=== PATIENT | male | born 1955 | race Caucasian/White ===

== ENCOUNTER 2017-11-05 13:13 | Inpatient (IN) | payer OTHER ==
[2017-11-05] MEDS ORDERED: methylPREDNISolone SOD SUCCI 125 MG/2 ML VIAL IV STA (13:55)
[2017-11-05 14:17] LABS: ALT 60 U/L (21-72); AST 46 U/L (17-59); Albumin 3.9 g/dL (3.5-5.0); Alkaline Phosphatase 81 U/L (38-126); Anion Gap 11 mmol/L; Basophils % (A) 0 %; Blood Urea Nitrogen 18 mg/dL (9-20); Calcium 9.7 mg/dL (8.4-10.2); Carbon Dioxide 27 mmol/L (22-30); Chloride 104 mmol/L (98-107); Eosinophils # (A) 0.1 k/uL (0-0.7); Eosinophils % (A) 1 %; Glucose 94 mg/dL (74-99); HCT 49.5 % (39.0-53.0); HGB 16.8 gm/dL (13.0-17.5); Lymphocytes # (A) 1.4 k/uL (1.0-4.8); Lymphocytes % (A) 17 %; MCH 31.6 pg (25.0-35.0); MCHC 33.9 g/dL (31.0-37.0); MCV 93.2 fL (80.0-100.0); Mean Platelet Volume 7.1; Monocytes # (A) 0.6 k/uL (0-1.0); Monocytes % (A) 7 %; Neutrophils % (A) 73 %; Platelet Count 235 k/uL (150-450); RBC 5.31 m/uL (4.30-5.90); Sodium 142 mmol/L (137-145); Total Bilirubin 1.5 mg/dL (0.2-1.3); Total Protein 6.9 g/dL (6.3-8.2); WBC 8.2 k/uL (3.8-10.6)
[2017-11-05 14:19] LABS: Potassium 5.9 mmol/L (3.5-5.1)
--- NOTE | 2017-11-05 14:29 | XR ---
EXAMINATION TYPE: XR chest 2V DATE OF EXAM: 11/05/2017 COMPARISON: NONE HISTORY: Difficulty breathing and shortness of breath TECHNIQUE: Frontal and lateral views of the chest are obtained. FINDINGS: There is no focal air space opacity, pleural effusion, or pneumothorax seen. The cardiac silhouette size is enlarged. There are overlying cardiac leads. Question some mild prominence of int erstitium. The osseous structures are intact. IMPRESSION: Cardiomegaly, there may be a component of pulmonary venous hypertension and early inters titial edema. Follow-up recommended as indicated.
[2017-11-05 14:39] LABS: Partial Thromboplastin Time 22.3 sec (22.0-30.0)
[2017-11-05 14:41] LABS: INR 1.2 (<1.2); Prothrombin Time 11.3 sec (9.0-12.0)
[2017-11-05 14:48] LABS: Creatine Kinase MB 5.6 ng/mL (0.0-2.4)
[2017-11-05 14:53] LABS: Troponin I 0.061 ng/mL (0.000-0.034)
[2017-11-05] MEDS ORDERED: SODIUM POLYSTYRENE SULFONATE 15 GM/60 ML BOTTLE PO STA (17:17)
[2017-11-05] MEDS ORDERED: FUROSEMIDE 10 MG/ML 4 ML VIAL IV STA (17:18)
--- NOTE | 2017-11-05 17:19 | ED ---
General Adult HPI - General Chief complaint: Shortness of Breath Stated complaint: sent by [facility] concerns Time Seen by Provider: 11/05/17 13:45 Source: patient Mode of arrival: wheelchair Limitations: no limitations - History of Present Illness Initial comments: 62 years old gentleman and numb he vague historian complaining about the left feeling well complaining about the shortness of breath complaining about swelling of the ankles him a he seen Dr. cote and prior, he had a chance to talk to Dr. hartmann a chest pain yesterday and today is denying any chest pain he has a shortness of breath he said it's chronic he denies any pleuritic chest pain he said he does not hurt when he takes a deep breath Dr. cote did some blood work in his office troponin is elevated he had a cardiomegaly with did the same we saw the same findings here his chest x-ray is positive for cardiomegaly and consistent with the heart failure BNP is also pointing towards heart failure is 4560 is denying other otherwise review of system is unremarkable - Related Data Home Medications Medication Instructions Recorded Confirmed Aspirin 81 mg PO DAILY 11/05/17 11/05/17 Furosemide [Lasix] 20 mg PO DAILY 11/05/17 11/05/17 Ipratropium-Albuterol Nebulize 3 ml INHALATION RT-Q6H PRN 11/05/17 11/05/17 [Duoneb 0.5 mg-3 mg/3 ml Soln] Lisinopril [Prinivil] 5 mg PO DAILY 11/05/17 11/05/17 Allergies Allergy/AdvReac Type Severity Reaction Status Date / Time No Known Allergies Allergy Verified 11/05/17 14:04 Review of Systems ROS Statement: Those systems with pertinent positive or pertinent negative responses have been documented in the HPI. ROS Other: All systems not noted in ROS Statement are negative. Past Medical History Past Medical History: No Reported History History of Any Multi-Drug Resistant Organisms: None Reported Past Surgical History: No Surgical Hx Reported Past Psychological History: No Psychological Hx Reported Smoking Status: Current every day smoker Past Alcohol Use History: Daily Past Drug Use History: None Reported General Exam - General Exam Comments Initial Comments: General: The patient is awake and alert, in no distress, and does not appear acutely ill. Pale and tired Skin: Skin is warm and dry and no rashes or lesions are noted. Eye: Pupils are equal, round and reactive to light, extra-ocular movements are intact; there is normal conjunctiva bilaterally. Ears, nose, mouth and throat: There are moist mucous membranes and no oral lesions. Neck: The neck is supple, there is no tenderness Cardiovascular: There is a regular rate and rhythm. No murmur, rub or gallop is appreciated. Respiratory: To auscultation bilateral, noticed crackles bilaterally at the bases Gastrointestinal: Soft, non-distended, non-tender abdomen without masses or organomegaly noted. There is no rebound or guarding present. Bowel sounds are unremarkable. Back: There is no tenderness to palpation in the midline. There is no obvious deformity. Musculoskeletal: Normal ROM, no tenderness, There is no pedal edema. There is no calf tenderness or swelling. No cords were appreciated. Neurological: CN II-XII intact, Cranial nerves III through XII are intact. There are no obvious motor or sensory deficits. Coordination appears grossly intact. Speech is normal. Psychiatric: Cooperative, appropriate mood & affect, normal judgment. Limitations: no limitations Course Vital Signs 11/05/17 11/05/17 11/05/17 13:40 13:46 13:47 Pulse Rate 106 H Respiratory 20 20 Rate Blood Pressure 125/89 O2 Sat by Pulse 83 L 94 L Oximetry 11/05/17 11/05/17 14:20 15:36 Pulse Rate 103 H 100 Respiratory 20 18 Rate Blood Pressure 137/84 137/84 O2 Sat by Pulse 94 L 95 Oximetry Patient is reassessed, CBC is unremarkable INR is unremarkable potassium is 5.9 given some Kayexalate we also will give her some Lasix Is elevated 0.061 BNP is 4560 chest x-ray is compatible with congestive heart failure EKG Findings - EKG Comments: EKG Findings:: EKG is sinus tachycardia heart rate is 108, AR interval is 154 QRS duration is 126 QT/QTc 356/477 findings in lead 3 and 4 then look like initially has ST segment elevation the patient has no chest pain then noticed some ST depression in V2 and more so in V4 V5 and V6 Medical Decision Making - Lab Data Result diagrams: 11/05/17 13:54 11/05/17 13:54 Lab Results 11/05/17 11/05/17 11/05/17 Range/Units 13:54 13:54 13:54 WBC 8.2 (3.8-10.6) k/uL RBC 5.31 (4.30-5.90) m/uL Hgb 16.8 (13.0-17.5) gm/dL Hct 49.5 (39.0-53.0) % MCV 93.2 (80.0-100.0) fL MCH 31.6 (25.0-35.0) pg MCHC 33.9 (31.0-37.0) g/dL RDW 14.0 (11.5-15.5) % Plt Count 235 (150-450) k/uL Neutrophils % 73 % Lymphocytes % 17 % Monocytes % 7 % Eosinophils % 1 % Basophils % 0 % Neutrophils # 6.0 (1.3-7.7) k/uL Lymphocytes # 1.4 (1.0-4.8) k/uL Monocytes # 0.6 (0-1.0) k/uL Eosinophils # 0.1 (0-0.7) k/uL Basophils # 0.0 (0-0.2) k/uL PT (9.0-12.0) sec INR (<1.2) APTT (22.0-30.0) sec Sodium 142 (137-145) mmol/L Potassium 5.9 H (3.5-5.1) mmol/L Chloride 104 (98-107) mmol/L Carbon Dioxide 27 (22-30) mmol/L Anion Gap 11 mmol/L BUN 18 (9-20) mg/dL Creatinine 0.98 (0.66-1.25) mg/dL Est GFR (CKD-EPI)AfAm >90 (>60 ml/min/1.73 sqM) Est GFR (CKD-EPI)NonAf 84 (>60 ml/min/1.73 sqM) Glucose 94 (74-99) mg/dL Calcium 9.7 (8.4-10.2) mg/dL Total Bilirubin 1.5 H (0.2-1.3) mg/dL AST 46 (17-59) U/L ALT 60 (21-72) U/L Alkaline Phosphatase 81 (38-126) U/L Total Creatine Kinase 149 (55-170) U/L CK-MB (CK-2) 5.6 H* (0.0-2.4) ng/mL CK-MB (CK-2) Rel Index 3.8 Troponin I 0.061 H* (0.000-0.034) ng/mL NT-Pro-B Natriuret Pep pg/mL Total Protein 6.9 (6.3-8.2) g/dL Albumin 3.9 (3.5-5.0) g/dL 11/05/17 11/05/17 Range/Units 13:54 13:54 WBC (3.8-10.6) k/uL RBC (4.30-5.90) m/uL Hgb (13.0-17.5) gm/dL Hct (39.0-53.0) % MCV (80.0-100.0) fL MCH (25.0-35.0) pg MCHC (31.0-37.0) g/dL RDW (11.5-15.5) % Plt Count (150-450) k/uL Neutrophils % % Lymphocytes % % Monocytes % % Eosinophils % % Basophils % % Neutrophils # (1.3-7.7) k/uL Lymphocytes # (1.0-4.8) k/uL Monocytes # (0-1.0) k/uL Eosinophils # (0-0.7) k/uL Basophils # (0-0.2) k/uL PT 11.3 (9.0-12.0) sec INR 1.2 H (<1.2) APTT 22.3 (22.0-30.0) sec Sodium (137-145) mmol/L Potassium (3.5-5.1) mmol/L Chloride (98-107) mmol/L Carbon Dioxide (22-30) mmol/L Anion Gap mmol/L BUN (9-20) mg/dL Creatinine (0.66-1.25) mg/dL Est GFR (CKD-EPI)AfAm (>60 ml/min/1.73 sqM) Est GFR (CKD-EPI)NonAf (>60 ml/min/1.73 sqM) Glucose (74-99) mg/dL Calcium (8.4-10.2) mg/dL Total Bilirubin (0.2-1.3) mg/dL AST (17-59) U/L ALT (21-72) U/L Alkaline Phosphatase (38-126) U/L Total Creatine Kinase (55-170) U/L CK-MB (CK-2) (0.0-2.4) ng/mL CK-MB (CK-2) Rel Index Troponin I (0.000-0.034) ng/mL NT-Pro-B Natriuret Pep 4560 pg/mL Total Protein (6.3-8.2) g/dL Albumin (3.5-5.0) g/dL Critical Care Time Total Critical Care Time: 45 Critical Care Time: Considering his elevated troponin and require and heparinize him and considering his congestive heart failure and hyperkalemia he would need IV Lasix as well as Kayexalate and he'll be seeing cardiology Disposition Clinical Impression: Elevated troponin, Hypoxia, Congestive heart failure Disposition: ADMITTED IP TO THIS HOSP Condition: Good Referrals: Danny Couch MD [Primary Care Provider] - 1-2 days
[2017-11-05] MEDS ORDERED: NITROGLYCERIN SL TABS 0.4 MG TAB SUBLINGUAL PRN (17:44)
[2017-11-05] MEDS ORDERED: HEPARIN SODIUM,PORCINE 5,000 UNIT/ML 1 ML VIAL IV ONE (17:44)
[2017-11-05] MEDS ORDERED: MORPHINE SULFATE 4 MG/ML SYRINGE IV PRN (17:44)
[2017-11-05] MEDS ORDERED: HEPARIN SOD,PORK IN 0.45% NACL 25,000 UNIT in 0.45% NACL 1 500ML.BAG IV SCH (17:45)
[2017-11-05 21:21] LABS: Creatine Kinase MB 4.5 ng/mL (0.0-2.4); Troponin I 0.053 ng/mL (0.000-0.034)
[2017-11-05] MEDS: ATORVASTATIN 40 MG TAB PO SCH (22:17)
[2017-11-06 01:57] LABS: Creatine Kinase MB 2.9 ng/mL (0.0-2.4); Troponin I 0.057 ng/mL (0.000-0.034)
[2017-11-06] MEDS ORDERED: HEPARIN SODIUM,PORCINE 5,000 UNIT/ML 1 ML VIAL IV ONE (03:22)
[2017-11-06] MEDS: IPRATROPIUM-ALBUTEROL 3 ML NEB INHALATION PRN ×2 (07:59→13:38)
[2017-11-06] MEDS ORDERED: SODIUM CHLORIDE 0.9% 1,000 ML in EMPTY BAG 1 BAG IV ONE (08:41)
[2017-11-06] MEDS ORDERED: ALPRAZolam 0.5 MG TAB PO PRN (08:41)
[2017-11-06] MEDS ORDERED: ASPIRIN 325 MG TAB PO STA (08:41)
[2017-11-06] MEDS ORDERED: ATORVASTATIN 80 MG TAB PO STA (08:41)
[2017-11-06] MEDS ORDERED: ALPRAZolam 0.25 MG TAB PO PRN (08:41)
[2017-11-06] MEDS ORDERED: NITROGLYCERIN SL TABS 0.4 MG TAB SUBLINGUAL PRN (08:41)
[2017-11-06] MEDS ORDERED: FUROSEMIDE 20 MG TAB PO SCH (09:00)
[2017-11-06] MEDS: LIDOCAINE 5% PATCH TOPICAL SCH ×2 (09:04→21:28)
[2017-11-06] MEDS: LISINOPRIL 5 MG TAB PO SCH (09:07)
[2017-11-06] MEDS: ASPIRIN 325 MG TAB PO SCH (09:08)
[2017-11-06] MEDS: METOPROLOL SUCCINATE (ER) 25 MG TAB.ER.24H PO SCH (09:10)
--- NOTE | 2017-11-06 10:44 | CONS ---
CONSULTATION CHIEF COMPLAINT: Shortness of breath. This is a 62-year-old gentleman with history of COPD and hypertension who presented to Dr. Couch with symptoms of shortness of breath and leg edema and underwent workup and apparently had an abnormal chest x-ray was told that he had fluid around his heart and was asked to get admitted to the hospital. He denies any chest pain, but has had mild to moderate exertional shortness of breath for the last several weeks. He also has mild bilateral leg edema. He denies paroxysmal nocturnal dyspnea or orthopnea. He denies prior history of cardiomyopathy, congestive heart failure or coronary artery disease. At the time of my evaluation, he appears comfortable at rest and is free of symptoms. His echocardiogram shows severe LV dysfunction. EKG shows evidence of prior inferior wall myocardial infarction. I reviewed his information and advised him to undergo cardiac catheterization to evaluate his coronary anatomy because of his symptoms, EKG changes and the elevated troponins. His BNP is also elevated. His potassium is elevated at 5.9, but the creatinine is normal. I am going to cath him once the potassium level normalizes. PAST MEDICAL HISTORY: Past medical history is significant for COPD. CURRENT MEDICATIONS: Current medications include DuoNeb, Prinivil 5 mg daily, Lasix 20 q. daily and aspirin. ALLERGIES: There are no known drug allergies. FAMILY HISTORY: Family history is negative for premature coronary artery disease. SOCIAL HISTORY: Social history is significant for smoking and EtOH abuse. There is no history of drug abuse. REVIEW OF SYSTEMS: HEENT is unremarkable. CARDIAC: As described above. RESPIRATORY: As described above. GI: Negative. GENITOURINARY: Negative. ALLERGY/IMMUNOLOGY: Negative. SKIN: Negative. MUSCULOSKELETAL: Significant for arthritis. PSYCHOSOCIAL: Negative. ENDOCRINE: Negative. HEMATOLOGICAL: Negative. DERM: Negative. CONSTITUTIONAL: Negative. ONCOLOGICAL: Negative. Rest of the system review is not relevant. PHYSICAL EXAM: On exam, patient is afebrile. Heart rate is 90 beats per minute, blood pressure is 114/70, respiratory rate is 18. Chest exam reveals diminished air entry at the bases. Heart exam reveals first and second heart sounds. No gallop. Abdomen is soft. Examination of extremities reveals bilateral 1+ pitting edema. LABS: Labs show that the hemoglobin is 16.8, platelet count is 235. Tropes are mildly elevated at 0.06, 0.05, 0.05. BNP is elevated at 4560. Creatinine is normal. Potassium is high at 5.9. Hemoglobin is 16.8. ASSESSMENT: 1. Acute non ST-segment elevation myocardial infarction. 2. Acute onset systolic heart failure. PLAN: I will treat the patient with intravenous diuretics. Continue the KIERA inhibitors, beta blockers. Obtain electrolytes this morning. If the potassium level is normal, then we can go ahead and do the catheter today. If not, I will give him Kayexalate and do a heart catheterization tomorrow. KEVINL / IJN: [id number] /
[2017-11-06 10:57] LABS: Anion Gap 16 mmol/L; Blood Urea Nitrogen 20 mg/dL (9-20); Calcium 9.5 mg/dL (8.4-10.2); Carbon Dioxide 22 mmol/L (22-30); Chloride 104 mmol/L (98-107); Glucose 110 mg/dL (74-99); Potassium 3.9 mmol/L (3.5-5.1); Sodium 142 mmol/L (137-145)
[2017-11-06 11:18] LABS: Cholesterol 157 mg/dL (<200); HDL Cholesterol 36 mg/dL (40-60); LDL Cholesterol,Calculated 101 mg/dL (0-99); Triglycerides 99 mg/dL (<150)
[2017-11-06] MEDS ORDERED: SODIUM CHLORIDE 0.9% 1,000 ML IV ONE (11:28)
[2017-11-06] MEDS: MIDAZOLAM 2 MG/2 ML VIAL IV ONE ×3 (11:42→12:10)
[2017-11-06] MEDS ORDERED: LIDOCAINE 2% INJ 20 MG/ML SQ ONE (11:44)
[2017-11-06] MEDS ORDERED: FUROSEMIDE 10 MG/ML 4 ML VIAL IV ONE (12:10)
[2017-11-06] MEDS ORDERED: RX INFO: IV CONTRAST WAS GIVEN 1 EACH MISC MISCELLANE PRN (12:15)
[2017-11-06] MEDS ORDERED: IOHEXOL 350 MG/ML 125ML BOTTLE INJ ONE (12:18)
--- NOTE | 2017-11-06 12:19 | ECHOF ---
Referral Reason:CHEST PAIN MEASUREMENTS -------- HEIGHT: 180.3 cm WEIGHT: 106.1 kg BP: IVSd: 0.9 cm (0.6 - 1.1) LVIDd: 5.2 cm (3.9 - 5.3) LVPWd: 1.0 cm (0.6 - 1.1) IVSs: 1.2 cm LVIDs: 5.1 cm LVPWs: 0.7 cm Ao Diam: 3.5 cm (2.0 - 3.7) AV Cusp: 2.3 cm (1.5 - 2.6) LA Diam: 3.9 cm (2.7 - 3.8) MV EXCURSION: 15.857 mm (> 18.000) MV EF SLOPE: 57 mm/s (70 - 150) EPSS: 1.5 cm MV E Pineda: 0.97 m/s MV DecT: 104 ms MV A Pineda: 0.90 m/s MV E/A Ratio: 1.08 RAP: 5.00 mmHg RVSP: 9.56 mmHg FINDINGS -------- Sinus rhythm. This was a technically difficult study with suboptimal views. The left ventricular size is normal. Left ventricular wall thickness is normal. There is severe g lobal hypokinesis of LV . Overall left ventricular systolic function is severely impaired with, an EF between 20 - 25 %. The right ventricle is normal in size and function. The left atrium is normal in size. The right atrium is normal in size. Lumason used The aortic valve is trileaflet, and appears structurally normal. No aortic stenosis or regurgitation. There is trace mitral regurgitation. Trace tricuspid regurgitation present. The right ventricular systolic pressure, as measured by Dopp ler, is 9.56mmHg. Pulmonic valve appears structurally normal. The aortic root, ascending aorta and aortic arch are normal. The pericardium is normal. CONCLUSIONS -------- 1. Sinus rhythm. 2. This was a technically difficult study with suboptimal views. 3. The left ventricular size is normal. 4. Left ventricular wall thickness is normal. 5. There is severe global hypokinesis of LV . 6. Overall left ventricular systolic function is severely impaired with, an EF between 20 - 25 %. 7. The right ventricle is normal in size and function. 8. The left atrium is normal in size. 9. The right atrium is normal in size. 10. Lumason used 11. The aortic valve is trileaflet, and appears structurally normal. No aortic stenosis or regurgitat ion. 12. There is trace mitral regurgitation. 13. Trace tricuspid regurgitation present. 14. The right ventricular systolic pressure, as measured by Doppler, is 9.56mmHg. 15. Pulmonic valve appears structurally normal. 16. The aortic root, ascending aorta and aortic arch are normal. 17. The pericardium is normal. [employer]ACH[employer]: Elicia Juarez RDCS
--- NOTE | 2017-11-06 12:22 | P.HPIM ---
History of Present Illness H&P Date: 11/06/17 Chief Complaint: chest pain 62-year-old male who presented to the emergency room after he was evaluated by his primary care physician, Dr. Couch, on an outpatient basis. Patient reports he saw his PCP on Saturday for a follow up for shortness of breath. The patient was recently diagnosed with tracheobronchitis and was prescribed Levaquin, prednisone, and DuoNeb treatments. His shortness of breath persisted. Patient also reported cough with positive sputum production. The patient's oxygen saturation was 93% on room air. The patient ambulated around the office and his oxygen saturations remained greater than 92%. A chest x-ray was completed at the office revealing cardiomegaly. The patient also reported bilateral lower extremity edema and an episode of chest pain on Saturday. An EKG was completed revealing old inferior and anterior wall MIs. A troponin was completed at the office and came back at 0.08. The patient was started on aspirin 81 mg daily, Lasix 20 mg daily, and lisinopril 5 mg daily at that time. He was not started on a beta keeley at that time as his heart rate was in the low 60s at Dr. Couch's office. The patient was advised to come to the emergency room for further evaluation. The patient has a history of chronic obstructive pulmonary disease. He reports smoking approximately 6 cigarettes per day. He also admits to the drinking 2-3 alcoholic beverages per day. Chest x-ray 11/05/2017: Cardiomegaly. There may be a component of pulmonary venous hypertension and early interstitial edema. Laboratory data: WBC 8.2. Hemoglobin 16.8. Platelet count 235. Sodium 142. Potassium 5.9. BUN 18. Creatinine 0.98. GFR 84. Glucose 94. BNP: 4560 Troponins: 0.061, 0.053, 0.057 Lipid panel: Triglycerides 99. Total cholesterol 157. LDL 101. HDL 36. The patient was admitted to the hospital under the care of Dr. Couch. Consultations were placed to cardiology. Review of Systems GENERAL: Patient denies fever. Denies chills. EYES: Positive for decreased vision bilaterally. Denies blurred vision. Denies vision changes. Denies eye pain. EARS, NOSE, MOUTH, & THROAT: Denies headache. Denies sore throat. Denies ear pain. RESPIRATORY: Positive for recent shortness of breath with sputum production. Patient denies shortness of breath at this time. Denies hemoptysis. CARDIOVASCULAR: Positive for episode of chest pain on Saturday. Currently denies chest pain. Denies palpitations. Denies arrhythmias. GASTROINTESTINAL: Denies abdominal pain. Denies diarrhea. Denies constipation. Denies nausea. Denies vomiting. Denies heartburn. Denies blood in the stool. GENITOURINARY: Denies urinary frequency. Denies burning. Denies dysuria. Denies cloudy urine. Denies blood in the urine. MUSCULOSKELETAL: Denies myalgias. Denies joint swelling. Denies decreased range of motion beyond patients baseline. INTEGUMENTARY: Positive for bilateral lower extremity edema. Denies pruitis. Denies rash. PSYCHIATRIC: Denies suicidal or homicial ideations. ENDOCRINE: Denies weight change. Denies polydipsia. Denies polyuria. HEMATOLOGIC: Denies bleeding disorders. Past Medical History Past Medical History: Pneumonia Additional Past Medical History / Comment(s): PT STATED APPROX 2.5 WEEKS AGO ( HE HAD A FEW BEERS IN HIM) AND HE HAD SEIZURE LIKE ACTIVITY.STATED HE PUT HIS 'S O2 ON AND HE FELT BETTER" History of Any Multi-Drug Resistant Organisms: None Reported Past Surgical History: No Surgical Hx Reported Past Anesthesia/Blood Transfusion Reactions: No Reported Reaction Smoking Status: Current every day smoker - Past Family History Mother History Unknown: Yes Father History Unknown: Yes Medications and Allergies Home Medications Medication Instructions Recorded Confirmed Type Aspirin 81 mg PO DAILY 11/05/17 11/05/17 History Furosemide [Lasix] 20 mg PO DAILY 11/05/17 11/05/17 History Ipratropium-Albuterol Nebulize 3 ml INHALATION RT-Q6H PRN 11/05/17 11/05/17 History [Duoneb 0.5 mg-3 mg/3 ml Soln] Lisinopril [Prinivil] 5 mg PO DAILY 11/05/17 11/05/17 History Allergies Allergy/AdvReac Type Severity Reaction Status Date / Time No Known Allergies Allergy Verified 11/05/17 14:04 Physical Exam Vitals: Vital Signs Temp Pulse Pulse Pulse Resp BP BP 11/06/17 11:12 97.4 F L 94 22 117/79 11/06/17 09:34 97 F L 101 H 18 119/73 11/06/17 08:08 92 11/06/17 08:01 92 11/06/17 04:00 97.1 F L 92 20 114/70 11/05/17 23:55 97.2 F L 78 20 122/59 11/05/17 20:00 97.4 F L 98 98 21 129/67 11/05/17 18:30 97.6 F 11/05/17 18:22 102 H 20 153/104 11/05/17 15:36 100 18 137/84 11/05/17 14:20 103 H 20 137/84 11/05/17 13:47 20 11/05/17 13:46 11/05/17 13:40 106 H 20 125/89 Pulse Ox 11/06/17 11:12 96 11/06/17 09:34 94 L 11/06/17 08:08 11/06/17 08:01 11/06/17 04:00 97 11/05/17 23:55 98 11/05/17 20:00 97 11/05/17 18:30 11/05/17 18:22 98 11/05/17 15:36 95 11/05/17 14:20 94 L 11/05/17 13:47 11/05/17 13:46 94 L 11/05/17 13:40 83 L Intake and Output 11/05/17 11/06/17 11/06/17 22:59 06:59 14:59 Intake Total 177.755 180 Output Total 300 600 Balance -300 177.755 -420 Intake: Intake, IV Titration 177.755 Amount Heparin Sod,Pork in 0.45% 177.755 NaCl 25,000 unit In 0.45 % NaCl 1 500ml.bag @ 9.43 UNITS/KG/HR 20.01 mls/hr IV .Q24H [facility] Rx#: [id number] Oral 180 Output: Urine 300 600 Other: # Bowel Movements 1 Weight 106.141 kg 103.9 kg GENERAL: This is a 62-year-old male in no apparent distress at the time of examination. Pleasant and cooperative. HEENT: Head is atraumatic, normocephalic. Pupils are equal, round, and reactive to light. Sclerae anicteric. Conjunctivae are clear. Mucus membranes of the mouth are moist. Neck is supple. RESPIRATORY: Clear to ausculation. No wheezes, rales, or rhonchi. No use of accessory muscles. Patient maintaining oxygen saturation greater than 92%. No chest wall tenderness is noted on palpation or with deep breathing. CARDIOVASCULAR: Regular rate and rhythm. S1 and S2 noted. No systolic or diastolic murmur auscultated. No JVD noted. No S3 or S4 noted. Right carotid bruit auscultated. GASTROINTESTINAL: No distention noted. Abdomen soft and round. Normal active bowel sounds auscultated x 4 quadrants. No pain or tenderness noted upon palpation. INTEGUMENTARY: No cyanosis. No jaundice. No rashes noted. No cellulitis noted. EXTREMITIES: 2+ peripheral pulses. 1+ bilateral lower extremity edema. No calf tenderness noted. NEUROLOGIC: Cranial nerves II-XII intact. PSYCHIATRIC: Awake, alert, and oriented X 3. Appropriate affect. Intact judgement and insight. Results CBC & Chem 7: 11/05/17 13:54 11/06/17 09:55 Labs: Abnormal Lab Results - Last 24 Hours (Table) 11/05/17 11/05/17 11/05/17 Range/Units 13:54 13:54 13:54 INR 1.2 H (<1.2) Potassium 5.9 H (3.5-5.1) mmol/L Glucose (74-99) mg/dL Total Bilirubin 1.5 H (0.2-1.3) mg/dL CK-MB (CK-2) 5.6 H* (0.0-2.4) ng/mL Troponin I 0.061 H* (0.000-0.034) ng/mL LDL Cholesterol, Calc (0-99) mg/dL HDL Cholesterol (40-60) mg/dL 11/05/17 11/06/17 11/06/17 Range/Units 20:18 01:10 09:55 INR (<1.2) Potassium (3.5-5.1) mmol/L Glucose (74-99) mg/dL Total Bilirubin (0.2-1.3) mg/dL CK-MB (CK-2) 4.5 H* 2.9 H* (0.0-2.4) ng/mL Troponin I 0.053 H* 0.057 H* (0.000-0.034) ng/mL LDL Cholesterol, Calc 101 H (0-99) mg/dL HDL Cholesterol 36 L (40-60) mg/dL 11/06/17 Range/Units 09:55 INR (<1.2) Potassium (3.5-5.1) mmol/L Glucose 110 H (74-99) mg/dL Total Bilirubin (0.2-1.3) mg/dL CK-MB (CK-2) (0.0-2.4) ng/mL Troponin I (0.000-0.034) ng/mL LDL Cholesterol, Calc (0-99) mg/dL HDL Cholesterol (40-60) mg/dL Thrombosis Risk Factor Assmnt - Choose All That Apply Any of the Below Risk Factors Present?: Yes Each Factor Represents 1 point: Obesity (BMI >25) Other Risk Factors: Yes Each Risk Factor Represents 2 Points: Age 61-74 years Other congenital or acquired thrombophilia - If yes, enter type in comment: No Thrombosis Risk Factor Assessment Total Risk Factor Score: 3 Thrombosis Risk Factor Assessment Level: Moderate Risk Assessment and Plan Plan: ASSESSMENT: Acute non-ST elevated myocardial infarction, troponins 0.061, 0.053, 0.057 Acute onset of systolic congestive heart failure, echo pending, BNP 4,560 Chronic obstructive pulmonary disease, no evidence of acute exacerbation Recent diagnosis of tracheobronchitis, treated with Levaquin and prednisone outpatient Nicotine dependence, patient is a current cigarette smoker Daily alcohol use Obesity: BMI 33.8 Hyperkalemia, resolved PLAN: Cardiology on consult. Appreciate recommendations and input Patient scheduled for cardiac catheterization today Continue Lasix 40 mg IV every 12 hours Await results of echocardiogram Obtain carotid Doppler Home meds as appropriate Monitor labs GI prophylaxis: Protonix 40 mg PO Daily DVT prophylaxis: Venodyne's to bilateral lower extremities Monitor vital signs and address as appropriate Discharge planning: Patient to return home when stable Further recommendations pending patient's course Nurse practitioner note has been reviewed by physician. Signing provider agrees with the documented findings, assessment, and plan of care.
[2017-11-06] MEDS ORDERED: MD COMMUNICATION TO PHARMACY 1 EACH MISC PO ONE (12:31)
--- NOTE | 2017-11-06 12:35 | CC ---
CARDIAC CATHETERIZATION REPORT INDICATION: A 62-year-old gentleman who was admitted to hospital with new onset congestive heart failure and had mild troponin elevation. An EKG showed evidence of prior inferior wall myocardial infarction. Echocardiogram showed ischemic cardiomyopathy. Due to this, I advised him to undergo cardiac catheterization. The patient had been explained of risks, benefits and alternatives. Patient received moderate conscious sedation and total sedation time was 18 minutes. PROCEDURE NOTE: After obtaining informed consent, left heart catheterization, coronary angiogram are performed via the right femoral artery using standard Adela catheters. Patient tolerated the procedure well without any obvious immediate complications. FINDINGS: 1. HEMODYNAMICS: Left ventricular end-diastolic pressure is 32 mm. There is no significant gradient across the aortic valve. 2. LEFT VENTRICULOGRAM. Left ventriculogram is not performed. 3. ANGIOGRAPHIC DATA: 4. LEFT MAIN CORONARY ARTERY: Left main coronary artery is a normal-sized vessel and is free of stenosis. Divides into left anterior descending coronary artery and circumflex coronary artery. LAD shows a focal area of 90% stenosis in the proximal part. Circumflex coronary artery is a large codominant system and shows mild diffuse disease and an area of 70% to 80% stenosis with extensive collaterals to the right coronary artery. 1. Right coronary artery is totally occluded in its proximal part. CONCLUSION: 1. Severe 3-vessel coronary artery disease. 2. Ischemic cardiomyopathy with severe left ventricular dysfunction. 3. Elevated left ventricular end-diastolic pressure. PLAN: I am going to review the angiographic data with the on-call subscription clerk and we might also consider surgical opinion on him. [id number] / IJN: [id number] /
[2017-11-06] MEDS ORDERED: SODIUM CHLORIDE 0.9% 1,000 ML IV SCH (13:00)
[2017-11-06 13:26] LABS: Basophils % (A) 0 %; Eosinophils # (A) 0.1 k/uL (0-0.7); Eosinophils % (A) 0 %; HCT 50.2 % (39.0-53.0); HGB 15.4 gm/dL (13.0-17.5); Lymphocytes # (A) 1.1 k/uL (1.0-4.8); Lymphocytes % (A) 8 %; MCH 29.5 pg (25.0-35.0); MCHC 30.7 g/dL (31.0-37.0); MCV 95.9 fL (80.0-100.0); Mean Platelet Volume 8.4; Monocytes % (A) 7 %; Neutrophils # (A) 11.9 k/uL (1.3-7.7); Neutrophils % (A) 84 %; Platelet Count 212 k/uL (150-450); RBC 5.23 m/uL (4.30-5.90); WBC 14.2 k/uL (3.8-10.6)
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
[2017-11-06] MEDS ORDERED: MORPHINE ORAL SOLN 10 MG/5 ML CUP PO PRN (15:31)
--- NOTE | 2017-11-06 15:47 | P.GSCN ---
<Gibran Squires - Last Filed: 11/06/17 15:22> History of Present Illness Consult date: 11/06/17 Reason for Consult: Superior triple-vessel coronary artery disease, ischemic cardiomyopathy with severe left ventricular dysfunction, evaluation for myocardial revascularization. Requesting physician: Jerry Brody History of present illness: This is 62-year-old gentleman who does not follow with a primary care physician on a regular basis. He presented to Dr. Couch's office for a routine physical exam and complaints of shortness of breath prompted to go by his brother. Recently, the patient has had complaints of progressive shortness of breath, episodes of left arm pain and numbness and swelling to his legs. He reports that he has been sharing his 's oxygen at home due to his complaints of shortness of breath. He has a history of COPD, and hypertension. He is a current every day smoker, smoking 2 packs of cigarettes per day. He also reports that he is drinking about 6-8 tall boy beers per day. He denies any complaints of fever, chills, dizziness, nausea or vomiting. During his visit to his primary care's office a chest x-ray was completed and the patient was subsequent restarted on Levaquin, prednisone taper and DuoNeb treatment. A 12- lead EKG was also completed revealing an old inferior and anterior wall myocardial infarction. Subsequently due to his physical exam findings, presenting symptoms and results of his above-mentioned studies he was prompted to go to the emergency department for further evaluation and treatment. He was evaluated by Dr. Brody from [facility] and subsequently underwent a 2 -D echocardiogram which showed an overall left ventricular systolic function to be severely impaired with an ejection fraction between 20 and 25%, trace mitral valve regurgitation, and trace mitral valve regurgitation. His laboratory results during his ER visit showed a WBC count of 8.2, Hgb of 16.8, potassium level of 5.9, BUN 18, creatinine 0.98, and a troponin level of 0.061. For further evaluation the patient was recommended to undergo a cardiac catheterization which demonstrated 90% stenosis of his proximal left anterior descending coronary artery, a 70-80% stenosis to his circumflex coronary artery with some collaterals to the right coronary artery and a totally occluded right coronary artery. Due to the patient's presenting symptoms, 2-D echocardiogram and cardiac catheterization results a consult was placed to Dr. Michael Stanton from cardiothoracic surgery to evaluate the patient for possible myocardial revascularization. Review of Systems A 14 point review systems was completed and was negative except as mentioned in HPI. Past Medical History Past Medical History: Hypertension, Myocardial Infarction ([place]), Pneumonia Additional Past Medical History / Comment(s): PT STATED APPROX 2.5 WEEKS AGO ( HE HAD A FEW BEERS IN HIM) AND HE HAD PAIN AND NUMBNESS TO HIS LEFT ARM. STATED HE PUT HIS 'S O2 ON AND HE FELT BETTER" History of Any Multi-Drug Resistant Organisms: None Reported Past Surgical History: No Surgical Hx Reported Past Anesthesia/Blood Transfusion Reactions: No Reported Reaction Past Psychological History: No Psychological Hx Reported Smoking Status: Current every day smoker (Smokes 2 packs a day.) Past Alcohol Use History: Heavy (Drinks 6-8 tall boy beers per day.) Past Drug Use History: None Reported - Past Family History Mother History Unknown: Yes Additional Family Medical History / Comment(s): Unknown medical history Father History Unknown: Yes Additional Family Medical History / Comment(s): Unknown medical history, the patient reports that his father left home when he was at age 12. Brother(s) Family Medical History: Coronary Artery Disease (CAD), Myocardial Infarction ([place] ) Additional Family Medical History / Comment(s): History of myocardial infarction and coronary artery bypass grafting surgery at age 46. Medications and Allergies Home Medications Medication Instructions Recorded Confirmed Type Aspirin 81 mg PO DAILY 11/05/17 11/05/17 History Furosemide [Lasix] 20 mg PO DAILY 11/05/17 11/05/17 History Ipratropium-Albuterol Nebulize 3 ml INHALATION RT-Q6H PRN 11/05/17 11/05/17 History [Duoneb 0.5 mg-3 mg/3 ml Soln] Lisinopril [Prinivil] 5 mg PO DAILY 11/05/17 11/05/17 History Allergies Allergy/AdvReac Type Severity Reaction Status Date / Time No Known Allergies Allergy Verified 11/05/17 14:04 Surgical - Exam Vital Signs Pulse Resp BP Pulse Ox 106 H 20 125/89 83 L 11/05/17 13:40 11/05/17 13:40 11/05/17 13:40 11/05/17 13:40 - General Disheveled no distress, no pain, chronically ill - Eyes PERRL, normal ocular movement - ENT normal pinna, normal nares, normal mucosa, no hearing loss, no congestion, dentures - Neck Bilateral JVD, no lymphadenopathy, no thyroidomegaly. no masses, no bruits, trachea midline, no venous distension - Respiratory normal expansion, normal respiratory effort, clear to percussion, clear to auscultation - Cardiovascular S1 and S2 present, negative for S3, gallop or murmur. Regular rhythm and rate. +1 edema to his bilateral lower extremity [place]. Peripheral pulses palpable. - Abdomen Abdomen is soft, nontender and nondistended. Active bowel sounds all 4 abdominal quadrants. No organomegaly. No guarding or rigidity. - Integumentary no rash, no growths, no abnormal pigmentation - Neurologic normal coordination, normal sensation - Musculoskeletal normal gait, normal posture - Psychiatric oriented to time, oriented to person, oriented to place, speech is normal, memory intact Results - Labs 11/06/17 09:55 11/06/17 09:55 Abnormal Lab Results - Last 24 Hours (Table) 11/05/17 11/06/17 11/06/17 Range/Units 20:18 01:10 09:55 WBC (3.8-10.6) k/uL MCHC (31.0-37.0) g/dL Neutrophils # (1.3-7.7) k/uL Glucose (74-99) mg/dL CK-MB (CK-2) 4.5 H* 2.9 H* (0.0-2.4) ng/mL Troponin I 0.053 H* 0.057 H* (0.000-0.034) ng/mL LDL Cholesterol, Calc 101 H (0-99) mg/dL HDL Cholesterol 36 L (40-60) mg/dL 11/06/17 11/06/17 Range/Units 09:55 09:55 WBC 14.2 H (3.8-10.6) k/uL MCHC 30.7 L (31.0-37.0) g/dL Neutrophils # 11.9 H (1.3-7.7) k/uL Glucose 110 H (74-99) mg/dL CK-MB (CK-2) (0.0-2.4) ng/mL Troponin I (0.000-0.034) ng/mL LDL Cholesterol, Calc (0-99) mg/dL HDL Cholesterol (40-60) mg/dL Diabetes panel 11/06/17 11/06/17 Range/Units 09:55 09:55 Sodium 142 (137-145) mmol/L Potassium 3.9 (3.5-5.1) mmol/L Chloride 104 (98-107) mmol/L Carbon Dioxide 22 (22-30) mmol/L BUN 20 (9-20) mg/dL Creatinine 0.93 (0.66-1.25) mg/dL Glucose 110 H (74-99) mg/dL Calcium 9.5 (8.4-10.2) mg/dL Triglycerides 99 (<150) mg/dL HDL Cholesterol 36 L (40-60) mg/dL Thyroid panel 11/06/17 Range/Units 09:55 TSH 0.576 (0.465-4.680) mIU/L Calcium panel 11/06/17 Range/Units 09:55 Calcium 9.5 (8.4-10.2) mg/dL Pituitary panel 11/06/17 11/06/17 Range/Units 09:55 09:55 Sodium 142 (137-145) mmol/L Potassium 3.9 (3.5-5.1) mmol/L Chloride 104 (98-107) mmol/L Carbon Dioxide 22 (22-30) mmol/L BUN 20 (9-20) mg/dL Creatinine 0.93 (0.66-1.25) mg/dL Glucose 110 H (74-99) mg/dL Calcium 9.5 (8.4-10.2) mg/dL TSH 0.576 (0.465-4.680) mIU/L Adrenal panel 11/06/17 Range/Units 09:55 Sodium 142 (137-145) mmol/L Potassium 3.9 (3.5-5.1) mmol/L Chloride 104 (98-107) mmol/L Carbon Dioxide 22 (22-30) mmol/L BUN 20 (9-20) mg/dL Creatinine 0.93 (0.66-1.25) mg/dL Glucose 110 H (74-99) mg/dL Calcium 9.5 (8.4-10.2) mg/dL - Imaging Comments: 2-D echocardiogram and cardiac catheterization films reviewed by Dr. Stanton. Chest x-ray: report reviewed, image reviewed Assessment and Plan (1) Shortness of breath on exertion Current Visit: Yes Status: Acute Code(s): R06.02 - SHORTNESS OF BREATH SNOMED Code(s): 79920181 (2) Coronary artery disease Current Visit: Yes Status: Acute Code(s): I25.10 - ATHSCL HEART DISEASE OF [place] CORONARY ARTERY W/O ANG PCTRS SNOMED Code(s): 15866788 (3) Hypertension Current Visit: Yes Status: Acute Code(s): I10 - ESSENTIAL (PRIMARY) HYPERTENSION SNOMED Code(s): 42231344 (4) COPD (chronic obstructive pulmonary disease) Current Visit: Yes Status: Acute Code(s): J44.9 - CHRONIC OBSTRUCTIVE PULMONARY DISEASE, UNSPECIFIED SNOMED Code(s): 79829976 (5) Acute non-ST segment elevation myocardial infarction Current Visit: Yes Status: Acute Code(s): I21.4 - NON-ST ELEVATION (NSTEMI) MYOCARDIAL INFARCTION SNOMED Code(s): 071426202 (6) Ischemic cardiomyopathy Current Visit: Yes Status: Acute Code(s): I25.5 - ISCHEMIC CARDIOMYOPATHY SNOMED Code(s): 374237366 (7) Congestive heart failure Current Visit: Yes Status: Acute Code(s): I50.9 - HEART FAILURE, UNSPECIFIED SNOMED Code(s): 24307107 (8) Elevated troponin Current Visit: Yes Status: Acute Code(s): R74.8 - ABNORMAL LEVELS OF OTHER SERUM ENZYMES SNOMED Code(s): 065538409 Plan: The patient was seen and examined. His chart diagnostics were reviewed. The patient was seen and examined by Dr. Stanton. His cardiac catheterization and 2- D echocardiogram results were reviewed with the patient by Dr. Stanton. Preoperative teaching initiated. Preoperative testing initiated, we will obtain vein mapping, carotid duplex study, and FEV1 study. Continue to maximize medical therapy, continue aspirin, statin, FREDERICK inhibitor and beta keeley. Pulmonary management per Dr. Simon. Once the preoperative testing has been obtained a more definitive plan will be discussed with the patient. The importance of smoking cessation was discussed with the patient. Thank you Dr. Rubio was for this consult and we'll look for to working with you in the care of your patient. Time with Patient: Greater than 30 <Michael Stanton - Last Filed: 11/08/17 17:17> Surgical - Exam Vital Signs Pulse Resp BP Pulse Ox 106 H 20 125/89 83 L 11/05/17 13:40 11/05/17 13:40 11/05/17 13:40 11/05/17 13:40 Results - Labs 11/08/17 11:53 11/08/17 06:04 Abnormal Lab Results - Last 24 Hours (Table) 11/07/17 11/08/17 11/08/17 Range/Units 11:31 06:04 06:04 WBC 11.3 H (3.8-10.6) k/uL Hgb 17.6 H (13.0-17.5) gm/dL Hct (39.0-53.0) % Neutrophils # 7.9 H (1.3-7.7) k/uL PT (9.0-12.0) sec INR (<1.2) APTT (22.0-30.0) sec Potassium 3.4 L (3.5-5.1) mmol/L Glucose 114 H (74-99) mg/dL POC Glucose (mg/dL) (75-99) mg/dL Phosphorus 4.8 H (2.5-4.5) mg/dL Total Bilirubin 1.4 H (0.2-1.3) mg/dL Crossmatch See Detail 11/08/17 11/08/17 11/08/17 Range/Units 11:52 11:53 11:53 WBC 11.4 H (3.8-10.6) k/uL Hgb 17.9 H (13.0-17.5) gm/dL Hct 53.7 H (39.0-53.0) % Neutrophils # 8.6 H (1.3-7.7) k/uL PT 12.6 H (9.0-12.0) sec INR 1.3 H (<1.2) APTT 76.9 H (22.0-30.0) sec Potassium (3.5-5.1) mmol/L Glucose (74-99) mg/dL POC Glucose (mg/dL) 121 H (75-99) mg/dL Phosphorus (2.5-4.5) mg/dL Total Bilirubin (0.2-1.3) mg/dL Crossmatch Microbiology - Last 24 Hours (Table) 11/06/17 15:50 Nasal Screen MRSA/MSSA (JIGAR) - Final Nasal Swab 11/06/17 16:00 Urine Culture - Final Urine,Clean Catch Diabetes panel 11/08/17 Range/Units 06:04 Sodium 138 (137-145) mmol/L Potassium 3.4 L (3.5-5.1) mmol/L Chloride 99 (98-107) mmol/L Carbon Dioxide 28 (22-30) mmol/L BUN 18 (9-20) mg/dL Creatinine 1.00 (0.66-1.25) mg/dL Glucose 114 H (74-99) mg/dL Calcium 9.5 (8.4-10.2) mg/dL AST 35 (17-59) U/L ALT 61 (21-72) U/L Alkaline Phosphatase 69 (38-126) U/L Total Protein 6.7 (6.3-8.2) g/dL Albumin 3.8 (3.5-5.0) g/dL Calcium panel 11/08/17 Range/Units 06:04 Calcium 9.5 (8.4-10.2) mg/dL Phosphorus 4.8 H (2.5-4.5) mg/dL Albumin 3.8 (3.5-5.0) g/dL Pituitary panel 11/08/17 Range/Units 06:04 Sodium 138 (137-145) mmol/L Potassium 3.4 L (3.5-5.1) mmol/L Chloride 99 (98-107) mmol/L Carbon Dioxide 28 (22-30) mmol/L BUN 18 (9-20) mg/dL Creatinine 1.00 (0.66-1.25) mg/dL Glucose 114 H (74-99) mg/dL Calcium 9.5 (8.4-10.2) mg/dL Adrenal panel 11/08/17 Range/Units 06:04 Sodium 138 (137-145) mmol/L Potassium 3.4 L (3.5-5.1) mmol/L Chloride 99 (98-107) mmol/L Carbon Dioxide 28 (22-30) mmol/L BUN 18 (9-20) mg/dL Creatinine 1.00 (0.66-1.25) mg/dL Glucose 114 H (74-99) mg/dL Calcium 9.5 (8.4-10.2) mg/dL Total Bilirubin 1.4 H (0.2-1.3) mg/dL AST 35 (17-59) U/L ALT 61 (21-72) U/L Alkaline Phosphatase 69 (38-126) U/L Total Protein 6.7 (6.3-8.2) g/dL Albumin 3.8 (3.5-5.0) g/dL Assessment and Plan Plan: The patient was seen and examined. A history and physical findings were verified. I agree with the above assessment and plan. The patient is a 62-year -old male who normally does not seek medical care who reports worsening shortness of breath with activity along with upper extremity pain. Cardiac catheterization was performed which revealed multivessel coronary artery disease. Echocardiogram reveals mild mitral valve regurgitation and an ejection fraction of about 20%. A coronary artery bypass is recommended. The risks, benefits, and alternatives to this procedure were discussed with the patient. All his questions were answered. We will initiate our standard preoperative workup to determine his risk of surgery. Of note the patient is an every day drinker and smoker. We will plan on performing his procedure during this admission. Thank you for allowing me to participate in the care of this patient. Should you have any further questions please feel free to contact me at your earliest convenience.
[2017-11-06 16:26] LABS: Appearance,Urine Clear (Clear); Bilirubin,Urine Negative (Negative); Blood,Urine Negative (Negative); Color,Urine Light Yellow; Glucose,Urine (UA) Negative (Negative); Ketones,Urine Negative (Negative); Leukocyte Esterase,Urine Negative (Negative); Nitrite,Urine Negative (Negative); Protein,Urine Negative (Negative); Specific Gravity,Urine 1.015 (1.001-1.035); Urobilinogen,Urine <2.0 mg/dL (<2.0)
[2017-11-06 20:17] LABS: Hepatitis A Antibody IgM Non-Reactive (Non-Reactive); Hepatitis B Core IgM Non-Reactive (Non-Reactive)
[2017-11-06] MEDS: FUROSEMIDE 10 MG/ML 4 ML VIAL IV SCH (20:17)
[2017-11-06] MEDS: ATORVASTATIN 40 MG TAB PO SCH (20:20)
--- NOTE | 2017-11-06 21:46 | US ---
EXAMINATION TYPE: US carotid duplex BILAT DATE OF EXAM: 11/06/2017 COMPARISON: NONE CLINICAL HISTORY: carotid bruit. Chest pain bruit. EXAM MEASUREMENTS: RIGHT: Peak Systolic Velocity (PSV) cm/sec ----- Right CCA: 59.9 ----- Right ICA: 54.9 ----- Right ECA: 100.8 ICA/CCA ratio: 0.9 RIGHT: End Diastole cm/sec ----- Right CCA: 20.7 ----- Right ICA: 20.0 ----- Right ECA: 23.2 LEFT: Peak Systolic Velocity (PSV) cm/sec ----- Left CCA: 63.1 ----- Left ICA: 70.8 ----- Left ECA: 69.1 ICA/CCA ratio: 1.1 LEFT: End Diastole cm/sec ----- Left CCA: 19.9 ----- Left ICA: 21.5 ----- Left ECA: 20.8 VERTEBRALS (direction of flow): Right Vertebral: Antegrade Left Vertebral: Antegrade Rhythm: Normal Bilateral plaque in bulbs and ICA. IMPRESSION: There is antegrade flow in the vertebral arteries. The images and measurements suggest 1 5-25% stenosis in both internal carotid arteries. Criteria for Assigning % of Stenosis / Diameter reduction (Estimation based on the indirect measurements of the internal carotid artery velocities (ICA PSV). 1. Normal (no stenosis)=ICA PSV < 125 cm/s: ratio < 2.0: ICA EDV<40 cm/s. 2. Less than 50% stenosis=ICA PSV < 125 cm/s: ratio < 2.0: ICA EDV<40 cm/s. 3. 50 to 69% stenosis=ICA PSV of 125 to 230 cm/s: ration 2.0 ? 4.0: ICA EDV 40-100 cm/s. 4. Greater than 70% stenosis to near occlusion= ICA PSV > 230 cm/s: ratio > 4.0: ICA EDV > 100 cm/s. 5. Near occlusion= ICA PSV velocities may be low or undetectable: variable ratio and ICA EDV. 6. Total occlusion=unable to detect flow.
[2017-11-06 23:10] LABS: Hemoglobin A1C 5.7 % (4.0-6.0)
[2017-11-07] MEDS: MUPIROCIN 2% OINT 22 GM TUBE NASAL SCH ×3 (01:34→20:44)
[2017-11-07] MEDS: PANTOPRAZOLE 40 MG TABLET PO SCH (06:16)
[2017-11-07 07:42] LABS: Basophils % (A) 0 %; Eosinophils # (A) 0.1 k/uL (0-0.7); Eosinophils % (A) 1 %; HCT 53.6 % (39.0-53.0); HGB 16.6 gm/dL (13.0-17.5); Lymphocytes # (A) 2.3 k/uL (1.0-4.8); Lymphocytes % (A) 20 %; MCH 29.7 pg (25.0-35.0); MCV 95.9 fL (80.0-100.0); Mean Platelet Volume 9.3; Monocytes % (A) 8 %; Neutrophils % (A) 69 %; Platelet Count 205 k/uL (150-450); RBC 5.59 m/uL (4.30-5.90); RDW 14.1 % (11.5-15.5); WBC 11.5 k/uL (3.8-10.6)
--- NOTE | 2017-11-07 08:44 | P.PN ---
Subjective Progress Note Date: 11/07/17 Principal diagnosis: Acute systolic heart failure, acute myocardial infarction, pulmonary edema related to above, diffuse coronary artery disease, baseline COPD and recent tracheobronchitis 11/07/2017, patient seen and evaluated examined during the rounds is still short of breath has intermittent dry nonproductive cough but severity has improved he has been on breathing treatment he has been on deep breathing exercises incentive spirometry as well, patient will undergo preop spirometry later on today, patient has been evaluated by cardiothoracic surgery operative workup is in progress 62-year-old male who appears older then the stated age he has not been feeling well for the last several weeks has been going on has been having ongoing shortness of breath and cough he was treated with oral antibiotics breathing treatments and prednisone her outpatient basis without significant relief. Patient also has a history of on-call consumption almost on a daily basis usually consume 2-3 cans of beer daily. patient recently was evaluated in primary care office found to have a elevated troponin and abnormal EKG was sent over here for further evaluation patient continued to complain of cough congestion and shortness of breath has occasional intermittent vague chest pain as well, overall patient is a poor historian not much data can be obtained from him, on arrival to emergency department he was found to have very high BNP of over 4000 and troponin were consistently elevated cardiovascular services following at the time of evaluation patient is a about to undergo an echocardiogram as well, later on findings are reviewed his ejection fraction only 20-25%, diffuse coronary artery disease was noted as well on emergent cath and angiogram, LAD shows 90% stenosis in proximal part, 70-80% stenosis noted in circumflex, right coronary artery is totally occluded in proximal part given patient has diffuse triple-vessel coronary artery disease ischemic cardiomyopathy patient is likely evaluated by cardiothoracic surgery Objective - Vital Signs Vital signs: Vital Signs Temp 97.6 F 11/07/17 04:00 Pulse 96 11/07/17 04:00 Resp 16 11/07/17 04:00 BP 128/94 11/07/17 04:00 Pulse Ox 93 L 11/07/17 04:00 Intake & Output 11/06/17 11/07/17 11/07/17 18:59 06:59 18:59 Intake Total 470 Output Total 1750 550 Balance -1280 -550 Weight 99.5 kg Intake: IV 50 Oral 420 Output: Urine 1750 550 Other: # Voids 2 - Exam GENERAL: This is a 62-year-old male in no apparent distress at the time of examination. Pleasant and cooperative. HEENT: Head is atraumatic, normocephalic. Pupils are equal, round, and reactive to light. Sclerae anicteric. Conjunctivae are clear. Mucus membranes of the mouth are moist. Neck is supple. RESPIRATORY: Clear to ausculation. No wheezes, rales, or rhonchi. No use of accessory muscles. Patient maintaining oxygen saturation greater than 92%. No chest wall tenderness is noted on palpation or with deep breathing. On coughing some bronchial breath sounds and scattered wheezing noted CARDIOVASCULAR: Regular rate and rhythm. S1 and S2 noted. No systolic or diastolic murmur auscultated. No JVD noted. No S3 or S4 noted. Right carotid bruit auscultated. GASTROINTESTINAL: No distention noted. Abdomen soft and round. Normal active bowel sounds auscultated x 4 quadrants. No pain or tenderness noted upon palpation. INTEGUMENTARY: No cyanosis. No jaundice. No rashes noted. No cellulitis noted. EXTREMITIES: 2+ peripheral pulses. 1+ bilateral lower extremity edema. No calf tenderness noted. NEUROLOGIC: Cranial nerves II-XII intact. Overall neurological examination is within normal limit, no tremors or shakiness however otherwise noted PSYCHIATRIC: Awake, alert, and oriented X 3. Appropriate affect. Intact judgement and insight. - Labs CBC & Chem 7: 11/07/17 07:13 11/06/17 09:55 Labs: Abnormal Lab Results - Last 24 Hours (Table) 11/06/17 11/06/17 11/06/17 Range/Units 09:55 09:55 09:55 WBC 14.2 H (3.8-10.6) k/uL Hct (39.0-53.0) % MCHC 30.7 L (31.0-37.0) g/dL Neutrophils # 11.9 H (1.3-7.7) k/uL Glucose 110 H (74-99) mg/dL LDL Cholesterol, Calc 101 H (0-99) mg/dL HDL Cholesterol 36 L (40-60) mg/dL 11/07/17 Range/Units 07:13 WBC 11.5 H (3.8-10.6) k/uL Hct 53.6 H (39.0-53.0) % MCHC (31.0-37.0) g/dL Neutrophils # 8.0 H (1.3-7.7) k/uL Glucose (74-99) mg/dL LDL Cholesterol, Calc (0-99) mg/dL HDL Cholesterol (40-60) mg/dL Microbiology - Last 24 Hours (Table) 11/06/17 16:00 Urine Culture - Preliminary Urine,Clean Catch 11/06/17 15:50 Nasal Screen MRSA/MSSA ([facility]) - Preliminary Nasal Swab Assessment and Plan Assessment: Acute non-ST segment elevated RI Severe degree of ischemic cardiomyopathy with acute systolic heart failure Diffuse triple-vessel coronary artery disease with ejection fraction only 20% Likely severe COPD with chronic bronchitis History of fall wall comes exertion and abuse Plan: Optimize cardiac therapy as planned Breathing treatment with nebulizer as tolerated Gentle diuresis DVT and peptic ulcer disease prophylaxis Afterload reducing agent and preload reduction with KIERA inhibitor's and diuretics Will arrange a pulmonary function testing as well, further recommendations pending plan of care as per clinical response of the patient Patient is undergoing workup for coronary artery bypass surgery Time with Patient: Greater than 30
[2017-11-07] MEDS: IPRATROPIUM-ALBUTEROL 3 ML NEB INHALATION PRN ×3 (08:46→19:38)
[2017-11-07] MEDS: ASPIRIN 325 MG TAB PO SCH (09:40)
[2017-11-07] MEDS: FUROSEMIDE 10 MG/ML 4 ML VIAL IV SCH ×2 (09:41→20:43)
[2017-11-07] MEDS: METOPROLOL SUCCINATE (ER) 25 MG TAB.ER.24H PO SCH (09:41)
[2017-11-07] MEDS: LISINOPRIL 5 MG TAB PO SCH (09:41)
[2017-11-07] MEDS ORDERED: LORazepam 2 MG/ML INJ IV PRN (11:51)
[2017-11-07 11:59] LABS: Calcium 10.1 mg/dL (8.4-10.2); Magnesium 2.1 mg/dL (1.6-2.3); Potassium 3.7 mmol/L (3.5-5.1); Total Bilirubin 1.4 mg/dL (0.2-1.3); Total Protein 7.2 g/dL (6.3-8.2)
--- NOTE | 2017-11-07 12:05 | P.PN ---
Subjective Progress Note Date: 11/07/17 Principal diagnosis: Severe triple-vessel coronary artery disease, ischemic cardiomyopathy with severe left ventricular systolic dysfunction with an ejection fraction of 20%, hypertension, COPD, current nicotine abuse, EtOH abuse, acute non-ST segment elevated myocardial infarction this admission, The patient is sitting up to the edge of his bed. He is in no acute distress. He denies any complaints of pain or shortness of breath at this time. He is currently on 3 L nasal cannula with oxygen saturation 92%. Bedside FEV1 completed with pre-and post bronchodilators. Pre-bronchodilators was 70% of predicted and post was 74% of predicted. Objective - Vital Signs Vital signs: Vital Signs Temp 97.7 F 11/07/17 08:00 Pulse 97 11/07/17 08:00 Resp 20 11/07/17 08:00 BP 115/73 11/07/17 08:00 Pulse Ox 92 L 11/07/17 08:00 Intake & Output 11/06/17 11/07/17 11/07/17 18:59 06:59 18:59 Intake Total 470 180 Output Total 1750 550 Balance -1280 -550 180 Weight 99.5 kg Intake: IV 50 Oral 420 180 Output: Urine 1750 550 Other: # Voids 2 - Constitutional General appearance: Present: cooperative, no acute distress, obese - EENT ENT: Present: hearing grossly normal - Neck Details: Bilateral JVD present, no supple, no lymphadenopathy. - Respiratory Details: Essentially clear throughout, diminished to his bilateral bases. Respirations are symmetrical and nonlabored. Oxygen saturation are 92% on 3 L nasal cannula. He is achieving 2500 mL on his incentive spirometry. - Cardiovascular Details: Regular rhythm and rate. S1 and S2 present, negative for S3, gallop or murmur. Remote telemetry showing normal sinus rhythm heart rate 91. +1 edema to his bilateral lower extremities. Knee-high SCDs in place to his bilateral lower extremities. - Gastrointestinal Gastrointestinal Comment(s): Abdomen is soft, nontender nondistended. Active bowel sounds all 4 abdominal quadrants. Tolerating oral intake. No guarding or rigidity. No organomegaly. - Genitourinary Genitourinary Comment(s): Adequate urine output. Voiding clear yellow urine. 550 mL output in the last 8 hours. - Integumentary Integumentary Comment(s): Skin is warm and dry. Face is flushed. No clubbing or cyanosis present. - Neurologic Neurologic: Present: CNII-XII intact - Musculoskeletal Musculoskeletal: Present: gait normal, strength equal bilaterally - Psychiatric Psychiatric: Present: A&O x's 3, appropriate affect, intact judgment & insight - Allied health notes Allied health notes reviewed: nursing - Labs CBC & Chem 7: 11/07/17 07:13 11/06/17 09:55 Labs: Abnormal Lab Results - Last 24 Hours (Table) 11/06/17 11/07/17 Range/Units 09:55 07:13 WBC 14.2 H 11.5 H (3.8-10.6) k/uL Hct 53.6 H (39.0-53.0) % MCHC 30.7 L (31.0-37.0) g/dL Neutrophils # 11.9 H 8.0 H (1.3-7.7) k/uL Microbiology - Last 24 Hours (Table) 11/06/17 16:00 Urine Culture - Preliminary Urine,Clean Catch 11/06/17 15:50 Nasal Screen MRSA/MSSA ([facility]IGAR) - Preliminary Nasal Swab - Imaging and Cardiology Chest x-ray: report reviewed, image reviewed Assessment and Plan (1) Shortness of breath on exertion Current Visit: Yes Status: Acute Code(s): R06.02 - SHORTNESS OF BREATH SNOMED Code(s): 62147912 (2) Coronary artery disease Current Visit: Yes Status: Acute Code(s): I25.10 - ATHSCL HEART DISEASE OF [place] CORONARY ARTERY W/O ANG PCTRS SNOMED Code(s): 34681603 (3) Hypertension Current Visit: Yes Status: Acute Code(s): I10 - ESSENTIAL (PRIMARY) HYPERTENSION SNOMED Code(s): 12752401 (4) COPD (chronic obstructive pulmonary disease) Current Visit: Yes Status: Acute Code(s): J44.9 - CHRONIC OBSTRUCTIVE PULMONARY DISEASE, UNSPECIFIED SNOMED Code(s): 16816518 (5) Acute non-ST segment elevation myocardial infarction Current Visit: Yes Status: Acute Code(s): I21.4 - NON-ST ELEVATION (NSTEMI) MYOCARDIAL INFARCTION SNOMED Code(s): 324593578 (6) Ischemic cardiomyopathy Current Visit: Yes Status: Acute Code(s): I25.5 - ISCHEMIC CARDIOMYOPATHY SNOMED Code(s): 557950933 (7) Congestive heart failure Current Visit: Yes Status: Acute Code(s): I50.9 - HEART FAILURE, UNSPECIFIED SNOMED Code(s): 26004667 (8) Elevated troponin Current Visit: Yes Status: Acute Code(s): R74.8 - ABNORMAL LEVELS OF OTHER SERUM ENZYMES SNOMED Code(s): 018502369 Plan: 1. Continue to maximize medical therapy, continue aspirin, statin, KIERA inhibitor and beta keeley. 2. Dr. Simon for pulmonary recommendations. Bedside FEV1 completed. 3. Continue education on smoking cessation. 4. Encourage use of his incentive spirometry every hour while awake. 5. Continue preoperative education. 6. STS risk or calculated and discussed with patient by Dr. Bullard. 7. Continue Folic acid and thiamine, primary care service to manage alcohol withdrawal symptoms. 8. The patient will be scheduled for myocardial revascularization surgery to be performed by Dr. Lee Bullard on 11/09/2017. Time with Patient: Greater than 30
[2017-11-07] MEDS: FOLIC ACID 1 MG TAB PO SCH (12:19)
[2017-11-07] MEDS: THIAMINE 100 MG TAB PO SCH (12:19)
--- NOTE | 2017-11-07 12:22 | P.PN ---
Subjective Progress Note Date: 11/07/17 6 is a 62-year-old gentleman who presented to his primary care doctor' s office with symptoms of progressively worsening shortness of breath with associated peripheral edema. Patient does have history of hypertension, nicotine dependence, severe drinks a significant amount of alcohol. According to the patient, the symptoms have been progressively worsening over the past month or more area echocardiogram with Doppler study was performed on arrival here which revealed a severely impaired LV function, for this reason patient was advised to undergo cardiac catheterization. Cardiac cath was performed yesterday by Dr. Brody which revealed severe three-vessel coronary artery disease, ischemic cardiomyopathy with severe left ventricular dysfunction and elevated left ventricular end-diastolic pressure. Cardiothoracic surgery was consulted to see the patient, bypass surgery will be scheduled on Saturday. Patient was seen and examined this morning, denies any chest pain or difficulty in breathing. He does appear slightly anxious and shaky, he is concerned because he states he does drink a significant amount of alcohol at home. Blood pressure 124/88, heart rate in the 80s, 95% on 3 L of oxygen. White blood cell count 11.5, hemoglobin 16.6, sodium 142, potassium 3.2, BUN 21, creatinine 1.1. Patient is currently on aspirin, Lipitor 40, metoprolol any 5 mg daily, lisinopril 5 mg daily, and IV heparin drip. Objective - Vital Signs Vital signs: Vital Signs Temp 96.7 F L 11/07/17 11:59 Pulse 85 11/07/17 11:59 Resp 20 11/07/17 11:59 BP 125/89 11/07/17 11:59 Pulse Ox 95 11/07/17 11:59 Intake & Output 11/06/17 11/07/17 11/07/17 18:59 06:59 18:59 Intake Total 470 180 Output Total 0513 604 0688 Balance -1280 -550 -1020 Weight 99.5 kg Intake: IV 50 Oral 420 180 Output: Urine 2206 943 7627 Other: # Voids 2 - Exam PHYSICAL EXAMINATION: HEENT: Head is atraumatic, normocephalic. Pupils equal, round. Neck is supple. There is no elevated jugular venous pressure. HEART EXAMINATION: Heart S1, S2 normal. No murmur or gallop heard. CHEST EXAMINATION: Lungs are clear with fine rales to the bases . ABDOMEN: Soft, nontender. Bowel sounds are heard. No organomegaly noted. Right groin soft, no evidence of any hematoma. EXTREMITIES: 2+ peripheral pulses with no evidence of peripheral edema and no calf tenderness noted. NEUROLOGIC patient is awake, alert and oriented -3. . - Labs CBC & Chem 7: 11/07/17 07:13 11/06/17 09:55 Labs: Abnormal Lab Results - Last 24 Hours (Table) 11/06/17 11/07/17 Range/Units 09:55 07:13 WBC 14.2 H 11.5 H (3.8-10.6) k/uL Hct 53.6 H (39.0-53.0) % MCHC 30.7 L (31.0-37.0) g/dL Neutrophils # 11.9 H 8.0 H (1.3-7.7) k/uL Microbiology - Last 24 Hours (Table) 11/06/17 16:00 Urine Culture - Preliminary Urine,Clean Catch 11/06/17 15:50 Nasal Screen MRSA/MSSA ([facility]IGAR) - Preliminary Nasal Swab Assessment and Plan Plan: Assessment and plan #1 non-ST elevation NC, status post cardiac catheterization which revealed severe triple-vessel coronary artery disease, patient scheduled for coronary artery bypass grafting surgery on Saturday #2 cardiomyopathy with severe LV dysfunction #3 nicotine dependence #4 hypertension #5 EtOH use Plan Patient is scheduled to undergo coronary artery bypass grafting surgery on Saturday, we will continue to follow the patient closely. [facility] protocol is also been put in place because of the patient's history of significant EtOH use. DNP note has been reviewed, I agree with a documented findings and plan of care. Patient was seen and examined.
--- NOTE | 2017-11-07 13:07 | P.PN ---
Subjective Progress Note Date: 11/07/17 62-year-old male who presented to the emergency room after he was evaluated by his primary care physician, Dr. Couch, on an outpatient basis. Patient reports he saw his PCP on Saturday for a follow up for shortness of breath. The patient was recently diagnosed with tracheobronchitis and was prescribed Levaquin, prednisone, and DuoNeb treatments. His shortness of breath persisted. Patient also reported cough with positive sputum production. The patient's oxygen saturation was 93% on room air. The patient ambulated around the office and his oxygen saturations remained greater than 92%. A chest x-ray was completed at the office revealing cardiomegaly. The patient also reported bilateral lower extremity edema and an episode of chest pain on Saturday. An EKG was completed revealing old inferior and anterior wall MIs. A troponin was completed at the office and came back at 0.08. The patient was started on aspirin 81 mg daily, Lasix 20 mg daily, and lisinopril 5 mg daily at that time. He was not started on a beta keeley at that time as his heart rate was in the low 60s at Dr. Couch's office. The patient was advised to come to the emergency room for further evaluation. The patient has a history of chronic obstructive pulmonary disease. He reports smoking approximately 6 cigarettes per day. He also admits to the drinking 2-3 alcoholic beverages per day, which he states the amount has decreased and reports he used to drink heavier. Chest x-ray 11/05/2017: Cardiomegaly. There may be a component of pulmonary venous hypertension and early interstitial edema. Laboratory data: WBC 8.2. Hemoglobin 16.8. Platelet count 235. Sodium 142. Potassium 5.9. BUN 18. Creatinine 0.98. GFR 84. Glucose 94. BNP: 4560 Troponins: 0.061, 0.053, 0.057 Lipid panel: Triglycerides 99. Total cholesterol 157. LDL 101. HDL 36. The patient was admitted to the hospital under the care of Dr. Couch. Consultations were placed to cardiology. 11/07/2017 Patient evaluated this morning on rounds with Dr. Couch. Patient is awake and alert. Denies chest pain or pressure. Denies shortness of breath. The patient underwent cardiac catheterization yesterday revealing 90% stenosis of proximal LAD, 70-80% stenosis of circumflex artery, and totally occluded right coronary artery. cardiothoracic surgery has been consulted and evaluated the patient. The patient is scheduled for an off pump CABG on Saturday. Pre-operative testing is currently underway. Echocardiogram completed reveals severe global hypokinesis of the left ventricle, ejection fraction of 20-25%, trace mitral regurgitation, and trace tricuspid regurgitation. Carotid ultrasound was completed revealing 15-25% stenosis in both internal carotid arteries. The patient denies pain or discomfort. He is anxious regarding his upcoming surgery and concerned about his . He states she is 75 years old and has severe COPD and he has been her provider at home and has been caring for her. Objective - Vital Signs Vital signs: Vital Signs Temp 97.7 F 11/07/17 08:00 Pulse 97 11/07/17 08:00 Resp 20 11/07/17 08:00 BP 115/73 11/07/17 08:00 Pulse Ox 92 L 11/07/17 08:00 Intake & Output 11/06/17 11/07/17 11/07/17 18:59 06:59 18:59 Intake Total 470 180 Output Total 1750 550 Balance -1280 -550 180 Weight 99.5 kg Intake: IV 50 Oral 420 180 Output: Urine 1750 550 Other: # Voids 2 - Exam GENERAL: This is a 62-year-old male in no apparent distress at the time of examination. Pleasant and cooperative. HEENT: Head is atraumatic, normocephalic. Pupils are equal, round, and reactive to light. Sclerae anicteric. Conjunctivae are clear. Mucus membranes of the mouth are moist. Neck is supple. RESPIRATORY: Clear to ausculation. No wheezes, rales, or rhonchi. No use of accessory muscles. Patient maintaining oxygen saturation greater than 92%. No chest wall tenderness is noted on palpation or with deep breathing. CARDIOVASCULAR: Regular rate and rhythm. S1 and S2 noted. No systolic or diastolic murmur auscultated. No JVD noted. No S3 or S4 noted. Right carotid bruit auscultated. GASTROINTESTINAL: No distention noted. Abdomen soft and round. Normal active bowel sounds auscultated x 4 quadrants. No pain or tenderness noted upon palpation. INTEGUMENTARY: No cyanosis. No jaundice. No rashes noted. No cellulitis noted. EXTREMITIES: 2+ peripheral pulses. 1+ bilateral lower extremity edema. No calf tenderness noted. NEUROLOGIC: Cranial nerves II-XII intact. PSYCHIATRIC: Awake, alert, and oriented X 3. Appropriate affect. Appears anxious. Intact judgement and insight. - Labs CBC & Chem 7: 11/07/17 07:13 11/07/17 09:39 Labs: Abnormal Lab Results - Last 24 Hours (Table) 11/06/17 11/07/17 Range/Units 09:55 07:13 WBC 14.2 H 11.5 H (3.8-10.6) k/uL Hct 53.6 H (39.0-53.0) % MCHC 30.7 L (31.0-37.0) g/dL Neutrophils # 11.9 H 8.0 H (1.3-7.7) k/uL Microbiology - Last 24 Hours (Table) 11/06/17 16:00 Urine Culture - Preliminary Urine,Clean Catch 11/06/17 15:50 Nasal Screen MRSA/MSSA (JIGAR) - Preliminary Nasal Swab Assessment and Plan Plan: ASSESSMENT: Acute non-ST elevated myocardial infarction, troponins 0.061, 0.053, 0.057 s/p cardiac catherization revealing severe triple vessel disease Acute onset of systolic congestive heart failure, EF 20-25%, BNP 4,560 Chronic obstructive pulmonary disease, no evidence of acute exacerbation Recent diagnosis of tracheobronchitis, treated with Levaquin and prednisone outpatient Nicotine dependence, patient is a current cigarette smoker Daily alcohol use Obesity: BMI 33.8 Hyperkalemia, resolved PLAN: Cardiology on consult. Appreciate recommendations and input Continue lasix 40mg IV q12 hours per cardiology Patient scheduled for CABG on Saturday Initiate CIWA protocol Thiamine and Folic acid have been ordered per cardiothoracic surgery Home meds as appropriate Monitor labs GI prophylaxis: Protonix 40 mg PO Daily DVT prophylaxis: Venodyne's to bilateral lower extremities Monitor vital signs and address as appropriate Further recommendations pending patient's course Nurse practitioner note has been reviewed by physician. Signing provider agrees with the documented findings, assessment, and plan of care.
[2017-11-07] MEDS: ATORVASTATIN 40 MG TAB PO SCH (20:43)
[2017-11-07] MEDS: LIDOCAINE 5% PATCH TOPICAL SCH (22:20)
[2017-11-08] MEDS: PANTOPRAZOLE 40 MG TABLET PO SCH (06:34)
[2017-11-08 06:43] LABS: Basophils # (A) 0.1 k/uL (0-0.2); Basophils % (A) 0 %; Eosinophils # (A) 0.2 k/uL (0-0.7); Eosinophils % (A) 1 %; HCT 52.9 % (39.0-53.0); HGB 17.6 gm/dL (13.0-17.5); Lymphocytes # (A) 2.2 k/uL (1.0-4.8); Lymphocytes % (A) 19 %; MCH 31.5 pg (25.0-35.0); MCHC 33.3 g/dL (31.0-37.0); MCV 94.5 fL (80.0-100.0); Monocytes # (A) 0.8 k/uL (0-1.0); Monocytes % (A) 8 %; Neutrophils # (A) 7.9 k/uL (1.3-7.7); Neutrophils % (A) 70 %; Platelet Count 219 k/uL (150-450); RBC 5.59 m/uL (4.30-5.90); RDW 13.9 % (11.5-15.5); WBC 11.3 k/uL (3.8-10.6)
[2017-11-08 06:58] LABS: ALT 61 U/L (21-72); AST 35 U/L (17-59); Albumin 3.8 g/dL (3.5-5.0); Alkaline Phosphatase 69 U/L (38-126); Anion Gap 11 mmol/L; Blood Urea Nitrogen 18 mg/dL (9-20); Calcium 9.5 mg/dL (8.4-10.2); Carbon Dioxide 28 mmol/L (22-30); Chloride 99 mmol/L (98-107); Glucose 114 mg/dL (74-99); Magnesium 1.9 mg/dL (1.6-2.3); Phosphorus 4.8 mg/dL (2.5-4.5); Potassium 3.4 mmol/L (3.5-5.1); Sodium 138 mmol/L (137-145); Total Bilirubin 1.4 mg/dL (0.2-1.3); Total Protein 6.7 g/dL (6.3-8.2)
--- NOTE | 2017-11-08 07:25 | XR ---
EXAMINATION TYPE: XR chest 1V portable DATE OF EXAM: 11/08/2017 COMPARISON: 11/05/2017 HISTORY: Shortness of breath TECHNIQUE: Frontal and lateral views of the chest are obtained. FINDINGS: Scattered senescent parenchymal changes noted. No evidence for infiltrate. No evidence for atelectasis. Heart size is stable. Mediastinal structures are stable and grossly unremarkable. No evidence for hilar prominence. Degenerative changes dorsal spine. IMPRESSION: 1. No evidence for acute pulmonary disease.
[2017-11-08] MEDS: IPRATROPIUM-ALBUTEROL 3 ML NEB INHALATION PRN ×2 (07:33→20:59)
[2017-11-08] MEDS ORDERED: Magnesium Replacement Protocol 1 EACH MISC MISCELLANE PRN (07:59)
--- NOTE | 2017-11-08 08:11 | P.PN ---
Subjective Progress Note Date: 11/08/17 62-year-old male who presented to the emergency room after he was evaluated by his primary care physician, Dr. Couch, on an outpatient basis. Patient reports he saw his PCP on Saturday for a follow up for shortness of breath. The patient was recently diagnosed with tracheobronchitis and was prescribed Levaquin, prednisone, and DuoNeb treatments. His shortness of breath persisted. Patient also reported cough with positive sputum production. The patient's oxygen saturation was 93% on room air. The patient ambulated around the office and his oxygen saturations remained greater than 92%. A chest x-ray was completed at the office revealing cardiomegaly. The patient also reported bilateral lower extremity edema and an episode of chest pain on Saturday. An EKG was completed revealing old inferior and anterior wall MIs. A troponin was completed at the office and came back at 0.08. The patient was started on aspirin 81 mg daily, Lasix 20 mg daily, and lisinopril 5 mg daily at that time. He was not started on a beta keeley at that time as his heart rate was in the low 60s at Dr. Couch's office. The patient was advised to come to the emergency room for further evaluation. The patient has a history of chronic obstructive pulmonary disease. He reports smoking approximately 6 cigarettes per day. He also admits to the drinking 2-3 alcoholic beverages per day, which he states the amount has decreased and reports he used to drink heavier. Chest x-ray 11/05/2017: Cardiomegaly. There may be a component of pulmonary venous hypertension and early interstitial edema. Laboratory data: WBC 8.2. Hemoglobin 16.8. Platelet count 235. Sodium 142. Potassium 5.9. BUN 18. Creatinine 0.98. GFR 84. Glucose 94. BNP: 4560 Troponins: 0.061, 0.053, 0.057 Lipid panel: Triglycerides 99. Total cholesterol 157. LDL 101. HDL 36. The patient was admitted to the hospital under the care of Dr. Couch. Consultations were placed to cardiology. 11/07/2017 Patient evaluated this morning on rounds with Dr. Couch. Patient is awake and alert. Denies chest pain or pressure. Denies shortness of breath. The patient underwent cardiac catheterization yesterday revealing 90% stenosis of proximal LAD, 70-80% stenosis of circumflex artery, and totally occluded right coronary artery. cardiothoracic surgery has been consulted and evaluated the patient. The patient is scheduled for an off pump CABG on Saturday. Pre-operative testing is currently underway. Echocardiogram completed reveals severe global hypokinesis of the left ventricle, ejection fraction of 20-25%, trace mitral regurgitation, and trace tricuspid regurgitation. Carotid ultrasound was completed revealing 15-25% stenosis in both internal carotid arteries. The patient denies pain or discomfort. He is anxious regarding his upcoming surgery and concerned about his . He states she is 74 years old and has severe COPD and he has been her provider at home and has been caring for her. 11/08/2017 Patient seen and examined at the bedside on rounds with Dr. Couch. Patient is awake and alert. Patient denies chest pain or pressure. Denies shortness of breath. Patient is NPO and is scheduled for IABP insertion today per cardiology. Patient is scheduled to undergo off pump CABG tomorrow with Dr. Bullard. Patient remains on CIWA protocol. No signs of ETOH withdrawal this morning. Patient states he is voiding without difficulty. Reports + bowel movement. Objective - Vital Signs Vital signs: Vital Signs Temp 97 F L 11/08/17 07:39 Pulse 92 11/08/17 07:45 Resp 24 11/08/17 07:39 BP 134/103 11/08/17 07:39 Pulse Ox 94 L 11/08/17 07:39 Intake & Output 11/07/17 11/08/17 11/08/17 18:59 06:59 18:59 Intake Total 540 Output Total 1500 1220 Balance -960 -1220 Weight 97.6 kg Intake: Oral 540 Output: Urine 1500 1220 Other: # Voids 1 - Exam GENERAL: This is a 62-year-old male in no apparent distress at the time of examination. Pleasant and cooperative. HEENT: Head is atraumatic, normocephalic. Pupils are equal, round, and reactive to light. Sclerae anicteric. Conjunctivae are clear. Mucus membranes of the mouth are moist. Neck is supple. RESPIRATORY: Clear to ausculation. No wheezes, rales, or rhonchi. No use of accessory muscles. Patient maintaining oxygen saturation greater than 92%. No chest wall tenderness is noted on palpation or with deep breathing. CARDIOVASCULAR: Regular rate and rhythm. S1 and S2 noted. No systolic or diastolic murmur auscultated. No JVD noted. No S3 or S4 noted. Right carotid bruit auscultated. GASTROINTESTINAL: No distention noted. Abdomen soft and round. Normal active bowel sounds auscultated x 4 quadrants. No pain or tenderness noted upon palpation. INTEGUMENTARY: No cyanosis. No jaundice. No rashes noted. No cellulitis noted. EXTREMITIES: 2+ peripheral pulses. No peripheral edema noted. No calf tenderness noted. NEUROLOGIC: Cranial nerves II-XII intact. PSYCHIATRIC: Awake, alert, and oriented X 3. Appropriate affect. Appears anxious. Intact judgement and insight. - Labs CBC & Chem 7: 11/08/17 06:04 11/08/17 06:04 Labs: Abnormal Lab Results - Last 24 Hours (Table) 11/07/17 11/08/17 11/08/17 Range/Units 09:39 06:04 06:04 WBC 11.3 H (3.8-10.6) k/uL Hgb 17.6 H (13.0-17.5) gm/dL Neutrophils # 7.9 H (1.3-7.7) k/uL Potassium 3.4 L (3.5-5.1) mmol/L BUN 21 H (9-20) mg/dL Glucose 119 H 114 H (74-99) mg/dL Phosphorus 4.8 H (2.5-4.5) mg/dL Total Bilirubin 1.4 H 1.4 H (0.2-1.3) mg/dL Microbiology - Last 24 Hours (Table) 11/06/17 16:00 Urine Culture - Final Urine,Clean Catch Assessment and Plan Plan: ASSESSMENT: Acute non-ST elevated myocardial infarction, troponins 0.061, 0.053, 0.057 s/p cardiac catherization revealing severe triple vessel disease Acute onset of systolic congestive heart failure, EF 20-25%, BNP 4,560 Chronic obstructive pulmonary disease, no evidence of acute exacerbation Recent diagnosis of tracheobronchitis, treated with Levaquin and prednisone outpatient Nicotine dependence, patient is a current cigarette smoker Daily alcohol use Obesity: BMI 33.8 Hyperkalemia, resolved PLAN: Cardiology on consult. Appreciate recommendations and input Continue lasix 40mg IV q12 hours per cardiology Patient scheduled for IABP insertion today per cardiology Patient scheduled for CABG on Saturday Continue CIWA protocol Thiamine and Folic acid have been ordered per cardiothoracic surgery Home meds as appropriate Monitor labs GI prophylaxis: Protonix 40 mg PO Daily DVT prophylaxis: Venodyne's to bilateral lower extremities Monitor vital signs and address as appropriate Further recommendations pending patient's course Nurse practitioner note has been reviewed by physician. Signing provider agrees with the documented findings, assessment, and plan of care.
[2017-11-08] MEDS: POTASSIUM CHLORIDE ER 20 MEQ TAB.ER PO SCH ×3 (08:56→16:02)
[2017-11-08] MEDS: LORazepam 2 MG/ML INJ IV PRN ×3 (09:01→15:59)
[2017-11-08] MEDS: MAGNESIUM SULFATE-D5W PMX 1 GM in DEXTROSE/WATER 1 100ML.BAG IVPB SCH ×2 (09:01→11:14)
[2017-11-08] MEDS: ASPIRIN 325 MG TAB PO SCH (09:07)
[2017-11-08] MEDS: LISINOPRIL 5 MG TAB PO SCH (09:08)
[2017-11-08] MEDS: MUPIROCIN 2% OINT 22 GM TUBE NASAL SCH ×2 (09:08→20:10)
[2017-11-08] MEDS: METOPROLOL SUCCINATE (ER) 25 MG TAB.ER.24H PO SCH (09:08)
[2017-11-08] MEDS: FUROSEMIDE 10 MG/ML 4 ML VIAL IV SCH ×2 (09:16→20:10)
[2017-11-08] MEDS ORDERED: MIDAZOLAM 2 MG/2 ML VIAL ONE (10:47)
[2017-11-08] MEDS ORDERED: LIDOCAINE 2% INJ 20 MG/ML (20 ML MDV) ONE (10:47)
[2017-11-08] MEDS ORDERED: MIDAZOLAM 2 MG/2 ML VIAL IV ONE (10:55)
[2017-11-08] MEDS ORDERED: LIDOCAINE 2% INJ 20 MG/ML SQ ONE (10:56)
[2017-11-08] MEDS ORDERED: SODIUM CHLORIDE 0.9% 500 ML IV ONE (11:00)
[2017-11-08] MEDS ORDERED: HEPARIN SODIUM 1,000 UN/ML (10ML VL) ONE (11:04)
[2017-11-08] MEDS ORDERED: HEPARIN SODIUM 1,000 UN/ML (10ML VL) IV ONE (11:06)
[2017-11-08] MEDS ORDERED: HEPARIN SOD,PORK IN 0.45% NACL 25,000 UNIT in 0.45% NACL 1 500ML.BAG IV ONE (11:15)
[2017-11-08] MEDS ORDERED: RX INFO: IV CONTRAST WAS GIVEN 1 EACH MISC MISCELLANE PRN (11:15)
--- NOTE | 2017-11-08 11:25 | P.PN ---
Subjective Progress Note Date: 11/08/17 Principal diagnosis: Severe triple-vessel coronary artery disease, NSTEMI, ischemic cardiomyopathy with severe left ventricular systolic dysfunction with an ejection fraction of 20%. History of hypertension, COPD with pre-operative FEV1 74% of predicted post bronchodilator, current nicotine abuse, EtOH abuse, recent tracheobronchitis with antibiotic and steroid therapy. The patient was sitting up in bed in no acute distress this morning, although somewhat anxious. Denied chest pain, shortness of breath. Currently down in labor relations consultant for placement of intra-aortic balloon pump. Objective - Vital Signs Vital signs: Vital Signs Temp 97 F L 11/08/17 07:39 Pulse 100 11/08/17 08:00 Resp 20 11/08/17 08:00 BP 129/79 11/08/17 08:00 Pulse Ox 91 L 11/08/17 08:00 Intake & Output 11/07/17 11/08/17 11/08/17 18:59 06:59 18:59 Intake Total 540 240 Output Total 1500 1220 Balance -960 -1220 240 Weight 97.6 kg Intake: Oral 540 240 Output: Urine 1500 1220 Other: Voiding Method Urinal # Voids 1 - Constitutional General appearance: Present: cooperative, no acute distress - Respiratory Details: Lung sounds diminished bilaterally. Respirations even, non-labored. Currently on 3 LPM NC with oxygen saturation 94%. Able to achieve 1250 mL on his incentive spirometry. - Cardiovascular Details: S1/S2 present. Regular rate and rhythm, NSR on telemetry. Palpable peripheral pulses bilaterally, trace bilateral lower extremity edema present. No calf pain or tenderness noted. SCDs present. - Gastrointestinal Gastrointestinal Comment(s): Abdomen soft/NT/ND. Active bowel sounds x 4 quadrants. Tolerating diet. - Genitourinary Genitourinary Comment(s): Continues to void clear, yellow urine. - Integumentary Integumentary Comment(s): Skin is warm and dry with evidence of good perfusion. - Neurologic Neurologic: Present: CNII-XII intact - Musculoskeletal Musculoskeletal: Present: gait normal, strength equal bilaterally - Psychiatric Psychiatric: Present: A&O x's 3, appropriate affect, intact judgment & insight - Allied health notes Allied health notes reviewed: nursing - Labs CBC & Chem 7: 11/08/17 06:04 11/08/17 06:04 Labs: Abnormal Lab Results - Last 24 Hours (Table) 11/07/17 11/07/17 11/08/17 Range/Units 09:39 11:31 06:04 WBC 11.3 H (3.8-10.6) k/uL Hgb 17.6 H (13.0-17.5) gm/dL Neutrophils # 7.9 H (1.3-7.7) k/uL Potassium (3.5-5.1) mmol/L BUN 21 H (9-20) mg/dL Glucose 119 H (74-99) mg/dL Phosphorus (2.5-4.5) mg/dL Total Bilirubin 1.4 H (0.2-1.3) mg/dL Crossmatch See Detail 11/08/17 Range/Units 06:04 WBC (3.8-10.6) k/uL Hgb (13.0-17.5) gm/dL Neutrophils # (1.3-7.7) k/uL Potassium 3.4 L (3.5-5.1) mmol/L BUN (9-20) mg/dL Glucose 114 H (74-99) mg/dL Phosphorus 4.8 H (2.5-4.5) mg/dL Total Bilirubin 1.4 H (0.2-1.3) mg/dL Crossmatch Microbiology - Last 24 Hours (Table) 11/06/17 16:00 Urine Culture - Final Urine,Clean Catch - Imaging and Cardiology Chest x-ray: report reviewed, image reviewed Assessment and Plan (1) Tobacco dependence Current Visit: Yes Status: Chronic Code(s): F17.200 - NICOTINE DEPENDENCE, UNSPECIFIED, UNCOMPLICATED SNOMED Code(s): 04777717 (2) Alcohol abuse Current Visit: Yes Status: Chronic Code(s): F10.10 - ALCOHOL ABUSE, UNCOMPLICATED SNOMED Code(s): 41131215 (3) Acute non-ST segment elevation myocardial infarction Current Visit: Yes Status: Acute Code(s): I21.4 - NON-ST ELEVATION (NSTEMI) MYOCARDIAL INFARCTION SNOMED Code(s): 043693987 (4) COPD (chronic obstructive pulmonary disease) Current Visit: Yes Status: Chronic Code(s): J44.9 - CHRONIC OBSTRUCTIVE PULMONARY DISEASE, UNSPECIFIED SNOMED Code(s): 73596152 (5) Coronary artery disease Current Visit: Yes Status: Chronic Code(s): I25.10 - ATHSCL HEART DISEASE OF [place] CORONARY ARTERY W/O ANG PCTRS SNOMED Code(s): 48121195 (6) Hypertension Current Visit: Yes Status: Chronic Code(s): I10 - ESSENTIAL (PRIMARY) HYPERTENSION SNOMED Code(s): 06568615 (7) Ischemic cardiomyopathy Current Visit: Yes Status: Chronic Code(s): I25.5 - ISCHEMIC CARDIOMYOPATHY SNOMED Code(s): 038003361 Plan: 1. Continue to maximize medical therapy, continue aspirin, statin, KIERA inhibitor and beta keeley. 2. Dr. Simon for pulmonary recommendations. Bedside PFT completed. 3. Encourage smoking cessation. 4. Encourage use of his incentive spirometry every hour while awake. 5. Continue preoperative education. 6. Patient receiving pre-operative intra-aortic balloon pump. Will be transferred to ICU post. 7. Continue CIWA protocol, folic acid, thiamine, MVI. 8. The patient is scheduled for urgent myocardial revascularization to be performed by Dr. Bullard on 11/09/2017. 9. More recommendations to follow. Time with Patient: Greater than 30
[2017-11-08] MEDS ORDERED: HEPARIN SODIUM,PORCINE 5,000 UNIT/ML 1 ML VIAL IV PRN (11:35)
--- NOTE | 2017-11-08 11:41 | P.PN ---
Subjective Progress Note Date: 11/08/17 6 is a 62-year-old gentleman who presented to his primary care doctor' s office with symptoms of progressively worsening shortness of breath with associated peripheral edema. Patient does have history of hypertension, nicotine dependence, severe drinks a significant amount of alcohol. According to the patient, the symptoms have been progressively worsening over the past month or more area echocardiogram with Doppler study was performed on arrival here which revealed a severely impaired LV function, for this reason patient was advised to undergo cardiac catheterization. Cardiac cath was performed yesterday by Dr. Brody which revealed severe three-vessel coronary artery disease, ischemic cardiomyopathy with severe left ventricular dysfunction and elevated left ventricular end-diastolic pressure. Cardiothoracic surgery was consulted to see the patient, bypass surgery will be scheduled on Saturday. Patient was seen and examined this morning, denies any chest pain or difficulty in breathing. He does appear slightly anxious and shaky, he is concerned because he states he does drink a significant amount of alcohol at home. Blood pressure 124/88, heart rate in the 80s, 95% on 3 L of oxygen. White blood cell count 11.5, hemoglobin 16.6, sodium 142, potassium 3.2, BUN 21, creatinine 1.1. Patient is currently on aspirin, Lipitor 40, metoprolol any 5 mg daily, lisinopril 5 mg daily, and IV heparin drip. 11/08/2017 Patient seen and examined this morning, was having some issues with tremors earlier, quite sleepy at the time of my examination. Hemodynamically stable. Patient is going today for insertion of intra-aortic balloon pump. The details of which were explained to the patient in detail as well as the benefits thereof. Blood pressure 128/78, heart rate in the 90s, 91% on 3 L of oxygen. White blood cell count 11.3, hemoglobin 17.6, sodium 138, potassium 3.4, BUN 18 , creatinine 1.0. Objective - Vital Signs Vital signs: Vital Signs Temp 97 F L 11/08/17 07:39 Pulse 100 11/08/17 08:00 Resp 20 11/08/17 08:00 BP 129/79 11/08/17 08:00 Pulse Ox 91 L 11/08/17 08:00 Intake & Output 11/07/17 11/08/17 11/08/17 18:59 06:59 18:59 Intake Total 540 240 Output Total 1500 1220 Balance -960 -1220 240 Weight 97.6 kg Intake: Oral 540 240 Output: Urine 1500 1220 Other: Voiding Method Toilet Urinal # Voids 1 - Exam PHYSICAL EXAMINATION: HEENT: Head is atraumatic, normocephalic. Pupils equal, round. Neck is supple. There is no elevated jugular venous pressure. HEART EXAMINATION: Heart S1, S2 normal. No murmur or gallop heard. CHEST EXAMINATION: Lungs are clear with fine rales to the bases . ABDOMEN: Soft, nontender. Bowel sounds are heard. No organomegaly noted. Right groin soft, no evidence of any hematoma. EXTREMITIES: 2+ peripheral pulses with no evidence of peripheral edema and no calf tenderness noted. NEUROLOGIC patient is awake, alert and oriented -3. . - Labs CBC & Chem 7: 11/08/17 06:04 11/08/17 06:04 Labs: Abnormal Lab Results - Last 24 Hours (Table) 11/07/17 11/07/17 11/08/17 Range/Units 09:39 11:31 06:04 WBC 11.3 H (3.8-10.6) k/uL Hgb 17.6 H (13.0-17.5) gm/dL Neutrophils # 7.9 H (1.3-7.7) k/uL Potassium (3.5-5.1) mmol/L BUN 21 H (9-20) mg/dL Glucose 119 H (74-99) mg/dL Phosphorus (2.5-4.5) mg/dL Total Bilirubin 1.4 H (0.2-1.3) mg/dL Crossmatch See Detail 11/08/17 Range/Units 06:04 WBC (3.8-10.6) k/uL Hgb (13.0-17.5) gm/dL Neutrophils # (1.3-7.7) k/uL Potassium 3.4 L (3.5-5.1) mmol/L BUN (9-20) mg/dL Glucose 114 H (74-99) mg/dL Phosphorus 4.8 H (2.5-4.5) mg/dL Total Bilirubin 1.4 H (0.2-1.3) mg/dL Crossmatch Microbiology - Last 24 Hours (Table) 11/06/17 15:50 Nasal Screen MRSA/MSSA ([facility]) - Final Nasal Swab 11/06/17 16:00 Urine Culture - Final Urine,Clean Catch Assessment and Plan Plan: Assessment and plan #1 non-ST elevation OK, status post cardiac catheterization which revealed severe triple-vessel coronary artery disease, patient scheduled for coronary artery bypass grafting surgery on Saturday #2 cardiomyopathy with severe LV dysfunction #3 nicotine dependence #4 hypertension #5 EtOH use Plan Patient is scheduled to undergo coronary artery bypass grafting surgery on Saturday, he will go for insertion of intra-aortic balloon pump today, subsequently will be transferred to the intensive care unit and followed there. He is on a [facility] protocol for his EtOH abuse. DNP note has been reviewed, I agree with a documented findings and plan of care. Patient was seen and examined.
[2017-11-08 11:54] LABS: Glucose,Whole Blood 121 mg/dL (75-99)
--- NOTE | 2017-11-08 12:04 | PCN ---
PROCEDURE NOTE INTRA-AORTIC BALLOON PUMP PROCEDURE NOTE: INDICATION: This is a 62-year-old gentleman who presented to hospital with congestive heart failure, ischemic cardiomyopathy with severe LV systolic dysfunction with an ejection fraction of 20% to 25% who on a cardiac catheterization had severe triple-vessel coronary artery disease. He is going to go for bypass surgery tomorrow by Dr. Bullard the cardiothoracic surgeon who requested me to place this intra-aortic balloon pump preoperatively. The patient had been explained of risks, benefits and alternatives, understood and accepted. PROCEDURE NOTE: After obtaining informed consent, intra-aortic balloon pump was placed via the left femoral artery. Right femoral artery had peripheral arterial disease and during his cardiac catheterization and the left femoral pulses are better. We obtained vascular access using modified Seldinger technique, used a dilator to do the initial dilation and then placed the sheath and under fluoroscopic guidance, the intra-aortic balloon pump catheter was positioned optimally and was inflated under fluoroscopy. Its normal functioning was confirmed. We were getting good waveforms. Patient received 5000 units bolus of IV heparin and will be started on IV heparin drip. He will be admitted to the ICU and he will go to bypass surgery tomorrow morning. MMODL / IJN: [id number] /
[2017-11-08 12:11] LABS: Basophils # (A) 0.1 k/uL (0-0.2); Basophils % (A) 1 %; Eosinophils # (A) 0.2 k/uL (0-0.7); Eosinophils % (A) 2 %; HCT 53.7 % (39.0-53.0); HGB 17.9 gm/dL (13.0-17.5); Lymphocytes # (A) 1.6 k/uL (1.0-4.8); Lymphocytes % (A) 14 %; MCH 31.4 pg (25.0-35.0); MCHC 33.3 g/dL (31.0-37.0); MCV 94.2 fL (80.0-100.0); Mean Platelet Volume 7.1; Monocytes # (A) 0.7 k/uL (0-1.0); Monocytes % (A) 6 %; Neutrophils # (A) 8.6 k/uL (1.3-7.7); Neutrophils % (A) 76 %; Platelet Count 227 k/uL (150-450); WBC 11.4 k/uL (3.8-10.6)
[2017-11-08 12:28] LABS: INR 1.3 (<1.2); Partial Thromboplastin Time 76.9 sec (22.0-30.0); Prothrombin Time 12.6 sec (9.0-12.0)
[2017-11-08] MEDS: FOLIC ACID 1 MG TAB PO SCH (12:34)
[2017-11-08] MEDS: THIAMINE 100 MG TAB PO SCH (12:34)
[2017-11-08] MEDS: MULTIVITAMINS, THERA 1 EACH TAB PO SCH (12:34)
[2017-11-08] MEDS: HEPARIN SOD,PORK IN 0.45% NACL 25,000 UNIT in 0.45% NACL 1 500ML.BAG IV SCH (12:34)
[2017-11-08] MEDS ORDERED: POTASSIUM BICARBONATE/CIT AC 20 MEQ TABLET.EFF NG-TUBE SCH (19:00)
[2017-11-08] MEDS: ATORVASTATIN 40 MG TAB PO SCH (20:10)
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
[2017-11-08] MEDS: LIDOCAINE 5% PATCH TOPICAL SCH (22:50)
[2017-11-09] MEDS ORDERED: INSULIN REGULAR 100 UNIT in SODIUM CHLORIDE 0.9% 100 ML IV ONE (05:00)
[2017-11-09] MEDS ORDERED: MAGNESIUM SULFATE SYG 4.06 MEQ/ML SYRINGE IV ONE (05:00)
[2017-11-09] MEDS ORDERED: CARDIOPLEGIC SOLN (K+ 16 MEQ/L 1,000 ML with SOD BICARB SYR 8.4% (1 MEQ/ML) 20 ML, LIDO... PERFUSION NR ×3 (05:00)
[2017-11-09] MEDS ORDERED: ASPIRIN 325 MG TAB PO ONE (05:00)
[2017-11-09] MEDS ORDERED: TRANEXAMIC ACID 2,000 MG in SODIUM CHLORIDE 0.9% 180 ML IV ONE (05:00)
[2017-11-09] MEDS ORDERED: METOPROLOL TARTRATE 12.5 MG TAB PO ONE (05:00)
[2017-11-09] MEDS ORDERED: PAPAVERINE 360 MG in SODIUM CHLORIDE 0.9% 90 ML IV ONE ×2 (05:00→09:04)
[2017-11-09] MEDS ORDERED: HEPARIN SODIUM,PORCINE 5,000 UNIT in SODIUM CHLORIDE 0.9% 500 ML IV ONE (05:00)
[2017-11-09] MEDS ORDERED: CALCIUM CHLORIDE 100 MG/ML 10 ML SYRINGE IVP ONE (05:00)
[2017-11-09] MEDS ORDERED: PHENYLEPHRINE-0.9% NACL SYG 1 MG/10 ML SYRINGE IV ONE ×4 (05:00)
[2017-11-09] MEDS ORDERED: PROTAMINE SULFATE 250 MG in EMPTY BAG 1 BAG IV ONE (05:00)
[2017-11-09] MEDS ORDERED: NOREPINEPHRIN 4 MG-0.9% NS PMX 4 MG/250 ML ML IV SCH (05:00)
[2017-11-09] MEDS ORDERED: PROTAMINE SULFATE 10 MG/ML 25 ML VIAL IV ONE ×2 (05:00→07:30)
[2017-11-09] MEDS ORDERED: ceFAZolin 2,000 MG in SODIUM CHLORIDE 0.9% 30 ML IVPB ONE (05:00)
[2017-11-09] MEDS ORDERED: NITROGLYCERIN-D5W PMX 25 MG/250 ML BTL IV ONE (05:00)
[2017-11-09] MEDS ORDERED: CLEVIDIPINE BUTYRATE 25 MG in EMPTY BAG 1 BAG IV ONE (05:00)
[2017-11-09] MEDS ORDERED: ATORVASTATIN 10 MG TAB PO ONE (05:00)
[2017-11-09] MEDS ORDERED: ceFAZolin 2 GM in SODIUM CHLORIDE 0.9% 30 ML IVPB ONE (05:00)
[2017-11-09] MEDS ORDERED: ALBUMIN HUMAN 5% 500 ML in EMPTY BAG 1 BAG IVPB ONE ×6 (05:00)
[2017-11-09] MEDS ORDERED: ALBUMIN HUMAN 25% 50 ML in EMPTY BAG 1 BAG IVPB ONE (05:00)
[2017-11-09] MEDS ORDERED: CHLORHEXIDINE GLUCONATE 15 ML CUP MUCOUS MEM ONE (05:00)
[2017-11-09] MEDS ORDERED: ceFAZolin 1,000 MG in SODIUM CHLORIDE 0.9% IRRIGATIO 1,000 ML IRRIGATION ONE (05:00)
[2017-11-09] MEDS ORDERED: HEPARIN SODIUM 1,000 UN/ML (10ML VL) IV ONE (05:00)
[2017-11-09 05:12] LABS: Basophils % (A) 0 %; Eosinophils # (A) 0.1 k/uL (0-0.7); Eosinophils % (A) 1 %; HCT 54.6 % (39.0-53.0); HGB 17.5 gm/dL (13.0-17.5); Lymphocytes # (A) 1.7 k/uL (1.0-4.8); Lymphocytes % (A) 17 %; MCH 30.6 pg (25.0-35.0); MCHC 32.1 g/dL (31.0-37.0); MCV 95.4 fL (80.0-100.0); Mean Platelet Volume 7.5; Monocytes # (A) 0.9 k/uL (0-1.0); Monocytes % (A) 8 %; Neutrophils # (A) 7.3 k/uL (1.3-7.7); Neutrophils % (A) 72 %; Platelet Count 222 k/uL (150-450); RBC 5.72 m/uL (4.30-5.90); WBC 10.1 k/uL (3.8-10.6)
[2017-11-09 05:24] LABS: INR 1.3 (<1.2); Prothrombin Time 12.7 sec (9.0-12.0)
[2017-11-09 05:28] LABS: ALT 76 U/L (21-72); AST 48 U/L (17-59); Albumin 3.7 g/dL (3.5-5.0); Alkaline Phosphatase 75 U/L (38-126); Anion Gap 13 mmol/L; Blood Urea Nitrogen 21 mg/dL (9-20); Calcium 9.3 mg/dL (8.4-10.2); Carbon Dioxide 25 mmol/L (22-30); Chloride 103 mmol/L (98-107); Glucose 99 mg/dL (74-99); Potassium 4.4 mmol/L (3.5-5.1); Sodium 141 mmol/L (137-145); Total Bilirubin 1.9 mg/dL (0.2-1.3); Total Protein 6.7 g/dL (6.3-8.2)
[2017-11-09] MEDS ORDERED: SODIUM BICARB 8.4% 50 ML SYR (1 MEQ/ML) IV STA (06:35)
[2017-11-09] MEDS ORDERED: PHENYLEPHRINE 40 MG in SODIUM CHLORIDE 0.9% 250 ML IV SCH (06:45)
[2017-11-09] MEDS ORDERED: HEPARIN SODIUM,PORCINE 10,000 UNIT/ML 1 ML VIAL ONE (07:30)
[2017-11-09] MEDS ORDERED: PHENYLEPHRINE-0.9% NACL SYG 1 MG/10 ML SYRINGE ONE (07:30)
[2017-11-09] MEDS ORDERED: VECURONIUM 10 MG VIAL IV ONE (07:30)
[2017-11-09] MEDS ORDERED: SODIUM CHLORIDE 0.9% 1,000 ML BAG ONE (07:30)
[2017-11-09] MEDS ORDERED: ePHEDrine SULFATE/0.9% NACL/PF 50 MG/5 ML SYRINGE IV ONE (07:30)
[2017-11-09] MEDS ORDERED: SUCCINYLCHOLINE CHLORIDE VIAL 200 MG/10 ML VIAL IV ONE (07:30)
[2017-11-09] MEDS ORDERED: MIDAZOLAM 2 MG/2 ML VIAL ONE (07:30)
[2017-11-09] MEDS ORDERED: PROPOFOL 10 MG/ML 20 ML VIAL IV ONE (07:30)
[2017-11-09] MEDS ORDERED: fentaNYL (PF) 50 MCG/ML 50 ML VIAL ONE (07:30)
[2017-11-09] MEDS: NITROGLYCERIN-D5W PMX 50 MG in DEXTROSE/WATER 1 250ML.BAG IV ONE ×2 (07:59→13:00)
[2017-11-09] MEDS: LISINOPRIL 5 MG TAB PO SCH (08:00)
[2017-11-09] MEDS: ASPIRIN 325 MG TAB PO SCH (08:00)
[2017-11-09] MEDS: PANTOPRAZOLE 40 MG TABLET PO SCH (08:00)
[2017-11-09] MEDS: FUROSEMIDE 10 MG/ML 4 ML VIAL IV SCH (08:00)
[2017-11-09] MEDS: METOPROLOL SUCCINATE (ER) 25 MG TAB.ER.24H PO SCH (08:00)
[2017-11-09] MEDS: MUPIROCIN 2% OINT 22 GM TUBE NASAL SCH ×2 (08:01→21:53)
[2017-11-09] MEDS ORDERED: SODIUM CHLORIDE 0.9% 500 ML with HEPARIN SODIUM,PORCINE 5,000 UNIT IV ONE ×2 (09:03)
[2017-11-09] MEDS ORDERED: ceFAZolin 1,000 MG in SODIUM CHLORIDE 0.9% 1,000 ML IRRIGATION ONE (09:04)
[2017-11-09] MEDS ORDERED: PROPOFOL 1,000 MG in EMPTY BAG 1 BAG IV ONE (10:32)
[2017-11-09] MEDS ORDERED: Potassium Replacement Protocol 1 EACH MISC MISCELLANE PRN (12:26)
[2017-11-09] MEDS ORDERED: Magnesium Replacement Protocol 1 EACH MISC MISCELLANE PRN (12:26)
[2017-11-09] MEDS ORDERED: NITROGLYCERIN-D5W PMX 50 MG in DEXTROSE/WATER 1 250ML.BAG IV SCH (12:26)
[2017-11-09] MEDS ORDERED: DEXMEDETOMIDINE 400 MCG in SODIUM CHLORIDE 0.9% 100 ML IV SCH (12:26)
[2017-11-09] MEDS ORDERED: METOCLOPRAMIDE 5 MG/ML 2 ML VIAL IVP PRN (12:26)
[2017-11-09] MEDS ORDERED: CALCIUM GLUCONATE 2,000 MG in SODIUM CHLORIDE 0.9% 100 ML IVPB PRN (12:26)
[2017-11-09] MEDS ORDERED: Phosphorus Replacement Protoco 1 EACH MISC MISCELLANE PRN (12:26)
[2017-11-09] MEDS ORDERED: INSULIN REGULAR 100 UNIT in SODIUM CHLORIDE 0.9% 100 ML IV SCH (12:26)
[2017-11-09] MEDS ORDERED: ONDANSETRON 4 MG/2 ML VIAL IVP PRN (12:26)
[2017-11-09] MEDS: HEPARIN SOD,PORK IN 0.45% NACL 25,000 UNIT in 0.45% NACL 1 500ML.BAG IV SCH (12:28)
[2017-11-09] MEDS ORDERED: ALBUMIN HUMAN 5% 250 ML IVPB ONE (12:35)
--- NOTE | 2017-11-09 12:47 | P.OP ---
Date of Procedure: 11/09/17 Preoperative Diagnosis: Coronary artery disease, non-ST elevation AL, unstable angina, acute on chronic systolic left heart failure. Postoperative Diagnosis: Same Procedure(s) Performed: Off-pump coronary artery bypass grafting 3 with left internal mammary artery to LAD and saphenous vein grafts to first diagonal and posterior descending coronary arteries with endovascular vein harvest from the right lower extremity greater saphenous vein. Anesthesia: GETA Surgeon: Lee Bullard Piano Instructor #1: Ocatvio oRbbins Estimated Blood Loss (ml): 200 Pathology: none sent Condition: stable Disposition: ICU Indications for Procedure: 62-year-old male with new onset of shortness of breath. He had not been under regular medical care. He went to see Dr. Couch who got an abnormal EKG and blood work and sent the patient to the emergency room for admission. Subendocardial infarction was diagnosed. Left ventricular function was very poor by echo with ejection fraction below 20%. Cardiac catheterization demonstrated severe three-vessel coronary artery disease with 95+ percent proximal LAD stenosis, ostial stenosis of a high first diagonal, complete occlusion of the distal circumflex with 2 obtuse marginal branches faint filling via collaterals, complete occlusion of the right main coronary artery with posterior descending coronary artery filling via collaterals. Surgical revascularization was requested. Intra-aortic balloon pump was placed preoperatively in order to stabilized and support the patient through the procedure. Operative Findings: YASMINE demonstrated severe left ventricular dysfunction with inferior akinesis and anterior septal severe hypokinesis. The lateral wall was also hypokinetic. Right ventricle was barely moving. There was 1+ central mitral regurgitation noted. There was no evidence of other valvular dysfunction. Good conduits were obtained from the right greater saphenous vein in the left internal mammary artery. On opening the pericardium the heart was noted to be very very hypokinetic and extremely sensitive to any manipulation or movement despite the presence of the balloon pump. Ventricular function gradually improved with each sequential graft performed. At the completion of the case overall ejection fraction was in the 30-35% range in the left ventricle and the right ventricular function appeared normal. Mitral regurgitation was still present but trace. Minimal inotropic support was used with just low-dose dopamine. Coronary arteries were diffusely diseased. The left anterior descending coronary artery was grafted in its midportion. Here it was a soft vessel anteriorly but had a large posterior wall plaque that extended through much of its length. The lumen was 1.75 mm in diameter. The high diagonal coronary artery was a soft vessel distally and heavily calcified proximally. It had a 2 mm lumen. The posterior descending coronary artery was a diffusely diseased vessel which was grafted at a soft spot in the proximal region. Here it had a 1.5 lm proximally and distally. The 2 distal branches of the circumflex coronary artery which were chronically occluded were very small and diseased vessels and were not felt to be graftable. Description of Procedure: The patient was brought to the operating room, placed supine on the operating table, anesthetized and intubated. [place]-Karly catheter had been placed via the right internal jugular approach in the preop holding area. YASMINE probe was placed with findings as noted above. The anterior torso and lower extremities were sterilely prepped and draped. Right greater saphenous vein was harvested from ankle to groin and was of good quality. It was prepared on the back table. Simultaneous sternotomy was performed, the left hemisternum retracted upwards of the left internal mammary artery harvested on a vascularized pedicle. It was left on its origin from the subclavian and divided distally. The left pleural space was drained with 32-[place] chest tube. Standard sternal retractor was placed and the pericardium was opened in the midline with findings as noted above. Patient was systemically heparinized. We began with the HALE to the LAD. The LAD was opened with the findings as noted above. Blood flow was controlled with a 1.5 mm flow through. End to side anastomosis between the HALE and the LAD was performed with running 8-0 Prolene suture. On completion of the anastomosis the flow through was removed effectively probing the proximal distal portion anastomosis. Suture was tied with good result and hemostasis. Inflow was open and the RICA pedicle was tacked surrounding epicardium with 6-0 silk. Next a piece of saphenous vein was cut to appropriately to reach the high diagonal branch. It was loaded on passport anastomotic connector and connected to the mid ascending aorta just to the left of midline using a passport anastomotic connector. There was good flow in the vein graft controlled with a bulldog clamp. The diagonal coronary artery was stabilized and opened and blood flow control with a 1.5 mm flow through. End to side anastomosis between the saphenous vein and the diagonal was performed with running 7-0 Prolene suture. On completion anastomosis the flow through was removed effectively probing the proximal distal portion anastomosis. Suture was tied with good result and hemostasis and the inflow was open. Graft was noted to lay well without kinking. Next we exposed and explored the posterior descending coronary artery finding it to be a graftable vessel. Second piece of saphenous vein was cut to appropriate length and connected to the ascending aorta with a passport anastomotic connector. It was connected in the midline just above the sinotubular junction. Was brought around the right side of the heart to the posterior descending coronary artery. The posterior descending was exposed and stabilized and opened. Blood flow was controlled with a 1.5 mm flow through. Anastomosis between the PDA and saphenous vein was performed with running 7-0 Prolene suture. On completion anastomosis the flow through was removed effectively probing the proximal distal portion anastomosis. Inflow was open. Good hemostasis was noted. Lay well without kinking. Next we exposed the distal circumflex coronary artery. Unfortunately this was ungraftable with findings as noted above. Heart was again lowered into anatomic position. Heparin was reversed with protamine and good hemostasis obtained throughout. Chest was irrigated with antibiotic solution. Mediastinum was drained with 36-[place] chest tube. Sternum was reapproximated with 8 sternal wires, the fascia with 0 Ethibond, and the subcutaneous and subcuticular layers in the leg and chest with layers of Vicryl suture. The patient remained hemodynamically stable throughout requiring only low-dose dopamine and the balloon pump. YASMINE findings were markedly improved at the completion of the case as noted above. Dry sterile dressings were applied and the patient was transferred to the ICU in stable hemodynamic condition. No blood products were required.
[2017-11-09] MEDS: PROPOFOL 1,000 MG in EMPTY BAG 1 BAG IV SCH ×2 (13:00→21:55)
[2017-11-09] MEDS: DOPamine DRIP 800 MG in DEXTROSE/WATER 1 500ML.BAG IV SCH (13:00)
[2017-11-09] MEDS: LACTATED RINGERS 1,000 ML IV SCH (13:00)
[2017-11-09 13:08] LABS: Glucose,Whole Blood 121 mg/dL (75-99)
--- NOTE | 2017-11-09 13:30 | XR ---
EXAMINATION TYPE: XR chest 1V portable DATE OF EXAM: 11/09/2017 HISTORY: Post Operative Cardiac Surgery. REFERENCE: Previous study dated 11/08/2017. FINDINGS: There has been interval midline sternotomy. The patient is intubated. The ET tube is in goo d position with its tip approximately 5.7 cm above the phill. An NG tube is present and its tip is i n the stomach. A [place]-Karly catheter is in place via a right internal jugular approach. Its tip is in the pulmonary outflow tract. One mediastinal drain is in place. A left pleural drain is in place. The heart is mildly enlarged. There is widening of the vascular pedicle. Pleural spaces are clear. Th ere is minimal left basilar airspace disease. There is vascular congestion without cee edema. IMPRESSION: POSTOPERATIVE CHANGE.
[2017-11-09 13:39] LABS: ABG Base Excess 0.8 mmol/L; ABG HCO3 27 mmol/L (21-25); ABG Oxygen Saturation 94.8 % (94-97); ABG PCO2 56 mmHg (35-45); ABG PO2 82 mmHg (83-108); ABG TCO2 29 mmol/L (19-24)
[2017-11-09 13:49] LABS: Basophils % (A) 0 %; Eosinophils # (A) 0.1 k/uL (0-0.7); Eosinophils % (A) 1 %; HCT 46.8 % (39.0-53.0); Lymphocytes % (A) 6 %; MCH 30.8 pg (25.0-35.0); Mean Platelet Volume 7.4; Monocytes # (A) 0.7 k/uL (0-1.0); Monocytes % (A) 4 %; Neutrophils # (A) 14.4 k/uL (1.3-7.7); Neutrophils % (A) 88 %; Platelet Count 152 k/uL (150-450); RBC 4.88 m/uL (4.30-5.90); RDW 13.9 % (11.5-15.5); WBC 16.4 k/uL (3.8-10.6)
[2017-11-09 13:57] LABS: INR 1.3 (<1.2)
[2017-11-09 13:58] LABS: Partial Thromboplastin Time 23.4 sec (22.0-30.0); Prothrombin Time 12.5 sec (9.0-12.0)
[2017-11-09] MEDS: MORPHINE SULFATE/PF 10MG/10ML VL IVP PRN (13:59)
[2017-11-09 14:09] LABS: ALT 57 U/L (21-72); AST 36 U/L (17-59); Albumin 2.9 g/dL (3.5-5.0); Alkaline Phosphatase 53 U/L (38-126); Anion Gap 10 mmol/L; Blood Urea Nitrogen 20 mg/dL (9-20); Calcium 8.2 mg/dL (8.4-10.2); Carbon Dioxide 26 mmol/L (22-30); Chloride 105 mmol/L (98-107); Glucose 126 mg/dL (74-99); Magnesium 1.9 mg/dL (1.6-2.3); Potassium 4.1 mmol/L (3.5-5.1); Sodium 141 mmol/L (137-145); Total Bilirubin 1.5 mg/dL (0.2-1.3); Total Protein 5.3 g/dL (6.3-8.2)
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
[2017-11-09 14:12] LABS: Glucose,Whole Blood 118 mg/dL (75-99)
[2017-11-09 15:08] LABS: Glucose,Whole Blood 125 mg/dL (75-99)
[2017-11-09] MEDS: IPRATROPIUM-ALBUTEROL 3 ML NEB INHALATION SCH ×2 (15:26→19:16)
[2017-11-09] MEDS: MAGNESIUM SULFATE-D5W PMX 1 GM in DEXTROSE/WATER 1 100ML.BAG IVPB SCH ×2 (15:31→16:45)
[2017-11-09 16:03] LABS: Glucose,Whole Blood 123 mg/dL (75-99)
[2017-11-09] MEDS: LORazepam 2 MG/ML INJ IV PRN ×2 (16:18→21:00)
[2017-11-09] MEDS: THIAMINE 100 MG TAB PO SCH (16:28)
[2017-11-09] MEDS: MULTIVITAMINS, THERA 1 EACH TAB PO SCH (16:28)
[2017-11-09] MEDS: ceFAZolin IN SWFI 2 GM/20 ML SYRINGE IVP SCH (16:28)
[2017-11-09] MEDS: FOLIC ACID 1 MG TAB PO SCH (16:28)
[2017-11-09 17:03] LABS: Glucose,Whole Blood 141 mg/dL (75-99)
[2017-11-09] MEDS: ACETAMINOPHEN IV (For NPO) 1,000 MG in EMPTY BAG 1 BAG IVPB SCH ×2 (17:56→23:12)
[2017-11-09 18:07] LABS: Glucose,Whole Blood 142 mg/dL (75-99)
[2017-11-09 18:44] LABS: Basophils % (A) 0 %; Eosinophils # (A) 0.1 k/uL (0-0.7); Eosinophils % (A) 0 %; HCT 47.5 % (39.0-53.0); HGB 15.1 gm/dL (13.0-17.5); Lymphocytes # (A) 0.7 k/uL (1.0-4.8); Lymphocytes % (A) 5 %; MCH 30.3 pg (25.0-35.0); MCHC 31.8 g/dL (31.0-37.0); MCV 95.1 fL (80.0-100.0); Mean Platelet Volume 7.3; Monocytes # (A) 0.8 k/uL (0-1.0); Monocytes % (A) 6 %; Neutrophils # (A) 11.7 k/uL (1.3-7.7); Neutrophils % (A) 88 %; Platelet Count 158 k/uL (150-450); RDW 13.8 % (11.5-15.5); WBC 13.2 k/uL (3.8-10.6)
[2017-11-09 19:06] LABS: Glucose,Whole Blood 127 mg/dL (75-99)
[2017-11-09] MEDS: CLEVIDIPINE BUTYRATE 25 MG in EMPTY BAG 1 BAG IV SCH (19:17)
[2017-11-09 20:17] LABS: Glucose,Whole Blood 115 mg/dL (75-99)
[2017-11-09 20:24] LABS: ABG Base Excess 1.8 mmol/L; ABG HCO3 27 mmol/L (21-25); ABG Oxygen Saturation 94.9 % (94-97); ABG PCO2 43 mmHg (35-45); ABG PO2 74 mmHg (83-108); ABG TCO2 28 mmol/L (19-24)
[2017-11-09 20:51] LABS: Glucose,Whole Blood 118 mg/dL (75-99)
[2017-11-09] MEDS: LIDOCAINE 5% PATCH TOPICAL SCH (21:54)
[2017-11-09] MEDS: CHLORHEXIDINE GLUCONATE 15 ML CUP MUCOUS MEM SCH (21:54)
[2017-11-09 21:59] LABS: Glucose,Whole Blood 105 mg/dL (75-99)
[2017-11-09] MEDS: ALBUMIN HUMAN 5% 250 ML in EMPTY BAG 1 BAG IVPB PRN (22:35)
[2017-11-09 23:09] LABS: Glucose,Whole Blood 127 mg/dL (75-99)
[2017-11-10 00:04] LABS: Glucose,Whole Blood 112 mg/dL (75-99)
[2017-11-10] MEDS: ceFAZolin IN SWFI 2 GM/20 ML SYRINGE IVP SCH ×2 (00:10→08:04)
[2017-11-10] MEDS: HEPARIN SODIUM,PORCINE 5,000 UNIT/ML 1 ML VIAL SQ SCH ×3 (00:10→15:49)
[2017-11-10] MEDS: IPRATROPIUM-ALBUTEROL 3 ML NEB INHALATION SCH ×9 (00:35→20:24)
[2017-11-10 01:03] LABS: Glucose,Whole Blood 115 mg/dL (75-99)
[2017-11-10 02:16] LABS: Glucose,Whole Blood 112 mg/dL (75-99)
[2017-11-10 03:01] LABS: Glucose,Whole Blood 127 mg/dL (75-99)
[2017-11-10] MEDS: ALBUMIN HUMAN 5% 250 ML in EMPTY BAG 1 BAG IVPB PRN (03:45)
[2017-11-10 04:09] LABS: Glucose,Whole Blood 99 mg/dL (75-99)
[2017-11-10 04:28] LABS: Basophils % (A) 0 %; Eosinophils % (A) 0 %; HCT 43.6 % (39.0-53.0); Lymphocytes # (A) 1.3 k/uL (1.0-4.8); Lymphocytes % (A) 12 %; MCH 30.3 pg (25.0-35.0); MCHC 32.1 g/dL (31.0-37.0); MCV 94.6 fL (80.0-100.0); Mean Platelet Volume 7.8; Monocytes # (A) 0.8 k/uL (0-1.0); Monocytes % (A) 7 %; Neutrophils # (A) 8.3 k/uL (1.3-7.7); Neutrophils % (A) 79 %; Platelet Count 132 k/uL (150-450); RBC 4.61 m/uL (4.30-5.90); RDW 13.9 % (11.5-15.5); WBC 10.5 k/uL (3.8-10.6)
[2017-11-10] MEDS: PROPOFOL 1,000 MG in EMPTY BAG 1 BAG IV SCH ×4 (04:37→22:40)
[2017-11-10 04:38] LABS: INR 1.3 (<1.2); Prothrombin Time 12.6 sec (9.0-12.0)
[2017-11-10 04:41] LABS: Ionized Calcium 4.9 mg/dL (4.5-5.3)
[2017-11-10 04:48] LABS: ALT 44 U/L (21-72); AST 33 U/L (17-59); Albumin 3.1 g/dL (3.5-5.0); Alkaline Phosphatase 46 U/L (38-126); Anion Gap 7 mmol/L; Blood Urea Nitrogen 21 mg/dL (9-20); Calcium 8.8 mg/dL (8.4-10.2); Carbon Dioxide 26 mmol/L (22-30); Chloride 104 mmol/L (98-107); Glucose 102 mg/dL (74-99); Magnesium 2.3 mg/dL (1.6-2.3); Sodium 137 mmol/L (137-145); Total Bilirubin 1.2 mg/dL (0.2-1.3); Total Protein 5.4 g/dL (6.3-8.2)
[2017-11-10 04:52] LABS: ABG Base Excess 2.7 mmol/L; ABG HCO3 27 mmol/L (21-25); ABG Oxygen Saturation 95.5 % (94-97); ABG PCO2 40 mmHg (35-45); ABG PH 7.44 (7.35-7.45); ABG PO2 73 mmHg (83-108); ABG TCO2 28 mmol/L (19-24)
[2017-11-10 05:05] LABS: Glucose,Whole Blood 87 mg/dL (75-99)
[2017-11-10] MEDS: MORPHINE SULFATE/PF 10MG/10ML VL IVP PRN (05:35)
[2017-11-10] MEDS: LORazepam 2 MG/ML INJ IV PRN (05:36)
[2017-11-10] MEDS: ACETAMINOPHEN IV (For NPO) 1,000 MG in EMPTY BAG 1 BAG IVPB SCH ×3 (05:38→18:00)
[2017-11-10 06:06] LABS: Glucose,Whole Blood 117 mg/dL (75-99)
[2017-11-10 06:54] LABS: Glucose,Whole Blood 94 mg/dL (75-99)
--- NOTE | 2017-11-10 07:23 | XR ---
EXAMINATION TYPE: XR chest 1V portable DATE OF EXAM: 11/10/2017 HISTORY: Post Operative Cardiac Surgery. REFERENCE: Previous study dated 11/09/2017. FINDINGS: There has been a midline sternotomy. The patient's ET tube, NG tube and [place]-Karly catheter remain in place, unchanged in appearance. A left pleural drain is in place. There is bibasilar airspace disease likely representing atelectasis. There is a small left effusion. The heart is enlarged. IMPRESSION: CONTINUING POSTOPERATIVE CHANGE.
[2017-11-10] MEDS ORDERED: MORPHINE SULF 5MG/10ML VL IVP PRN (07:48)
[2017-11-10] MEDS: CHLORHEXIDINE GLUCONATE 15 ML CUP MUCOUS MEM SCH ×2 (08:05→20:22)
[2017-11-10] MEDS: ASPIRIN 325 MG TAB PO SCH (08:05)
[2017-11-10] MEDS: CLOPIDOGREL 75 MG TAB PO SCH (08:05)
[2017-11-10] MEDS: ATORVASTATIN 40 MG TAB PO SCH (08:05)
[2017-11-10] MEDS: MUPIROCIN 2% OINT 22 GM TUBE NASAL SCH ×2 (08:06→20:34)
[2017-11-10] MEDS: METOPROLOL TARTRATE 12.5 MG TAB PO SCH ×2 (08:06→20:21)
[2017-11-10] MEDS: PANTOPRAZOLE 40 MG/10 ML VIAL IVP SCH (08:06)
[2017-11-10 08:49] LABS: Glucose,Whole Blood 107 mg/dL (75-99)
--- NOTE | 2017-11-10 09:04 | P.PN ---
Subjective Progress Note Date: 11/10/17 Principal diagnosis: Severe triple-vessel coronary artery disease, NSTEMI, acute on chronic systolic left heart failure, ischemic cardiomyopathy with severe left ventricular systolic dysfunction with an ejection fraction of 20%. History of hypertension, COPD with pre-operative FEV1 74% of predicted post bronchodilator, current nicotine abuse, EtOH abuse, recent tracheobronchitis with antibiotic and steroid therapy. POD #2 placement of intra-aortic balloon pump by cardiology. POD #1 urgent off-pump coronary artery bypass grafting 3 with left internal mammary artery to LAD and reverse saphenous vein grafts to the first diagonal and posterior descending coronary arteries with endovascular vein harvest from the right greater saphenous vein. Intraoperative transesophageal echocardiogram by anesthesia. Patient is currently laying in bed in no acute distress, sedated on mechanical ventilation. Intra-aortic balloon pump present, 1:2 augmentation. Unable to be extubated last night due to significant increased agitation and hypoxia. Objective - Vital Signs Vital signs: Vital Signs Temp 97.9 F 11/10/17 06:00 Pulse 84 11/10/17 08:30 Resp 13 11/10/17 08:30 BP 92/60 11/10/17 08:30 Pulse Ox 97 11/10/17 08:30 Intake & Output 11/09/17 11/10/17 11/10/17 18:59 06:59 18:59 Intake Total 700.395 6156.139 144 Output Total 2524 679 140 Balance -1648.972 740.139 4 Weight 104 kg Intake: IV 185 1194 144 ACETAMINOPHEN IV (For NPO 200 ) 1,000 mg In Empty Bag 1 bag @ 400 mls/hr IVPB Q6HR [facility] Rx#:[id number] Albumin Human 5% 500 ml 250 In Empty Bag 1 bag @ 250 mls/hr IVPB ONCE ONE Rx#: [id number] CO/CI 110 150 20 IABP Heparin Flush 18 36 6 Lactated Ringers 1,000 ml 450 100 @ 20 mls/hr IV .Q24H [facility] Rx#:[id number] Pressure Bag 54 108 18 Intake, IV Titration 690.028 225.139 Amount ACETAMINOPHEN IV (For NPO 100 ) 1,000 mg In Empty Bag 1 bag @ 400 mls/hr IVPB Q6HR [facility] Rx#:[id number] DOPamine DRIP 800 mg In 55.50 9.25 Dextrose/Water 1 500ml. bag @ 2.5 MCG/KG/MIN 9.25 mls/hr IV .Q24H [facility] Rx#: [id number] Dexmedetomidine 400 mcg 3.642 In Sodium Chloride 0.9% 100 ml @ Titrate IV .Q0M [facility] Rx#:[id number] Insulin Regular 100 unit 1.636 10.389 In Sodium Chloride 0.9% 100 ml @ Per Protocol IV .Q0M [facility] Rx#:[id number] Lactated Ringers 1,000 ml 300 50 @ 20 mls/hr IV .Q24H [facility] Rx#:[id number] Magnesium Sulfate-D5w Pmx 200 1 gm In Dextrose/Water 1 100ml.bag @ 100 mls/hr IVPB Q1H [facility] Rx#: [id number] Nitroglycerin-D5w Pmx 50 9.0 1.5 mg In Dextrose/Water 1 250ml.bag @ 5 MCG/MIN 1.5 mls/hr IV .Q24H [facility] Rx#: [id number] Propofol 1,000 mg In 20.25 154 Empty Bag 1 bag @ Titrate IV .Q0M [facility] Rx#: [id number] Output: Chest Tube Drainage 82 138 20 Left Plueral & 82 138 20 Mediastinal Urine 1442 541 120 Estimated Blood Loss 1000 Other: Voiding Method Indwelling Catheter Indwelling Catheter Indwelling Catheter # Voids 1 ABP, PAP, CO, CI - Last Documented Arterial Blood Pressure 117/71 Pulmonary Artery Pressure 44/27 Cardiac Output 5.4 Cardiac Index 2.5 - Constitutional General appearance: Present: no acute distress, obese - Respiratory Details: Lungs sounds diminished bilaterally. Respirations even, nonlabored on mechanical ventilation. Current settings assist control mode, FiO2 80%, tidal volume 750, respiratory rate 10, PEEP 8. ABGs this morning 7.4/40/73/27/2.7/95 % on 100% FiO2. Mediastinal/left pleural chest tubes to continuous wall suction , 70 mL thin serosanguineous drainage overnight, 250 mL since surgery. No air leak present. - Cardiovascular Details: S1, S2 present. Regular rate and rhythm, sinus rhythm on telemetry. Sternum stable. Palpable peripheral pulses bilaterally. No edema present. Intra- aortic balloon pump present, 7.5-[place] with 40 cc balloon, augmenting 1:2. Right internal jugular/[place], left radial arterial line present. Last CO/CI 5.4/ 2.5. Currently on dopamine IV at 2.5 mics. - Gastrointestinal Gastrointestinal Comment(s): Abdomen soft, nontender, nondistended. Hypoactive bowel sounds present 4 quadrants. OG tube present fluid and suctioned with coffee-ground drainage. - Genitourinary Genitourinary Comment(s): Jolly present draining clear, yellow urine. Output 20-40 mL/h overnight, output for the last 2 hours was 80 mL and 120 mL. - Integumentary Integumentary Comment(s): Skin is warm and dry with evidence of good perfusion. Anterior chest incision well present, dry intact dressing. Right lower extremity EVH site well approximated. - Neurologic Neurologic Comment(s): Currently sedated with propofol. Patient does open his eyes and follow commands. - Allied health notes Allied health notes reviewed: nursing - Labs CBC & Chem 7: 11/10/17 04:05 11/10/17 04:05 Labs: Abnormal Lab Results - Last 24 Hours (Table) 11/07/17 11/09/17 11/09/17 Range/Units 11:31 13:00 13:00 WBC 16.4 H (3.8-10.6) k/uL Plt Count (150-450) k/uL Neutrophils # 14.4 H (1.3-7.7) k/uL Lymphocytes # (1.0-4.8) k/uL PT (9.0-12.0) sec INR (<1.2) ABG pH (7.35-7.45) ABG pCO2 (35-45) mmHg ABG pO2 (83-108) mmHg ABG HCO3 (21-25) mmol/L ABG Total CO2 (19-24) mmol/L BUN (9-20) mg/dL Glucose 126 H (74-99) mg/dL POC Glucose (mg/dL) (75-99) mg/dL Calcium 8.2 L (8.4-10.2) mg/dL Total Bilirubin 1.5 H (0.2-1.3) mg/dL Total Protein 5.3 L (6.3-8.2) g/dL Albumin 2.9 L (3.5-5.0) g/dL Crossmatch See Detail 11/09/17 11/09/17 11/09/17 Range/Units 13:00 13:04 13:38 WBC (3.8-10.6) k/uL Plt Count (150-450) k/uL Neutrophils # (1.3-7.7) k/uL Lymphocytes # (1.0-4.8) k/uL PT 12.5 H (9.0-12.0) sec INR 1.3 H (<1.2) ABG pH 7.30 L (7.35-7.45) ABG pCO2 56 H (35-45) mmHg ABG pO2 82 L (83-108) mmHg ABG HCO3 27 H (21-25) mmol/L ABG Total CO2 29 H (19-24) mmol/L BUN (9-20) mg/dL Glucose (74-99) mg/dL POC Glucose (mg/dL) 121 H (75-99) mg/dL Calcium (8.4-10.2) mg/dL Total Bilirubin (0.2-1.3) mg/dL Total Protein (6.3-8.2) g/dL Albumin (3.5-5.0) g/dL Crossmatch 11/09/17 11/09/17 11/09/17 Range/Units 14:05 15:06 16:01 WBC (3.8-10.6) k/uL Plt Count (150-450) k/uL Neutrophils # (1.3-7.7) k/uL Lymphocytes # (1.0-4.8) k/uL PT (9.0-12.0) sec INR (<1.2) ABG pH (7.35-7.45) ABG pCO2 (35-45) mmHg ABG pO2 (83-108) mmHg ABG HCO3 (21-25) mmol/L ABG Total CO2 (19-24) mmol/L BUN (9-20) mg/dL Glucose (74-99) mg/dL POC Glucose (mg/dL) 118 H 125 H 123 H (75-99) mg/dL Calcium (8.4-10.2) mg/dL Total Bilirubin (0.2-1.3) mg/dL Total Protein (6.3-8.2) g/dL Albumin (3.5-5.0) g/dL Crossmatch 11/09/17 11/09/17 11/09/17 Range/Units 17:00 18:05 18:30 WBC 13.2 H (3.8-10.6) k/uL Plt Count (150-450) k/uL Neutrophils # 11.7 H (1.3-7.7) k/uL Lymphocytes # 0.7 L (1.0-4.8) k/uL PT (9.0-12.0) sec INR (<1.2) ABG pH (7.35-7.45) ABG pCO2 (35-45) mmHg ABG pO2 (83-108) mmHg ABG HCO3 (21-25) mmol/L ABG Total CO2 (19-24) mmol/L BUN (9-20) mg/dL Glucose (74-99) mg/dL POC Glucose (mg/dL) 141 H 142 H (75-99) mg/dL Calcium (8.4-10.2) mg/dL Total Bilirubin (0.2-1.3) mg/dL Total Protein (6.3-8.2) g/dL Albumin (3.5-5.0) g/dL Crossmatch 11/09/17 11/09/17 11/09/17 Range/Units 19:03 20:15 20:25 WBC (3.8-10.6) k/uL Plt Count (150-450) k/uL Neutrophils # (1.3-7.7) k/uL Lymphocytes # (1.0-4.8) k/uL PT (9.0-12.0) sec INR (<1.2) ABG pH (7.35-7.45) ABG pCO2 (35-45) mmHg ABG pO2 74 L (83-108) mmHg ABG HCO3 27 H (21-25) mmol/L ABG Total CO2 28 H (19-24) mmol/L BUN (9-20) mg/dL Glucose (74-99) mg/dL POC Glucose (mg/dL) 127 H 115 H (75-99) mg/dL Calcium (8.4-10.2) mg/dL Total Bilirubin (0.2-1.3) mg/dL Total Protein (6.3-8.2) g/dL Albumin (3.5-5.0) g/dL Crossmatch 11/09/17 11/09/1711/09/18 Range/Units 20:50 21:57 23:08 WBC (3.8-10.6) k/uL Plt Count (150-450) k/uL Neutrophils # (1.3-7.7) k/uL Lymphocytes # (1.0-4.8) k/uL PT (9.0-12.0) sec INR (<1.2) ABG pH (7.35-7.45) ABG pCO2 (35-45) mmHg ABG pO2 (83-108) mmHg ABG HCO3 (21-25) mmol/L ABG Total CO2 (19-24) mmol/L BUN (9-20) mg/dL Glucose (74-99) mg/dL POC Glucose (mg/dL) 118 H 105 H 127 H (75-99) mg/dL Calcium (8.4-10.2) mg/dL Total Bilirubin (0.2-1.3) mg/dL Total Protein (6.3-8.2) g/dL Albumin (3.5-5.0) g/dL Crossmatch 11/10/17 11/10/17 11/10/17 Range/Units 00:02 01:01 02:02 WBC (3.8-10.6) k/uL Plt Count (150-450) k/uL Neutrophils # (1.3-7.7) k/uL Lymphocytes # (1.0-4.8) k/uL PT (9.0-12.0) sec INR (<1.2) ABG pH (7.35-7.45) ABG pCO2 (35-45) mmHg ABG pO2 (83-108) mmHg ABG HCO3 (21-25) mmol/L ABG Total CO2 (19-24) mmol/L BUN (9-20) mg/dL Glucose (74-99) mg/dL POC Glucose (mg/dL) 112 H 115 H 112 H (75-99) mg/dL Calcium (8.4-10.2) mg/dL Total Bilirubin (0.2-1.3) mg/dL Total Protein (6.3-8.2) g/dL Albumin (3.5-5.0) g/dL Crossmatch 11/10/17 11/10/17 11/10/17 Range/Units 02:59 04:05 04:05 WBC (3.8-10.6) k/uL Plt Count 132 L (150-450) k/uL Neutrophils # 8.3 H (1.3-7.7) k/uL Lymphocytes # (1.0-4.8) k/uL PT 12.6 H (9.0-12.0) sec INR 1.3 H (<1.2) ABG pH (7.35-7.45) ABG pCO2 (35-45) mmHg ABG pO2 (83-108) mmHg ABG HCO3 (21-25) mmol/L ABG Total CO2 (19-24) mmol/L BUN (9-20) mg/dL Glucose (74-99) mg/dL POC Glucose (mg/dL) 127 H (75-99) mg/dL Calcium (8.4-10.2) mg/dL Total Bilirubin (0.2-1.3) mg/dL Total Protein (6.3-8.2) g/dL Albumin (3.5-5.0) g/dL Crossmatch 11/10/17 11/10/17 11/10/17 Range/Units 04:05 04:48 06:04 WBC (3.8-10.6) k/uL Plt Count (150-450) k/uL Neutrophils # (1.3-7.7) k/uL Lymphocytes # (1.0-4.8) k/uL PT (9.0-12.0) sec INR (<1.2) ABG pH (7.35-7.45) ABG pCO2 (35-45) mmHg ABG pO2 73 L (83-108) mmHg ABG HCO3 27 H (21-25) mmol/L ABG Total CO2 28 H (19-24) mmol/L BUN 21 H (9-20) mg/dL Glucose 102 H (74-99) mg/dL POC Glucose (mg/dL) 117 H (75-99) mg/dL Calcium (8.4-10.2) mg/dL Total Bilirubin (0.2-1.3) mg/dL Total Protein 5.4 L (6.3-8.2) g/dL Albumin 3.1 L (3.5-5.0) g/dL Crossmatch 11/10/17 Range/Units 08:47 WBC (3.8-10.6) k/uL Plt Count (150-450) k/uL Neutrophils # (1.3-7.7) k/uL Lymphocytes # (1.0-4.8) k/uL PT (9.0-12.0) sec INR (<1.2) ABG pH (7.35-7.45) ABG pCO2 (35-45) mmHg ABG pO2 (83-108) mmHg ABG HCO3 (21-25) mmol/L ABG Total CO2 (19-24) mmol/L BUN (9-20) mg/dL Glucose (74-99) mg/dL POC Glucose (mg/dL) 107 H (75-99) mg/dL Calcium (8.4-10.2) mg/dL Total Bilirubin (0.2-1.3) mg/dL Total Protein (6.3-8.2) g/dL Albumin (3.5-5.0) g/dL Crossmatch - Imaging and Cardiology Chest x-ray: report reviewed, image reviewed Assessment and Plan (1) Tobacco dependence Current Visit: Yes Status: Chronic Code(s): F17.200 - NICOTINE DEPENDENCE, UNSPECIFIED, UNCOMPLICATED SNOMED Code(s): 59016446 (2) Alcohol abuse Current Visit: Yes Status: Chronic Code(s): F10.10 - ALCOHOL ABUSE, UNCOMPLICATED SNOMED Code(s): 44535951 (3) Acute non-ST segment elevation myocardial infarction Current Visit: Yes Status: Acute Code(s): I21.4 - NON-ST ELEVATION (NSTEMI) MYOCARDIAL INFARCTION SNOMED Code(s): 470303741 (4) COPD (chronic obstructive pulmonary disease) Current Visit: Yes Status: Chronic Code(s): J44.9 - CHRONIC OBSTRUCTIVE PULMONARY DISEASE, UNSPECIFIED SNOMED Code(s): 65377693 (5) Coronary artery disease Current Visit: Yes Status: Chronic Code(s): I25.10 - ATHSCL HEART DISEASE OF [place] CORONARY ARTERY W/O ANG PCTRS SNOMED Code(s): 48202431 (6) Hypertension Current Visit: Yes Status: Chronic Code(s): I10 - ESSENTIAL (PRIMARY) HYPERTENSION SNOMED Code(s): 12745730 (7) Ischemic cardiomyopathy Current Visit: Yes Status: Chronic Code(s): I25.5 - ISCHEMIC CARDIOMYOPATHY SNOMED Code(s): 854539204 Plan: 1. Continue aspirin, statin, Plavix, heparin, beta keeley. Will maximize beta keeley therapy as tolerated. 2. Wean ventilator as able. 3. Will discontinue IABP. 4. Encourage use of his incentive spirometry every hour while awake once extubated. Encourage smoking cessation. 5. Once extubated, increase activity, out of bed to chair. PT/OT/cardiac rehab following. 6. GI/DVT prophylaxis. 7. Continue CIWA protocol, folic acid, thiamine, MVI. 8. Insulin drip/diabetic management per primary care service. 9. Will monitor daily labs and x-rays. 10. More recommendations to follow. Time with Patient: Greater than 30
--- NOTE | 2017-11-10 10:39 | PN ---
PROGRESS NOTE DATE OF SERVICE: 11/10/2017. HISTORY: He has been followed here on 11/10/2017. He is in CCU. This gentleman has a history of triple-vessel coronary artery disease with his previous STEMI. He has acute on chronic systolic heart failure along with his ischemic cardiomyopathy. He has severe left ventricular dysfunction with ejection fracture between 20 and 25, history of hypertension, COPD. His FEVs preoperatively were 74%. He is known to have some alcohol and nicotine abuse. He has had some recent tracheobronchitis. Also, of interest, this is the second time I have ever seen the patient in my office and he was admitted with chest pain from 4 days before and also notably having shortness of breath with a normal O2 saturation. Postop day #1 he had urgent off-pump coronary artery bypass x3 with left internal mammary artery to the LAD and reverse saphenous vein grafts to the 1st diagonal and posterior descending coronary arteries with endovascular vein harvest from the right greater saphenous vein. He also had intraoperative transesophageal echocardiogram by anesthesia. Postop here he had placement of the intra- aortic balloon pump by Cardiology. The patient is currently lying in bed. He is still sedated on mechanical ventilation. He has an intra-aortic pump preset 1-2 augmentation. He was unable to extubate last night due to significant increase in agitation and hypoxia. His vital signs at this period of time, temperature is 97.9, pulse is 84, respiratory rate is 13, blood pressure 92/60, O2 saturation is in the 90s. His urine output is still negative at this period of time. His medications at this time, we have him on IV Tylenol. He is on albumin given once, he is on lactic acid IV roughly 20 mL/an hour, he is on dopamine at 2.5 mics, he is on dexmedetomidine 400 mcg, obviously insulin to scale, IV, he is on magnesium sulfate replacement nitroglycerin drip at this time he is on 5 mics, he is on propofol 1000 mg an empty bag titrated according to sedation. His chest tube left pleural fluid, total of about a little bit over 200 mL. His urine output is normal as previously stated. Today his arterial blood pressure is 117/71, pulmonary artery pressure is 44-27, cardiac output is 5.4, and cardiac index is 2.5. At this time, he appears in no acute distress. REVIEW OF SYSTEMS: Again, unable to perform due to the fact that he is intubated and on a pump. PHYSICAL EXAMINATION: At this time eyes appear equal, the pupils do. No swelling of the eyes. Facial symmetry appears normal. He is intubated. Neck is supple. His chest at this time is basically clear throughout with some diminished breath sounds. His respirator at this time has FiO2 of 80%, tidal volume 750, respiratory rate is 10 and his PEEP is at 8. Please refer to his blood gases about complete pleura. His chest pleural tubes are continuous wall suction at this 70 mils with minimal amount of serosanguineous overnight, close to 250 mL. The heart is sinus rhythm, normal S1, S2. No S3, no S4. Chest wall, sternum appears stable. Good palpable arm pulses. Lower extremity pulses are weak but palpable. Abdomen has good bowel sounds, soft, nontender with no organomegaly. His OG tube presents with fluid in suction. Urinary Jolly is present and draining correctly. Integumentary, skin is warm. He does have some bruising throughout. Neurologically, he is sedated. Plan at this time is to follow up on his white count is at 16.4. Blood sugars appear to be normal. The creatinine is normal. ASSESSMENT: 1. Triple-vessel coronary artery bypass. 2. Ischemic cardiomyopathy. 3. Acute non ST myocardial infarction. 4. Chronic obstructive pulmonary disease. 5. Obviously coronary artery disease. 6. Hypertension. 7. Tobacco dependence. 8. Alcohol dependence. PLAN: Continue same medications accordingly, following the note from cardiobypass and Cardiology. Hopefully, no weaning ventilator when able. Incentive spirometry. Continue the insulin drip at this time. We will monitor the labs and stabilization. We had a long talk today about his present condition with his nurse. At this time he stable, just reiterating his COPD probably is a major issue in this situation. Also, we will follow him accordingly. I spent roughly 40 minutes with him in the room. ÁNGEL / KIRSTENN: [id number] /
--- NOTE | 2017-11-10 10:48 | PN ---
PROGRESS NOTE DATE OF SERVICE: 11/09/2017. HISTORY: I am seeing this patient pre bypass surgery today. He is up here in the ICU. He was admitted with heart failure and acute myocardial infarction with some pulmonary edema. He has some diffuse coronary artery disease, baseline COPD with tracheobronchitis. Unfortunately, he has an ejection fracture somewhere between 20% and 25%. After evaluation including negative for MRSA or MSSA with nasal swab, he is going down for controlled bypass surgery. At this time, for the most part, his labs were normal. REVIEW OF SYSTEMS: Eyes no problems seeing. ENT is negative. Neck is supple. Chest, he has some rhonchi and minimal wheezes. Heart is sinus rhythm, negative with no palpitations here on monitor. He is having no chest pain at this time, but he was admitted with chest pain. Abdomen negative nausea, vomiting, diarrhea, constipation, hematemesis, melena. Extremities have been just with arthritis in his hands. He has arthritis in his back. PHYSICAL EXAMINATION: At this time showed an arterial blood pressure of 119/67. His pulmonary arterial pressure was 43/27, cardiac output is 6.1, and his cardiac index is 3. Heart rates in the 60s, respiratory rate is 14, temperature is 97.7. Eyes pupils are equal, round, react to light accommodation. ENT showed tympanic membranes and pharynx to be negative. Neck is supple. Midline trachea. Chest with again some rhonchi, minimal. Heart sinus rhythm. Abdomen is mildly obese, but soft, nontender with no organomegaly. No palpable masses. Lower extremity arthritis in hands and hips and ankles. Decrease palpable pulses. LAB WORK: At this period of time is within normal limits. ASSESSMENT: 1. Acute myocardial infarction, non STEMI. 2. Ischemic cardiomyopathy with acute systolic failure and diffuse triple-vessel disease, ejection fraction of 20. 3. Chronic obstructive pulmonary disease with chronic bronchitis. 4. Alcohol and cigarette abuse without any evidence of delirium tremens. PLAN: We will continue watching him postoperatively. He is on his way to surgery at this time. He understands all that is concerning. He has all of his "ducks in a row." We will follow him accordingly. MMODL / IJN: [id number] /
[2017-11-10 10:55] LABS: ABG Base Excess 3.7 mmol/L; ABG HCO3 28 mmol/L (21-25); ABG Oxygen Saturation 89.1 % (94-97); ABG PCO2 38 mmHg (35-45); ABG PH 7.46 (7.35-7.45); ABG PO2 53 mmHg (83-108); ABG TCO2 29 mmol/L (19-24)
[2017-11-10 11:01] LABS: Glucose,Whole Blood 94 mg/dL (75-99)
--- NOTE | 2017-11-10 11:38 | P.PCN ---
Date of Procedure: 11/10/17 Preoperative Diagnosis: Coronary artery disease, ischemic cardiomyopathy, acute systolic heart failure Postoperative Diagnosis: Coronary artery disease, ischemic cardiomyopathy, acute systolic heart failure Procedure(s) Performed: Removal of left femoral intra-aortic balloon pump Surgeon: Elicia Anderson Indications for Procedure: This is a 62-year-old male who was found to have multivessel coronary artery disease, ischemic cardiomyopathy, and systolic heart failure with an ejection fraction of 20-25%. An intra-aortic balloon pump was placed in the [employer] by Dr. Brody. He went for coronary artery bypass yesterday and has done well. This morning he is hemodynamically stable and is no longer in need of intra- aortic balloon pump assistance. Removal of the device was recommended. The risks, benefits, alternatives to this procedure were discussed with the patient. Consent was assumed as patient remains intubated. Description of Procedure: The left groin was examined. There was no evidence of hematoma. The balloon pump was turned off. The pre-existing sheath and balloon were removed en nicko and artery was allowed to bleed both antegrade and retrograde for several beats. Direct manual pressure was held over the site for 45 minutes. There was no residual bleeding or hematoma noted. The groin itself was soft. The left lower extremity appeared warm and well perfused. There were no immediate complications. He remained hemodynamically stable with a good follow-up cardiac index.
[2017-11-10] MEDS ORDERED: MAGNESIUM HYDROXIDE 2,400 MG/10 ML CUP PO PRN (12:06)
[2017-11-10] MEDS ORDERED: BISACODYL 10 MG SUPP RECTAL PRN (12:06)
[2017-11-10] MEDS ORDERED: IPRATROPIUM-ALBUTEROL 3 ML NEB INHALATION PRN (12:06)
--- NOTE | 2017-11-10 12:59 | P.PN ---
Subjective Progress Note Date: 11/10/17 Principal diagnosis: CAD This is a pleasant 62-year-old gentleman who was admitted to the hospital with acute coronary event and acute non-ST elevation myocardial infarction. He underwent a heart catheterization and that revealed severe triple-vessel coronary artery disease. The echocardiogram showed severe cardiomyopathy. The patient underwent yesterday CABG 3 where he received HALE to LAD, SVG to diagonal, SVG to PDA. I'll follow-up with him today, the patient continues to be intubated and continues to be sedated on propofol. Hemodynamically he is on dopamine. Beside that he is on antiplatelet as well as statin and metoprolol. Objective - Vital Signs Vital signs: Vital Signs Temp 97.9 F 11/10/17 06:00 Pulse 93 11/10/17 11:18 Resp 11 L 11/10/17 10:00 BP 98/65 11/10/17 10:00 Pulse Ox 95 11/10/17 10:00 Intake & Output 11/09/17 11/10/17 11/10/17 18:59 06:59 18:59 Intake Total 210.124 6279.139 304 Output Total 2524 679 410 Balance -1648.972 740.139 -106 Weight 104 kg Intake: IV 185 1194 304 ACETAMINOPHEN IV (For NPO 200 ) 1,000 mg In Empty Bag 1 bag @ 400 mls/hr IVPB Q6HR [facility] Rx#:[id number] Albumin Human 5% 500 ml 250 In Empty Bag 1 bag @ 250 mls/hr IVPB ONCE ONE Rx#: [id number] CO/CI 110 150 60 IABP Heparin Flush 18 36 9 Lactated Ringers 1,000 ml 450 190 @ 20 mls/hr IV .Q24H [facility] Rx#:[id number] Pressure Bag 54 108 45 Intake, IV Titration 690.028 225.139 Amount ACETAMINOPHEN IV (For NPO 100 ) 1,000 mg In Empty Bag 1 bag @ 400 mls/hr IVPB Q6HR [facility] Rx#:[id number] DOPamine DRIP 800 mg In 55.50 9.25 Dextrose/Water 1 500ml. bag @ 2.5 MCG/KG/MIN 9.25 mls/hr IV .Q24H [facility] Rx#: [id number] Dexmedetomidine 400 mcg 3.642 In Sodium Chloride 0.9% 100 ml @ Titrate IV .Q0M [facility] Rx#:[id number] Insulin Regular 100 unit 1.636 10.389 In Sodium Chloride 0.9% 100 ml @ Per Protocol IV .Q0M [facility] Rx#:[id number] Lactated Ringers 1,000 ml 300 50 @ 20 mls/hr IV .Q24H [facility] Rx#:[id number] Magnesium Sulfate-D5w Pmx 200 1 gm In Dextrose/Water 1 100ml.bag @ 100 mls/hr IVPB Q1H [facility] Rx#: [id number] Nitroglycerin-D5w Pmx 50 9.0 1.5 mg In Dextrose/Water 1 250ml.bag @ 5 MCG/MIN 1.5 mls/hr IV .Q24H [facility] Rx#: [id number] Propofol 1,000 mg In 20.25 154 Empty Bag 1 bag @ Titrate IV .Q0M [facility] Rx#: [id number] Output: Chest Tube Drainage 82 138 80 Left Plueral & 82 138 80 Mediastinal Urine 1442 541 330 Estimated Blood Loss 1000 Other: Voiding Method Indwelling Catheter Indwelling Catheter Indwelling Catheter # Voids 1 ABP, PAP, CO, CI - Last Documented Arterial Blood Pressure 121/58 Pulmonary Artery Pressure 44/27 Cardiac Output 5.4 Cardiac Index 2.5 - Constitutional General appearance: Present: no acute distress - Respiratory Respiratory: bilateral: diminished - Cardiovascular Heart sounds: normal: S1, S2 - Labs CBC & Chem 7: 11/10/17 04:05 11/10/17 04:05 Labs: Abnormal Lab Results - Last 24 Hours (Table) 11/07/17 11/09/17 11/09/17 Range/Units 11:31 13:00 13:00 WBC 16.4 H (3.8-10.6) k/uL Plt Count (150-450) k/uL Neutrophils # 14.4 H (1.3-7.7) k/uL Lymphocytes # (1.0-4.8) k/uL PT (9.0-12.0) sec INR (<1.2) ABG pH (7.35-7.45) ABG pCO2 (35-45) mmHg ABG pO2 (83-108) mmHg ABG HCO3 (21-25) mmol/L ABG Total CO2 (19-24) mmol/L ABG O2 Saturation (94-97) % BUN (9-20) mg/dL Glucose 126 H (74-99) mg/dL POC Glucose (mg/dL) (75-99) mg/dL Calcium 8.2 L (8.4-10.2) mg/dL Total Bilirubin 1.5 H (0.2-1.3) mg/dL Total Protein 5.3 L (6.3-8.2) g/dL Albumin 2.9 L (3.5-5.0) g/dL Crossmatch See Detail 11/09/17 11/09/17 11/09/17 Range/Units 13:00 13:04 13:38 WBC (3.8-10.6) k/uL Plt Count (150-450) k/uL Neutrophils # (1.3-7.7) k/uL Lymphocytes # (1.0-4.8) k/uL PT 12.5 H (9.0-12.0) sec INR 1.3 H (<1.2) ABG pH 7.30 L (7.35-7.45) ABG pCO2 56 H (35-45) mmHg ABG pO2 82 L (83-108) mmHg ABG HCO3 27 H (21-25) mmol/L ABG Total CO2 29 H (19-24) mmol/L ABG O2 Saturation (94-97) % BUN (9-20) mg/dL Glucose (74-99) mg/dL POC Glucose (mg/dL) 121 H (75-99) mg/dL Calcium (8.4-10.2) mg/dL Total Bilirubin (0.2-1.3) mg/dL Total Protein (6.3-8.2) g/dL Albumin (3.5-5.0) g/dL Crossmatch 11/09/17 11/09/17 11/09/17 Range/Units 14:05 15:06 16:01 WBC (3.8-10.6) k/uL Plt Count (150-450) k/uL Neutrophils # (1.3-7.7) k/uL Lymphocytes # (1.0-4.8) k/uL PT (9.0-12.0) sec INR (<1.2) ABG pH (7.35-7.45) ABG pCO2 (35-45) mmHg ABG pO2 (83-108) mmHg ABG HCO3 (21-25) mmol/L ABG Total CO2 (19-24) mmol/L ABG O2 Saturation (94-97) % BUN (9-20) mg/dL Glucose (74-99) mg/dL POC Glucose (mg/dL) 118 H 125 H 123 H (75-99) mg/dL Calcium (8.4-10.2) mg/dL Total Bilirubin (0.2-1.3) mg/dL Total Protein (6.3-8.2) g/dL Albumin (3.5-5.0) g/dL Crossmatch 11/09/17 11/09/17 11/09/17 Range/Units 17:00 18:05 18:30 WBC 13.2 H (3.8-10.6) k/uL Plt Count (150-450) k/uL Neutrophils # 11.7 H (1.3-7.7) k/uL Lymphocytes # 0.7 L (1.0-4.8) k/uL PT (9.0-12.0) sec INR (<1.2) ABG pH (7.35-7.45) ABG pCO2 (35-45) mmHg ABG pO2 (83-108) mmHg ABG HCO3 (21-25) mmol/L ABG Total CO2 (19-24) mmol/L ABG O2 Saturation (94-97) % BUN (9-20) mg/dL Glucose (74-99) mg/dL POC Glucose (mg/dL) 141 H 142 H (75-99) mg/dL Calcium (8.4-10.2) mg/dL Total Bilirubin (0.2-1.3) mg/dL Total Protein (6.3-8.2) g/dL Albumin (3.5-5.0) g/dL Crossmatch 11/09/17 11/09/17 11/09/17 Range/Units 19:03 20:15 20:25 WBC (3.8-10.6) k/uL Plt Count (150-450) k/uL Neutrophils # (1.3-7.7) k/uL Lymphocytes # (1.0-4.8) k/uL PT (9.0-12.0) sec INR (<1.2) ABG pH (7.35-7.45) ABG pCO2 (35-45) mmHg ABG pO2 74 L (83-108) mmHg ABG HCO3 27 H (21-25) mmol/L ABG Total CO2 28 H (19-24) mmol/L ABG O2 Saturation (94-97) % BUN (9-20) mg/dL Glucose (74-99) mg/dL POC Glucose (mg/dL) 127 H 115 H (75-99) mg/dL Calcium (8.4-10.2) mg/dL Total Bilirubin (0.2-1.3) mg/dL Total Protein (6.3-8.2) g/dL Albumin (3.5-5.0) g/dL Crossmatch 11/09/17 11/09/17 11/09/17 Range/Units 20:50 21:57 23:08 WBC (3.8-10.6) k/uL Plt Count (150-450) k/uL Neutrophils # (1.3-7.7) k/uL Lymphocytes # (1.0-4.8) k/uL PT (9.0-12.0) sec INR (<1.2) ABG pH (7.35-7.45) ABG pCO2 (35-45) mmHg ABG pO2 (83-108) mmHg ABG HCO3 (21-25) mmol/L ABG Total CO2 (19-24) mmol/L ABG O2 Saturation (94-97) % BUN (9-20) mg/dL Glucose (74-99) mg/dL POC Glucose (mg/dL) 118 H 105 H 127 H (75-99) mg/dL Calcium (8.4-10.2) mg/dL Total Bilirubin (0.2-1.3) mg/dL Total Protein (6.3-8.2) g/dL Albumin (3.5-5.0) g/dL Crossmatch 11/10/17 11/10/17 11/10/17 Range/Units 00:02 01:01 02:02 WBC (3.8-10.6) k/uL Plt Count (150-450) k/uL Neutrophils # (1.3-7.7) k/uL Lymphocytes # (1.0-4.8) k/uL PT (9.0-12.0) sec INR (<1.2) ABG pH (7.35-7.45) ABG pCO2 (35-45) mmHg ABG pO2 (83-108) mmHg ABG HCO3 (21-25) mmol/L ABG Total CO2 (19-24) mmol/L ABG O2 Saturation (94-97) % BUN (9-20) mg/dL Glucose (74-99) mg/dL POC Glucose (mg/dL) 112 H 115 H 112 H (75-99) mg/dL Calcium (8.4-10.2) mg/dL Total Bilirubin (0.2-1.3) mg/dL Total Protein (6.3-8.2) g/dL Albumin (3.5-5.0) g/dL Crossmatch 11/10/17 11/10/17 11/10/17 Range/Units 02:59 04:05 04:05 WBC (3.8-10.6) k/uL Plt Count 132 L (150-450) k/uL Neutrophils # 8.3 H (1.3-7.7) k/uL Lymphocytes # (1.0-4.8) k/uL PT 12.6 H (9.0-12.0) sec INR 1.3 H (<1.2) ABG pH (7.35-7.45) ABG pCO2 (35-45) mmHg ABG pO2 (83-108) mmHg ABG HCO3 (21-25) mmol/L ABG Total CO2 (19-24) mmol/L ABG O2 Saturation (94-97) % BUN (9-20) mg/dL Glucose (74-99) mg/dL POC Glucose (mg/dL) 127 H (75-99) mg/dL Calcium (8.4-10.2) mg/dL Total Bilirubin (0.2-1.3) mg/dL Total Protein (6.3-8.2) g/dL Albumin (3.5-5.0) g/dL Crossmatch 11/10/17 11/10/17 11/10/17 Range/Units 04:05 04:48 06:04 WBC (3.8-10.6) k/uL Plt Count (150-450) k/uL Neutrophils # (1.3-7.7) k/uL Lymphocytes # (1.0-4.8) k/uL PT (9.0-12.0) sec INR (<1.2) ABG pH (7.35-7.45) ABG pCO2 (35-45) mmHg ABG pO2 73 L (83-108) mmHg ABG HCO3 27 H (21-25) mmol/L ABG Total CO2 28 H (19-24) mmol/L ABG O2 Saturation (94-97) % BUN 21 H (9-20) mg/dL Glucose 102 H (74-99) mg/dL POC Glucose (mg/dL) 117 H (75-99) mg/dL Calcium (8.4-10.2) mg/dL Total Bilirubin (0.2-1.3) mg/dL Total Protein 5.4 L (6.3-8.2) g/dL Albumin 3.1 L (3.5-5.0) g/dL Crossmatch 11/10/17 11/10/17 Range/Units 08:47 10:48 WBC (3.8-10.6) k/uL Plt Count (150-450) k/uL Neutrophils # (1.3-7.7) k/uL Lymphocytes # (1.0-4.8) k/uL PT (9.0-12.0) sec INR (<1.2) ABG pH 7.46 H (7.35-7.45) ABG pCO2 (35-45) mmHg ABG pO2 53 L (83-108) mmHg ABG HCO3 28 H (21-25) mmol/L ABG Total CO2 29 H (19-24) mmol/L ABG O2 Saturation 89.1 L (94-97) % BUN (9-20) mg/dL Glucose (74-99) mg/dL POC Glucose (mg/dL) 107 H (75-99) mg/dL Calcium (8.4-10.2) mg/dL Total Bilirubin (0.2-1.3) mg/dL Total Protein (6.3-8.2) g/dL Albumin (3.5-5.0) g/dL Crossmatch Assessment and Plan Assessment: Assessment #1 coronary artery disease and status post CABG as described above #2 severe cardiomyopathy #3 acute respiratory failure Plan #1 continue the current medical treatment with antiplatelet and statin #2 extubation hopefully in the next 24 hours #3 follow-up with the patient
[2017-11-10] MEDS: MULTIVITAMINS, THERA 1 EACH TAB PO SCH (13:14)
[2017-11-10] MEDS: FOLIC ACID 1 MG TAB PO SCH (13:14)
[2017-11-10] MEDS: THIAMINE 100 MG TAB PO SCH (13:14)
[2017-11-10] MEDS: DOPamine DRIP 800 MG in DEXTROSE/WATER 1 500ML.BAG IV SCH (13:15)
[2017-11-10] MEDS: CLEVIDIPINE BUTYRATE 25 MG in EMPTY BAG 1 BAG IV SCH (13:15)
[2017-11-10] MEDS: LACTATED RINGERS 1,000 ML IV SCH (13:16)
[2017-11-10 13:53] LABS: Glucose,Whole Blood 95 mg/dL (75-99)
[2017-11-10 16:05] LABS: Glucose,Whole Blood 93 mg/dL (75-99)
[2017-11-10 18:06] LABS: Glucose,Whole Blood 96 mg/dL (75-99)
[2017-11-10 19:55] LABS: Glucose,Whole Blood 108 mg/dL (75-99)
[2017-11-10] MEDS: INSULIN ASPART 100 UNIT/ML 1 ML 10 ML VIAL SQ SCH (20:17)
[2017-11-10] MEDS: SENNOSIDES-DOCUSATE SODIUM 1 EACH TAB PO SCH (20:21)
[2017-11-10] MEDS: LIDOCAINE 5% PATCH TOPICAL SCH (20:22)
[2017-11-11 00:08] LABS: Glucose,Whole Blood 100 mg/dL (75-99)
[2017-11-11] MEDS: IPRATROPIUM-ALBUTEROL 3 ML NEB INHALATION SCH ×7 (00:15→21:06)
[2017-11-11] MEDS: HEPARIN SODIUM,PORCINE 5,000 UNIT/ML 1 ML VIAL SQ SCH ×4 (00:45→23:47)
[2017-11-11] MEDS: PROPOFOL 1,000 MG in EMPTY BAG 1 BAG IV SCH (03:01)
[2017-11-11] MEDS: INSULIN ASPART 100 UNIT/ML 1 ML 10 ML VIAL SQ SCH ×7 (03:29→23:49)
[2017-11-11 04:01] LABS: Glucose,Whole Blood 95 mg/dL (75-99)
[2017-11-11 04:38] LABS: Basophils % (A) 0 %; Eosinophils # (A) 0.1 k/uL (0-0.7); Eosinophils % (A) 1 %; Lymphocytes % (A) 9 %; MCH 31.1 pg (25.0-35.0); MCHC 33.2 g/dL (31.0-37.0); MCV 93.4 fL (80.0-100.0); Mean Platelet Volume 7.6; Monocytes # (A) 0.9 k/uL (0-1.0); Monocytes % (A) 7 %; Neutrophils # (A) 9.7 k/uL (1.3-7.7); Neutrophils % (A) 82 %; Platelet Count 137 k/uL (150-450); RBC 4.82 m/uL (4.30-5.90); RDW 13.8 % (11.5-15.5); WBC 11.9 k/uL (3.8-10.6)
[2017-11-11 04:42] LABS: Ionized Calcium 4.9 mg/dL (4.5-5.3)
[2017-11-11 04:45] LABS: ABG Base Excess 2.8 mmol/L; ABG HCO3 26 mmol/L (21-25); ABG Oxygen Saturation 95.7 % (94-97); ABG PCO2 32 mmHg (35-45); ABG PH 7.51 (7.35-7.45); ABG PO2 72 mmHg (83-108); ABG TCO2 27 mmol/L (19-24)
[2017-11-11 04:54] LABS: ALT 38 U/L (21-72); AST 37 U/L (17-59); Albumin 3.1 g/dL (3.5-5.0); Alkaline Phosphatase 63 U/L (38-126); Anion Gap 11 mmol/L; Blood Urea Nitrogen 16 mg/dL (9-20); Calcium 8.8 mg/dL (8.4-10.2); Carbon Dioxide 25 mmol/L (22-30); Chloride 102 mmol/L (98-107); Glucose 96 mg/dL (74-99); Magnesium 2.1 mg/dL (1.6-2.3); Potassium 4.2 mmol/L (3.5-5.1); Sodium 138 mmol/L (137-145); Total Bilirubin 1.4 mg/dL (0.2-1.3); Total Protein 5.6 g/dL (6.3-8.2)
[2017-11-11] MEDS ORDERED: FUROSEMIDE 10 MG/ML 2 ML VIAL IV STA (05:22)
[2017-11-11 07:50] LABS: Glucose,Whole Blood 95 mg/dL (75-99)
--- NOTE | 2017-11-11 07:54 | XR ---
EXAMINATION TYPE: XR chest 1V portable DATE OF EXAM: 11/11/2017 Comparison: 11/10/2017 Clinical History: 62-year-old male Post Operative Cardiac Surgery Findings: ET tube is satisfactory. NG tube courses below the diaphragm but the sidehole is above the GE junctio n. Median sternotomy wires are present. Left-sided chest tube without appreciable pneumothorax. There is diffuse interstitial and vascular prominence with small effusions and perihilar densities. A righ t IJ [place]-K[place] catheter appears to be present. The tip of the catheter is probably in the lower main pulmonary outflow tract, somewhat medial positioning. Impression: 1. Right [place]-Karly catheter tip probably in the lower main pulmonary outflow tract. Somewhat more med ial positioning than expected but unchanged. Correlate for appropriate functioning of the catheter. 2. NG tube sidehole above the GE junction. Consider further advancement into the stomach. 3. Continued CHF with interstitial pulmonary edema. 4. Small right effusion with adjacent atelectasis and/or consolidation appears slightly worsened.
[2017-11-11] MEDS: ASPIRIN 325 MG TAB PO SCH (08:03)
[2017-11-11] MEDS: CLOPIDOGREL 75 MG TAB PO SCH (08:03)
[2017-11-11] MEDS: METOPROLOL TARTRATE 12.5 MG TAB PO SCH ×2 (08:04→20:53)
[2017-11-11] MEDS: ATORVASTATIN 40 MG TAB PO SCH (08:04)
[2017-11-11] MEDS: CHLORHEXIDINE GLUCONATE 15 ML CUP MUCOUS MEM SCH ×2 (08:04→15:04)
[2017-11-11] MEDS: PANTOPRAZOLE 40 MG/10 ML VIAL IVP SCH (08:04)
[2017-11-11] MEDS: MUPIROCIN 2% OINT 22 GM TUBE NASAL SCH ×2 (08:04→20:53)
[2017-11-11] MEDS: THIAMINE 100 MG TAB PO SCH (08:07)
[2017-11-11] MEDS: MULTIVITAMINS, THERA 1 EACH TAB PO SCH (08:07)
[2017-11-11] MEDS: FOLIC ACID 1 MG TAB PO SCH (08:07)
--- NOTE | 2017-11-11 08:10 | PN ---
PROGRESS NOTE DATE OF SERVICE: 11/11/2017 This is a 62-year-old white male that was admitted via my office with chest pain beginning of last week after having a history of acute shortness of breath. On further investigation after much resistance, the patient stated that he had a heavy chest pain like a brick sitting on his chest. This last weekend, which cause progressive shortness of breath. Of interest, I did an EKG which showed both anterior and inferior wall myocardial infarction, questionable acute versus chronic, and was placed in the hospital accordingly after his troponin came back positive. Initially he rejected going into the hospital and then the next day he agreed and was placed in accordingly. At this point of view, he is resting comfortably, status post day 2 of having a 3- vessel bypass. He is still intubated, but his parameters have been cut in half to the point that he probably will be able to be extubated today. Initially, he was seen by Cardiology, evaluated by Dr. Brody and it was well established that he had complete blockage of the right coronary artery and significant blockage of left anterior arteries. On cardiac catheterization, there was severe 3-vessel disease, 95% LAD with a poor echo below 20%. He had a high stenosis of the ostial first diagonal, complete occlusion of the distal circumflex and 2 obtuse marginal branches had a complete obstruction in the right main artery. Due to that situation, he had a cardiac 3-vessel bypass grafting off the pump using the left internal mammary artery to the LAD and saphenous vein grafts to the first diagonal and posterior descending coronary arteries with endovascular vein harvest from the right lower leg of greater saphenous vein. Dr. Bullard had performed the surgery on 11/09. At this point, his review of systems are unable to be obtained. I had a long intense talk with nursing, said that his parameters for vital signs stayed stable all night without any vasopressors. He is moderately sedated, but he can be easily reduced and is still comfortable. Today from a lab point of view, WBC is 11.9. He has a hemoglobin of 15. His initial blood gases today show a pH of 7.5; pCO2 of 32; O2 of 72, CHO3 of 26 with CO2 of 27. His sodium is 138, potassium is 4.2, creatinine is 0.7 with a BUN of 17. His sugars are stable. Magnesium at this time is 2.1 and liver function tests are normal. Negative cultures. PHYSICAL EXAMINATION: VITAL SIGNS: Blood pressure is 116/65. His pulmonary arterial pressure is 35-12 and saturating at 95. He has got an FiO2 of 50. He is on a mechanical vent. Temperature is 99%. Respiratory rate right around between 14 and 18. At this period of time: EYES: Pupils are equal, round, and reactive. Patient is aware I am there. Resting comfortably. Still heavily sedated. Throat is intubated but mouth appears normal externally and internally. NECK: There appears no masses or swelling. Chest wall was negative and clear to auscultation with some apparent atelectasis and crackles on inspiration. HEART: Sinus rhythm with no murmur. Patient did not have any atrial fib since surgery. Abdomen is soft, nontender with no organomegaly. Has good bowel sounds. Lower extremities have no swelling. Hands appear normal. Feet appear normal. Back is not inspected, but as I have been told are no evidence of decubitus or skin irritation. Medication was reviewed. He had received albumin 250 IV solution. He gets DuoNeb daily. He gets aspirin 325 daily. He gets Lipitor 40 mg daily. Of course, he is on Cepacol lozenges and Peridex for the mouth. He is on clevidipine 25 mg IV solution. He is on Plavix 75 daily, folic acid 1 daily, heparin subcu 5000 q.8, insulin to scale, Ringers lactate, Ativan 1 mg every 2 hours p.r.n. agitation, milk of magnesia is set for with Reglan, Lopressor 12.5 b.i.d. the NG tube, morphine sulfate 2 mg IV push every 2 hours, Protonix 40 mg IV push. DIAGNOSES: Diagnoses on him is: 1. Coronary bypass surgery, 3 vessels left side. 2. Severe cardiomyopathy. 3. Acute respiratory failure with chronic obstructive pulmonary disease. 4. Subendocardial myocardial infarction. 5. Some generalize arthritis. 6. Still on mechanical ventilation. Continue with the same medications, same treatment. Chest tube also being evaluated. Labs were all stable with the possibility of extubation today. Prognosis actually at this point is good. MMODL / IJN: [id number] /
--- NOTE | 2017-11-11 08:42 | P.PN ---
Subjective Progress Note Date: 11/11/17 Principal diagnosis: Severe triple-vessel coronary artery disease, NSTEMI, acute on chronic systolic left heart failure, ischemic cardiomyopathy with severe left ventricular systolic dysfunction with an ejection fraction of 20%. History of hypertension, COPD with pre-operative FEV1 74% of predicted post bronchodilator, current nicotine abuse, EtOH abuse, recent tracheobronchitis with antibiotic and steroid therapy. Family history of premature coronary artery disease with a brother diagnosed at 46 years old. History of dyslipidemia. Occasional use of home oxygen as patient was using his 's home oxygen. POD #3 placement of intra-aortic balloon pump by cardiology. POD #2 urgent off-pump coronary artery bypass grafting 3 with left internal mammary artery to LAD and reverse saphenous vein grafts to the first diagonal and posterior descending coronary arteries with endovascular vein harvest from the right greater saphenous vein. Intraoperative transesophageal echocardiogram by anesthesia. Acute hypoxic respiratory failure, prolonged mechanical ventilation, and expected outcome of surgery given the patient's extensive tobacco and alcohol dependence with a recent history of tracheobronchitis. Patient is currently laying in bed in no acute distress, sedated on mechanical ventilation. Unable to be extubated yesterday due to significant increased agitation and hypoxia. Was able to wean the ventilator down to FiO2 50%. Intra -aortic balloon pump discontinued yesterday. Objective - Vital Signs Vital signs: Vital Signs Temp 99 F 11/11/17 06:00 Pulse 93 11/11/17 07:00 Resp 18 11/11/17 07:57 BP 94/70 11/11/17 04:00 Pulse Ox 95 11/11/17 07:54 Intake & Output 11/10/17 11/11/17 11/11/17 18:59 06:59 18:59 Intake Total 922.313 701.500 72 Output Total 546 458 2410 Balance 72.313 -123.500 -953 Weight 104 kg Intake: IV 598 375 72 ACETAMINOPHEN IV (For NPO 100 ) 1,000 mg In Empty Bag 1 bag @ 400 mls/hr IVPB Q6HR [facility] Rx#:[id number] CO/CI 80 60 20 IABP Heparin Flush 9 Lactated Ringers 1,000 ml 310 240 40 @ 20 mls/hr IV .Q24H [facility] Rx#:[id number] Pressure Bag 99 75 12 Intake, IV Titration 324.313 266.500 Amount DOPamine DRIP 800 mg In 224.313 Dextrose/Water 1 500ml. bag @ 2.5 MCG/KG/MIN 9.25 mls/hr IV .Q24H [facility] Rx#: [id number] Propofol 1,000 mg In 100 266.500 Empty Bag 1 bag @ Titrate IV .Q0M [facility] Rx#: [id number] Other 60 Output: Chest Tube Drainage 100 130 0 Left Plueral & 100 130 0 Mediastinal Urine 855 914 4445 Other: Voiding Method Indwelling Catheter Indwelling Catheter Indwelling Catheter # Voids 1 # Bowel Movements 0 ABP, PAP, CO, CI - Last Documented Arterial Blood Pressure 116/65 Pulmonary Artery Pressure 35/12 Cardiac Output 6.7 Cardiac Index 3.1 - Constitutional General appearance: Present: cooperative, no acute distress, obese - Respiratory Details: Lungs sounds diminished bilaterally. Respirations even, nonlabored on mechanical ventilation. Current settings assist control mode, FiO2 50%, tidal volume 750, respiratory rate 10, PEEP 8. ABGs this morning 7.51/32/72/26/2.8/95 % on 50% FiO2. 9.0 ET tube present, 24 at the lip. Mediastinal/left pleural chest tube to continuous wall suction, 70 mL thin serosanguineous drainage overnight, 150 mL last 24 hours, no air leaks present. - Cardiovascular Details: S1, S2 present. Regular rate and rhythm, sinus rhythm on telemetry. Sternum stable. Palpable peripheral pulses bilaterally. Trace bilateral lower extremity edema present. Right internal jugular [place], left radial arterial line present. Last CO/CI 6.7/3.1. Currently on 2.5 mics of dopamine. Antiembolism stockings, SCDs present. Previous left femoral balloon pump site soft, nontender. - Gastrointestinal Gastrointestinal Comment(s): Abdomen soft, nontender, nondistended. Active bowel sounds present 4 quadrants. OG tube present for admittance suction. - Genitourinary Genitourinary Comment(s): Jolly present draining clear, yellow urine. Output 40-60 mL/h overnight. Was given IV Lasix this morning with excellent diuresis. - Integumentary Integumentary Comment(s): Skin is warm and dry with evidence of good perfusion. Anterior chest incision well approximated and covered with dry intact dressing. Right lower extremity EVH site well approximated. - Neurologic Neurologic Comment(s): Currently sedated on mechanical ventilation. Patient does open his eyes and wiggles fingers and toes to command. - Allied health notes Allied health notes reviewed: nursing - Labs CBC & Chem 7: 11/11/17 04:00 11/11/17 04:00 Labs: Abnormal Lab Results - Last 24 Hours (Table) 11/10/17 11/10/17 11/10/17 Range/Units 08:47 10:48 19:53 WBC (3.8-10.6) k/uL Plt Count (150-450) k/uL Neutrophils # (1.3-7.7) k/uL ABG pH 7.46 H (7.35-7.45) ABG pCO2 (35-45) mmHg ABG pO2 53 L (83-108) mmHg ABG HCO3 28 H (21-25) mmol/L ABG Total CO2 29 H (19-24) mmol/L ABG O2 Saturation 89.1 L (94-97) % POC Glucose (mg/dL) 107 H 108 H (75-99) mg/dL Total Bilirubin (0.2-1.3) mg/dL Total Protein (6.3-8.2) g/dL Albumin (3.5-5.0) g/dL 11/11/17 11/11/17 11/11/17 Range/Units 00:06 04:00 04:00 WBC 11.9 H (3.8-10.6) k/uL Plt Count 137 L (150-450) k/uL Neutrophils # 9.7 H (1.3-7.7) k/uL ABG pH (7.35-7.45) ABG pCO2 (35-45) mmHg ABG pO2 (83-108) mmHg ABG HCO3 (21-25) mmol/L ABG Total CO2 (19-24) mmol/L ABG O2 Saturation (94-97) % POC Glucose (mg/dL) 100 H (75-99) mg/dL Total Bilirubin 1.4 H (0.2-1.3) mg/dL Total Protein 5.6 L (6.3-8.2) g/dL Albumin 3.1 L (3.5-5.0) g/dL 11/11/17 Range/Units 04:42 WBC (3.8-10.6) k/uL Plt Count (150-450) k/uL Neutrophils # (1.3-7.7) k/uL ABG pH 7.51 H (7.35-7.45) ABG pCO2 32 L (35-45) mmHg ABG pO2 72 L (83-108) mmHg ABG HCO3 26 H (21-25) mmol/L ABG Total CO2 27 H (19-24) mmol/L ABG O2 Saturation (94-97) % POC Glucose (mg/dL) (75-99) mg/dL Total Bilirubin (0.2-1.3) mg/dL Total Protein (6.3-8.2) g/dL Albumin (3.5-5.0) g/dL - Imaging and Cardiology Chest x-ray: report reviewed, image reviewed Assessment and Plan (1) Tobacco dependence Current Visit: Yes Status: Chronic Code(s): F17.200 - NICOTINE DEPENDENCE, UNSPECIFIED, UNCOMPLICATED SNOMED Code(s): 98077439 (2) Alcohol abuse Current Visit: Yes Status: Chronic Code(s): F10.10 - ALCOHOL ABUSE, UNCOMPLICATED SNOMED Code(s): 26437954 (3) Acute non-ST segment elevation myocardial infarction Current Visit: Yes Status: Acute Code(s): I21.4 - NON-ST ELEVATION (NSTEMI) MYOCARDIAL INFARCTION SNOMED Code(s): 656209735 (4) COPD (chronic obstructive pulmonary disease) Current Visit: Yes Status: Chronic Code(s): J44.9 - CHRONIC OBSTRUCTIVE PULMONARY DISEASE, UNSPECIFIED SNOMED Code(s): 69096242 (5) Coronary artery disease Current Visit: Yes Status: Chronic Code(s): I25.10 - ATHSCL HEART DISEASE OF [place] CORONARY ARTERY W/O ANG PCTRS SNOMED Code(s): 73165702 (6) Hypertension Current Visit: Yes Status: Chronic Code(s): I10 - ESSENTIAL (PRIMARY) HYPERTENSION SNOMED Code(s): 44551818 (7) Ischemic cardiomyopathy Current Visit: Yes Status: Chronic Code(s): I25.5 - ISCHEMIC CARDIOMYOPATHY SNOMED Code(s): 136522304 Plan: 1. Continue aspirin, statin, Plavix, heparin, beta keeley. Will maximize beta keeley therapy as tolerated. 2. Wean ventilator to extubate. Likely will discontinue chest tubes once extubated. 3. Will continue IV dopamine for now. May give further IV Lasix later today dependent on patient's response. 4. Encourage use of his incentive spirometry every hour while awake once extubated. Encourage smoking cessation. 5. Once extubated, increase activity, out of bed to chair. PT/OT/cardiac rehab following. 6. GI/DVT prophylaxis. 7. Continue CIWA protocol, folic acid, thiamine, MVI. 8. Insulin drip/diabetic management per primary care service. 9. Will monitor daily labs and x-rays. 10. More recommendations to follow. Time with Patient: Greater than 30
[2017-11-11 08:48] LABS: ABG Base Excess 1.5 mmol/L; ABG HCO3 27 mmol/L (21-25); ABG Oxygen Saturation 99.7 % (94-97); ABG PCO2 43 mmHg (35-45); ABG PO2 174 mmHg (83-108); ABG Sodium Whole Blood 139 mmol/L (135-146); ABG TCO2 28 mmol/L (19-24)
[2017-11-11 08:50] LABS: ABG Base Excess -0.4 mmol/L; ABG HCO3 26 mmol/L (21-25); ABG Oxygen Saturation 98.7 % (94-97); ABG PCO2 50 mmHg (35-45); ABG PH 7.33 (7.35-7.45); ABG PO2 131 mmHg (83-108); ABG Potassium Whole Blood 4.4 mmol/L (3.4-4.5); ABG Sodium Whole Blood 139 mmol/L (135-146); ABG TCO2 28 mmol/L (19-24)
[2017-11-11 08:53] LABS: ABG HCO3 26 mmol/L (21-25); ABG PCO2 44 mmHg (35-45); ABG PH 7.37 (7.35-7.45); ABG PO2 124 mmHg (83-108); ABG TCO2 27 mmol/L (19-24)
[2017-11-11 08:54] LABS: ABG Base Excess -0.2 mmol/L; ABG Oxygen Saturation 98.7 % (94-97); ABG Potassium Whole Blood 4.2 mmol/L (3.4-4.5); ABG Sodium Whole Blood 139 mmol/L (135-146)
[2017-11-11 08:55] LABS: ABG Base Excess -0.1 mmol/L; ABG HCO3 25 mmol/L (21-25); ABG Oxygen Saturation 98.2 % (94-97); ABG PCO2 42 mmHg (35-45); ABG PH 7.39 (7.35-7.45); ABG PO2 111 mmHg (83-108); ABG TCO2 26 mmol/L (19-24)
[2017-11-11 08:56] LABS: ABG Potassium Whole Blood 4.3 mmol/L (3.4-4.5); ABG Sodium Whole Blood 138 mmol/L (135-146)
[2017-11-11 08:57] LABS: ABG Base Excess -0.2 mmol/L; ABG HCO3 26 mmol/L (21-25); ABG PCO2 46 mmHg (35-45); ABG PH 7.36 (7.35-7.45); ABG PO2 71 mmHg (83-108); ABG Potassium Whole Blood 4.1 mmol/L (3.4-4.5); ABG Sodium Whole Blood 139 mmol/L (135-146); ABG TCO2 27 mmol/L (19-24)
--- NOTE | 2017-11-11 09:41 | P.PN ---
Subjective Progress Note Date: 11/11/17 Principal diagnosis: CAD This is a pleasant 62-year-old gentleman who was admitted to the hospital with acute coronary event and acute non-ST elevation myocardial infarction. He underwent a heart catheterization and that revealed severe triple-vessel coronary artery disease. The echocardiogram showed severe cardiomyopathy. The patient underwent yesterday CABG 3 where he received HALE to LAD, SVG to diagonal, SVG to PDA. I'll follow-up with him today, the patient continues to be intubated. Currently he is on CPAP for possible extubation later on today. Hemodynamically he is on dopamine. Beside that he is on antiplatelet as well as statin and metoprolol. Objective - Vital Signs Vital signs: Vital Signs Temp 99 F 11/11/17 06:00 Pulse 92 11/11/17 08:28 Resp 14 11/11/17 08:00 BP 94/70 11/11/17 04:00 Pulse Ox 97 11/11/17 08:00 Intake & Output 11/10/17 11/11/17 11/11/17 18:59 06:59 18:59 Intake Total 922.313 701.500 72 Output Total 149 500 0746 Balance 72.313 -123.500 -953 Weight 104 kg Intake: IV 598 375 72 ACETAMINOPHEN IV (For NPO 100 ) 1,000 mg In Empty Bag 1 bag @ 400 mls/hr IVPB Q6HR [facility] Rx#:[id number] CO/CI 80 60 20 IABP Heparin Flush 9 Lactated Ringers 1,000 ml 310 240 40 @ 20 mls/hr IV .Q24H [facility] Rx#:[id number] Pressure Bag 99 75 12 Intake, IV Titration 324.313 266.500 Amount DOPamine DRIP 800 mg In 224.313 Dextrose/Water 1 500ml. bag @ 2.5 MCG/KG/MIN 9.25 mls/hr IV .Q24H [facility] Rx#: [id number] Propofol 1,000 mg In 100 266.500 Empty Bag 1 bag @ Titrate IV .Q0M [facility] Rx#: [id number] Other 60 Output: Chest Tube Drainage 100 130 0 Left Plueral & 100 130 0 Mediastinal Urine 094 703 4881 Other: Voiding Method Indwelling Catheter Indwelling Catheter Indwelling Catheter # Voids 1 # Bowel Movements 0 ABP, PAP, CO, CI - Last Documented Arterial Blood Pressure 102/58 Pulmonary Artery Pressure 38/19 Cardiac Output 4.7 Cardiac Index 2.2 - Constitutional General appearance: Present: no acute distress - Respiratory Respiratory: bilateral: CTA - Cardiovascular Rhythm: regular Heart sounds: normal: S1, S2 - Labs CBC & Chem 7: 11/11/17 04:00 11/11/17 04:00 Labs: Abnormal Lab Results - Last 24 Hours (Table) 11/09/17 11/09/17 11/09/17 Range/Units 08:17 09:45 10:30 WBC (3.8-10.6) k/uL Plt Count (150-450) k/uL Neutrophils # (1.3-7.7) k/uL ABG pH 7.33 L (7.35-7.45) ABG pCO2 50 H (35-45) mmHg ABG pO2 174 H 131 H 124 H (83-108) mmHg ABG HCO3 27 H 26 H 26 H (21-25) mmol/L ABG Total CO2 28 H 28 H 27 H (19-24) mmol/L ABG O2 Saturation 99.7 H 98.7 H 98.7 H (94-97) % ABG Hematocrit 51 H 47 H 49 H (34.0-46.0) % ABG Glucose 105 H 121 H 136 H (75-99) mg/dL POC Glucose (mg/dL) (75-99) mg/dL Total Bilirubin (0.2-1.3) mg/dL Total Protein (6.3-8.2) g/dL Albumin (3.5-5.0) g/dL Arterial Blood Glucose 105 H 121 H 136 H (75-99) mg/dL 11/09/17 11/09/17 11/10/17 Range/Units 11:21 11:44 10:48 WBC (3.8-10.6) k/uL Plt Count (150-450) k/uL Neutrophils # (1.3-7.7) k/uL ABG pH 7.46 H (7.35-7.45) ABG pCO2 46 H (35-45) mmHg ABG pO2 111 H 71 L 53 L (83-108) mmHg ABG HCO3 26 H 28 H (21-25) mmol/L ABG Total CO2 26 H 27 H 29 H (19-24) mmol/L ABG O2 Saturation 98.2 H 93.0 L 89.1 L (94-97) % ABG Hematocrit 48 H 49 H (34.0-46.0) % ABG Glucose 148 H 147 H (75-99) mg/dL POC Glucose (mg/dL) (75-99) mg/dL Total Bilirubin (0.2-1.3) mg/dL Total Protein (6.3-8.2) g/dL Albumin (3.5-5.0) g/dL Arterial Blood Glucose 148 H 147 H (75-99) mg/dL 11/10/17 11/11/17 11/11/17 Range/Units 19:53 00:06 04:00 WBC (3.8-10.6) k/uL Plt Count (150-450) k/uL Neutrophils # (1.3-7.7) k/uL ABG pH (7.35-7.45) ABG pCO2 (35-45) mmHg ABG pO2 (83-108) mmHg ABG HCO3 (21-25) mmol/L ABG Total CO2 (19-24) mmol/L ABG O2 Saturation (94-97) % ABG Hematocrit (34.0-46.0) % ABG Glucose (75-99) mg/dL POC Glucose (mg/dL) 108 H 100 H (75-99) mg/dL Total Bilirubin 1.4 H (0.2-1.3) mg/dL Total Protein 5.6 L (6.3-8.2) g/dL Albumin 3.1 L (3.5-5.0) g/dL Arterial Blood Glucose (75-99) mg/dL 11/11/17 11/11/17 Range/Units 04:00 04:42 WBC 11.9 H (3.8-10.6) k/uL Plt Count 137 L (150-450) k/uL Neutrophils # 9.7 H (1.3-7.7) k/uL ABG pH 7.51 H (7.35-7.45) ABG pCO2 32 L (35-45) mmHg ABG pO2 72 L (83-108) mmHg ABG HCO3 26 H (21-25) mmol/L ABG Total CO2 27 H (19-24) mmol/L ABG O2 Saturation (94-97) % ABG Hematocrit (34.0-46.0) % ABG Glucose (75-99) mg/dL POC Glucose (mg/dL) (75-99) mg/dL Total Bilirubin (0.2-1.3) mg/dL Total Protein (6.3-8.2) g/dL Albumin (3.5-5.0) g/dL Arterial Blood Glucose (75-99) mg/dL Assessment and Plan Assessment: Assessment #1 coronary artery disease and status post CABG as described above #2 severe cardiomyopathy #3 acute respiratory failure Plan #1 continue the current medical treatment with antiplatelet and statin #2 extubation hopefully in the next few hours #3 follow-up with the patient
[2017-11-11 10:06] LABS: ABG Base Excess 3.4 mmol/L; ABG HCO3 26 mmol/L (21-25); ABG Oxygen Saturation 95.3 % (94-97); ABG PCO2 32 mmHg (35-45); ABG PH 7.52 (7.35-7.45); ABG PO2 67 mmHg (83-108); ABG TCO2 27 mmol/L (19-24)
[2017-11-11] MEDS: LACTATED RINGERS 1,000 ML IV SCH (11:38)
[2017-11-11] MEDS: CLEVIDIPINE BUTYRATE 25 MG in EMPTY BAG 1 BAG IV SCH (11:38)
[2017-11-11] MEDS: LORazepam 2 MG/ML INJ IV PRN ×3 (11:44→21:26)
[2017-11-11] MEDS: DOPamine DRIP 800 MG in DEXTROSE/WATER 1 500ML.BAG IV SCH (14:19)
[2017-11-11 15:11] LABS: Glucose,Whole Blood 87 mg/dL (75-99)
[2017-11-11] MEDS: FUROSEMIDE 10 MG/ML 2 ML VIAL IV SCH ×2 (17:17→20:53)
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
--- NOTE | 2017-11-11 17:56 | P.PN ---
Subjective Progress Note Date: 11/11/17 Principal diagnosis: Acute systolic heart failure, acute myocardial infarction, pulmonary edema related to above, diffuse coronary artery disease, baseline COPD and recent tracheobronchitis 11/11/2017, patient seen eval reexamined during the rounds clinically doing well has been placed on CPAP 5 and pressure support of 5 and arterial blood gases done weaning parameters reviewed patient is a relatively more awake and alert propofol drip has been discontinued patient opens eyes follow simple commands with fairly stable weaning parameters we'll proceed with extubation, critical care time spent 35 minutes 11/10/2017, patient seen eval examined during the rounds clinically patient is doing well but remains on full respirator support remains hypoxic when setting includes assist control rate of 10 breathing about 12-14 tidal volume is 755 of PEEP and on 60% oxygen patient has a [place]-Karly catheter PA pressure 42/21 he remains on 2.5 mics of dopamine drip also on propofol 25 mics his urine output is fairly adequate making about 40-60 mL/h of urine attempted patient on CPAP but has been unsuccessful given that low oxygenation patient is not really aware ready for weaning extubation today we'll keep on titrating oxygen down and follow clinical course closely 11/08/2017, patient seen eval reexamined during the rounds care plan discussed with RN at length patient is status post intra-aortic balloon pump for severe degree of cardiomyopathy and ischemic heart disease with diffuse coronary artery disease patient is currently on 1 is 21 patient with the map over 60-70 current map noted to be 80 with a systolic blood pressure 100 and diastolic of 63. 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 patient is being monitor observe as per CV a protocol overalls plan is if patient decompensated from [place] standpoint and or become anxious and agitated and will be intubated S patient needs to stay flat on the bed related to his ongoing aortic balloon pump augmentation, his labs and x-rays are reviewed from today, PFTs reviewed, x-ray suggestive of the COPD-like changes noted acute pathology has been noted, the PFT suggestive of mild to moderate obstructive disease, white cell count is elevated with very high hemoglobin count which appears to be likely related to polycythemia related to COPD and chronic intermittent hypoxia , renal functions are stable patient is making were 50 to 60 mL an hour urine, his urine culture is negative nasal swab are negative for MRSA or MSSA 11/07/2017, patient seen and evaluated examined during the rounds is still short of breath has intermittent dry nonproductive cough but severity has improved he has been on breathing treatment he has been on deep breathing exercises incentive spirometry as well, patient will undergo preop spirometry later on today, patient has been evaluated by cardiothoracic surgery operative workup is in progress 62-year-old male who appears older then the stated age he has not been feeling well for the last several weeks has been going on has been having ongoing shortness of breath and cough he was treated with oral antibiotics breathing treatments and prednisone her outpatient basis without significant relief. Patient also has a history of on-call consumption almost on a daily basis usually consume 2-3 cans of beer daily. patient recently was evaluated in primary care office found to have a elevated troponin and abnormal EKG was sent over here for further evaluation patient continued to complain of cough congestion and shortness of breath has occasional intermittent vague chest pain as well, overall patient is a poor historian not much data can be obtained from him, on arrival to emergency department he was found to have very high BNP of over 4000 and troponin were consistently elevated cardiovascular services following at the time of evaluation patient is a about to undergo an echocardiogram as well, later on findings are reviewed his ejection fraction only 20-25%, diffuse coronary artery disease was noted as well on emergent cath and angiogram, LAD shows 90% stenosis in proximal part, 70-80% stenosis noted in circumflex, right coronary artery is totally occluded in proximal part given patient has diffuse triple-vessel coronary artery disease ischemic cardiomyopathy patient is likely evaluated by cardiothoracic surgery Objective - Vital Signs Vital signs: Vital Signs Temp 99.4 F 11/11/17 16:00 Pulse 100 11/11/17 17:10 Resp 19 11/11/17 17:00 BP 94/70 11/11/17 04:00 Pulse Ox 99 11/11/17 17:00 Intake & Output 11/10/17 11/11/17 11/11/17 18:59 06:59 18:59 Intake Total 922.313 701.500 289 Output Total 358 734 1367 Balance 72.313 -123.500 -1326 Weight 104 kg 104 kg Intake: IV 598 375 289 ACETAMINOPHEN IV (For NPO 100 ) 1,000 mg In Empty Bag 1 bag @ 400 mls/hr IVPB Q6HR [facility] Rx#:[id number] CO/CI 80 60 20 IABP Heparin Flush 9 Lactated Ringers 1,000 ml 310 240 200 @ 20 mls/hr IV .Q24H [facility] Rx#:[id number] Pressure Bag 99 75 69 Intake, IV Titration 324.313 266.500 Amount DOPamine DRIP 800 mg In 224.313 Dextrose/Water 1 500ml. bag @ 2.5 MCG/KG/MIN 9.25 mls/hr IV .Q24H [facility] Rx#: [id number] Propofol 1,000 mg In 100 266.500 Empty Bag 1 bag @ Titrate IV .Q0M [facility] Rx#: [id number] Other 60 Output: Chest Tube Drainage 100 130 0 Left Plueral & 100 130 0 Mediastinal Urine 226 263 8295 Other: Voiding Method Indwelling Catheter Indwelling Catheter Indwelling Catheter # Voids 1 # Bowel Movements 0 ABP, PAP, CO, CI - Last Documented Arterial Blood Pressure 108/50 Pulmonary Artery Pressure 32/20 Cardiac Output 4.7 Cardiac Index 2.2 - Exam Patient seen and evaluated examined in the ICU he is somnolent but arousable GENERAL: Overall no apparent distress at the time of examination. Pleasant , calm and cooperative. Somewhat somnolent though HEENT: Head is atraumatic, normocephalic. Pupils are equal, round, and reactive to light. Sclerae anicteric. Conjunctivae are clear. Mucus membranes of the mouth are moist. Neck is supple. RESPIRATORY: Clear to ausculation. No wheezes, rales, or rhonchi. No use of accessory muscles. Patient maintaining oxygen saturation greater than 92%. No chest wall tenderness is noted on palpation or with deep breathing. On coughing some bronchial breath sounds and scattered wheezing noted CARDIOVASCULAR: Regular rate and rhythm. S1 and S2 noted. No systolic or diastolic murmur auscultated. No JVD noted. No S3 or S4 noted. Right carotid bruit auscultated. GASTROINTESTINAL: No distention noted. Abdomen soft and round. Normal active bowel sounds auscultated x 4 quadrants. No pain or tenderness noted upon palpation. Aortic balloon pump in the groin on the left side INTEGUMENTARY: No cyanosis. No jaundice. No rashes noted. No cellulitis noted. EXTREMITIES: 2+ peripheral pulses. 1+ bilateral lower extremity edema. No calf tenderness noted. NEUROLOGIC: Cranial nerves II-XII intact. Overall neurological examination is within normal limit, no tremors or shakiness however otherwise noted PSYCHIATRIC: Sleeping somnolent but on arousable he is Awake, alert, and oriented X 3. Appropriate affect. Intact judgement and insight. - Labs CBC & Chem 7: 11/11/17 04:00 11/11/17 04:00 Labs: Abnormal Lab Results - Last 24 Hours (Table) 11/09/17 11/09/17 11/09/17 Range/Units 08:17 09:45 10:30 WBC (3.8-10.6) k/uL Plt Count (150-450) k/uL Neutrophils # (1.3-7.7) k/uL ABG pH 7.33 L (7.35-7.45) ABG pCO2 50 H (35-45) mmHg ABG pO2 174 H 131 H 124 H (83-108) mmHg ABG HCO3 27 H 26 H 26 H (21-25) mmol/L ABG Total CO2 28 H 28 H 27 H (19-24) mmol/L ABG O2 Saturation 99.7 H 98.7 H 98.7 H (94-97) % ABG Hematocrit 51 H 47 H 49 H (34.0-46.0) % ABG Glucose 105 H 121 H 136 H (75-99) mg/dL POC Glucose (mg/dL) (75-99) mg/dL Total Bilirubin (0.2-1.3) mg/dL Total Protein (6.3-8.2) g/dL Albumin (3.5-5.0) g/dL Arterial Blood Glucose 105 H 121 H 136 H (75-99) mg/dL 11/09/17 11/09/17 11/10/17 Range/Units 11:21 11:44 19:53 WBC (3.8-10.6) k/uL Plt Count (150-450) k/uL Neutrophils # (1.3-7.7) k/uL ABG pH (7.35-7.45) ABG pCO2 46 H (35-45) mmHg ABG pO2 111 H 71 L (83-108) mmHg ABG HCO3 26 H (21-25) mmol/L ABG Total CO2 26 H 27 H (19-24) mmol/L ABG O2 Saturation 98.2 H 93.0 L (94-97) % ABG Hematocrit 48 H 49 H (34.0-46.0) % ABG Glucose 148 H 147 H (75-99) mg/dL POC Glucose (mg/dL) 108 H (75-99) mg/dL Total Bilirubin (0.2-1.3) mg/dL Total Protein (6.3-8.2) g/dL Albumin (3.5-5.0) g/dL Arterial Blood Glucose 148 H 147 H (75-99) mg/dL 11/11/17 11/11/17 11/11/17 Range/Units 00:06 04:00 04:00 WBC 11.9 H (3.8-10.6) k/uL Plt Count 137 L (150-450) k/uL Neutrophils # 9.7 H (1.3-7.7) k/uL ABG pH (7.35-7.45) ABG pCO2 (35-45) mmHg ABG pO2 (83-108) mmHg ABG HCO3 (21-25) mmol/L ABG Total CO2 (19-24) mmol/L ABG O2 Saturation (94-97) % ABG Hematocrit (34.0-46.0) % ABG Glucose (75-99) mg/dL POC Glucose (mg/dL) 100 H (75-99) mg/dL Total Bilirubin 1.4 H (0.2-1.3) mg/dL Total Protein 5.6 L (6.3-8.2) g/dL Albumin 3.1 L (3.5-5.0) g/dL Arterial Blood Glucose (75-99) mg/dL 11/11/17 11/11/17 Range/Units 04:42 10:03 WBC (3.8-10.6) k/uL Plt Count (150-450) k/uL Neutrophils # (1.3-7.7) k/uL ABG pH 7.51 H 7.52 H (7.35-7.45) ABG pCO2 32 L 32 L (35-45) mmHg ABG pO2 72 L 67 L (83-108) mmHg ABG HCO3 26 H 26 H (21-25) mmol/L ABG Total CO2 27 H 27 H (19-24) mmol/L ABG O2 Saturation (94-97) % ABG Hematocrit (34.0-46.0) % ABG Glucose (75-99) mg/dL POC Glucose (mg/dL) (75-99) mg/dL Total Bilirubin (0.2-1.3) mg/dL Total Protein (6.3-8.2) g/dL Albumin (3.5-5.0) g/dL Arterial Blood Glucose (75-99) mg/dL Assessment and Plan Assessment: Acute non-ST segment elevated ND Severe degree of ischemic cardiomyopathy with acute systolic heart failure Diffuse triple-vessel coronary artery disease with ejection fraction only 20% Likely severe COPD with chronic bronchitis History of fall wall comes exertion and abuse Plan: Optimize cardiac therapy as planned, off of intra-aortic balloon pump 1 augmentation, we will proceed with extubation, [place]-Karly catheter and chest tube to be removed later on by cardiothoracic surgery Breathing treatment with nebulizer as tolerated Afterload reducing agent and preload reduction with KIERA inhibitor's and diuretics Reviewed pulmonary function testing as well, further recommendations pending plan of care as per clinical response of the patient Patient is status post coronary artery bypass surgery Continue vent support, ABG and CXR pending Breathing treatment with nebulizer as tolerated Chest tubes and hemodynamics per CVTS DVT and peptic ulcer disease prophylaxis Continue supportive care, critical care time spent 35 minutes Time with Patient: Greater than 30
[2017-11-11] MEDS: LIDOCAINE 5% PATCH TOPICAL SCH (20:57)
[2017-11-11] MEDS: SENNOSIDES-DOCUSATE SODIUM 1 EACH TAB PO SCH (20:57)
[2017-11-11 20:59] LABS: Glucose,Whole Blood 118 mg/dL (75-99)
[2017-11-11] MEDS: HYDROcodone/APAP 5-325MG 1 EACH TAB PO PRN (20:59)
[2017-11-11 23:50] LABS: Glucose,Whole Blood 103 mg/dL (75-99)
[2017-11-12 04:38] LABS: Basophils % (A) 0 %; Eosinophils # (A) 0.1 k/uL (0-0.7); Eosinophils % (A) 1 %; HCT 44.7 % (39.0-53.0); HGB 14.8 gm/dL (13.0-17.5); Lymphocytes # (A) 1.1 k/uL (1.0-4.8); Lymphocytes % (A) 9 %; MCH 31.1 pg (25.0-35.0); MCHC 33.2 g/dL (31.0-37.0); MCV 93.9 fL (80.0-100.0); Monocytes # (A) 0.9 k/uL (0-1.0); Monocytes % (A) 7 %; Neutrophils # (A) 9.6 k/uL (1.3-7.7); Neutrophils % (A) 80 %; Platelet Count 135 k/uL (150-450); RBC 4.76 m/uL (4.30-5.90); WBC 11.9 k/uL (3.8-10.6)
[2017-11-12] MEDS: HYDROcodone/APAP 5-325MG 1 EACH TAB PO PRN (04:40)
[2017-11-12] MEDS: INSULIN ASPART 100 UNIT/ML 1 ML 10 ML VIAL SQ SCH ×5 (04:44→20:09)
[2017-11-12 04:45] LABS: Ionized Calcium 4.9 mg/dL (4.5-5.3)
[2017-11-12 04:45] LABS: Glucose,Whole Blood 106 mg/dL (75-99)
[2017-11-12 04:57] LABS: ALT 42 U/L (21-72); AST 49 U/L (17-59); Albumin 3.2 g/dL (3.5-5.0); Alkaline Phosphatase 67 U/L (38-126); Anion Gap 12 mmol/L; Blood Urea Nitrogen 21 mg/dL (9-20); Carbon Dioxide 26 mmol/L (22-30); Chloride 102 mmol/L (98-107); Glucose 113 mg/dL (74-99); Phosphorus 3.8 mg/dL (2.5-4.5); Potassium 3.8 mmol/L (3.5-5.1); Sodium 140 mmol/L (137-145); Total Bilirubin 1.5 mg/dL (0.2-1.3); Total Protein 5.9 g/dL (6.3-8.2)
[2017-11-12] MEDS: LORazepam 2 MG/ML INJ IV PRN (06:00)
[2017-11-12 07:22] LABS: Glucose,Whole Blood 108 mg/dL (75-99)
--- NOTE | 2017-11-12 07:23 | XR ---
EXAMINATION TYPE: XR chest 1V portable DATE OF EXAM: 11/12/2017 COMPARISON: 11/11/2017 HISTORY: Postoperative evaluation. Shortness of breath. TECHNIQUE: Single frontal view of the chest is obtained. FINDINGS: The right [place]-Karly catheter has been removed in the interim with the internal jugular she ath remaining. Degree of pulmonary vascular congestion has improved in the interim, nearly resolved. Degree of right basilar subsegmental atelectasis has also markedly improved in the interim with minim al residual left lower lung atelectasis remaining. Postoperative changes the chest and mild cardiomeg glen remain. Osseous structures are grossly intact. IMPRESSION: 1. Improvement in degree of right basal atelectasis and near complete resolution of the pulmonary vas cular congestion with minimal left midlung atelectasis remaining. 2. Interval removal of the enteric tube, endotracheal tube, and right [place]-Karly catheter.
[2017-11-12] MEDS: IPRATROPIUM-ALBUTEROL 3 ML NEB INHALATION SCH ×4 (07:30→19:15)
[2017-11-12] MEDS ORDERED: Potassium Replacement Protocol 1 EACH MISC MISCELLANE PRN (07:43)
[2017-11-12] MEDS ORDERED: POTASSIUM CHLORIDE ER 20 MEQ TAB.ER PO SCH ×3 (08:00→19:00)
[2017-11-12] MEDS: ATORVASTATIN 40 MG TAB PO SCH (08:30)
[2017-11-12] MEDS: HEPARIN SODIUM,PORCINE 5,000 UNIT/ML 1 ML VIAL SQ SCH ×2 (08:30→15:24)
[2017-11-12] MEDS: PANTOPRAZOLE 40 MG TABLET PO SCH (08:30)
[2017-11-12] MEDS: ASPIRIN 325 MG TAB PO SCH (08:30)
[2017-11-12] MEDS: FUROSEMIDE 10 MG/ML 2 ML VIAL IV SCH ×2 (08:31→20:08)
[2017-11-12] MEDS: CLOPIDOGREL 75 MG TAB PO SCH (08:31)
[2017-11-12] MEDS: MUPIROCIN 2% OINT 22 GM TUBE NASAL SCH ×2 (08:31→20:09)
[2017-11-12] MEDS: CHLORHEXIDINE GLUCONATE 15 ML CUP MUCOUS MEM SCH (08:31)
[2017-11-12] MEDS: METOPROLOL TARTRATE 12.5 MG TAB PO SCH ×2 (09:46→20:09)
--- NOTE | 2017-11-12 10:14 | P.PN ---
Subjective Progress Note Date: 11/12/17 Principal diagnosis: Severe triple-vessel coronary artery disease, NSTEMI, acute on chronic systolic left heart failure, ischemic cardiomyopathy with severe left ventricular systolic dysfunction with an ejection fraction of 20%. History of hypertension, COPD with pre-operative FEV1 74% of predicted post bronchodilator, current nicotine abuse, EtOH abuse, recent tracheobronchitis with antibiotic and steroid therapy. Family history of premature coronary artery disease with a brother diagnosed at 46 years old. History of dyslipidemia. Occasional use of home oxygen as patient was using his 's home oxygen. POD #4 placement of intra-aortic balloon pump by cardiology. POD #3 urgent off-pump coronary artery bypass grafting 3 with left internal mammary artery to LAD and reverse saphenous vein grafts to the first diagonal and posterior descending coronary arteries with endovascular vein harvest from the right greater saphenous vein. Intraoperative transesophageal echocardiogram by anesthesia. Acute hypoxic respiratory failure, prolonged mechanical ventilation, and expected outcome of surgery given the patient's extensive tobacco and alcohol dependence with a recent history of tracheobronchitis. Patient's currently sitting up in a recliner in no acute distress. Denies pain , shortness of breath. He was successfully extubated yesterday. Currently a bit sleepy, slightly confused, has received IV Ativan per [facility] protocol. Objective - Vital Signs Vital signs: Vital Signs Temp 98.5 F 11/12/17 08:00 Pulse 109 H 11/12/17 09:00 Resp 28 H 11/12/17 09:00 BP 94/70 11/11/17 04:00 Pulse Ox 95 11/12/17 09:00 Intake & Output 11/11/17 11/12/17 11/12/17 18:59 06:59 18:59 Intake Total 315 312 328 Output Total 1815 1560 155 Balance -1500 -1248 173 Weight 104 kg 102.3 kg Intake: IV 315 312 78 CO/CI 20 Lactated Ringers 1,000 ml 220 240 60 @ 20 mls/hr IV .Q24H [facility] Rx#:[id number] Pressure Bag 75 72 18 Oral 250 Output: Chest Tube Drainage 0 Left Plueral & 0 Mediastinal Urine 1815 1560 155 Other: Voiding Method Indwelling Catheter Indwelling Catheter Indwelling Catheter # Bowel Movements 0 ABP, PAP, CO, CI - Last Documented Arterial Blood Pressure 117/63 Pulmonary Artery Pressure 32/20 Cardiac Output 5.2 Cardiac Index 2.2 - Constitutional General appearance: Present: cooperative, no acute distress - Respiratory Details: Lungs sounds diminished bilaterally. Respirations even, nonlabored. Currently on 10 L high flow nasal cannula with oxygen saturation 95%. Able to achieve 1500 mL on his incentive spirometry. Productive cough with thick yellow sputum. - Cardiovascular Details: S1, S2 present. Regular rate and rhythm, sinus rhythm to sinus tach on telemetry. Sternum stable. Palpable peripheral pulses bilaterally. No edema present. No calf pain or tenderness noted. Heart hugger in place with patient demonstrating appropriate use. Right internal jugular Cordis, left radial arterial line present. Anti-embolism stockings, SCDs present. - Gastrointestinal Gastrointestinal Comment(s): Abdomen soft, nontender, nondistended. Active bowel sounds 4 quadrants. Tolerating diet. Positive flatus, negative bowel movement. - Genitourinary Genitourinary Comment(s): Jolly present draining clear, yellow urine. Output 50-100 mL/h overnight. Excellent diuresis after IV Lasix given. - Integumentary Integumentary Comment(s): Skin is warm and dry with evidence of good perfusion. Anterior chest incision well approximated covered with dry intact dressing. Right lower extremity EVH site well approximated. - Neurologic Neurologic: Present: CNII-XII intact - Musculoskeletal Musculoskeletal: Present: generalized weakness, strength equal bilaterally - Psychiatric Psychiatric Comment(s): Patient is alert and oriented to person and place but thinks the year is 1917. He is a bit groggy, does follow all commands, did receive Ativan this morning per [facility] protocol. - Allied health notes Allied health notes reviewed: nursing - Labs CBC & Chem 7: 11/12/17 04:25 11/12/17 04:25 Labs: Abnormal Lab Results - Last 24 Hours (Table) 11/11/17 11/11/17 11/11/17 Range/Units 10:03 20:53 23:49 WBC (3.8-10.6) k/uL Plt Count (150-450) k/uL Neutrophils # (1.3-7.7) k/uL ABG pH 7.52 H (7.35-7.45) ABG pCO2 32 L (35-45) mmHg ABG pO2 67 L (83-108) mmHg ABG HCO3 26 H (21-25) mmol/L ABG Total CO2 27 H (19-24) mmol/L BUN (9-20) mg/dL Glucose (74-99) mg/dL POC Glucose (mg/dL) 118 H 103 H (75-99) mg/dL Total Bilirubin (0.2-1.3) mg/dL Total Protein (6.3-8.2) g/dL Albumin (3.5-5.0) g/dL 11/12/17 11/12/17 11/12/17 Range/Units 04:25 04:25 04:44 WBC 11.9 H (3.8-10.6) k/uL Plt Count 135 L (150-450) k/uL Neutrophils # 9.6 H (1.3-7.7) k/uL ABG pH (7.35-7.45) ABG pCO2 (35-45) mmHg ABG pO2 (83-108) mmHg ABG HCO3 (21-25) mmol/L ABG Total CO2 (19-24) mmol/L BUN 21 H (9-20) mg/dL Glucose 113 H (74-99) mg/dL POC Glucose (mg/dL) 106 H (75-99) mg/dL Total Bilirubin 1.5 H (0.2-1.3) mg/dL Total Protein 5.9 L (6.3-8.2) g/dL Albumin 3.2 L (3.5-5.0) g/dL 11/12/17 Range/Units 07:20 WBC (3.8-10.6) k/uL Plt Count (150-450) k/uL Neutrophils # (1.3-7.7) k/uL ABG pH (7.35-7.45) ABG pCO2 (35-45) mmHg ABG pO2 (83-108) mmHg ABG HCO3 (21-25) mmol/L ABG Total CO2 (19-24) mmol/L BUN (9-20) mg/dL Glucose (74-99) mg/dL POC Glucose (mg/dL) 108 H (75-99) mg/dL Total Bilirubin (0.2-1.3) mg/dL Total Protein (6.3-8.2) g/dL Albumin (3.5-5.0) g/dL - Imaging and Cardiology Chest x-ray: report reviewed, image reviewed Assessment and Plan (1) Tobacco dependence Current Visit: Yes Status: Chronic Code(s): F17.200 - NICOTINE DEPENDENCE, UNSPECIFIED, UNCOMPLICATED SNOMED Code(s): 82820807 (2) Alcohol abuse Current Visit: Yes Status: Chronic Code(s): F10.10 - ALCOHOL ABUSE, UNCOMPLICATED SNOMED Code(s): 40349728 (3) Acute non-ST segment elevation myocardial infarction Current Visit: Yes Status: Acute Code(s): I21.4 - NON-ST ELEVATION (NSTEMI) MYOCARDIAL INFARCTION SNOMED Code(s): 130903333 (4) COPD (chronic obstructive pulmonary disease) Current Visit: Yes Status: Chronic Code(s): J44.9 - CHRONIC OBSTRUCTIVE PULMONARY DISEASE, UNSPECIFIED SNOMED Code(s): 40865575 (5) Coronary artery disease Current Visit: Yes Status: Chronic Code(s): I25.10 - ATHSCL HEART DISEASE OF [place] CORONARY ARTERY W/O ANG PCTRS SNOMED Code(s): 72231047 (6) Hypertension Current Visit: Yes Status: Chronic Code(s): I10 - ESSENTIAL (PRIMARY) HYPERTENSION SNOMED Code(s): 28898297 (7) Ischemic cardiomyopathy Current Visit: Yes Status: Chronic Code(s): I25.5 - ISCHEMIC CARDIOMYOPATHY SNOMED Code(s): 486539518 Plan: 1. Continue aspirin, statin, Plavix, heparin, beta keeley. Will maximize beta keeley therapy as tolerated. 2. Wean O2 as tolerated. Encourage incentive spirometry use 10 times per hour while awake. Encourage smoking cessation. 3. Continue IV Lasix. 4. Increase activity, ambulate as tolerated. PT/OT/cardiac rehab following. 5. GI/DVT prophylaxis. 6. Continue CIWA protocol, folic acid, thiamine, MVI. 7. Insulin drip/diabetic management per primary care service. 8. Will monitor daily labs and x-rays. 9. Dr. Gonzalez consulted for inpatient rehab after discharge. 10. More recommendations to follow. Time with Patient: Greater than 30
--- NOTE | 2017-11-12 10:14 | P.ARTDOP ---
Arterial Doppler LOWER EXTREMITY ARTERIAL DOPPLER: DATE OF SERVICE: 11/07/2017 Reason for study: Preop CABG. Doppler waveforms: Multiphasic bilaterally throughout. Pulse volume recording: []. Pressure gradients: None. Ankle-brachial indices: Greater than 1 bilaterally. Toe pressures: [] on the right, [] on the left Impression: Normal study.
--- NOTE | 2017-11-12 10:16 | P.VSCSTY ---
Greater Saphenous Vein Mapping This is bilateral lower extremity greater saphenous vein mapping. Date of service 11/06/2017 Vein quality and ultrasound appearance no intraluminal thrombus or wall changes are seen. Vein size groin right 6.5 x 6.9 groin left 6.7 x 7.0 High thigh right 7.7 x 6.7 high thigh left 5.8 x 6.1 Mid thigh right 6.6 x 5.5 mid thigh left 4.5 x 4.1 Above-knee right 5.1 x 4.4 above-knee left 4.8 x 3.8 Below knee right 4.8 x 4.0 below-knee left 3.9 x 3.6 Mid calf right 4.1 x 3.1 mid calf left 2.9 x 2.3 Ankle right 4.1 x 3.6 ankle left 2.9 x 2.5 Impression usable bilateral greater saphenous vein. Left leg somewhat more consistent in size for use as conduit..
--- NOTE | 2017-11-12 10:28 | P.PN ---
Subjective Progress Note Date: 11/12/17 Principal diagnosis: CAD This is a pleasant 62-year-old gentleman who was admitted to the hospital with acute coronary event and acute non-ST elevation myocardial infarction. He underwent a heart catheterization and that revealed severe triple-vessel coronary artery disease. The echocardiogram showed severe cardiomyopathy. The patient underwent yesterday CABG 3 where he received HALE to LAD, SVG to diagonal, SVG to PDA. He was extubated yesterday. He is off the dopamine at this point. He is on dual antiplatelet therapy along with statin. Objective - Vital Signs Vital signs: Vital Signs Temp 98.5 F 11/12/17 08:00 Pulse 105 H 11/12/17 10:00 Resp 15 11/12/17 10:00 BP 94/70 11/11/17 04:00 Pulse Ox 95 11/12/17 09:00 Intake & Output 11/11/17 11/12/17 11/12/17 18:59 06:59 18:59 Intake Total 315 312 354 Output Total 1815 1560 480 Balance -1500 -1248 -126 Weight 104 kg 102.3 kg 102.3 kg Intake: IV 315 312 104 CO/CI 20 Lactated Ringers 1,000 ml 220 240 80 @ 20 mls/hr IV .Q24H [facility] Rx#:[id number] Pressure Bag 75 72 24 Oral 250 Output: Chest Tube Drainage 0 Left Plueral & 0 Mediastinal Urine 1815 1560 480 Other: Voiding Method Indwelling Catheter Indwelling Catheter Indwelling Catheter # Bowel Movements 0 ABP, PAP, CO, CI - Last Documented Arterial Blood Pressure 96/55 Pulmonary Artery Pressure 32/20 Cardiac Output 5.2 Cardiac Index 2.2 - Constitutional General appearance: Present: no acute distress - Labs CBC & Chem 7: 11/12/17 04:25 11/12/17 04:25 Labs: Abnormal Lab Results - Last 24 Hours (Table) 11/11/17 11/11/17 11/12/17 Range/Units 20:53 23:49 04:25 WBC (3.8-10.6) k/uL Plt Count (150-450) k/uL Neutrophils # (1.3-7.7) k/uL BUN 21 H (9-20) mg/dL Glucose 113 H (74-99) mg/dL POC Glucose (mg/dL) 118 H 103 H (75-99) mg/dL Total Bilirubin 1.5 H (0.2-1.3) mg/dL Total Protein 5.9 L (6.3-8.2) g/dL Albumin 3.2 L (3.5-5.0) g/dL 11/12/17 11/12/17 11/12/17 Range/Units 04:25 04:44 07:20 WBC 11.9 H (3.8-10.6) k/uL Plt Count 135 L (150-450) k/uL Neutrophils # 9.6 H (1.3-7.7) k/uL BUN (9-20) mg/dL Glucose (74-99) mg/dL POC Glucose (mg/dL) 106 H 108 H (75-99) mg/dL Total Bilirubin (0.2-1.3) mg/dL Total Protein (6.3-8.2) g/dL Albumin (3.5-5.0) g/dL Assessment and Plan Assessment: Assessment #1 coronary artery disease and status post CABG as described above #2 severe cardiomyopathy #3 acute respiratory failure Plan #1 continue the current medical treatment with antiplatelet and statin #2 follow-up with the patient.
--- NOTE | 2017-11-12 10:54 | P.PN ---
Subjective Progress Note Date: 11/12/17 62-year-old male who presented to the emergency room after he was evaluated by his primary care physician, Dr. Couch, on an outpatient basis. Patient reports he saw his PCP on Saturday for a follow up for shortness of breath. The patient was recently diagnosed with tracheobronchitis and was prescribed Levaquin, prednisone, and DuoNeb treatments. His shortness of breath persisted. Patient also reported cough with positive sputum production. The patient's oxygen saturation was 93% on room air. The patient ambulated around the office and his oxygen saturations remained greater than 92%. A chest x-ray was completed at the office revealing cardiomegaly. The patient also reported bilateral lower extremity edema and an episode of chest pain on Saturday. An EKG was completed revealing old inferior and anterior wall MIs. A troponin was completed at the office and came back at 0.08. The patient was started on aspirin 81 mg daily, Lasix 20 mg daily, and lisinopril 5 mg daily at that time. He was not started on a beta keeley at that time as his heart rate was in the low 60s at Dr. Couch's office. The patient was advised to come to the emergency room for further evaluation. The patient has a history of chronic obstructive pulmonary disease. He reports smoking approximately 6 cigarettes per day. He also admits to the drinking 2-3 alcoholic beverages per day, which he states the amount has decreased and reports he used to drink heavier. Chest x-ray 11/05/2017: Cardiomegaly. There may be a component of pulmonary venous hypertension and early interstitial edema. Laboratory data: WBC 8.2. Hemoglobin 16.8. Platelet count 235. Sodium 142. Potassium 5.9. BUN 18. Creatinine 0.98. GFR 84. Glucose 94. BNP: 4560 Troponins: 0.061, 0.053, 0.057 Lipid panel: Triglycerides 99. Total cholesterol 157. LDL 101. HDL 36. The patient was admitted to the hospital under the care of Dr. Couch. Consultations were placed to cardiology. 11/07/2017 Patient evaluated this morning on rounds with Dr. Couch. Patient is awake and alert. Denies chest pain or pressure. Denies shortness of breath. The patient underwent cardiac catheterization yesterday revealing 90% stenosis of proximal LAD, 70-80% stenosis of circumflex artery, and totally occluded right coronary artery. cardiothoracic surgery has been consulted and evaluated the patient. The patient is scheduled for an off pump CABG on Saturday. Pre-operative testing is currently underway. Echocardiogram completed reveals severe global hypokinesis of the left ventricle, ejection fraction of 20-25%, trace mitral regurgitation, and trace tricuspid regurgitation. Carotid ultrasound was completed revealing 15-25% stenosis in both internal carotid arteries. The patient denies pain or discomfort. He is anxious regarding his upcoming surgery and concerned about his . He states she is 74 years old and has severe COPD and he has been her provider at home and has been caring for her. 11/08/2017 Patient seen and examined at the bedside on rounds with Dr. Couch. Patient is awake and alert. Patient denies chest pain or pressure. Denies shortness of breath. Patient is NPO and is scheduled for IABP insertion today per cardiology. Patient is scheduled to undergo off pump CABG tomorrow with Dr. Bullard. Patient remains on CIWA protocol. No signs of ETOH withdrawal this morning. Patient states he is voiding without difficulty. Reports + bowel movement. 11/09/2017-11/11/2017-Notes per Dr. Couch 11/12/2017 Patient seen and examined at the bedside. Patient underwent IABP on Saturday which has since been discontinued. Patient underwent CABG x 3 with with left internal mammary artery to LAD and reverse saphenous vein grafts to the first diagonal and posterior descending coronary arteries with endovascular vein harvest from the right greater saphenous vein by Dr. Bullard on Saturday. Chest tubes were discontinued on 11/11/2017. Patient was extubated yesterday. He remains on 10L high flow nasal cannula. Oxygen saturations greater than 92%. Patient is slightly tachycardic with a rate around 105. Blood pressure is stable with a last reading of 117/63. Patients insulin drip has been discontinued. He remains on Novolog sliding scale Q 4 hours as ordered by sheriff. Blood sugars 103-118. Magnesium is 1.5 this morning and is currently being supplemented. Patient was noted to be leaning to his right side this morning in the chair and was dragging his right foot per nursing. Patient did receive ativan this morning per CIWA protocol. His strength is equal bilaterally and he does not have any neuro deficits at this time. Speech is slightly garbled which may also be due to ativan. Objective - Vital Signs Vital signs: Vital Signs Temp 98.5 F 11/12/17 08:00 Pulse 105 H 11/12/17 10:00 Resp 15 11/12/17 10:00 BP 94/70 11/11/17 04:00 Pulse Ox 95 11/12/17 09:00 Intake & Output 11/11/17 11/12/17 11/12/17 18:59 06:59 18:59 Intake Total 315 312 354 Output Total 1815 1560 480 Balance -1500 -1248 -126 Weight 104 kg 102.3 kg Intake: IV 315 312 104 CO/CI 20 Lactated Ringers 1,000 ml 220 240 80 @ 20 mls/hr IV .Q24H [facility]ARPAL Rx#:[id number] Pressure Bag 75 72 24 Oral 250 Output: Chest Tube Drainage 0 Left Plueral & 0 Mediastinal Urine 1815 1560 480 Other: Voiding Method Indwelling Catheter Indwelling Catheter Indwelling Catheter # Bowel Movements 0 ABP, PAP, CO, CI - Last Documented Arterial Blood Pressure 96/55 Pulmonary Artery Pressure 32/20 Cardiac Output 5.2 Cardiac Index 2.2 - Exam GENERAL: This is a 62-year-old male in no apparent distress at the time of examination. HEENT: Head is atraumatic, normocephalic. Pupils are equal, round, and reactive to light. Sclerae anicteric. Conjunctivae are clear. Mucus membranes of the mouth are moist. Neck is supple. RESPIRATORY: Clear to ausculation. No wheezes, rales, or rhonchi. No use of accessory muscles. Patient maintaining oxygen saturation greater than 92%. No chest wall tenderness is noted on palpation or with deep breathing. CARDIOVASCULAR: Surgical site clean dry and intact. Heart hugger in place. Regular rate and rhythm, slightly tachycardic with rate in the low 100s. S1 and S2 noted. No systolic or diastolic murmur auscultated. No JVD noted. No S3 or S4 noted. Right carotid bruit auscultated. GASTROINTESTINAL: No distention noted. Abdomen soft and round. Bowel sounds auscultated x 4 quadrants. No pain or tenderness noted upon palpation. : Jolly intact with clear yellow urine INTEGUMENTARY: No cyanosis. No jaundice. No rashes noted. No cellulitis noted. EXTREMITIES: 2+ peripheral pulses. No edema noted. No calf tenderness noted. NEUROLOGIC: Cranial nerves II-XII intact. Speech is slightly garbled which may be due to ativan. PSYCHIATRIC: Awake, alert, and oriented X 2-3. - Labs CBC & Chem 7: 11/12/17 04:25 11/12/17 04:25 Labs: Abnormal Lab Results - Last 24 Hours (Table) 11/11/17 11/11/17 11/12/17 Range/Units 20:53 23:49 04:25 WBC (3.8-10.6) k/uL Plt Count (150-450) k/uL Neutrophils # (1.3-7.7) k/uL BUN 21 H (9-20) mg/dL Glucose 113 H (74-99) mg/dL POC Glucose (mg/dL) 118 H 103 H (75-99) mg/dL Total Bilirubin 1.5 H (0.2-1.3) mg/dL Total Protein 5.9 L (6.3-8.2) g/dL Albumin 3.2 L (3.5-5.0) g/dL 11/12/17 11/12/17 11/12/17 Range/Units 04:25 04:44 07:20 WBC 11.9 H (3.8-10.6) k/uL Plt Count 135 L (150-450) k/uL Neutrophils # 9.6 H (1.3-7.7) k/uL BUN (9-20) mg/dL Glucose (74-99) mg/dL POC Glucose (mg/dL) 106 H 108 H (75-99) mg/dL Total Bilirubin (0.2-1.3) mg/dL Total Protein (6.3-8.2) g/dL Albumin (3.5-5.0) g/dL Assessment and Plan Plan: ASSESSMENT: 1. Acute non-ST elevated myocardial infarction, troponins 0.061, 0.053, 0.057 s/ p cardiac catherization revealing severe triple vessel disease 2. S/P intra-aortic ballon pump insertion, POD #4, since discontinued 3. S/P off pump CABG x 3 with with left internal mammary artery to LAD and reverse saphenous vein grafts to the first diagonal and posterior descending coronary arteries with endovascular vein harvest from the right greater saphenous vein, POD #3 4. Acute hypoxic respiratory failure, prolonged mechanical ventilation, and expected outcome of surgery given the patient's extensive tobacco and alcohol dependence with a recent history of tracheobronchitis, since extubated 5. Ischemic cardiomyopathy 6. Chronic obstructive pulmonary disease, no evidence of acute exacerbation 7. Recent diagnosis of tracheobronchitis, treated with Levaquin and prednisone outpatient 8. Nicotine dependence, patient is a current cigarette smoker 9. Daily alcohol use 10. Obesity: BMI 33.8 11. Hyperkalemia, resolved 12. Hypomagnesemia PLAN: Continue post operative management per cardiothoracic surgery Continue CIWA protocol, thiamine, and folic acid Pain control Activity as tolerated Incentive spirometer 10 times an hour while awake Continue novolog sliding scale. Will change to AC/HS Discontinue urinary catheter when okay with surgery Replace magnesium per protocol Home meds as appropriate Monitor labs GI/DVT prophylaxis Monitor vital signs and address as appropriate Further recommendations pending patient's course Nurse practitioner note has been reviewed by physician. Signing provider agrees with the documented findings, assessment, and plan of care.
[2017-11-12] MEDS: THIAMINE 100 MG TAB PO SCH (11:51)
[2017-11-12] MEDS: FOLIC ACID 1 MG TAB PO SCH (11:51)
[2017-11-12] MEDS: MULTIVITAMINS, THERA 1 EACH TAB PO SCH (11:51)
[2017-11-12 11:58] LABS: Glucose,Whole Blood 107 mg/dL (75-99)
[2017-11-12] MEDS ORDERED: LORazepam 2 MG/ML INJ IV PRN ×2 (12:32)
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
[2017-11-12] MEDS: LACTATED RINGERS 1,000 ML IV SCH (15:48)
--- NOTE | 2017-11-12 16:51 | P.CONS ---
History of Present Illness - Chief Complaint Cardiac debility - History of Present Illness I had the op to see patient for inpatient rehab consultation with regard to cardiac debility. He was admitted to [facility] November 05 with chest pain, shortness of breath a perhaps 10 days' duration. Also acute non-STEMI. Seen by Dr. Simon for ICU and pulmonary care. On November 09 underwent three-vessel coronary bypass. PT reports minimal assistance for bed mobility and maximal assistance for transfer. OT reports maximal assistance to person for upper dressing and total assistance of 2 person for lower dressing, bathing, toileting. Nursing reports two-person assistance for transfer. Previous functional history as elicited from patient: 62-year-old left-handed white male who is lives and one for home with and brother. Retired. Patient independent with cooking, laundry, driving, tub bath, gait without device. Dr. Couch is regular doctor. Reports was a 4 pack a day smoker and a 12 pack of beer daily but quit both chest now. Review of Systems Review of systems: ENT: Denies sneezes or discharge. Eyes: Denies discharge or photophobia. Cardiac: Denies chest pain or palpitation. Pulmonary: Mild to moderate shortness of breath. Gastrointestinal: Denies nausea, emesis, constipation, diarrhea. Genitourinary: Denies discharge or frequency. Musculoskeletal: Denies muscle or bone aches. Neurologic: Generalized weakness. Endocrine: Denies shakes or sweats. Oncology: Denies cancers. Dermatologic: Denies rash, itching, pruritus. ALLERGY/immunology: Denies sneezes, rashes. Past Medical History Past Medical History: Hypertension, Myocardial Infarction (NM), Pneumonia Additional Past Medical History / Comment(s): PT STATED APPROX 2.5 WEEKS AGO ( HE HAD A FEW BEERS IN HIM) AND HE HAD PAIN AND NUMBNESS TO HIS LEFT ARM. STATED HE PUT HIS 'S O2 ON AND HE FELT BETTER" History of Any Multi-Drug Resistant Organisms: None Reported Past Surgical History: No Surgical Hx Reported Past Anesthesia/Blood Transfusion Reactions: No Reported Reaction Past Psychological History: No Psychological Hx Reported Smoking Status: Current every day smoker (Smokes 2 packs a day.) Past Alcohol Use History: Heavy (Drinks 6-8 tall boy beers per day.) Past Drug Use History: None Reported - Past Family History Mother History Unknown: Yes Additional Family Medical History / Comment(s): Unknown medical history Father History Unknown: Yes Additional Family Medical History / Comment(s): Unknown medical history, the patient reports that his father left home when he was at age 12. Brother(s) Family Medical History: Coronary Artery Disease (CAD), Myocardial Infarction (NM ) Additional Family Medical History / Comment(s): History of myocardial infarction and coronary artery bypass grafting surgery at age 46. Medications and Allergies Home Medications Medication Instructions Recorded Confirmed Type Aspirin 81 mg PO DAILY 11/05/17 11/05/17 History Furosemide [Lasix] 20 mg PO DAILY 11/05/17 11/05/17 History Ipratropium-Albuterol Nebulize 3 ml INHALATION RT-Q6H PRN 11/05/17 11/05/17 History [Duoneb 0.5 mg-3 mg/3 ml Soln] Lisinopril [Prinivil] 5 mg PO DAILY 11/05/17 11/05/17 History Allergies Allergy/AdvReac Type Severity Reaction Status Date / Time No Known Allergies Allergy Verified 11/05/17 14:04 Physical Exam Vitals: Vital Signs Temp Pulse Pulse Resp Pulse Ox Pulse Ox 11/12/17 16:00 98 F 102 H 17 100 11/12/17 15:25 95 11/12/17 15:22 112 H 11/12/17 15:11 102 H 11/12/17 15:00 100 21 99 11/12/17 14:00 101 H 17 99 11/12/17 13:00 104 H 20 97 11/12/17 12:00 98.1 F 97 20 100 11/12/17 11:29 112 H 95 11/12/17 11:18 99 11/12/17 11:08 100 11/12/17 11:00 100 17 100 11/12/17 10:00 105 H 15 11/12/17 09:00 109 H 28 H 95 11/12/17 08:00 98.5 F 110 H 21 99 11/12/17 07:43 103 H 11/12/17 07:32 106 H 11/12/17 07:00 100 18 92 L 11/12/17 06:00 103 H 27 H 95 11/12/17 05:00 100 20 95 11/12/17 04:00 104 H 27 H 94 L 11/12/17 03:00 102 H 21 92 L 11/12/17 02:00 96 22 95 11/12/17 01:00 95 20 94 L 11/12/17 00:00 98.6 F 96 19 95 11/11/17 23:51 96 21 11/11/17 23:00 100 18 95 11/11/17 22:00 103 H 22 94 L 11/11/17 21:22 102 H 11/11/17 21:07 102 H 11/11/17 21:00 112 H 29 H 95 11/11/17 20:00 98.3 F 113 H 31 H 98 11/11/17 19:00 109 H 23 94 L 11/11/17 18:00 110 H 22 95 11/11/17 17:10 100 11/11/17 17:00 101 H 19 99 Intake and Output 11/12/17 11/12/17 11/12/17 06:59 14:59 22:59 Intake Total 208 608 52 Output Total 660 965 Balance -452 -357 52 Intake: IV 208 208 52 Lactated Ringers 1,000 ml 160 160 40 @ 20 mls/hr IV .Q24H [facility] Rx#:[id number] Pressure Bag 48 48 12 Oral 400 Output: Urine 660 965 Other: Voiding Method Indwelling Catheter Indwelling Catheter # Bowel Movements 1 Weight 102.3 kg 102.3 kg ABP, PAP, CO, CI - Last 8 Hours Arterial Blood Pressure 92/51 Arterial Blood Pressure 101/53 Arterial Blood Pressure 107/58 Arterial Blood Pressure 105/57 Arterial Blood Pressure 97/55 Arterial Blood Pressure 95/56 Arterial Blood Pressure 96/55 Arterial Blood Pressure 117/63 Skin: Good color, texture, turgor. General: Overweight build and fatigued appearance. Head: Normocephalic, atraumatic. Eyes: Symmetric. Pupils equal round. Ears: Symmetric. Hearing within normal limits. Mouth: Clear. Neck: Supple. Carotid without bruit. Cardiac: Regular rate and rhythm. Chest wound clean and dressed. Wearing harness. Lungs: Clear anteriorly and posteriorly. Abdomen: Soft active nontender. Extremities: Normal tone. Neurological: Mental status: Alert, cooperative, pleasant. Cranial nerves: Symmetric facial tone and trapezius. Motor: Can actively elevate all limbs but arms at best antigravity in legs less than antigravity. Sensation: Intact throughout. DTRs: Symmetric and equal throughout. Mobility: Nursing reports definite two-person assistance for transfers from bed to Arlene chair. Results CBC & Chem 7: 11/12/17 04:25 11/12/17 11:55 Labs: Abnormal Lab Results - Last 24 Hours (Table) 11/11/17 11/11/17 11/12/17 Range/Units 20:53 23:49 04:25 WBC (3.8-10.6) k/uL Plt Count (150-450) k/uL Neutrophils # (1.3-7.7) k/uL BUN 21 H (9-20) mg/dL Glucose 113 H (74-99) mg/dL POC Glucose (mg/dL) 118 H 103 H (75-99) mg/dL Total Bilirubin 1.5 H (0.2-1.3) mg/dL Total Protein 5.9 L (6.3-8.2) g/dL Albumin 3.2 L (3.5-5.0) g/dL 11/12/17 11/12/17 11/12/17 Range/Units 04:25 04:44 07:20 WBC 11.9 H (3.8-10.6) k/uL Plt Count 135 L (150-450) k/uL Neutrophils # 9.6 H (1.3-7.7) k/uL BUN (9-20) mg/dL Glucose (74-99) mg/dL POC Glucose (mg/dL) 106 H 108 H (75-99) mg/dL Total Bilirubin (0.2-1.3) mg/dL Total Protein (6.3-8.2) g/dL Albumin (3.5-5.0) g/dL 11/12/17 Range/Units 11:56 WBC (3.8-10.6) k/uL Plt Count (150-450) k/uL Neutrophils # (1.3-7.7) k/uL BUN (9-20) mg/dL Glucose (74-99) mg/dL POC Glucose (mg/dL) 107 H (75-99) mg/dL Total Bilirubin (0.2-1.3) mg/dL Total Protein (6.3-8.2) g/dL Albumin (3.5-5.0) g/dL Assessment and Plan (1) Acute non-ST segment elevation myocardial infarction Current Visit: Yes Status: Acute Code(s): I21.4 - NON-ST ELEVATION (NSTEMI) MYOCARDIAL INFARCTION SNOMED Code(s): 215693020 Plan: Impression: 1. Cardiac debility. 2. Non-STEMI. 3. Recent three-vessel cord bypass. 4. History of tobacco and alcohol abuse. 5. Hypertension. Comments and plan: At this time PT and OT are ongoing. Definite endurance issues noted currently. We'll follow closely with yourself but not currently ready for inpatient rehab. We will follow for possible inpatient rehab at later date.
[2017-11-12 17:30] LABS: Glucose,Whole Blood 104 mg/dL (75-99)
[2017-11-12 20:06] LABS: Glucose,Whole Blood 115 mg/dL (75-99)
[2017-11-12] MEDS: SENNOSIDES-DOCUSATE SODIUM 1 EACH TAB PO SCH (20:09)
[2017-11-12] MEDS: LIDOCAINE 5% PATCH TOPICAL SCH (20:12)
[2017-11-13] MEDS: HEPARIN SODIUM,PORCINE 5,000 UNIT/ML 1 ML VIAL SQ SCH ×4 (00:57→23:21)
[2017-11-13 05:08] LABS: Basophils % (A) 0 %; Eosinophils # (A) 0.2 k/uL (0-0.7); Eosinophils % (A) 2 %; HCT 46.4 % (39.0-53.0); HGB 15.3 gm/dL (13.0-17.5); Lymphocytes # (A) 1.7 k/uL (1.0-4.8); Lymphocytes % (A) 15 %; MCH 31.1 pg (25.0-35.0); MCHC 32.9 g/dL (31.0-37.0); MCV 94.6 fL (80.0-100.0); Mean Platelet Volume 7.3; Monocytes # (A) 0.8 k/uL (0-1.0); Monocytes % (A) 7 %; Neutrophils # (A) 8.3 k/uL (1.3-7.7); Neutrophils % (A) 74 %; Platelet Count 176 k/uL (150-450); RBC 4.91 m/uL (4.30-5.90); RDW 13.8 % (11.5-15.5); WBC 11.3 k/uL (3.8-10.6)
[2017-11-13 05:21] LABS: ALT 88 U/L (21-72); AST 90 U/L (17-59); Albumin 3.4 g/dL (3.5-5.0); Alkaline Phosphatase 86 U/L (38-126); Anion Gap 13 mmol/L; Blood Urea Nitrogen 24 mg/dL (9-20); Calcium 9.3 mg/dL (8.4-10.2); Carbon Dioxide 25 mmol/L (22-30); Chloride 105 mmol/L (98-107); Glucose 114 mg/dL (74-99); Magnesium 2.3 mg/dL (1.6-2.3); Potassium 4.1 mmol/L (3.5-5.1); Sodium 143 mmol/L (137-145); Total Bilirubin 1.5 mg/dL (0.2-1.3); Total Protein 6.3 g/dL (6.3-8.2)
[2017-11-13 07:05] LABS: Glucose,Whole Blood 104 mg/dL (75-99)
--- NOTE | 2017-11-13 07:55 | XR ---
EXAMINATION TYPE: XR chest 1V portable DATE OF EXAM: 11/13/2017 COMPARISON: 11/12/2017 INDICATION: Post cardiac surgery TECHNIQUE: Single frontal view of the chest is obtained. FINDINGS: The heart size is in the. The pulmonary vasculature is normal. The lungs are clear. Previous atelectasis in the left lower lung field has resolved. The sheath on the right remains in po sition. No pneumothorax is evident. IMPRESSION: 1. No acute pulmonary process. 2. Right central venous catheter sheath remains in position. 3. Resolution previous left atelectasis.
[2017-11-13] MEDS: IPRATROPIUM-ALBUTEROL 3 ML NEB INHALATION SCH ×4 (09:23→19:46)
[2017-11-13] MEDS: PANTOPRAZOLE 40 MG TABLET PO SCH ×3 (09:45→13:30)
[2017-11-13] MEDS: INSULIN ASPART 100 UNIT/ML 1 ML 10 ML VIAL SQ SCH ×4 (09:45→21:13)
[2017-11-13] MEDS: FUROSEMIDE 10 MG/ML 2 ML VIAL IV SCH ×2 (09:46→20:22)
[2017-11-13] MEDS: CEPHALEXIN 500 MG CAP PO SCH (09:46)
[2017-11-13] MEDS: ATORVASTATIN 40 MG TAB PO SCH (09:46)
[2017-11-13] MEDS: ASPIRIN 325 MG TAB PO SCH (09:46)
[2017-11-13] MEDS: CLOPIDOGREL 75 MG TAB PO SCH (09:46)
[2017-11-13] MEDS: BENZOCAINE/MENTHOL LOZENG 1 EACH LOZENGE MUCOUS MEM PRN ×2 (09:47→11:10)
[2017-11-13] MEDS: METOPROLOL TARTRATE 25 MG TAB PO SCH ×2 (09:47→20:22)
[2017-11-13] MEDS: guaiFENesin 600 MG TABLET.ER PO PRN (09:47)
--- NOTE | 2017-11-13 09:53 | P.PN ---
Subjective Progress Note Date: 11/13/17 Principal diagnosis: Severe triple-vessel coronary artery disease, NSTEMI, acute on chronic systolic left heart failure, ischemic cardiomyopathy with severe left ventricular systolic dysfunction with an ejection fraction of 20%. History of hypertension, COPD with pre-operative FEV1 74% of predicted post bronchodilator, current nicotine abuse, EtOH abuse, recent tracheobronchitis with antibiotic and steroid therapy. Family history of premature coronary artery disease with a brother diagnosed at 46 years old. History of dyslipidemia. Occasional use of home oxygen as patient was using his 's home oxygen. POD #5 placement of intra-aortic balloon pump by cardiology. POD #4 urgent off-pump coronary artery bypass grafting 3 with left internal mammary artery to LAD and reverse saphenous vein grafts to the first diagonal and posterior descending coronary arteries with endovascular vein harvest from the right greater saphenous vein. Intraoperative transesophageal echocardiogram by anesthesia. Acute hypoxic respiratory failure, prolonged mechanical ventilation, and expected outcome of surgery given the patient's extensive tobacco and alcohol dependence with a recent history of tracheobronchitis. Patient's currently sitting up in a recliner in no acute distress. Denies pain , shortness of breath. More alert today. Objective - Vital Signs Vital signs: Vital Signs Temp 98.1 F 11/13/17 04:00 Pulse 100 11/13/17 07:00 Resp 19 11/13/17 07:00 BP 94/70 11/11/17 04:00 Pulse Ox 95 11/13/17 07:00 Intake & Output 11/12/17 11/13/17 11/13/17 18:59 06:59 18:59 Intake Total 962 562 26 Output Total 966 1 Balance -4 561 26 Weight 102.3 kg 97.3 kg Intake: IV 312 312 26 Lactated Ringers 1,000 ml 240 240 20 @ 20 mls/hr IV .Q24H [facility] Rx#:[id number] Pressure Bag 72 72 6 Oral 650 250 Output: Urine 965 Urine/Stool Mix 1 1 Other: Voiding Method Indwelling Catheter Incontinent # Voids 1 1 # Bowel Movements 1 1 1 ABP, PAP, CO, CI - Last Documented Arterial Blood Pressure 112/68 Pulmonary Artery Pressure 32/20 Cardiac Output 5.2 Cardiac Index 2.2 - Constitutional General appearance: Present: cooperative, no acute distress - Respiratory Details: Lungs sounds diminished bilaterally. Respirations even, nonlabored. Currently on 3 L nasal cannula with oxygen saturation 94%. Able to achieve 1500 mL on his incentive spirometry. Productive cough with thick yellow sputum. - Cardiovascular Details: S1, S2 present. Regular rate and rhythm, sinus rhythm on telemetry. Sternum stable. Palpable peripheral pulses bilaterally. No edema present. No calf pain or tenderness noted. Heart hugger in place with patient demonstrating appropriate use. Right internal jugular Cordis, left radial arterial line present. Anti-embolism stockings, SCDs present. - Gastrointestinal Gastrointestinal Comment(s): Abdomen soft, nontender, nondistended. Active bowel sounds 4 quadrants. Tolerating diet. Positive multiple loose stools. - Genitourinary Genitourinary Comment(s): Jolly discontinued yesterday. Voiding clear yellow urine. Incontinent at times. - Integumentary Integumentary Comment(s): Skin is warm and dry with evidence of good perfusion. Anterior chest incision well approximated, covered with intact dressing. At the distal end of his incision there is some blood pooling although no obvious dehiscence when coughing hard. Right lower extremity EVH site well approximated. - Neurologic Neurologic: Present: CNII-XII intact - Musculoskeletal Musculoskeletal: Present: strength equal bilaterally - Psychiatric Psychiatric: Present: A&O x's 3, appropriate affect, intact judgment & insight - Allied health notes Allied health notes reviewed: nursing - Labs CBC & Chem 7: 11/13/17 04:50 11/13/17 04:50 Labs: Abnormal Lab Results - Last 24 Hours (Table) 11/12/17 11/12/17 11/12/17 Range/Units 11:56 17:28 20:04 WBC (3.8-10.6) k/uL Neutrophils # (1.3-7.7) k/uL BUN (9-20) mg/dL Glucose (74-99) mg/dL POC Glucose (mg/dL) 107 H 104 H 115 H (75-99) mg/dL Total Bilirubin (0.2-1.3) mg/dL AST (17-59) U/L ALT (21-72) U/L Albumin (3.5-5.0) g/dL 11/13/17 11/13/17 11/13/17 Range/Units 04:50 04:50 07:02 WBC 11.3 H (3.8-10.6) k/uL Neutrophils # 8.3 H (1.3-7.7) k/uL BUN 24 H (9-20) mg/dL Glucose 114 H (74-99) mg/dL POC Glucose (mg/dL) 104 H (75-99) mg/dL Total Bilirubin 1.5 H (0.2-1.3) mg/dL AST 90 H (17-59) U/L ALT 88 H (21-72) U/L Albumin 3.4 L (3.5-5.0) g/dL - Imaging and Cardiology Chest x-ray: report reviewed, image reviewed Assessment and Plan (1) Tobacco dependence Current Visit: Yes Status: Chronic Code(s): F17.200 - NICOTINE DEPENDENCE, UNSPECIFIED, UNCOMPLICATED SNOMED Code(s): 06019206 (2) Alcohol abuse Current Visit: Yes Status: Chronic Code(s): F10.10 - ALCOHOL ABUSE, UNCOMPLICATED SNOMED Code(s): 28552783 (3) Acute non-ST segment elevation myocardial infarction Current Visit: Yes Status: Acute Code(s): I21.4 - NON-ST ELEVATION (NSTEMI) MYOCARDIAL INFARCTION SNOMED Code(s): 558596434 (4) COPD (chronic obstructive pulmonary disease) Current Visit: Yes Status: Chronic Code(s): J44.9 - CHRONIC OBSTRUCTIVE PULMONARY DISEASE, UNSPECIFIED SNOMED Code(s): 11159325 (5) Coronary artery disease Current Visit: Yes Status: Chronic Code(s): I25.10 - ATHSCL HEART DISEASE OF [place] CORONARY ARTERY W/O ANG PCTRS SNOMED Code(s): 51422876 (6) Hypertension Current Visit: Yes Status: Chronic Code(s): I10 - ESSENTIAL (PRIMARY) HYPERTENSION SNOMED Code(s): 43473844 (7) Ischemic cardiomyopathy Current Visit: Yes Status: Chronic Code(s): I25.5 - ISCHEMIC CARDIOMYOPATHY SNOMED Code(s): 355621995 Plan: 1. Continue aspirin, statin, Plavix, heparin, beta keeley. Will maximize beta keeley therapy as tolerated. 2. Wean O2 as tolerated. Encourage incentive spirometry use 10 times per hour while awake. Encourage smoking cessation. 3. Continue IV Lasix. 4. Keflex started for possible tracheobronchitis. Heavy cough with thick yellow sputum. Mucinex added. 5. Increase activity, ambulate as tolerated. PT/OT/cardiac rehab following. 6. GI/DVT prophylaxis. 7. Continue CIWA protocol, folic acid, thiamine, MVI. 8. Diabetic management per primary care service. 9. Will monitor daily labs and x-rays. 10. Dr. Gonzalez consulted for inpatient rehab after discharge. 11. More recommendations to follow. Discharge planning a progress. Anticipate discharge in the next 24-48. Time with Patient: Greater than 30
--- NOTE | 2017-11-13 09:58 | P.PN ---
Subjective Progress Note Date: 11/13/17 62-year-old male who presented to the emergency room after he was evaluated by his primary care physician, Dr. Couch, on an outpatient basis. Patient reports he saw his PCP on Saturday for a follow up for shortness of breath. The patient was recently diagnosed with tracheobronchitis and was prescribed Levaquin, prednisone, and DuoNeb treatments. His shortness of breath persisted. Patient also reported cough with positive sputum production. The patient's oxygen saturation was 93% on room air. The patient ambulated around the office and his oxygen saturations remained greater than 92%. A chest x-ray was completed at the office revealing cardiomegaly. The patient also reported bilateral lower extremity edema and an episode of chest pain on Saturday. An EKG was completed revealing old inferior and anterior wall MIs. A troponin was completed at the office and came back at 0.08. The patient was started on aspirin 81 mg daily, Lasix 20 mg daily, and lisinopril 5 mg daily at that time. He was not started on a beta keeley at that time as his heart rate was in the low 60s at Dr. Couch's office. The patient was advised to come to the emergency room for further evaluation. The patient has a history of chronic obstructive pulmonary disease. He reports smoking approximately 6 cigarettes per day. He also admits to the drinking 2-3 alcoholic beverages per day, which he states the amount has decreased and reports he used to drink heavier. Chest x-ray 11/05/2017: Cardiomegaly. There may be a component of pulmonary venous hypertension and early interstitial edema. Laboratory data: WBC 8.2. Hemoglobin 16.8. Platelet count 235. Sodium 142. Potassium 5.9. BUN 18. Creatinine 0.98. GFR 84. Glucose 94. BNP: 4560 Troponins: 0.061, 0.053, 0.057 Lipid panel: Triglycerides 99. Total cholesterol 157. LDL 101. HDL 36. The patient was admitted to the hospital under the care of Dr. Couch. Consultations were placed to cardiology. 11/07/2017 Patient evaluated this morning on rounds with Dr. Couch. Patient is awake and alert. Denies chest pain or pressure. Denies shortness of breath. The patient underwent cardiac catheterization yesterday revealing 90% stenosis of proximal LAD, 70-80% stenosis of circumflex artery, and totally occluded right coronary artery. cardiothoracic surgery has been consulted and evaluated the patient. The patient is scheduled for an off pump CABG on Saturday. Pre-operative testing is currently underway. Echocardiogram completed reveals severe global hypokinesis of the left ventricle, ejection fraction of 20-25%, trace mitral regurgitation, and trace tricuspid regurgitation. Carotid ultrasound was completed revealing 15-25% stenosis in both internal carotid arteries. The patient denies pain or discomfort. He is anxious regarding his upcoming surgery and concerned about his . He states she is 74 years old and has severe COPD and he has been her provider at home and has been caring for her. 11/08/2017 Patient seen and examined at the bedside on rounds with Dr. Couch. Patient is awake and alert. Patient denies chest pain or pressure. Denies shortness of breath. Patient is NPO and is scheduled for IABP insertion today per cardiology. Patient is scheduled to undergo off pump CABG tomorrow with Dr. Bullard. Patient remains on CIWA protocol. No signs of ETOH withdrawal this morning. Patient states he is voiding without difficulty. Reports + bowel movement. 11/09/2017-11/11/2017-Notes per Dr. Couch 11/12/2017 Patient seen and examined at the bedside. Patient underwent IABP on Saturday which has since been discontinued. Patient underwent CABG x 3 with with left internal mammary artery to LAD and reverse saphenous vein grafts to the first diagonal and posterior descending coronary arteries with endovascular vein harvest from the right greater saphenous vein by Dr. Bullard on Saturday. Chest tubes were discontinued on 11/11/2017. Patient was extubated yesterday. He remains on 10L high flow nasal cannula. Oxygen saturations greater than 92%. Patient is slightly tachycardic with a rate around 105. Blood pressure is stable with a last reading of 117/63. Patients insulin drip has been discontinued. He remains on Novolog sliding scale Q 4 hours as ordered by ocean export agent. Blood sugars 103-118. Magnesium is 1.5 this morning and is currently being supplemented. Patient was noted to be leaning to his right side this morning in the chair and was dragging his right foot per nursing. Patient did receive ativan this morning per CIWA protocol. His strength is equal bilaterally and he does not have any neuro deficits at this time. Speech is slightly garbled which may also be due to ativan. 11/13/2017 Patient seen and examined at the bedside on rounds with Dr. Couch. Patient is sitting up in the chair eating breakfast. Patient denies shortness of breath but he does report frequent coughing with sputum production. Sputum sample noted in the basin at the bedside is clear and thin. Chest xray from today is negative for acute process. Encouraged patient to splint incision while coughing and to use his heart hugger. Patient also encouraged to use his IS 10 times an hour. Nursing reports that patient still leans to the right side when he is sitting in the chair and has pillows propped up on his right side. Patients strength is essentially the same bilaterally, possibly a little stronger on the left, but the patient is also left handed. He is alert and oriented x 3 this morning and has no neuro deficits. Patient reports he had a bowel movement last night. Tolerating PO intake without nausea or vomiting. States pain is tolerable. Objective - Vital Signs Vital signs: Vital Signs Temp 98.1 F 11/13/17 04:00 Pulse 100 11/13/17 07:00 Resp 19 11/13/17 07:00 BP 94/70 11/11/17 04:00 Pulse Ox 95 11/13/17 07:00 Intake & Output 11/12/17 11/13/17 11/13/17 18:59 06:59 18:59 Intake Total 962 562 26 Output Total 966 1 Balance -4 561 26 Weight 102.3 kg 97.3 kg Intake: IV 312 312 26 Lactated Ringers 1,000 ml 240 240 20 @ 20 mls/hr IV .Q24H [facility] Rx#:[id number] Pressure Bag 72 72 6 Oral 650 250 Output: Urine 965 Urine/Stool Mix 1 1 Other: Voiding Method Indwelling Catheter Incontinent # Voids 1 1 # Bowel Movements 1 1 1 ABP, PAP, CO, CI - Last Documented Arterial Blood Pressure 112/68 Pulmonary Artery Pressure 32/20 Cardiac Output 5.2 Cardiac Index 2.2 - Exam GENERAL: This is a 62-year-old male in no apparent distress at the time of examination. HEENT: Head is atraumatic, normocephalic. Pupils are equal, round, and reactive to light. Sclerae anicteric. Conjunctivae are clear. Mucus membranes of the mouth are moist. Neck is supple. RESPIRATORY: Clear to ausculation. No wheezes, rales, or rhonchi. No use of accessory muscles. Patient maintaining oxygen saturation greater than 92%. No chest wall tenderness is noted on palpation or with deep breathing. CARDIOVASCULAR: Surgical site clean dry and intact. Heart hugger in place. Regular rate and rhythm, slightly tachycardic with rate in the low 100s. S1 and S2 noted. No systolic or diastolic murmur auscultated. No JVD noted. No S3 or S4 noted. Right carotid bruit auscultated. GASTROINTESTINAL: No distention noted. Abdomen soft and round. Bowel sounds auscultated x 4 quadrants. No pain or tenderness noted upon palpation. INTEGUMENTARY: No cyanosis. No jaundice. No rashes noted. No cellulitis noted. EXTREMITIES: 2+ peripheral pulses. No edema noted. No calf tenderness noted. NEUROLOGIC: Cranial nerves II-XII intact. PSYCHIATRIC: Awake, alert, and oriented X 3. - Labs CBC & Chem 7: 11/13/17 04:50 11/13/17 04:50 Labs: Abnormal Lab Results - Last 24 Hours (Table) 11/12/17 11/12/17 11/12/17 Range/Units 11:56 17:28 20:04 WBC (3.8-10.6) k/uL Neutrophils # (1.3-7.7) k/uL BUN (9-20) mg/dL Glucose (74-99) mg/dL POC Glucose (mg/dL) 107 H 104 H 115 H (75-99) mg/dL Total Bilirubin (0.2-1.3) mg/dL AST (17-59) U/L ALT (21-72) U/L Albumin (3.5-5.0) g/dL 11/13/17 11/13/17 11/13/17 Range/Units 04:50 04:50 07:02 WBC 11.3 H (3.8-10.6) k/uL Neutrophils # 8.3 H (1.3-7.7) k/uL BUN 24 H (9-20) mg/dL Glucose 114 H (74-99) mg/dL POC Glucose (mg/dL) 104 H (75-99) mg/dL Total Bilirubin 1.5 H (0.2-1.3) mg/dL AST 90 H (17-59) U/L ALT 88 H (21-72) U/L Albumin 3.4 L (3.5-5.0) g/dL Assessment and Plan Plan: ASSESSMENT: 1. Acute non-ST elevated myocardial infarction, troponins 0.061, 0.053, 0.057 s/ p cardiac catherization revealing severe triple vessel disease 2. S/P intra-aortic ballon pump insertion, POD #5, since discontinued 3. S/P off pump CABG x 3 with with left internal mammary artery to LAD and reverse saphenous vein grafts to the first diagonal and posterior descending coronary arteries with endovascular vein harvest from the right greater saphenous vein, POD #4 4. Acute hypoxic respiratory failure, prolonged mechanical ventilation, an expected outcome of surgery given the patient's extensive tobacco and alcohol dependence with a recent history of tracheobronchitis, since extubated 5. Ischemic cardiomyopathy 6. Chronic obstructive pulmonary disease, no evidence of acute exacerbation 7. Recent diagnosis of tracheobronchitis, treated with Levaquin and prednisone outpatient 8. Nicotine dependence, patient is a current cigarette smoker 9. Daily alcohol use 10. Obesity: BMI 33.8 11. Hyperkalemia, resolved 12. Hypomagnesemia PLAN: Continue post operative management per cardiothoracic surgery Continue CIWA protocol, thiamine, multivitamin, and folic acid Pain control Activity as tolerated Incentive spirometer 10 times an hour while awake Continue novolog sliding scale AC/HS Home meds as appropriate Monitor labs GI/DVT prophylaxis Monitor vital signs and address as appropriate Further recommendations pending patient's course Nurse practitioner note has been reviewed by physician. Signing provider agrees with the documented findings, assessment, and plan of care.
[2017-11-13 12:14] LABS: Glucose,Whole Blood 97 mg/dL (75-99)
--- NOTE | 2017-11-13 12:33 | P.PN ---
Subjective Progress Note Date: 11/13/17 Principal diagnosis: CAD This is a pleasant 62-year-old gentleman who was admitted to the hospital with acute coronary event and acute non-ST elevation myocardial infarction. He underwent a heart catheterization and that revealed severe triple-vessel coronary artery disease. The echocardiogram showed severe cardiomyopathy. The patient underwent yesterday CABG 3 where he received HALE to LAD, SVG to diagonal, SVG to PDA. Hemodynamically, the patient is doing good. He denies having any chest pain or discomfort. The lower part of the chest incision was a bleeding limits. Objective - Vital Signs Vital signs: Vital Signs Temp 98.1 F 11/13/17 04:00 Pulse 93 11/13/17 12:29 Resp 19 11/13/17 07:00 BP 94/70 11/11/17 04:00 Pulse Ox 95 11/13/17 07:00 Intake & Output 11/12/17 11/13/17 11/13/17 18:59 06:59 18:59 Intake Total 962 562 26 Output Total 966 1 Balance -4 561 26 Weight 102.3 kg 97.3 kg Intake: IV 312 312 26 Lactated Ringers 1,000 ml 240 240 20 @ 20 mls/hr IV .Q24H [facility] Rx#:[id number] Pressure Bag 72 72 6 Oral 650 250 Output: Urine 965 Urine/Stool Mix 1 1 Other: Voiding Method Indwelling Catheter Incontinent # Voids 1 1 # Bowel Movements 1 1 1 ABP, PAP, CO, CI - Last Documented Arterial Blood Pressure 112/68 Pulmonary Artery Pressure 32/20 Cardiac Output 5.2 Cardiac Index 2.2 - Constitutional General appearance: Present: no acute distress - Labs CBC & Chem 7: 11/13/17 04:50 11/13/17 04:50 Labs: Abnormal Lab Results - Last 24 Hours (Table) 11/12/17 11/12/17 11/13/17 Range/Units 17:28 20:04 04:50 WBC 11.3 H (3.8-10.6) k/uL Neutrophils # 8.3 H (1.3-7.7) k/uL BUN (9-20) mg/dL Glucose (74-99) mg/dL POC Glucose (mg/dL) 104 H 115 H (75-99) mg/dL Total Bilirubin (0.2-1.3) mg/dL AST (17-59) U/L ALT (21-72) U/L Albumin (3.5-5.0) g/dL 11/13/17 11/13/17 Range/Units 04:50 07:02 WBC (3.8-10.6) k/uL Neutrophils # (1.3-7.7) k/uL BUN 24 H (9-20) mg/dL Glucose 114 H (74-99) mg/dL POC Glucose (mg/dL) 104 H (75-99) mg/dL Total Bilirubin 1.5 H (0.2-1.3) mg/dL AST 90 H (17-59) U/L ALT 88 H (21-72) U/L Albumin 3.4 L (3.5-5.0) g/dL Assessment and Plan Assessment: Assessment #1 coronary artery disease and status post CABG as described above #2 severe cardiomyopathy #3 acute respiratory failure Plan #1 continue the current medical treatment with antiplatelet and statin #2 follow-up with the patient.
[2017-11-13] MEDS: THIAMINE 100 MG TAB PO SCH (13:28)
[2017-11-13] MEDS: FOLIC ACID 1 MG TAB PO SCH (13:28)
[2017-11-13] MEDS: MULTIVITAMINS, THERA 1 EACH TAB PO SCH (13:30)
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
[2017-11-13] MEDS ORDERED: PROMETHAZ-COD 6.25-10 MG/5 ML 5 ML CUP PO PRN (15:59)
[2017-11-13 16:25] LABS: Glucose,Whole Blood 97 mg/dL (75-99)
[2017-11-13] MEDS: BUDESONIDE 1 MG/2 ML NEBU INHALATION SCH (19:46)
[2017-11-13] MEDS: cefTRIAXone IN SWFI 1,000 MG/10 ML SYRINGE IVP SCH (19:47)
[2017-11-13] MEDS: LACTOBACILLUS ACIDOPH & BULGAR 1 EACH PACKET PO SCH ×2 (20:21→21:13)
[2017-11-13] MEDS: MUPIROCIN 2% OINT 22 GM TUBE NASAL SCH (20:22)
[2017-11-13] MEDS: SENNOSIDES-DOCUSATE SODIUM 1 EACH TAB PO SCH (20:22)
[2017-11-13] MEDS: HYDROcodone/APAP 5-325MG 1 EACH TAB PO PRN (20:23)
[2017-11-13 20:48] LABS: Glucose,Whole Blood 108 mg/dL (75-99)
[2017-11-13] MEDS: LIDOCAINE 5% PATCH TOPICAL SCH (21:13)
[2017-11-14 02:16] LABS: Glucose,Whole Blood 113 mg/dL (75-99)
[2017-11-14] MEDS: HYDROcodone/APAP 5-325MG 1 EACH TAB PO PRN ×5 (04:34→21:26)
[2017-11-14] MEDS: guaiFENesin 600 MG TABLET.ER PO PRN (04:35)
[2017-11-14 06:29] LABS: Glucose,Whole Blood 104 mg/dL (75-99)
[2017-11-14] MEDS: PANTOPRAZOLE 40 MG TABLET PO SCH (06:29)
[2017-11-14] MEDS: INSULIN ASPART 100 UNIT/ML 1 ML 10 ML VIAL SQ SCH ×4 (06:29→21:39)
[2017-11-14 06:37] LABS: HCT 43.1 % (39.0-53.0); HGB 14.2 gm/dL (13.0-17.5); MCH 31.2 pg (25.0-35.0); MCHC 32.9 g/dL (31.0-37.0); MCV 94.8 fL (80.0-100.0); Mean Platelet Volume 7.5; Platelet Count 216 k/uL (150-450); RBC 4.55 m/uL (4.30-5.90); RDW 13.8 % (11.5-15.5); WBC 9.9 k/uL (3.8-10.6)
[2017-11-14 06:44] LABS: ALT 116 U/L (21-72); AST 85 U/L (17-59); Albumin 3.1 g/dL (3.5-5.0); Alkaline Phosphatase 83 U/L (38-126); Anion Gap 12 mmol/L; Blood Urea Nitrogen 27 mg/dL (9-20); Calcium 9.1 mg/dL (8.4-10.2); Carbon Dioxide 26 mmol/L (22-30); Chloride 102 mmol/L (98-107); Glucose 104 mg/dL (74-99); Magnesium 2.1 mg/dL (1.6-2.3); Potassium 3.6 mmol/L (3.5-5.1); Sodium 140 mmol/L (137-145); Total Bilirubin 1.1 mg/dL (0.2-1.3); Total Protein 5.8 g/dL (6.3-8.2)
--- NOTE | 2017-11-14 07:22 | XR ---
EXAMINATION TYPE: XR chest 2V DATE OF EXAM: 11/14/2017 COMPARISON: 11/13/2017 HISTORY: 62 year-old male post cardiac surgery TECHNIQUE: Frontal and lateral views FINDINGS: Median sternotomy wires are present with post-CABG clips in the mediastinum. Heart remains enlarged w ith mild diffuse interstitial prominence. There are trace effusions on the lateral view with some pat gino posterior basilar opacity. Overall appearance is unchanged. Right IJ sheath removed in the interv al. IMPRESSION: Stable mild pulmonary vascular congestion and trace effusions with patchy posterior basilar atelectas is.
[2017-11-14] MEDS: BUDESONIDE 1 MG/2 ML NEBU INHALATION SCH ×2 (07:33→19:20)
[2017-11-14] MEDS: IPRATROPIUM-ALBUTEROL 3 ML NEB INHALATION SCH ×4 (07:33→19:20)
[2017-11-14] MEDS: CEPHALEXIN 500 MG CAP PO SCH (07:41)
[2017-11-14] MEDS ORDERED: ALPRAZolam 0.25 MG TAB PO PRN (07:41)
[2017-11-14] MEDS ORDERED: ALPRAZolam 0.25 MG TAB PO STA (07:42)
[2017-11-14] MEDS: THIAMINE 100 MG TAB PO SCH (07:57)
[2017-11-14] MEDS: FOLIC ACID 1 MG TAB PO SCH (07:57)
[2017-11-14] MEDS: METOPROLOL TARTRATE 25 MG TAB PO SCH ×3 (07:57→21:28)
[2017-11-14] MEDS: ASPIRIN 325 MG TAB PO SCH (07:57)
[2017-11-14] MEDS: CLOPIDOGREL 75 MG TAB PO SCH (07:57)
[2017-11-14] MEDS: ATORVASTATIN 40 MG TAB PO SCH (07:57)
[2017-11-14] MEDS: MULTIVITAMINS, THERA 1 EACH TAB PO SCH (07:57)
[2017-11-14] MEDS: HEPARIN SODIUM,PORCINE 5,000 UNIT/ML 1 ML VIAL SQ SCH ×3 (07:57→23:43)
[2017-11-14] MEDS: FUROSEMIDE 10 MG/ML 2 ML VIAL IV SCH ×2 (07:58→21:27)
[2017-11-14] MEDS: cefTRIAXone IN SWFI 1,000 MG/10 ML SYRINGE IVP SCH (07:58)
--- NOTE | 2017-11-14 08:24 | P.PN ---
Subjective Progress Note Date: 11/14/17 62-year-old male who presented to the emergency room after he was evaluated by his primary care physician, Dr. Couch, on an outpatient basis. Patient reports he saw his PCP on Saturday for a follow up for shortness of breath. The patient was recently diagnosed with tracheobronchitis and was prescribed Levaquin, prednisone, and DuoNeb treatments. His shortness of breath persisted. Patient also reported cough with positive sputum production. The patient's oxygen saturation was 93% on room air. The patient ambulated around the office and his oxygen saturations remained greater than 92%. A chest x-ray was completed at the office revealing cardiomegaly. The patient also reported bilateral lower extremity edema and an episode of chest pain on Saturday. An EKG was completed revealing old inferior and anterior wall MIs. A troponin was completed at the office and came back at 0.08. The patient was started on aspirin 81 mg daily, Lasix 20 mg daily, and lisinopril 5 mg daily at that time. He was not started on a beta keeley at that time as his heart rate was in the low 60s at Dr. Couch's office. The patient was advised to come to the emergency room for further evaluation. The patient has a history of chronic obstructive pulmonary disease. He reports smoking approximately 6 cigarettes per day. He also admits to the drinking 2-3 alcoholic beverages per day, which he states the amount has decreased and reports he used to drink heavier. Chest x-ray 11/05/2017: Cardiomegaly. There may be a component of pulmonary venous hypertension and early interstitial edema. Laboratory data: WBC 8.2. Hemoglobin 16.8. Platelet count 235. Sodium 142. Potassium 5.9. BUN 18. Creatinine 0.98. GFR 84. Glucose 94. BNP: 4560 Troponins: 0.061, 0.053, 0.057 Lipid panel: Triglycerides 99. Total cholesterol 157. LDL 101. HDL 36. The patient was admitted to the hospital under the care of Dr. Couch. Consultations were placed to cardiology. 11/07/2017 Patient evaluated this morning on rounds with Dr. Couch. Patient is awake and alert. Denies chest pain or pressure. Denies shortness of breath. The patient underwent cardiac catheterization yesterday revealing 90% stenosis of proximal LAD, 70-80% stenosis of circumflex artery, and totally occluded right coronary artery. cardiothoracic surgery has been consulted and evaluated the patient. The patient is scheduled for an off pump CABG on Saturday. Pre-operative testing is currently underway. Echocardiogram completed reveals severe global hypokinesis of the left ventricle, ejection fraction of 20-25%, trace mitral regurgitation, and trace tricuspid regurgitation. Carotid ultrasound was completed revealing 15-25% stenosis in both internal carotid arteries. The patient denies pain or discomfort. He is anxious regarding his upcoming surgery and concerned about his . He states she is 74 years old and has severe COPD and he has been her provider at home and has been caring for her. 11/08/2017 Patient seen and examined at the bedside on rounds with Dr. Couch. Patient is awake and alert. Patient denies chest pain or pressure. Denies shortness of breath. Patient is NPO and is scheduled for IABP insertion today per cardiology. Patient is scheduled to undergo off pump CABG tomorrow with Dr. Bullard. Patient remains on CIWA protocol. No signs of ETOH withdrawal this morning. Patient states he is voiding without difficulty. Reports + bowel movement. 11/09/2017-11/11/2017-Notes per Dr. Couch 11/12/2017 Patient seen and examined at the bedside. Patient underwent IABP on Saturday which has since been discontinued. Patient underwent CABG x 3 with with left internal mammary artery to LAD and reverse saphenous vein grafts to the first diagonal and posterior descending coronary arteries with endovascular vein harvest from the right greater saphenous vein by Dr. Bullard on Saturday. Chest tubes were discontinued on 11/11/2017. Patient was extubated yesterday. He remains on 10L high flow nasal cannula. Oxygen saturations greater than 92%. Patient is slightly tachycardic with a rate around 105. Blood pressure is stable with a last reading of 117/63. Patients insulin drip has been discontinued. He remains on Novolog sliding scale Q 4 hours as ordered by [employer]. Blood sugars 103-118. Magnesium is 1.5 this morning and is currently being supplemented. Patient was noted to be leaning to his right side this morning in the chair and was dragging his right foot per nursing. Patient did receive ativan this morning per CIWA protocol. His strength is equal bilaterally and he does not have any neuro deficits at this time. Speech is slightly garbled which may also be due to ativan. 11/13/2017 Patient seen and examined at the bedside on rounds with Dr. Couch. Patient is sitting up in the chair eating breakfast. Patient denies shortness of breath but he does report frequent coughing with sputum production. Sputum sample noted in the basin at the bedside is clear and thin. Chest xray from today is negative for acute process. Encouraged patient to splint incision while coughing and to use his heart hugger. Patient also encouraged to use his IS 10 times an hour. Nursing reports that patient still leans to the right side when he is sitting in the chair and has pillows propped up on his right side. Patients strength is essentially the same bilaterally, possibly a little stronger on the left, but the patient is also left handed. He is alert and oriented x 3 this morning and has no neuro deficits. Patient reports he had a bowel movement last night. Tolerating PO intake without nausea or vomiting. States pain is tolerable. 11/14/2017 Patient seen and examined at the bedside on rounds with Dr. Couch. Patient has been transferred out of the ICU to the selective care unit. Patient is currently sitting up in the chair. He is in good spirits but fairly anxious this morning. Denies chest pain or pressure. Patient states he is coughing frequently and is experiencing severe pain when he coughs. Patient was encouraged to use heart hugger and splint chest/abdomen with a pillow. Patient states he has been ambulating in the room without difficultly. He does report some constipation. Objective - Vital Signs Vital signs: Vital Signs Temp 98.8 F 11/14/17 04:00 Pulse 100 11/14/17 07:49 Resp 18 11/14/17 04:00 BP 104/68 11/14/17 04:00 Pulse Ox 93 L 11/14/17 04:00 Intake & Output 11/13/17 11/14/17 11/14/17 18:59 06:59 18:59 Intake Total 726 Output Total 0 Balance 726 0 Weight 95.8 kg Intake: IV 156 Lactated Ringers 1,000 ml 120 @ 20 mls/hr IV .Q24H [facility] Rx#:[id number] Pressure Bag 36 Oral 570 Output: Urine 0 Stool 0 Other: Voiding Method Incontinent Urinal Incontinent # Voids 1 2 0 # Bowel Movements 1 0 ABP, PAP, CO, CI - Last Documented Arterial Blood Pressure 57/51 Pulmonary Artery Pressure 32/20 Cardiac Output 5.2 Cardiac Index 2.2 - Exam GENERAL: This is a 62-year-old male in no apparent distress at the time of examination. HEENT: Head is atraumatic, normocephalic. Pupils are equal, round, and reactive to light. Sclerae anicteric. Conjunctivae are clear. Mucus membranes of the mouth are moist. Neck is supple. RESPIRATORY: Clear to ausculation. No wheezes, rales, or rhonchi. No use of accessory muscles. Patient maintaining oxygen saturation greater than 92%. No chest wall tenderness is noted on palpation or with deep breathing. CARDIOVASCULAR: Surgical site clean dry and intact. Heart hugger in place. Regular rate and rhythm. S1 and S2 noted. No systolic or diastolic murmur auscultated. No JVD noted. No S3 or S4 noted. Right carotid bruit auscultated. GASTROINTESTINAL: No distention noted. Abdomen soft and round. Bowel sounds auscultated x 4 quadrants. No pain or tenderness noted upon palpation. INTEGUMENTARY: No cyanosis. No jaundice. No rashes noted. No cellulitis noted. EXTREMITIES: 2+ peripheral pulses. No edema noted. No calf tenderness noted. NEUROLOGIC: Cranial nerves II-XII intact. PSYCHIATRIC: Awake, alert, and oriented X 3. Anxious. - Labs CBC & Chem 7: 11/14/17 05:32 11/14/17 05:32 Labs: Abnormal Lab Results - Last 24 Hours (Table) 11/13/17 11/14/17 11/14/17 Range/Units 20:47 02:15 05:32 BUN 27 H (9-20) mg/dL Glucose 104 H (74-99) mg/dL POC Glucose (mg/dL) 108 H 113 H (75-99) mg/dL AST 85 H (17-59) U/L ALT 116 H (21-72) U/L Total Protein 5.8 L (6.3-8.2) g/dL Albumin 3.1 L (3.5-5.0) g/dL 11/14/17 Range/Units 06:28 BUN (9-20) mg/dL Glucose (74-99) mg/dL POC Glucose (mg/dL) 104 H (75-99) mg/dL AST (17-59) U/L ALT (21-72) U/L Total Protein (6.3-8.2) g/dL Albumin (3.5-5.0) g/dL Assessment and Plan Plan: ASSESSMENT: 1. Acute non-ST elevated myocardial infarction, troponins 0.061, 0.053, 0.057 s/ p cardiac catherization revealing severe triple vessel disease 2. S/P intra-aortic ballon pump insertion, POD #6, since discontinued 3. S/P off pump CABG x 3 with with left internal mammary artery to LAD and reverse saphenous vein grafts to the first diagonal and posterior descending coronary arteries with endovascular vein harvest from the right greater saphenous vein, POD #5 4. Acute hypoxic respiratory failure, prolonged mechanical ventilation, an expected outcome of surgery given the patient's extensive tobacco and alcohol dependence with a recent history of tracheobronchitis, since extubated 5. Ischemic cardiomyopathy 6. Chronic obstructive pulmonary disease, no evidence of acute exacerbation 7. Recent diagnosis of tracheobronchitis, treated with Levaquin and prednisone outpatient 8. Nicotine dependence, patient is a current cigarette smoker 9. Daily alcohol use 10. Obesity: BMI 33.8 11. Hyperkalemia, resolved 12. Hypomagnesemia PLAN: Continue post operative management per cardiothoracic surgery Continue thiamine, multivitamin, and folic acid Begin xanax 0.25mg Q8 hours PRN for anxiety Patient has dulcolax rectal PRN, Milk of Magnesia, and Senna-Docusate ordered for constipation Pain control Activity as tolerated Incentive spirometer 10 times an hour while awake Continue novolog sliding scale AC/HS Home meds as appropriate Monitor labs GI/DVT prophylaxis Monitor vital signs and address as appropriate Further recommendations pending patient's course Nurse practitioner note has been reviewed by physician. Signing provider agrees with the documented findings, assessment, and plan of care.
--- NOTE | 2017-11-14 08:33 | P.PN ---
Subjective Progress Note Date: 11/14/17 Principal diagnosis: Severe triple-vessel coronary artery disease, NSTEMI, acute on chronic systolic left heart failure, ischemic cardiomyopathy with severe left ventricular systolic dysfunction with an ejection fraction of 20%. History of hypertension, COPD with pre-operative FEV1 74% of predicted post bronchodilator, current nicotine abuse, EtOH abuse, recent tracheobronchitis with antibiotic and steroid therapy. Family history of premature coronary artery disease with a brother diagnosed at 46 years old. History of dyslipidemia. Occasional use of home oxygen as patient was using his 's home oxygen. POD #6 placement of intra-aortic balloon pump by cardiology. POD #5 urgent off-pump coronary artery bypass grafting 3 with left internal mammary artery to LAD and reverse saphenous vein grafts to the first diagonal and posterior descending coronary arteries with endovascular vein harvest from the right greater saphenous vein. Intraoperative transesophageal echocardiogram by anesthesia. Acute hypoxic respiratory failure, prolonged mechanical ventilation, and expected outcome of surgery given the patient's extensive tobacco and alcohol dependence with a recent history of tracheobronchitis. Patient's currently sitting up in a recliner in no acute distress. Denies pain , shortness of breath. More alert today, quite animated. He was transferred out of ICU to [address] [place] [address] yesterday. Objective - Vital Signs Vital signs: Vital Signs Temp 98.8 F 11/14/17 04:00 Pulse 100 11/14/17 07:49 Resp 18 11/14/17 04:00 BP 104/68 11/14/17 04:00 Pulse Ox 93 L 11/14/17 04:00 Intake & Output 11/13/17 11/14/17 11/14/17 18:59 06:59 18:59 Intake Total 726 Output Total 0 Balance 726 0 Weight 95.8 kg Intake: IV 156 Lactated Ringers 1,000 ml 120 @ 20 mls/hr IV .Q24H [facility] Rx#:[id number] Pressure Bag 36 Oral 570 Output: Urine 0 Stool 0 Other: Voiding Method Incontinent Urinal Incontinent # Voids 1 2 0 # Bowel Movements 1 0 ABP, PAP, CO, CI - Last Documented Arterial Blood Pressure 57/51 Pulmonary Artery Pressure 32/20 Cardiac Output 5.2 Cardiac Index 2.2 - Constitutional General appearance: Present: cooperative, no acute distress - Respiratory Details: Lungs sounds diminished bilaterally. Respirations even, nonlabored. Currently on 3 L nasal cannula with oxygen saturation 93%. Able to achieve 1500 mL on his incentive spirometry. Productive cough with thick yellow sputum. - Cardiovascular Details: S1, S2 present. Regular rate and rhythm, sinus rhythm on telemetry. Sternum stable. Palpable peripheral pulses bilaterally. No edema present. No calf pain or tenderness noted. Heart hugger in place with patient demonstrating appropriate use most of the time. Anti-embolism stockings, SCDs present. - Gastrointestinal Gastrointestinal Comment(s): Abdomen soft, nontender, nondistended. Active bowel sounds 4 quadrants. Tolerating diet. Less frequent loose stools. - Genitourinary Genitourinary Comment(s): Voiding clear yellow urine. Incontinent at times. - Integumentary Integumentary Comment(s): Skin is warm and dry with evidence of good perfusion. Anterior chest incision well approximated, covered with intact dressing. At the distal end of his incision there is some blood pooling although no obvious dehiscence when coughing hard, abdominal binder applied around chest for pressure support. Right lower extremity EVH site well approximated. - Neurologic Neurologic: Present: CNII-XII intact - Musculoskeletal Musculoskeletal: Present: gait normal, strength equal bilaterally - Psychiatric Psychiatric: Present: A&O x's 3, appropriate affect, intact judgment & insight - Allied health notes Allied health notes reviewed: nursing - Labs CBC & Chem 7: 11/14/17 05:32 11/14/17 05:32 Labs: Abnormal Lab Results - Last 24 Hours (Table) 11/13/17 11/14/17 11/14/17 Range/Units 20:47 02:15 05:32 BUN 27 H (9-20) mg/dL Glucose 104 H (74-99) mg/dL POC Glucose (mg/dL) 108 H 113 H (75-99) mg/dL AST 85 H (17-59) U/L ALT 116 H (21-72) U/L Total Protein 5.8 L (6.3-8.2) g/dL Albumin 3.1 L (3.5-5.0) g/dL 11/14/17 Range/Units 06:28 BUN (9-20) mg/dL Glucose (74-99) mg/dL POC Glucose (mg/dL) 104 H (75-99) mg/dL AST (17-59) U/L ALT (21-72) U/L Total Protein (6.3-8.2) g/dL Albumin (3.5-5.0) g/dL - Imaging and Cardiology Chest x-ray: report reviewed, image reviewed Assessment and Plan (1) Tobacco dependence Current Visit: Yes Status: Chronic Code(s): F17.200 - NICOTINE DEPENDENCE, UNSPECIFIED, UNCOMPLICATED SNOMED Code(s): 49136141 (2) Alcohol abuse Current Visit: Yes Status: Chronic Code(s): F10.10 - ALCOHOL ABUSE, UNCOMPLICATED SNOMED Code(s): 35634376 (3) Acute non-ST segment elevation myocardial infarction Current Visit: Yes Status: Acute Code(s): I21.4 - NON-ST ELEVATION (NSTEMI) MYOCARDIAL INFARCTION SNOMED Code(s): 802582103 (4) COPD (chronic obstructive pulmonary disease) Current Visit: Yes Status: Chronic Code(s): J44.9 - CHRONIC OBSTRUCTIVE PULMONARY DISEASE, UNSPECIFIED SNOMED Code(s): 76746286 (5) Coronary artery disease Current Visit: Yes Status: Chronic Code(s): I25.10 - ATHSCL HEART DISEASE OF [place] CORONARY ARTERY W/O ANG PCTRS SNOMED Code(s): 21765846 (6) Hypertension Current Visit: Yes Status: Chronic Code(s): I10 - ESSENTIAL (PRIMARY) HYPERTENSION SNOMED Code(s): 60433868 (7) Ischemic cardiomyopathy Current Visit: Yes Status: Chronic Code(s): I25.5 - ISCHEMIC CARDIOMYOPATHY SNOMED Code(s): 372551594 Plan: 1. Continue aspirin, statin, Plavix, heparin, beta keeley. Will maximize beta keeley therapy as tolerated. 2. Wean O2 as tolerated. Encourage incentive spirometry use 10 times per hour while awake. Encourage smoking cessation. 3. Continue IV Lasix. 4. Keflex started for possible tracheobronchitis, discontinued by pulmonary, started on IV ceftriaxone. Heavy cough with thick yellow sputum. Phenergan with codeine added by pulmonary. 5. Increase activity, ambulate as tolerated. PT/OT/cardiac rehab following. 6. GI/DVT prophylaxis. 7. Xanax added for increased anxiety. CIWA protocol stopped. Continue folic acid, thiamine, multivitamin 8. Diabetic management per primary care service. 9. Will monitor daily labs and x-rays. 10. Dr. Gonzalez consulted for inpatient rehab after discharge. 11. More recommendations to follow. Discharge planning a progress. Anticipate discharge in the next 24-48. Time with Patient: Greater than 30
[2017-11-14] MEDS: MUPIROCIN 2% OINT 22 GM TUBE NASAL SCH ×2 (09:40→21:28)
[2017-11-14] MEDS: LACTOBACILLUS ACIDOPH & BULGAR 1 EACH PACKET PO SCH ×4 (10:37→21:28)
[2017-11-14 11:48] LABS: Glucose,Whole Blood 117 mg/dL (75-99)
--- NOTE | 2017-11-14 12:19 | P.PN ---
Subjective Progress Note Date: 11/14/17 6 is a 62-year-old gentleman who presented to his primary care doctor' s office with symptoms of progressively worsening shortness of breath with associated peripheral edema. Patient does have history of hypertension, nicotine dependence, severe drinks a significant amount of alcohol. According to the patient, the symptoms have been progressively worsening over the past month or more area echocardiogram with Doppler study was performed on arrival here which revealed a severely impaired LV function, for this reason patient was advised to undergo cardiac catheterization. Cardiac cath was performed yesterday by Dr. Brody which revealed severe three-vessel coronary artery disease, ischemic cardiomyopathy with severe left ventricular dysfunction and elevated left ventricular end-diastolic pressure. Cardiothoracic surgery was consulted to see the patient, bypass surgery will be scheduled on Saturday. Patient was seen and examined this morning, denies any chest pain or difficulty in breathing. He does appear slightly anxious and shaky, he is concerned because he states he does drink a significant amount of alcohol at home. Blood pressure 124/88, heart rate in the 80s, 95% on 3 L of oxygen. White blood cell count 11.5, hemoglobin 16.6, sodium 142, potassium 3.2, BUN 21, creatinine 1.1. Patient is currently on aspirin, Lipitor 40, metoprolol any 5 mg daily, lisinopril 5 mg daily, and IV heparin drip. 11/08/2017 Patient seen and examined this morning, was having some issues with tremors earlier, quite sleepy at the time of my examination. Hemodynamically stable. Patient is going today for insertion of intra-aortic balloon pump. The details of which were explained to the patient in detail as well as the benefits thereof. Blood pressure 128/78, heart rate in the 90s, 91% on 3 L of oxygen. White blood cell count 11.3, hemoglobin 17.6, sodium 138, potassium 3.4, BUN 18 , creatinine 1.0. 11/14/2017 Patient is status post coronary bypass grafting surgery, is being followed now on the telemetry unit. Patient was seen and examined today, denies any chest pain or difficulty in breathing. He complains of significant discomfort in his associated with coughing. Patient was educated regarding how to properly cough and uses support. I pressure this morning 108/56, heart rate in the 80s. White blood cell count 9.9, hemoglobin 14.2, platelet count 216. Sodium 140, potassium 3.6, BUN 27, creatinine 0.9. Objective - Vital Signs Vital signs: Vital Signs Temp 98.8 F 11/14/17 04:00 Pulse 97 11/14/17 11:41 Resp 14 11/14/17 08:00 BP 107/57 11/14/17 08:00 Pulse Ox 95 11/14/17 08:00 Intake & Output 11/13/17 11/14/17 11/14/17 18:59 06:59 18:59 Intake Total 726 240 Output Total 0 Balance 726 240 Weight 95.8 kg Intake: IV 156 Lactated Ringers 1,000 ml 120 @ 20 mls/hr IV .Q24H [facility] Rx#:[id number] Pressure Bag 36 Oral 570 240 Output: Urine 0 Stool 0 Other: Voiding Method Incontinent Urinal Urinal Incontinent Incontinent # Voids 1 2 0 # Bowel Movements 1 0 ABP, PAP, CO, CI - Last Documented Arterial Blood Pressure 57/51 Pulmonary Artery Pressure 32/20 Cardiac Output 5.2 Cardiac Index 2.2 - Exam PHYSICAL EXAMINATION: HEENT: Head is atraumatic, normocephalic. Pupils equal, round. Neck is supple. There is no elevated jugular venous pressure. HEART EXAMINATION: Heart S1, S2 normal. No murmur or gallop heard. CHEST EXAMINATION: Lungs reveal diminished air entry to the bases with fine rales to the bases . ABDOMEN: Soft, nontender. Bowel sounds are heard. No organomegaly noted. Right groin soft, no evidence of any hematoma. EXTREMITIES: 2+ peripheral pulses with trace evidence of peripheral edema and no calf tenderness noted. Bilateral Venodyne and NEELAM hose in place NEUROLOGIC patient is awake, alert and oriented -3. . - Labs CBC & Chem 7: 11/14/17 05:32 11/14/17 05:32 Labs: Abnormal Lab Results - Last 24 Hours (Table) 11/13/17 11/14/17 11/14/17 Range/Units 20:47 02:15 05:32 BUN 27 H (9-20) mg/dL Glucose 104 H (74-99) mg/dL POC Glucose (mg/dL) 108 H 113 H (75-99) mg/dL AST 85 H (17-59) U/L ALT 116 H (21-72) U/L Total Protein 5.8 L (6.3-8.2) g/dL Albumin 3.1 L (3.5-5.0) g/dL 11/14/17 11/14/17 Range/Units 06:28 11:47 BUN (9-20) mg/dL Glucose (74-99) mg/dL POC Glucose (mg/dL) 104 H 117 H (75-99) mg/dL AST (17-59) U/L ALT (21-72) U/L Total Protein (6.3-8.2) g/dL Albumin (3.5-5.0) g/dL Assessment and Plan Plan: Assessment and plan #1 non-ST elevation NC, status post CABG #2 cardiomyopathy with severe LV dysfunction #3 nicotine dependence #4 hypertension #5 EtOH use Plan From cardiology's perspective, we will recommend to continue the patient on his current medications. He is remaining in normal sinus rhythm. DNP note has been reviewed, I agree with a documented findings and plan of care. Patient was seen and examined.
--- NOTE | 2017-11-14 15:24 | P.PN ---
Subjective Progress Note Date: 11/14/17 Principal diagnosis: Status post CABG 3, DT Acute systolic heart failure, acute myocardial infarction, pulmonary edema related to above, diffuse coronary artery disease, baseline COPD and recent tracheobronchitis 11/14/2017, patient seen eval examined during the rounds patient has removed the ICU to stepdown unit chest tubes as well as a right-sided [place] introducer has been removed to no significant bleeding has been noted on the site dressing in the lower sternal area has been changed couple times patient does have cough with associated with thick tenacious sputum production culture results and reports from the sputum are pending patient is on breathing treatments antibiotics 11/13/2017, patient seen eval reexamined during the rounds he is slightly more awake the hallucination that was noted previously has improved patient however lately has been coughing a lot thick tenacious his sputum present with light yellow in appearance a sample is being sent for Gram stain and culture patient has a small leakage from central Cordis catheter area as well as the distal part of the thoracotomy site local measures have been applied patient also has significant diarrhea for which stool has been sent for C. diff, overall hemodynamic status stable, his chest x-ray from today reviewed and compared with the prior x-ray 11/12/2017, patient seen eval examined during the rounds he is sitting upright on the chair he is eating his lunch patient is oriented 1 he has significant hallucination which are perceptive as well as visual, patient did receive Ativan late last night around midnight then another dose earlier this morning at 6 patient has been falling asleep with food in his mouth this morning however slightly more awake during conversation he is breathing appropriately slightly tachypneic otherwise hemodynamic status stable, patient remains on 8 L oxygen saturation are 93%, [place] catheter and chest tubes have been removed , chest x-ray from today has been reviewed and compared with the prior x-ray right lower lobe subsegmental atelectasis slightly better with improved aviation medications reviewed laboratory data reviewed 11/11/2017, patient seen eval reexamined during the rounds clinically doing well has been placed on CPAP 5 and pressure support of 5 and arterial blood gases done weaning parameters reviewed patient is a relatively more awake and alert propofol drip has been discontinued patient opens eyes follow simple commands with fairly stable weaning parameters we'll proceed with extubation, critical care time spent 35 minutes 11/10/2017, patient seen eval examined during the rounds clinically patient is doing well but remains on full respirator support remains hypoxic when setting includes assist control rate of 10 breathing about 12-14 tidal volume is 755 of PEEP and on 60% oxygen patient has a [place] catheter PA pressure 42/21 he remains on 2.5 mics of dopamine drip also on propofol 25 mics his urine output is fairly adequate making about 40-60 mL/h of urine attempted patient on CPAP but has been unsuccessful given that low oxygenation patient is not really aware ready for weaning extubation today we'll keep on titrating oxygen down and follow clinical course closely 11/08/2017, patient seen evjosr reexamined during the rounds care plan discussed with RN at length patient is status post intra-aortic balloon pump for severe degree of cardiomyopathy and ischemic heart disease with diffuse coronary artery disease patient is currently on 1 is 21 patient with the map over 60-70 current map noted to be 80 with a systolic blood pressure 100 and diastolic of 63. 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 patient is being monitor observe as per CV a protocol overalls plan is if patient decompensated from Estrace standpoint and or become anxious and agitated and will be intubated S patient needs to stay flat on the bed related to his ongoing aortic balloon pump augmentation, his labs and x-rays are reviewed from today, PFTs reviewed, x-ray suggestive of the COPD-like changes noted acute pathology has been noted, the PFT suggestive of mild to moderate obstructive disease, white cell count is elevated with very high hemoglobin count which appears to be likely related to polycythemia related to COPD and chronic intermittent hypoxia , renal functions are stable patient is making were 50 to 60 mL an hour urine, his urine culture is negative nasal swab are negative for MRSA or MSSA 11/07/2017, patient seen and evaluated examined during the rounds is still short of breath has intermittent dry nonproductive cough but severity has improved he has been on breathing treatment he has been on deep breathing exercises incentive spirometry as well, patient will undergo preop spirometry later on today, patient has been evaluated by cardiothoracic surgery operative workup is in progress 62-year-old male who appears older then the stated age he has not been feeling well for the last several weeks has been going on has been having ongoing shortness of breath and cough he was treated with oral antibiotics breathing treatments and prednisone her outpatient basis without significant relief. Patient also has a history of on-call consumption almost on a daily basis usually consume 2-3 cans of beer daily. patient recently was evaluated in primary care office found to have a elevated troponin and abnormal EKG was sent over here for further evaluation patient continued to complain of cough congestion and shortness of breath has occasional intermittent vague chest pain as well, overall patient is a poor historian not much data can be obtained from him, on arrival to emergency department he was found to have very high BNP of over 4000 and troponin were consistently elevated cardiovascular services following at the time of evaluation patient is a about to undergo an echocardiogram as well, later on findings are reviewed his ejection fraction only 20-25%, diffuse coronary artery disease was noted as well on emergent cath and angiogram, LAD shows 90% stenosis in proximal part, 70-80% stenosis noted in circumflex, right coronary artery is totally occluded in proximal part given patient has diffuse triple-vessel coronary artery disease ischemic cardiomyopathy patient is likely evaluated by cardiothoracic surgery Objective - Vital Signs Vital signs: Vital Signs Temp 96.8 F L 11/14/17 12:00 Pulse 80 11/14/17 12:00 Resp 14 11/14/17 12:00 BP 96/56 11/14/17 12:00 Pulse Ox 99 11/14/17 12:00 Intake & Output 11/13/17 11/14/17 11/14/17 18:59 06:59 18:59 Intake Total 726 477 Output Total 0 Balance 726 477 Weight 95.8 kg Intake: IV 156 Lactated Ringers 1,000 ml 120 @ 20 mls/hr IV .Q24H HARPAL Rx#:[id number] Pressure Bag 36 Oral 570 477 Output: Urine 0 Stool 0 Other: Voiding Method Incontinent Urinal Urinal Incontinent Incontinent # Voids 1 2 0 # Bowel Movements 1 0 ABP, PAP, CO, CI - Last Documented Arterial Blood Pressure 57/51 Pulmonary Artery Pressure 32/20 Cardiac Output 5.2 Cardiac Index 2.2 - Exam Patient seen and evaluated examined in the ICU he is somnolent but arousable GENERAL: Overall no apparent distress at the time of examination. Pleasant , calm and cooperative. Somewhat somnolent though HEENT: Head is atraumatic, normocephalic. Pupils are equal, round, and reactive to light. Sclerae anicteric. Conjunctivae are clear. Mucus membranes of the mouth are moist. Neck is supple. RESPIRATORY: Decreased air entry at the bases otherwise Clear to ausculation Ma few crackles in the bases are present. The incisions are healing well , some oozing of blood noted at distal part of the sternal incision No use of accessory muscles. Patient maintaining oxygen saturation greater than 92%. CARDIOVASCULAR: Regular rate and rhythm. S1 and S2 noted. No systolic or diastolic murmur auscultated. No JVD noted. No S3 or S4 noted. Right carotid bruit auscultated. GASTROINTESTINAL: No distention noted. Abdomen soft and round. Normal active bowel sounds auscultated x 4 quadrants. No pain or tenderness noted upon palpation. Aortic balloon pump in the groin on the left side INTEGUMENTARY: No cyanosis. No jaundice. No rashes noted. No cellulitis noted. EXTREMITIES: 2+ peripheral pulses. 1+ bilateral lower extremity edema. No calf tenderness noted. NEUROLOGIC: Cranial nerves II-XII intact. Overall neurological examination is within normal limit, no tremors or shakiness however otherwise noted PSYCHIATRIC: Sleeping somnolent but on arousable he is Awake, alert, and oriented X 1-3. Appropriate affect. Intact judgement and insight. - Labs CBC & Chem 7: 11/14/17 05:32 11/14/17 05:32 Labs: Abnormal Lab Results - Last 24 Hours (Table) 11/13/17 11/14/17 11/14/17 Range/Units 20:47 02:15 05:32 BUN 27 H (9-20) mg/dL Glucose 104 H (74-99) mg/dL POC Glucose (mg/dL) 108 H 113 H (75-99) mg/dL AST 85 H (17-59) U/L ALT 116 H (21-72) U/L Total Protein 5.8 L (6.3-8.2) g/dL Albumin 3.1 L (3.5-5.0) g/dL 11/14/17 11/14/17 Range/Units 06:28 11:47 BUN (9-20) mg/dL Glucose (74-99) mg/dL POC Glucose (mg/dL) 104 H 117 H (75-99) mg/dL AST (17-59) U/L ALT (21-72) U/L Total Protein (6.3-8.2) g/dL Albumin (3.5-5.0) g/dL Assessment and Plan Assessment: Significant and intractable coughing or shortness of breath with thick purulent sputum production likely developing purulent tracheobronchitis and/pneumonia, follow-up on sputum culture results and reports Loose stool diarrhea Acute COPD exacerbation Auditory and perceptual hallucination likely patient is in DTs Acute non-ST segment elevated ND Severe degree of ischemic cardiomyopathy with acute systolic heart failure Diffuse triple-vessel coronary artery disease with ejection fraction only 20% my status post CABG 3 Likely severe COPD with chronic bronchitis History of fall wall comes exertion and abuse Plan: Follow up on Stool for C. difficile Into new Broad-spectrum antibiotics with IV Rocephin, Pulmicort, cough suppressant, sputum culture, care plan discussed with the primary service and the staff at length Optimize cardiac therapy as planned, Would lower down the Ativan to half a milligram will keep patient in ICU continue to maintain patient on Cipro protocol as well as a replacement of thiamine and folic acid and MVI Breathing treatment with nebulizer as tolerated Afterload reducing agent and preload reduction with KIERA inhibitor's and diuretics Reviewed pulmonary function testing as well, further recommendations pending plan of care as per clinical response of the patient Patient is status post coronary artery bypass surgery Breathing treatment with nebulizer as tolerated DVT and peptic ulcer disease prophylaxis Continue supportive care, critical care time spent 35 minutes Time with Patient: Greater than 30
[2017-11-14 16:32] LABS: Glucose,Whole Blood 118 mg/dL (75-99)
[2017-11-14 20:23] LABS: Glucose,Whole Blood 123 mg/dL (75-99)
[2017-11-14] MEDS: LIDOCAINE 5% PATCH TOPICAL SCH (21:28)
[2017-11-14] MEDS: SENNOSIDES-DOCUSATE SODIUM 1 EACH TAB PO SCH (21:32)
[2017-11-15 01:59] LABS: Glucose,Whole Blood 93 mg/dL (75-99)
[2017-11-15] MEDS: HYDROcodone/APAP 5-325MG 1 EACH TAB PO PRN ×4 (03:55→21:01)
[2017-11-15 06:23] LABS: Glucose,Whole Blood 122 mg/dL (75-99)
[2017-11-15 06:44] LABS: HCT 42.2 % (39.0-53.0); HGB 13.4 gm/dL (13.0-17.5); MCH 30.4 pg (25.0-35.0); MCHC 31.8 g/dL (31.0-37.0); MCV 95.6 fL (80.0-100.0); Mean Platelet Volume 7.8; Platelet Count 214 k/uL (150-450); RBC 4.41 m/uL (4.30-5.90); RDW 13.7 % (11.5-15.5); WBC 8.9 k/uL (3.8-10.6)
[2017-11-15] MEDS: INSULIN ASPART 100 UNIT/ML 1 ML 10 ML VIAL SQ SCH ×4 (06:44→20:37)
[2017-11-15] MEDS: PANTOPRAZOLE 40 MG TABLET PO SCH (06:45)
[2017-11-15 06:55] LABS: ALT 111 U/L (21-72); AST 69 U/L (17-59); Albumin 3.2 g/dL (3.5-5.0); Alkaline Phosphatase 83 U/L (38-126); Anion Gap 10 mmol/L; Blood Urea Nitrogen 29 mg/dL (9-20); Carbon Dioxide 29 mmol/L (22-30); Chloride 100 mmol/L (98-107); Glucose 109 mg/dL (74-99); Potassium 4.1 mmol/L (3.5-5.1); Sodium 139 mmol/L (137-145); Total Bilirubin 0.8 mg/dL (0.2-1.3)
[2017-11-15] MEDS: BUDESONIDE 1 MG/2 ML NEBU INHALATION SCH ×2 (07:47→20:35)
[2017-11-15] MEDS: IPRATROPIUM-ALBUTEROL 3 ML NEB INHALATION SCH ×4 (07:47→20:35)
--- NOTE | 2017-11-15 08:29 | XR ---
EXAMINATION TYPE: XR chest 2V DATE OF EXAM: 11/15/2017 COMPARISON: 11/14/2017 INDICATION: Post cardiac surgery TECHNIQUE: Frontal and lateral views of the chest are obtained. FINDINGS: The heart size is mildly prominent but stable. The pulmonary vasculature is normal. No suspicious infiltrates are evident. Minimal subsegmental atelectasis left base is not excluded. Le ft diaphragm is not as well-visualized is previous. Previous right blunting of the costophrenic angle is resolved. IMPRESSION: 1. Minimal subsegmental atelectasis may be present at the left base. 2. Cardiomegaly. 3. No acute process is not otherwise identified.
[2017-11-15] MEDS: HEPARIN SODIUM,PORCINE 5,000 UNIT/ML 1 ML VIAL SQ SCH ×3 (09:03→23:12)
[2017-11-15] MEDS: LACTOBACILLUS ACIDOPH & BULGAR 1 EACH PACKET PO SCH ×4 (09:03→21:00)
[2017-11-15] MEDS: METOPROLOL TARTRATE 25 MG TAB PO SCH ×3 (09:03→21:00)
[2017-11-15] MEDS: FUROSEMIDE 10 MG/ML 2 ML VIAL IV SCH (09:03)
[2017-11-15] MEDS: ATORVASTATIN 40 MG TAB PO SCH (09:04)
[2017-11-15] MEDS: CLOPIDOGREL 75 MG TAB PO SCH (09:04)
--- NOTE | 2017-11-15 09:04 | P.PN ---
Subjective Progress Note Date: 11/15/17 62-year-old male who presented to the emergency room after he was evaluated by his primary care physician, Dr. Couch, on an outpatient basis. Patient reports he saw his PCP on Saturday for a follow up for shortness of breath. The patient was recently diagnosed with tracheobronchitis and was prescribed Levaquin, prednisone, and DuoNeb treatments. His shortness of breath persisted. Patient also reported cough with positive sputum production. The patient's oxygen saturation was 93% on room air. The patient ambulated around the office and his oxygen saturations remained greater than 92%. A chest x-ray was completed at the office revealing cardiomegaly. The patient also reported bilateral lower extremity edema and an episode of chest pain on Saturday. An EKG was completed revealing old inferior and anterior wall MIs. A troponin was completed at the office and came back at 0.08. The patient was started on aspirin 81 mg daily, Lasix 20 mg daily, and lisinopril 5 mg daily at that time. He was not started on a beta keeley at that time as his heart rate was in the low 60s at Dr. Couch's office. The patient was advised to come to the emergency room for further evaluation. The patient has a history of chronic obstructive pulmonary disease. He reports smoking approximately 6 cigarettes per day. He also admits to the drinking 2-3 alcoholic beverages per day, which he states the amount has decreased and reports he used to drink heavier. Chest x-ray 11/05/2017: Cardiomegaly. There may be a component of pulmonary venous hypertension and early interstitial edema. Laboratory data: WBC 8.2. Hemoglobin 16.8. Platelet count 235. Sodium 142. Potassium 5.9. BUN 18. Creatinine 0.98. GFR 84. Glucose 94. BNP: 4560 Troponins: 0.061, 0.053, 0.057 Lipid panel: Triglycerides 99. Total cholesterol 157. LDL 101. HDL 36. The patient was admitted to the hospital under the care of Dr. Couch. Consultations were placed to cardiology. 11/07/2017 Patient evaluated this morning on rounds with Dr. Couch. Patient is awake and alert. Denies chest pain or pressure. Denies shortness of breath. The patient underwent cardiac catheterization yesterday revealing 90% stenosis of proximal LAD, 70-80% stenosis of circumflex artery, and totally occluded right coronary artery. cardiothoracic surgery has been consulted and evaluated the patient. The patient is scheduled for an off pump CABG on Saturday. Pre-operative testing is currently underway. Echocardiogram completed reveals severe global hypokinesis of the left ventricle, ejection fraction of 20-25%, trace mitral regurgitation, and trace tricuspid regurgitation. Carotid ultrasound was completed revealing 15-25% stenosis in both internal carotid arteries. The patient denies pain or discomfort. He is anxious regarding his upcoming surgery and concerned about his . He states she is 74 years old and has severe COPD and he has been her provider at home and has been caring for her. 11/08/2017 Patient seen and examined at the bedside on rounds with Dr. Couch. Patient is awake and alert. Patient denies chest pain or pressure. Denies shortness of breath. Patient is NPO and is scheduled for IABP insertion today per cardiology. Patient is scheduled to undergo off pump CABG tomorrow with Dr. Bullard. Patient remains on CIWA protocol. No signs of ETOH withdrawal this morning. Patient states he is voiding without difficulty. Reports + bowel movement. 11/09/2017-11/11/2017-Notes per Dr. Couch 11/12/2017 Patient seen and examined at the bedside. Patient underwent IABP on Saturday which has since been discontinued. Patient underwent CABG x 3 with with left internal mammary artery to LAD and reverse saphenous vein grafts to the first diagonal and posterior descending coronary arteries with endovascular vein harvest from the right greater saphenous vein by Dr. Bullard on Saturday. Chest tubes were discontinued on 11/11/2017. Patient was extubated yesterday. He remains on 10L high flow nasal cannula. Oxygen saturations greater than 92%. Patient is slightly tachycardic with a rate around 105. Blood pressure is stable with a last reading of 117/63. Patients insulin drip has been discontinued. He remains on Novolog sliding scale Q 4 hours as ordered by machine candle molder. Blood sugars 103-118. Magnesium is 1.5 this morning and is currently being supplemented. Patient was noted to be leaning to his right side this morning in the chair and was dragging his right foot per nursing. Patient did receive ativan this morning per CIWA protocol. His strength is equal bilaterally and he does not have any neuro deficits at this time. Speech is slightly garbled which may also be due to ativan. 11/13/2017 Patient seen and examined at the bedside on rounds with Dr. Couch. Patient is sitting up in the chair eating breakfast. Patient denies shortness of breath but he does report frequent coughing with sputum production. Sputum sample noted in the basin at the bedside is clear and thin. Chest xray from today is negative for acute process. Encouraged patient to splint incision while coughing and to use his heart hugger. Patient also encouraged to use his IS 10 times an hour. Nursing reports that patient still leans to the right side when he is sitting in the chair and has pillows propped up on his right side. Patients strength is essentially the same bilaterally, possibly a little stronger on the left, but the patient is also left handed. He is alert and oriented x 3 this morning and has no neuro deficits. Patient reports he had a bowel movement last night. Tolerating PO intake without nausea or vomiting. States pain is tolerable. 11/14/2017 Patient seen and examined at the bedside on rounds with Dr. Couch. Patient has been transferred out of the ICU to the selective care unit. Patient is currently sitting up in the chair. He is in good spirits but fairly anxious this morning. Denies chest pain or pressure. Patient states he is coughing frequently and is experiencing severe pain when he coughs. Patient was encouraged to use heart hugger and splint chest/abdomen with a pillow. Patient states he has been ambulating in the room without difficultly. He does report some constipation. 11/15/2017 Patient seen and examined at the bedside on rounds with Dr. Couch. Patient is awake and alert. Sitting up in the chair. Patient states he is still coughing frequently. Abdominal binder was placed yesterday which patient states is helping a little bit. Patient denies shortness of breath. Denies chest pain. Appetite is good. patient states he is anxious to be discharged to rehab. Objective - Vital Signs Vital signs: Vital Signs Temp 97.8 F 11/15/17 04:00 Pulse 88 11/15/17 08:09 Resp 18 11/15/17 04:00 BP 102/69 11/15/17 04:00 Pulse Ox 95 11/15/17 04:00 Intake & Output 11/14/17 11/15/17 11/15/17 18:59 06:59 18:59 Intake Total 713 Output Total 0 Balance 713 Weight 96.6 kg Intake: Oral 713 Output: Urine 0 Stool 0 Other: Voiding Method Toilet Toilet Urinal Urinal # Voids 1 1 # Bowel Movements 0 ABP, PAP, CO, CI - Last Documented Arterial Blood Pressure 57/51 Pulmonary Artery Pressure 32/20 Cardiac Output 5.2 Cardiac Index 2.2 - Exam GENERAL: This is a 62-year-old male in no apparent distress at the time of examination. HEENT: Head is atraumatic, normocephalic. Pupils are equal, round, and reactive to light. Sclerae anicteric. Conjunctivae are clear. Mucus membranes of the mouth are moist. Neck is supple. RESPIRATORY: Clear to ausculation. No wheezes, rales, or rhonchi. No use of accessory muscles. Patient maintaining oxygen saturation greater than 92%. No chest wall tenderness is noted on palpation or with deep breathing. CARDIOVASCULAR: Surgical site clean dry and intact. Heart hugger in place. Regular rate and rhythm. S1 and S2 noted. No systolic or diastolic murmur auscultated. No JVD noted. No S3 or S4 noted. Right carotid bruit auscultated. GASTROINTESTINAL: Abdominal binder in place. No distention noted. Abdomen soft and round. Bowel sounds auscultated x 4 quadrants. No pain or tenderness noted upon palpation. INTEGUMENTARY: No cyanosis. No jaundice. No rashes noted. No cellulitis noted. EXTREMITIES: 2+ peripheral pulses. No edema noted. No calf tenderness noted. NEUROLOGIC: Cranial nerves II-XII intact. PSYCHIATRIC: Awake, alert, and oriented X 3. Pleasant and cooperative. - Labs CBC & Chem 7: 11/15/17 05:58 11/15/17 05:58 Labs: Abnormal Lab Results - Last 24 Hours (Table) 11/14/17 11/14/17 11/14/17 Range/Units 11:47 16:30 20:22 BUN (9-20) mg/dL Glucose (74-99) mg/dL POC Glucose (mg/dL) 117 H 118 H 123 H (75-99) mg/dL AST (17-59) U/L ALT (21-72) U/L Total Protein (6.3-8.2) g/dL Albumin (3.5-5.0) g/dL 11/15/17 11/15/17 Range/Units 05:58 06:22 BUN 29 H (9-20) mg/dL Glucose 109 H (74-99) mg/dL POC Glucose (mg/dL) 122 H (75-99) mg/dL AST 69 H (17-59) U/L ALT 111 H (21-72) U/L Total Protein 6.0 L (6.3-8.2) g/dL Albumin 3.2 L (3.5-5.0) g/dL Microbiology - Last 24 Hours (Table) 11/14/17 11:30 Gram Stain - Preliminary Sputum Assessment and Plan Plan: ASSESSMENT: 1. Acute non-ST elevated myocardial infarction, troponins 0.061, 0.053, 0.057 s/ p cardiac catherization revealing severe triple vessel disease 2. S/P intra-aortic ballon pump insertion, POD #7, since discontinued 3. S/P off pump CABG x 3 with with left internal mammary artery to LAD and reverse saphenous vein grafts to the first diagonal and posterior descending coronary arteries with endovascular vein harvest from the right greater saphenous vein, POD #6 4. Acute hypoxic respiratory failure, prolonged mechanical ventilation, an expected outcome of surgery given the patient's extensive tobacco and alcohol dependence with a recent history of tracheobronchitis, since extubated 5. Ischemic cardiomyopathy 6. Chronic obstructive pulmonary disease, no evidence of acute exacerbation 7. Recent diagnosis of tracheobronchitis, treated with Levaquin and prednisone outpatient 8. Nicotine dependence, patient is a current cigarette smoker 9. Daily alcohol use 10. Obesity: BMI 33.8 11. Hyperkalemia, resolved 12. Hypomagnesemia 13. Purulent tracheobronchitis, sputum culture pending PLAN: Continue post operative management per cardiothoracic surgery Continue thiamine, multivitamin, and folic acid Continue xanax 0.25mg Q8 hours PRN for anxiety Pain control Activity as tolerated Incentive spirometer 10 times an hour while awake Continue novolog sliding scale AC/HS Home meds as appropriate Monitor labs GI/DVT prophylaxis Monitor vital signs and address as appropriate Further recommendations pending patient's course Nurse practitioner note has been reviewed by physician. Signing provider agrees with the documented findings, assessment, and plan of care.
[2017-11-15] MEDS: MUPIROCIN 2% OINT 22 GM TUBE NASAL SCH ×2 (09:05→21:00)
[2017-11-15] MEDS: ASPIRIN 325 MG TAB PO SCH (09:10)
[2017-11-15] MEDS: cefTRIAXone IN SWFI 1,000 MG/10 ML SYRINGE IVP SCH (09:10)
--- NOTE | 2017-11-15 10:37 | P.PN ---
Subjective Progress Note Date: 11/15/17 6 is a 62-year-old gentleman who presented to his primary care doctor' s office with symptoms of progressively worsening shortness of breath with associated peripheral edema. Patient does have history of hypertension, nicotine dependence, severe drinks a significant amount of alcohol. According to the patient, the symptoms have been progressively worsening over the past month or more area echocardiogram with Doppler study was performed on arrival here which revealed a severely impaired LV function, for this reason patient was advised to undergo cardiac catheterization. Cardiac cath was performed yesterday by Dr. Brody which revealed severe three-vessel coronary artery disease, ischemic cardiomyopathy with severe left ventricular dysfunction and elevated left ventricular end-diastolic pressure. Cardiothoracic surgery was consulted to see the patient, bypass surgery will be scheduled on Saturday. Patient was seen and examined this morning, denies any chest pain or difficulty in breathing. He does appear slightly anxious and shaky, he is concerned because he states he does drink a significant amount of alcohol at home. Blood pressure 124/88, heart rate in the 80s, 95% on 3 L of oxygen. White blood cell count 11.5, hemoglobin 16.6, sodium 142, potassium 3.2, BUN 21, creatinine 1.1. Patient is currently on aspirin, Lipitor 40, metoprolol any 5 mg daily, lisinopril 5 mg daily, and IV heparin drip. 11/08/2017 Patient seen and examined this morning, was having some issues with tremors earlier, quite sleepy at the time of my examination. Hemodynamically stable. Patient is going today for insertion of intra-aortic balloon pump. The details of which were explained to the patient in detail as well as the benefits thereof. Blood pressure 128/78, heart rate in the 90s, 91% on 3 L of oxygen. White blood cell count 11.3, hemoglobin 17.6, sodium 138, potassium 3.4, BUN 18 , creatinine 1.0. 11/14/2017 Patient is status post coronary bypass grafting surgery, is being followed now on the telemetry unit. Patient was seen and examined today, denies any chest pain or difficulty in breathing. He complains of significant discomfort in his associated with coughing. Patient was educated regarding how to properly cough and uses support. I pressure this morning 108/56, heart rate in the 80s. White blood cell count 9.9, hemoglobin 14.2, platelet count 216. Sodium 140, potassium 3.6, BUN 27, creatinine 0.9. 11/15/2017 Patient seen and examined this morning, sitting up in the chair at bedside. Overall feeling significantly better today, blood pressure 116/70, heart rate in the 80s, 93% on room air. White blood cell count 8.9, hemoglobin 13.4, platelet count 214. Sodium 139, potassium 4.1, BUN 29, creatinine 0.9. Objective - Vital Signs Vital signs: Vital Signs Temp 97.6 F 11/15/17 08:45 Pulse 91 11/15/17 08:45 Resp 20 11/15/17 08:45 BP 115/70 11/15/17 08:45 Pulse Ox 93 L 11/15/17 08:45 Intake & Output 11/14/17 11/15/17 11/15/17 18:59 06:59 18:59 Intake Total 713 Output Total 0 Balance 713 Weight 96.6 kg Intake: Oral 713 Output: Urine 0 Stool 0 Other: Voiding Method Toilet Toilet Urinal Urinal # Voids 1 1 # Bowel Movements 0 ABP, PAP, CO, CI - Last Documented Arterial Blood Pressure 57/51 Pulmonary Artery Pressure 32/20 Cardiac Output 5.2 Cardiac Index 2.2 - Exam PHYSICAL EXAMINATION: HEENT: Head is atraumatic, normocephalic. Pupils equal, round. Neck is supple. There is no elevated jugular venous pressure. HEART EXAMINATION: Heart S1, S2 normal. No murmur or gallop heard. CHEST EXAMINATION: Lungs reveal diminished air entry to the bases with fine rales to the bases . ABDOMEN: Soft, nontender. Bowel sounds are heard. No organomegaly noted. Right groin soft, no evidence of any hematoma. EXTREMITIES: 2+ peripheral pulses with trace evidence of peripheral edema and no calf tenderness noted. Bilateral Venodyne and NEELAM hose in place NEUROLOGIC patient is awake, alert and oriented -3. . - Labs CBC & Chem 7: 11/15/17 05:58 11/15/17 05:58 Labs: Abnormal Lab Results - Last 24 Hours (Table) 11/14/17 11/14/17 11/14/17 Range/Units 11:47 16:30 20:22 BUN (9-20) mg/dL Glucose (74-99) mg/dL POC Glucose (mg/dL) 117 H 118 H 123 H (75-99) mg/dL AST (17-59) U/L ALT (21-72) U/L Total Protein (6.3-8.2) g/dL Albumin (3.5-5.0) g/dL 11/15/17 11/15/17 Range/Units 05:58 06:22 BUN 29 H (9-20) mg/dL Glucose 109 H (74-99) mg/dL POC Glucose (mg/dL) 122 H (75-99) mg/dL AST 69 H (17-59) U/L ALT 111 H (21-72) U/L Total Protein 6.0 L (6.3-8.2) g/dL Albumin 3.2 L (3.5-5.0) g/dL Microbiology - Last 24 Hours (Table) 11/14/17 11:30 Gram Stain - Preliminary Sputum Assessment and Plan Plan: Assessment and plan #1 non-ST elevation [place], status post CABG #2 cardiomyopathy with severe LV dysfunction #3 nicotine dependence #4 hypertension #5 EtOH use Plan From cardiology's perspective, we will recommend to continue the patient on his current medications. He is remaining in normal sinus rhythm. Doing well on his incentive spirometry. DNP note has been reviewed, I agree with a documented findings and plan of care. Patient was seen and examined.
--- NOTE | 2017-11-15 11:18 | ECHOF ---
Referral Reason:eval left ventricular function MEASUREMENTS -------- HEIGHT: 175.3 cm WEIGHT: 106.1 kg BP: RAP: 5.00 mmHg RVSP: 32.12 mmHg FINDINGS -------- Sinus rhythm. Limited Study Overall left ventricular systolic function is severely impaired with, an EF between 20 - 25 %. There is no pericardial effusion. CONCLUSIONS -------- 1. Sinus rhythm. 2. Limited Study 3. Overall left ventricular systolic function is severely impaired with, an EF between 20 - 25 %. 4. There is no pericardial effusion. EXERCISE INSTRUCTOR: Nicki Alvarez RDCS
[2017-11-15 12:09] LABS: Glucose,Whole Blood 95 mg/dL (75-99)
[2017-11-15] MEDS: THIAMINE 100 MG TAB PO SCH (12:19)
[2017-11-15] MEDS: FOLIC ACID 1 MG TAB PO SCH (12:20)
[2017-11-15] MEDS: MULTIVITAMINS, THERA 1 EACH TAB PO SCH (12:20)
--- NOTE | 2017-11-15 13:56 | P.PN ---
Subjective Progress Note Date: 11/15/17 Principal diagnosis: Severe triple-vessel coronary artery disease, NSTEMI, acute on chronic systolic left heart failure, ischemic cardiomyopathy with severe left ventricular systolic dysfunction with an ejection fraction of 20%. History of hypertension, COPD with pre-operative FEV1 74% of predicted post bronchodilator, current nicotine abuse, EtOH abuse, recent tracheobronchitis with antibiotic and steroid therapy. Family history of premature coronary artery disease with a brother diagnosed at 46 years old. History of dyslipidemia. Occasional use of home oxygen as patient was using his 's home oxygen. POD #7 placement of intra-aortic balloon pump by cardiology. POD #6 urgent off-pump coronary artery bypass grafting 3 with left internal mammary artery to LAD and reverse saphenous vein grafts to the first diagonal and posterior descending coronary arteries with endovascular vein harvest from the right greater saphenous vein. Intraoperative transesophageal echocardiogram by anesthesia. Acute hypoxic respiratory failure, prolonged mechanical ventilation, and expected outcome of surgery given the patient's extensive tobacco and alcohol dependence with a recent history of tracheobronchitis. The patient currently sitting up in a recliner. He is in no acute distress. Denies pain, shortness of breath. The patient reports he feels much improved today and feels he is ready to be discharged to inpatient rehab. He reports that he has been ambulating in the [place] with assistance from physical therapy, occupational therapy and cardiac rehab. Objective - Vital Signs Vital signs: Vital Signs Temp 97.6 F 11/15/17 12:00 Pulse 88 11/15/17 12:00 Resp 16 11/15/17 12:00 BP 117/71 11/15/17 12:00 Pulse Ox 96 11/15/17 12:00 Intake & Output 11/14/17 11/15/17 11/15/17 18:59 06:59 18:59 Intake Total 713 Output Total 0 Balance 713 Weight 96.6 kg Intake: Oral 713 Output: Urine 0 Stool 0 Other: Voiding Method Toilet Toilet Toilet Urinal Urinal # Voids 1 1 # Bowel Movements 0 ABP, PAP, CO, CI - Last Documented Arterial Blood Pressure 57/51 Pulmonary Artery Pressure 32/20 Cardiac Output 5.2 Cardiac Index 2.2 - Constitutional General appearance: Present: cooperative, no acute distress, obese - EENT ENT: Present: hearing grossly normal - Neck Details: No JVD, no lymphadenopathy, neck is supple. - Respiratory Details: Lung sounds essentially clear throughout, diminished to his bilateral bases. Respirations are symmetrical nonlabored. Oxygen saturation are 95% on 3 L nasal cannula. He is achieving 2250 mL on his incentive spirometry. - Cardiovascular Details: Regular rhythm and rate. S1 and S2 present, negative for S3, gallop or murmur. Sternum is stable. Remote telemetry showing normal sinus rhythm heart rate 89. Heart hugger is in place and he is demonstrating appropriate use with reminding. Knee-high NEELAM hose and sequential compression devices in place to his bilateral lower extremities. - Gastrointestinal Gastrointestinal Comment(s): Abdomen is soft, nontender nondistended. Active bowel sounds to all 4 abdominal quadrants. Tolerating oral intake. Bowel movement yesterday 2017. - Genitourinary Genitourinary Comment(s): Adequate urine output. Voiding clear yellow urine. - Integumentary Integumentary Comment(s): Skin is warm and dry. No clubbing or cyanosis present. Midline sternal incision clean dry and well approximated. No drainage or redness present. Dressing clean and dry. Right leg EVH site clean dry and approximated. No drainage or redness present. - Neurologic Neurologic: Present: CNII-XII intact - Musculoskeletal Musculoskeletal: Present: gait normal, strength equal bilaterally - Psychiatric Psychiatric: Present: A&O x's 3, appropriate affect, intact judgment & insight - Allied health notes Allied health notes reviewed: nursing - Labs CBC & Chem 7: 11/15/17 05:58 11/15/17 05:58 Labs: Abnormal Lab Results - Last 24 Hours (Table) 11/14/17 11/14/17 11/15/17 Range/Units 16:30 20:22 05:58 BUN 29 H (9-20) mg/dL Glucose 109 H (74-99) mg/dL POC Glucose (mg/dL) 118 H 123 H (75-99) mg/dL AST 69 H (17-59) U/L ALT 111 H (21-72) U/L Total Protein 6.0 L (6.3-8.2) g/dL Albumin 3.2 L (3.5-5.0) g/dL 11/15/17 Range/Units 06:22 BUN (9-20) mg/dL Glucose (74-99) mg/dL POC Glucose (mg/dL) 122 H (75-99) mg/dL AST (17-59) U/L ALT (21-72) U/L Total Protein (6.3-8.2) g/dL Albumin (3.5-5.0) g/dL Microbiology - Last 24 Hours (Table) 11/14/17 11:30 Gram Stain - Preliminary Sputum - Imaging and Cardiology Chest x-ray: report reviewed, image reviewed Assessment and Plan (1) Shortness of breath on exertion Current Visit: Yes Status: Acute Code(s): R06.02 - SHORTNESS OF BREATH SNOMED Code(s): 30219523 (2) Coronary artery disease Current Visit: Yes Status: Chronic Code(s): I25.10 - ATHSCL HEART DISEASE OF [place] CORONARY ARTERY W/O ANG PCTRS SNOMED Code(s): 00468472 (3) Hypertension Current Visit: Yes Status: Chronic Code(s): I10 - ESSENTIAL (PRIMARY) HYPERTENSION SNOMED Code(s): 87799492 (4) COPD (chronic obstructive pulmonary disease) Current Visit: Yes Status: Chronic Code(s): J44.9 - CHRONIC OBSTRUCTIVE PULMONARY DISEASE, UNSPECIFIED SNOMED Code(s): 78183720 (5) Acute non-ST segment elevation myocardial infarction Current Visit: Yes Status: Acute Code(s): I21.4 - NON-ST ELEVATION (NSTEMI) MYOCARDIAL INFARCTION SNOMED Code(s): 446308099 (6) Ischemic cardiomyopathy Current Visit: Yes Status: Chronic Code(s): I25.5 - ISCHEMIC CARDIOMYOPATHY SNOMED Code(s): 240230999 (7) Congestive heart failure Current Visit: Yes Status: Acute Code(s): I50.9 - HEART FAILURE, UNSPECIFIED SNOMED Code(s): 24198201 (8) Elevated troponin Current Visit: Yes Status: Acute Code(s): R74.8 - ABNORMAL LEVELS OF OTHER SERUM ENZYMES SNOMED Code(s): 500754082 Plan: 1. Continue aspirin, statin, Plavix, heparin, beta keeley. Will maximize beta keeley therapy as tolerated. 2. Wean O2 as tolerated. Encourage incentive spirometry use 10 times per hour while awake. Reinforce the importance of smoking cessation. 3. Discontinue IV Lasix. 4. Continue Rocephin, managed by Dr. Simon from pulmonary medicine. Awaiting sputum culture results. 5. Increase activity, ambulate as tolerated. PT/OT/cardiac rehab following. 6. GI/DVT prophylaxis. 7. Continue Xanax, CIWA protocol stopped. Continue folic acid, thiamine, multivitamin 8. Diabetic management per primary care service. 9. Will monitor daily labs and x-rays. 10. Dr. Gonzalez following for possible inpatient rehab after discharge. 11. More recommendations to follow. Discharge planning a progress. Anticipate discharge in the next 24-48. Time with Patient: Greater than 30
--- NOTE | 2017-11-15 14:40 | P.PN ---
Subjective Progress Note Date: 11/15/17 Principal diagnosis: Status post CABG 3, DT Acute systolic heart failure, acute myocardial infarction, pulmonary edema related to above, diffuse coronary artery disease, baseline COPD and recent tracheobronchitis 11/15/2017, patient seen eval reexamined during the rounds clinically doing well awake and alert breathing comfortably his cuff congestion is better the bleeding that has been noted and lower part of the sternum has improved significantly graft harvest site from the leg are stable healing fairly well, physical therapy at bedside patient is being taken out of the chair and being ambulated with support his severity or shortness breath has improved significantly he is on 2 L oxygen now Ammann sputum for Gram stain reviewed no organism has been identified few WBCs are seen my last chest x-ray performed earlier this wanted reviewed and compared with the prior x-ray some basilar atelectasis seen predominantly on the left side otherwise fairly unremarkable with some prominent interstitium 11/14/2017, patient seen eval examined during the rounds patient has removed the ICU to stepdown unit chest tubes as well as a right-sided Samson-Karly introducer has been removed to no significant bleeding has been noted on the site dressing in the lower sternal area has been changed couple times patient does have cough with associated with thick tenacious sputum production culture results and reports from the sputum are pending patient is on breathing treatments antibiotics 11/13/2017, patient seen eval reexamined during the rounds he is slightly more awake the hallucination that was noted previously has improved patient however lately has been coughing a lot thick tenacious his sputum present with light yellow in appearance a sample is being sent for Gram stain and culture patient has a small leakage from central Cordis catheter area as well as the distal part of the thoracotomy site local measures have been applied patient also has significant diarrhea for which stool has been sent for C. diff, overall hemodynamic status stable, his chest x-ray from today reviewed and compared with the prior x-ray 11/12/2017, patient seen eval examined during the rounds he is sitting upright on the chair he is eating his lunch patient is oriented 1 he has significant hallucination which are perceptive as well as visual, patient did receive Ativan late last night around midnight then another dose earlier this morning at 6 patient has been falling asleep with food in his mouth this morning however slightly more awake during conversation he is breathing appropriately slightly tachypneic otherwise hemodynamic status stable, patient remains on 8 L oxygen saturation are 93%, Samson-Karly catheter and chest tubes have been removed , chest x-ray from today has been reviewed and compared with the prior x-ray right lower lobe subsegmental atelectasis slightly better with improved aviation medications reviewed laboratory data reviewed 11/11/2017, patient seen eval reexamined during the rounds clinically doing well has been placed on CPAP 5 and pressure support of 5 and arterial blood gases done weaning parameters reviewed patient is a relatively more awake and alert propofol drip has been discontinued patient opens eyes follow simple commands with fairly stable weaning parameters we'll proceed with extubation, critical care time spent 35 minutes 11/10/2017, patient seen eval examined during the rounds clinically patient is doing well but remains on full respirator support remains hypoxic when setting includes assist control rate of 10 breathing about 12-14 tidal volume is 755 of PEEP and on 60% oxygen patient has a Samson-Karly catheter PA pressure 42/21 he remains on 2.5 mics of dopamine drip also on propofol 25 mics his urine output is fairly adequate making about 40-60 mL/h of urine attempted patient on CPAP but has been unsuccessful given that low oxygenation patient is not really aware ready for weaning extubation today we'll keep on titrating oxygen down and follow clinical course closely 11/08/2017, patient seen eval reexamined during the rounds care plan discussed with RN at length patient is status post intra-aortic balloon pump for severe degree of cardiomyopathy and ischemic heart disease with diffuse coronary artery disease patient is currently on 1 is 21 patient with the map over 60-70 current map noted to be 80 with a systolic blood pressure 100 and diastolic of 63. 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 patient is being monitor observe as per CV a protocol overalls plan is if patient decompensated from Estrace standpoint and or become anxious and agitated and will be intubated S patient needs to stay flat on the bed related to his ongoing aortic balloon pump augmentation, his labs and x-rays are reviewed from today, PFTs reviewed, x-ray suggestive of the COPD-like changes noted acute pathology has been noted, the PFT suggestive of mild to moderate obstructive disease, white cell count is elevated with very high hemoglobin count which appears to be likely related to polycythemia related to COPD and chronic intermittent hypoxia , renal functions are stable patient is making were 50 to 60 mL an hour urine, his urine culture is negative nasal swab are negative for MRSA or MSSA 11/07/2017, patient seen and evaluated examined during the rounds is still short of breath has intermittent dry nonproductive cough but severity has improved he has been on breathing treatment he has been on deep breathing exercises incentive spirometry as well, patient will undergo preop spirometry later on today, patient has been evaluated by cardiothoracic surgery operative workup is in progress 62-year-old male who appears older then the stated age he has not been feeling well for the last several weeks has been going on has been having ongoing shortness of breath and cough he was treated with oral antibiotics breathing treatments and prednisone her outpatient basis without significant relief. Patient also has a history of on-call consumption almost on a daily basis usually consume 2-3 cans of beer daily. patient recently was evaluated in primary care office found to have a elevated troponin and abnormal EKG was sent over here for further evaluation patient continued to complain of cough congestion and shortness of breath has occasional intermittent vague chest pain as well, overall patient is a poor historian not much data can be obtained from him, on arrival to emergency department he was found to have very high BNP of over 4000 and troponin were consistently elevated cardiovascular services following at the time of evaluation patient is a about to undergo an echocardiogram as well, later on findings are reviewed his ejection fraction only 20-25%, diffuse coronary artery disease was noted as well on emergent cath and angiogram, LAD shows 90% stenosis in proximal part, 70-80% stenosis noted in circumflex, right coronary artery is totally occluded in proximal part given patient has diffuse triple-vessel coronary artery disease ischemic cardiomyopathy patient is likely evaluated by cardiothoracic surgery Objective - Vital Signs Vital signs: Vital Signs Temp 97.6 F 11/15/17 12:00 Pulse 88 11/15/17 12:00 Resp 16 11/15/17 12:00 BP 117/71 11/15/17 12:00 Pulse Ox 96 11/15/17 12:00 Intake & Output 11/14/17 11/15/17 11/15/17 18:59 06:59 18:59 Intake Total 713 Output Total 0 Balance 713 Weight 96.6 kg Intake: Oral 713 Output: Urine 0 Stool 0 Other: Voiding Method Toilet Toilet Toilet Urinal Urinal # Voids 1 1 # Bowel Movements 0 ABP, PAP, CO, CI - Last Documented Arterial Blood Pressure 57/51 Pulmonary Artery Pressure 32/20 Cardiac Output 5.2 Cardiac Index 2.2 - Exam Patient seen and evaluated examined in the ICU he is somnolent but arousable GENERAL: Overall no apparent distress at the time of examination. Pleasant , calm and cooperative. Somewhat somnolent though HEENT: Head is atraumatic, normocephalic. Pupils are equal, round, and reactive to light. Sclerae anicteric. Conjunctivae are clear. Mucus membranes of the mouth are moist. Neck is supple. RESPIRATORY: Decreased air entry at the bases otherwise Clear to ausculation Ma few crackles in the bases are present. The incisions are healing well , some oozing of blood noted at distal part of the sternal incision No use of accessory muscles. Patient maintaining oxygen saturation greater than 92%. CARDIOVASCULAR: Regular rate and rhythm. S1 and S2 noted. No systolic or diastolic murmur auscultated. No JVD noted. No S3 or S4 noted. Right carotid bruit auscultated. GASTROINTESTINAL: No distention noted. Abdomen soft and round. Normal active bowel sounds auscultated x 4 quadrants. No pain or tenderness noted upon palpation. Aortic balloon pump in the groin on the left side INTEGUMENTARY: No cyanosis. No jaundice. No rashes noted. No cellulitis noted. EXTREMITIES: 2+ peripheral pulses. 1+ bilateral lower extremity edema. No calf tenderness noted. NEUROLOGIC: Cranial nerves II-XII intact. Overall neurological examination is within normal limit, no tremors or shakiness however otherwise noted PSYCHIATRIC: Sleeping somnolent but on arousable he is Awake, alert, and oriented X 1-3. Appropriate affect. Intact judgement and insight. - Labs CBC & Chem 7: 11/15/17 05:58 11/15/17 05:58 Labs: Abnormal Lab Results - Last 24 Hours (Table) 11/14/17 11/14/17 11/15/17 Range/Units 16:30 20:22 05:58 BUN 29 H (9-20) mg/dL Glucose 109 H (74-99) mg/dL POC Glucose (mg/dL) 118 H 123 H (75-99) mg/dL AST 69 H (17-59) U/L ALT 111 H (21-72) U/L Total Protein 6.0 L (6.3-8.2) g/dL Albumin 3.2 L (3.5-5.0) g/dL 11/15/17 Range/Units 06:22 BUN (9-20) mg/dL Glucose (74-99) mg/dL POC Glucose (mg/dL) 122 H (75-99) mg/dL AST (17-59) U/L ALT (21-72) U/L Total Protein (6.3-8.2) g/dL Albumin (3.5-5.0) g/dL Microbiology - Last 24 Hours (Table) 11/14/17 11:30 Gram Stain - Preliminary Sputum - Imaging and Cardiology Chest x-ray: report reviewed, image reviewed (As noted above), other (As noted above) Assessment and Plan Assessment: Severe degree of ischemic cardiomyopathy with acute systolic heart failure Acute COPD exacerbation Diffuse triple-vessel coronary artery disease with ejection fraction only 20% my status post CABG 3 Significant and intractable coughing or shortness of breath with thick purulent sputum production likely developing purulent tracheobronchitis and/pneumonia, follow-up on sputum culture results and reports, overall symptoms have improved will continue current therapy for now Loose stool diarrhea, improved significantly Auditory and perceptual hallucination likely patient is in DTs, improved significantly Acute non-ST segment elevated MO Likely severe COPD with chronic bronchitis Plan: Follow up on Stool for C. difficile Into new Broad-spectrum antibiotics with IV Rocephin, Pulmicort, cough suppressant, sputum culture, care plan discussed with the primary service and the staff at length Optimize cardiac therapy as planned, Would lower down the Ativan to half a milligram will keep patient in ICU continue to maintain patient on Cipro protocol as well as a replacement of thiamine and folic acid and MVI Breathing treatment with nebulizer as tolerated Afterload reducing agent and preload reduction with KIERA inhibitor's and diuretics Reviewed pulmonary function testing as well, further recommendations pending plan of care as per clinical response of the patient Patient is status post coronary artery bypass surgery Breathing treatment with nebulizer as tolerated DVT and peptic ulcer disease prophylaxis Continue supportive care, critical care time spent 35 minutes Time with Patient: Greater than 30
[2017-11-15 17:14] LABS: Glucose,Whole Blood 99 mg/dL (75-99)
[2017-11-15 20:38] LABS: Glucose,Whole Blood 103 mg/dL (75-99)
[2017-11-15] MEDS: LIDOCAINE 5% PATCH TOPICAL SCH (20:57)
[2017-11-15] MEDS: SENNOSIDES-DOCUSATE SODIUM 1 EACH TAB PO SCH (21:00)
[2017-11-16] MEDS: HYDROcodone/APAP 5-325MG 1 EACH TAB PO PRN ×4 (00:33→20:45)
[2017-11-16 02:31] LABS: Glucose,Whole Blood 110 mg/dL (75-99)
[2017-11-16 06:11] LABS: Glucose,Whole Blood 106 mg/dL (75-99)
[2017-11-16 06:11] LABS: HCT 44.4 % (39.0-53.0); HGB 14.7 gm/dL (13.0-17.5); MCH 31.2 pg (25.0-35.0); MCV 94.4 fL (80.0-100.0); Mean Platelet Volume 7.6; Platelet Count 228 k/uL (150-450); RBC 4.71 m/uL (4.30-5.90); RDW 13.6 % (11.5-15.5); WBC 8.5 k/uL (3.8-10.6)
[2017-11-16] MEDS: INSULIN ASPART 100 UNIT/ML 1 ML 10 ML VIAL SQ SCH ×4 (06:18→20:44)
[2017-11-16] MEDS: PANTOPRAZOLE 40 MG TABLET PO SCH (06:19)
[2017-11-16 07:01] LABS: ALT 115 U/L (21-72); AST 77 U/L (17-59); Albumin 3.2 g/dL (3.5-5.0); Alkaline Phosphatase 101 U/L (38-126); Anion Gap 10 mmol/L; Blood Urea Nitrogen 25 mg/dL (9-20); Calcium 9.1 mg/dL (8.4-10.2); Carbon Dioxide 25 mmol/L (22-30); Chloride 102 mmol/L (98-107); Glucose 100 mg/dL (74-99); Potassium 4.3 mmol/L (3.5-5.1); Sodium 137 mmol/L (137-145); Total Bilirubin 0.9 mg/dL (0.2-1.3)
--- NOTE | 2017-11-16 07:11 | XR ---
EXAMINATION TYPE: XR chest 1V portable DATE OF EXAM: 11/16/2017 HISTORY: Postop CABG. REFERENCE: Previous study dated 11/15/2017. FINDINGS: There has been a midline sternotomy. The lungs are overinflated. The lungs now appear clear. Pleural spaces are clear. The heart is mildly enlarged. IMPRESSION: 1. CARDIOMEGALY. 2. COPD. 3. POSTSURGICAL CHANGE.
[2017-11-16] MEDS: HEPARIN SODIUM,PORCINE 5,000 UNIT/ML 1 ML VIAL SQ SCH ×3 (07:40→23:13)
[2017-11-16] MEDS: CLOPIDOGREL 75 MG TAB PO SCH (07:41)
[2017-11-16] MEDS: ASPIRIN 325 MG TAB PO SCH (07:41)
[2017-11-16] MEDS: ATORVASTATIN 40 MG TAB PO SCH (07:42)
[2017-11-16] MEDS: METOPROLOL TARTRATE 25 MG TAB PO SCH ×3 (07:42→20:44)
[2017-11-16] MEDS: MUPIROCIN 2% OINT 22 GM TUBE NASAL SCH ×2 (07:43→20:44)
[2017-11-16] MEDS: LACTOBACILLUS ACIDOPH & BULGAR 1 EACH PACKET PO SCH ×4 (07:49→20:40)
--- NOTE | 2017-11-16 08:09 | PN ---
PROGRESS NOTE 62-year-old white male presented to the emergency after he was evaluated on outpatient basis. At that time seen me in the office for shortness of breath and patient was diagnosed with tracheobronchitis, prescribed Levaquin, prednisone, DuoNeb. His shortness of breath persisted. He reported cough, positive for production, O2 sats at that time was 93. At that period of time he was seen in the office. Chest x-ray in the office revealed cardiomegaly and EKG showed inferior and anterior RI. The patient refused at that time to go to the hospital, so a troponin was drawn and came back at 0.8. I called the patient at that period of time and I talked to the patient directly again in my office and convinced him to go to the emergency room. He has past medical history of greater than a pack a day smoking for over 30 years. He also drinks anywhere from 2-6 beers daily according to his family and even heavier at times. His chest x-ray on 11/05/2017 showed cardiomegaly. He did have also some interstitial edema. He underwent catheterization on 11/07/17 at that time, which showed evidence of 90% stenosis of the proximal LAD, 78% stenosis of the circumflex artery and total occlusion of the right coronary artery. The patient was scheduled for CAD Saturday. Preoperative testing was completed. His ejection fraction at that time was only showed to be between 20 and 25%. On the , he was examined at the bedside, was still awake, anxiety, chest pain and pressure, did have some shortness of breath. He remained on the CIWA protocol, but no signs of any ETOH withdrawal. He had been voiding well. On the he was taken for bypass surgery which was successful and then transferred to ICU. He had been evaluated in ICU from about 11/09 through 11/11 please refer to my notes. Again on 11/12/2017 I evaluated the gentleman with status post CABG and was continuing to do well. He had been on insulin drip that stopped. His oxygenation had returned. He had been extubated and a CIWA protocol was still in effect. On November 14 we examined again, and he was being transferred later that afternoon out of ICU to CCU. He was doing fairly well. He was somewhat anxious. He had no chest pain, obviously had a fair amount of weakness and started some congestion and coughing up some congestion. Since that period of time on the November 15 we made rounds, he had a abdominal binder was placed. His shortness of breath was less. His appetite was returning, was beginning to feel better and was anxious to go to rehab. Today was doing fine. He actually stood up and walked. ROUTE SALES PERSON was thereby evaluating with me and the patient was stable. REVIEW OF SYSTEMS: At this time his eyes, he is seeing well. ENT said his ears are he does not hear well. His mouth is dry. Neck no problem. Chest he is coughing up phlegm with fair amount of pain with coughing. Probably use of the binder was very important to him when he coughs. He is not having any chest pain. No orthopnea or proximal nocturnal dyspnea. GI: No hematemesis. No hematochezia. No constipation. No diarrhea. was have no problems with urination. Neuromuscular he is getting his strength in his arms back, and he actually said this is the best he has felt in actual years. No new labs back yet today. PHYSICAL EXAMINATION: Vital signs today showed blood pressure 120/70, heart rate is in the 70s. Respirations 18, temperature is 98.8, and O2 is 94 on room air. Physical examination: He is alert, well oriented to person, place, and thing. Minimally anxious. No chest pain. Eyes pupils are equal, round, react to light and accommodation. ENT showed tympanic membranes and pharynx appears to be negative. NECK: Supple. Midline trachea. Chest is essentially clear to auscultation. Heart is sinus rhythm with no murmur. ABDOMEN: Soft, nontender with no organomegaly. Incision from bypass surgery is seen today. Inspected, to be within normal limits. The genital area inspection today was also negative. Lower extremities: He has good strength in his lower extremities. Some decreased pulses on the lower extremities. Integumentary: He has some discolored skin of lower legs. Allergies: He has no problems with allergies. Chest x-ray . ASSESSMENT: 1. Non ST elevated myocardial infarction with troponins of 0.061, 0.053, 0.057 and 0.08 now. Catheterization also revealed triple vessel disease. 2. Intraaortic balloon insertion which is discontinued. 3. Off pump coronary artery bypass grafting x3 with left internal mammary to LAD and reverse saphenous vein grafts to the 1st diagonal, posterior descending coronary arteries with endovascular vein harvest of the greater saphenous vein. 4. Acute hypoxic respiratory failure. Prolonged mechanical ventilation and expected outcome of surgery. Given the patient's extensive tobacco and alcohol dependence with abuse and history of tracheobronchitis and extubation. 5. Ischemic cardiomyopathy with ejection fraction around 20-25%. 6. Severe chronic obstructive pulmonary disease but no evidence of acute exacerbation at this time. 7. Diagnosis of tracheobronchitis treated with Levaquin and prednisone outpatient and now presently on Rocephin. 8. Nicotine dependence. 9. Daily alcohol use. 10.Obesity with a BMI of 33.8. 11.Hyperkalemia, resolved. 12.Hypomagnesemia. 13.Purulent tracheobronchitis. PLAN: Please refer to patient's medication plan. At this time postoperatively will continue with rehab here. Followup here in the office. Will continue Xanax 0.5 every 8 hours for his anxiety, thiamine, multiple vitamin, folic acid are continued. Pain control is continued. Activity is increase incentive spirometry 10 times an hour. He is on NovoLog insulin, home medications. Monitor his labs. and DVT prophylaxis. Appropriate vital signs. At this time I reviewed with the nurse practitioner and we are awaiting cardiovascular recommendation. He is trying to get in with Dr. Gonzalez at the rehab over at [place]. Please refer to my orders. His prognosis is still guarded. Time spent with him today was 35 minutes. MMODL / IJN: [id number] /
[2017-11-16] MEDS: IPRATROPIUM-ALBUTEROL 3 ML NEB INHALATION SCH ×4 (08:14→19:38)
[2017-11-16] MEDS: BUDESONIDE 1 MG/2 ML NEBU INHALATION SCH ×2 (08:14→19:36)
[2017-11-16 11:16] LABS: Glucose,Whole Blood 112 mg/dL (75-99)
--- NOTE | 2017-11-16 11:20 | P.PN ---
Subjective Progress Note Date: 11/16/17 Principal diagnosis: Severe triple-vessel coronary artery disease, NSTEMI, acute on chronic systolic left heart failure, ischemic cardiomyopathy with severe left ventricular systolic dysfunction with an ejection fraction of 20%. History of hypertension, COPD with pre-operative FEV1 74% of predicted post bronchodilator, current nicotine abuse, EtOH abuse, recent tracheobronchitis with antibiotic and steroid therapy. Family history of premature coronary artery disease with a brother diagnosed at 46 years old. History of dyslipidemia. Occasional use of home oxygen as patient was using his 's home oxygen. POD #8 placement of intra-aortic balloon pump by cardiology. POD #7 urgent off-pump coronary artery bypass grafting 3 with left internal mammary artery to LAD and reverse saphenous vein grafts to the first diagonal and posterior descending coronary arteries with endovascular vein harvest from the right greater saphenous vein. Intraoperative transesophageal echocardiogram by anesthesia. Acute hypoxic respiratory failure, prolonged mechanical ventilation, and expected outcome of surgery given the patient's extensive tobacco and alcohol dependence with a recent history of tracheobronchitis. The patient currently sitting up in a recliner. He is in no acute distress. Denies pain, shortness of breath. The patient reports he feels much improved each day and feels he is ready to be discharged to inpatient rehab. He reports that he has been ambulating in the perez with assistance from physical therapy, occupational therapy and cardiac rehab. A repeat 2-D echocardiogram was completed which showed him to have an overall left ventricular systolic function to be severely impaired with an ejection fraction between 20 and 25%. Objective - Vital Signs Vital signs: Vital Signs Temp 98.1 F 11/16/17 07:47 Pulse 100 11/16/17 08:37 Resp 18 11/16/17 07:47 BP 121/90 11/16/17 07:47 Pulse Ox 95 11/16/17 07:47 Intake & Output 11/15/17 11/16/17 11/16/17 18:59 06:59 18:59 Intake Total 460 120 240 Output Total 900 Balance -440 120 240 Weight 97.4 kg Intake: Oral 460 120 240 Output: Urine 900 Stool 0 Other: Voiding Method Toilet Toilet Urinal # Voids 600 1 ABP, PAP, CO, CI - Last Documented Arterial Blood Pressure 57/51 Pulmonary Artery Pressure 32/20 Cardiac Output 5.2 Cardiac Index 2.2 - Constitutional General appearance: Present: cooperative, no acute distress, obese - EENT ENT: Present: hearing grossly normal - Neck Details: No JVD present, neck is supple, no lymphadenopathy. - Respiratory Details: Lung sounds are essentially clear throughout, diminished to his bilateral bases. Respirations are symmetrical and nonlabored. Oxygen saturation are 98% on 2 L nasal cannula. He is achieving 2500 mL on his incentive spirometry. - Cardiovascular Details: Regular rhythm and rate. S1 and S2 present, negative for S3, gallop or murmur. Sternum is stable. Remote telemetry showing normal sinus rhythm heart rate 85. Heart hugger is in place and he is demonstrating appropriate use with encouragement. Knee-high NEELAM hose and sequential compression devices in place to his bilateral lower extremities. - Gastrointestinal Gastrointestinal Comment(s): Abdomen is soft, nontender nondistended. Active bowel sounds all 4 abdominal quadrants. Tolerating oral intake. Passing flatus. - Genitourinary Genitourinary Comment(s): Adequate urine output. Voiding clear yellow urine. - Integumentary Integumentary Comment(s): Skin is warm and dry. No clubbing or cyanosis present. Midline sternal incision clean dry and well approximated. No drainage or redness present. Dressing clean and dry. Right leg EVH site clean dry and approximated. No drainage or redness present. - Neurologic Neurologic: Present: CNII-XII intact - Musculoskeletal Musculoskeletal: Present: gait normal, strength equal bilaterally - Psychiatric Psychiatric: Present: A&O x's 3, appropriate affect, intact judgment & insight - Allied health notes Allied health notes reviewed: nursing - Labs CBC & Chem 7: 11/16/17 05:58 11/16/17 05:58 Labs: Abnormal Lab Results - Last 24 Hours (Table) 11/15/17 11/16/17 11/16/17 Range/Units 20:36 02:29 05:58 BUN 25 H (9-20) mg/dL Glucose 100 H (74-99) mg/dL POC Glucose (mg/dL) 103 H 110 H (75-99) mg/dL AST 77 H (17-59) U/L ALT 115 H (21-72) U/L Total Protein 6.0 L (6.3-8.2) g/dL Albumin 3.2 L (3.5-5.0) g/dL 11/16/17 Range/Units 06:10 BUN (9-20) mg/dL Glucose (74-99) mg/dL POC Glucose (mg/dL) 106 H (75-99) mg/dL AST (17-59) U/L ALT (21-72) U/L Total Protein (6.3-8.2) g/dL Albumin (3.5-5.0) g/dL - Imaging and Cardiology Chest x-ray: report reviewed, image reviewed Assessment and Plan (1) Shortness of breath on exertion Current Visit: Yes Status: Acute Code(s): R06.02 - SHORTNESS OF BREATH SNOMED Code(s): 12502023 (2) Coronary artery disease Current Visit: Yes Status: Chronic Code(s): I25.10 - ATHSCL HEART DISEASE OF [place] CORONARY ARTERY W/O ANG PCTRS SNOMED Code(s): 84447322 (3) Hypertension Current Visit: Yes Status: Chronic Code(s): I10 - ESSENTIAL (PRIMARY) HYPERTENSION SNOMED Code(s): 14950770 (4) COPD (chronic obstructive pulmonary disease) Current Visit: Yes Status: Chronic Code(s): J44.9 - CHRONIC OBSTRUCTIVE PULMONARY DISEASE, UNSPECIFIED SNOMED Code(s): 80192440 (5) Acute non-ST segment elevation myocardial infarction Current Visit: Yes Status: Acute Code(s): I21.4 - NON-ST ELEVATION (NSTEMI) MYOCARDIAL INFARCTION SNOMED Code(s): 512004077 (6) Ischemic cardiomyopathy Current Visit: Yes Status: Chronic Code(s): I25.5 - ISCHEMIC CARDIOMYOPATHY SNOMED Code(s): 189649930 (7) Congestive heart failure Current Visit: Yes Status: Acute Code(s): I50.9 - HEART FAILURE, UNSPECIFIED SNOMED Code(s): 08967451 (8) Elevated troponin Current Visit: Yes Status: Acute Code(s): R74.8 - ABNORMAL LEVELS OF OTHER SERUM ENZYMES SNOMED Code(s): 649642017 Plan: 1. Continue aspirin, statin, Plavix, heparin, beta keeley. Will maximize beta keeley therapy as tolerated. 2. Wean O2 as tolerated. Encourage incentive spirometry use 10 times per hour while awake. Reinforce the importance of smoking cessation. 3. Lasix 40 mg by mouth daily.. 4. Continue Rocephin, managed by Dr. Simon from pulmonary medicine. Sputum culture shows no organisms seen at this time. 5. Increase activity, ambulate as tolerated. PT/OT/cardiac rehab following. 6. GI/DVT prophylaxis. 7. Continue Xanax, CIWA protocol stopped. Continue folic acid, thiamine, multivitamin 8. Diabetic management per primary care service. 9. Will monitor daily labs and x-rays. 10. We will start the patient on lisinopril 2.5 mg by mouth daily at noon and Aldactone 12.5 mg by mouth daily at noon for afterload reduction. 11. More recommendations to follow. Discharge planning a progress. Anticipate discharge to inpatient rehab on 11/18/2017. Time with Patient: Greater than 30
[2017-11-16] MEDS: MULTIVITAMINS, THERA 1 EACH TAB PO SCH (11:23)
[2017-11-16] MEDS: FUROSEMIDE 40 MG TAB PO SCH (11:23)
[2017-11-16] MEDS: SPIRONOLACTONE 25 MG TAB PO SCH (11:23)
[2017-11-16] MEDS: THIAMINE 100 MG TAB PO SCH (11:23)
[2017-11-16] MEDS: LISINOPRIL 2.5 MG TAB PO SCH (11:23)
[2017-11-16] MEDS: FOLIC ACID 1 MG TAB PO SCH (11:24)
--- NOTE | 2017-11-16 12:22 | P.PN ---
Subjective Progress Note Date: 11/16/17 This is a pleasant 62-year-old gentleman who presented to his primary care doctor's office with symptoms progressively worsening shortness of breath with associated peripheral edema. 3 of hypertension, nicotine dependence and alcohol abuse. Patient underwent cardiac catheterization which revealed severe three-vessel coronary artery disease, ischemic cardiomyopathy with severe LV dysfunction and elevated LV end-diastolic pressure. Patient subsequently underwent coronary artery bypass grafting surgery. Repeat limited echo continued to show severely impaired LV systolic function with an ejection fraction between 20-25%. On examination, patient is resting comfortably in bed. Denies further complaints of shortness of breath. Pain is well controlled according to the patient. Objective - Vital Signs Vital signs: Vital Signs Temp 98.1 F 11/16/17 07:47 Pulse 100 11/16/17 08:37 Resp 18 11/16/17 07:47 BP 121/90 11/16/17 07:47 Pulse Ox 95 11/16/17 07:47 Intake & Output 11/15/17 11/16/17 11/16/17 18:59 06:59 18:59 Intake Total 460 120 240 Output Total 900 Balance -440 120 240 Weight 97.4 kg Intake: Oral 460 120 240 Output: Urine 900 Stool 0 Other: Voiding Method Toilet Toilet Urinal # Voids 600 1 ABP, PAP, CO, CI - Last Documented Arterial Blood Pressure 57/51 Pulmonary Artery Pressure 32/20 Cardiac Output 5.2 Cardiac Index 2.2 - Exam PHYSICAL EXAMINATION: HEENT: Head is atraumatic, normocephalic. Pupils equal, round. Neck is supple. There is no elevated jugular venous pressure. HEART EXAMINATION: Heart sounds regular, S1 and S2 normal. No murmur or gallop heard. CHEST EXAMINATION: Lungs reveal diminished air entry bilaterally. No chest wall tenderness is noted on palpation or with deep breathing. ABDOMEN: Soft, nontender. Bowel sounds are heard. No organomegaly noted. EXTREMITIES: 2+ peripheral pulses with no evidence of peripheral edema and no calf tenderness noted. NEUROLOGIC patient is awake, alert and oriented x3. . - Labs CBC & Chem 7: 11/16/17 05:58 11/16/17 05:58 Labs: Abnormal Lab Results - Last 24 Hours (Table) 11/15/17 11/16/17 11/16/17 Range/Units 20:36 02:29 05:58 BUN 25 H (9-20) mg/dL Glucose 100 H (74-99) mg/dL POC Glucose (mg/dL) 103 H 110 H (75-99) mg/dL AST 77 H (17-59) U/L ALT 115 H (21-72) U/L Total Protein 6.0 L (6.3-8.2) g/dL Albumin 3.2 L (3.5-5.0) g/dL 11/16/17 Range/Units 06:10 BUN (9-20) mg/dL Glucose (74-99) mg/dL POC Glucose (mg/dL) 106 H (75-99) mg/dL AST (17-59) U/L ALT (21-72) U/L Total Protein (6.3-8.2) g/dL Albumin (3.5-5.0) g/dL Assessment and Plan Assessment: #1 non-ST elevation [place], status post CABG #2 ischemic cardiomyopathy with severe LV dysfunction #3 nicotine dependence #4 hypertension #5 EtOH use Plan: From multicultural internship perspective, we recommend to continue the patient on his current medications. Agree with the addition of lisinopril, Aldactone and Lasix as ordered by CV surgery. Patient will likely be discharged to a rehab facility. He was encouraged to continue use of incentive spirometry. Mr. Yi will be discharged with a LifeVest. FULL TIME BABYSITTER note has been reviewed, I agree with a documented findings and plan of care. Patient was seen and examined.
[2017-11-16] MEDS: cefTRIAXone IN SWFI 1,000 MG/10 ML SYRINGE IVP SCH (13:48)
--- NOTE | 2017-11-16 15:44 | P.PN ---
Subjective Progress Note Date: 11/16/17 Principal diagnosis: Status post CABG 3, DT Acute systolic heart failure, acute myocardial infarction, pulmonary edema related to above, diffuse coronary artery disease, baseline COPD and recent tracheobronchitis 11/16/2017, patient seen eval reexamined during the rounds care plan discussed the primary service patient is being planned for possible discharge later on today respiratory status overall is stable antibiotics are being changed to oral agree with discharge planning with follow-up in outpatient setting 11/15/2017, patient seen eval reexamined during the rounds clinically doing well awake and alert breathing comfortably his cuff congestion is better the bleeding that has been noted and lower part of the sternum has improved significantly graft harvest site from the leg are stable healing fairly well, physical therapy at bedside patient is being taken out of the chair and being ambulated with support his severity or shortness breath has improved significantly he is on 2 L oxygen now Ammann sputum for Gram stain reviewed no organism has been identified few WBCs are seen my last chest x-ray performed earlier this wanted reviewed and compared with the prior x-ray some basilar atelectasis seen predominantly on the left side otherwise fairly unremarkable with some prominent interstitium 11/14/2017, patient seen eval examined during the rounds patient has removed the ICU to stepdown unit chest tubes as well as a right-sided [place] introducer has been removed to no significant bleeding has been noted on the site dressing in the lower sternal area has been changed couple times patient does have cough with associated with thick tenacious sputum production culture results and reports from the sputum are pending patient is on breathing treatments antibiotics 11/13/2017, patient seen eval reexamined during the rounds he is slightly more awake the hallucination that was noted previously has improved patient however lately has been coughing a lot thick tenacious his sputum present with light yellow in appearance a sample is being sent for Gram stain and culture patient has a small leakage from central Cordis catheter area as well as the distal part of the thoracotomy site local measures have been applied patient also has significant diarrhea for which stool has been sent for C. diff, overall hemodynamic status stable, his chest x-ray from today reviewed and compared with the prior x-ray 11/12/2017, patient seen eval examined during the rounds he is sitting upright on the chair he is eating his lunch patient is oriented 1 he has significant hallucination which are perceptive as well as visual, patient did receive Ativan late last night around midnight then another dose earlier this morning at 6 patient has been falling asleep with food in his mouth this morning however slightly more awake during conversation he is breathing appropriately slightly tachypneic otherwise hemodynamic status stable, patient remains on 8 L oxygen saturation are 93%, [place]Karly catheter and chest tubes have been removed , chest x-ray from today has been reviewed and compared with the prior x-ray right lower lobe subsegmental atelectasis slightly better with improved aviation medications reviewed laboratory data reviewed 11/11/2017, patient seen eval reexamined during the rounds clinically doing well has been placed on CPAP 5 and pressure support of 5 and arterial blood gases done weaning parameters reviewed patient is a relatively more awake and alert propofol drip has been discontinued patient opens eyes follow simple commands with fairly stable weaning parameters we'll proceed with extubation, critical care time spent 35 minutes 11/10/2017, patient seen eval examined during the rounds clinically patient is doing well but remains on full respirator support remains hypoxic when setting includes assist control rate of 10 breathing about 12-14 tidal volume is 755 of PEEP and on 60% oxygen patient has a [place]arly catheter PA pressure 42/21 he remains on 2.5 mics of dopamine drip also on propofol 25 mics his urine output is fairly adequate making about 40-60 mL/h of urine attempted patient on CPAP but has been unsuccessful given that low oxygenation patient is not really aware ready for weaning extubation today we'll keep on titrating oxygen down and follow clinical course closely 11/08/2017, patient seen eval reexamined during the rounds care plan discussed with RN at length patient is status post intra-aortic balloon pump for severe degree of cardiomyopathy and ischemic heart disease with diffuse coronary artery disease patient is currently on 1 is 21 patient with the map over 60-70 current map noted to be 80 with a systolic blood pressure 100 and diastolic of 63. 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 patient is being monitor observe as per CV a protocol overalls plan is if patient decompensated from Estrace standpoint and or become anxious and agitated and will be intubated S patient needs to stay flat on the bed related to his ongoing aortic balloon pump augmentation, his labs and x-rays are reviewed from today, PFTs reviewed, x-ray suggestive of the COPD-like changes noted acute pathology has been noted, the PFT suggestive of mild to moderate obstructive disease, white cell count is elevated with very high hemoglobin count which appears to be likely related to polycythemia related to COPD and chronic intermittent hypoxia , renal functions are stable patient is making were 50 to 60 mL an hour urine, his urine culture is negative nasal swab are negative for MRSA or MSSA 11/07/2017, patient seen and evaluated examined during the rounds is still short of breath has intermittent dry nonproductive cough but severity has improved he has been on breathing treatment he has been on deep breathing exercises incentive spirometry as well, patient will undergo preop spirometry later on today, patient has been evaluated by cardiothoracic surgery operative workup is in progress 62-year-old male who appears older then the stated age he has not been feeling well for the last several weeks has been going on has been having ongoing shortness of breath and cough he was treated with oral antibiotics breathing treatments and prednisone her outpatient basis without significant relief. Patient also has a history of on-call consumption almost on a daily basis usually consume 2-3 cans of beer daily. patient recently was evaluated in primary care office found to have a elevated troponin and abnormal EKG was sent over here for further evaluation patient continued to complain of cough congestion and shortness of breath has occasional intermittent vague chest pain as well, overall patient is a poor historian not much data can be obtained from him, on arrival to emergency department he was found to have very high BNP of over 4000 and troponin were consistently elevated cardiovascular services following at the time of evaluation patient is a about to undergo an echocardiogram as well, later on findings are reviewed his ejection fraction only 20-25%, diffuse coronary artery disease was noted as well on emergent cath and angiogram, LAD shows 90% stenosis in proximal part, 70-80% stenosis noted in circumflex, right coronary artery is totally occluded in proximal part given patient has diffuse triple-vessel coronary artery disease ischemic cardiomyopathy patient is likely evaluated by cardiothoracic surgery Objective - Vital Signs Vital signs: Vital Signs Temp 98.1 F 11/16/17 11:48 Pulse 100 11/16/17 13:31 Resp 18 11/16/17 11:48 BP 107/68 11/16/17 11:48 Pulse Ox 95 11/16/17 11:48 Intake & Output 11/15/17 11/16/17 11/16/17 18:59 06:59 18:59 Intake Total 460 120 480 Output Total 900 1200 Balance -440 120 -720 Weight 97.4 kg Intake: Oral 460 120 480 Output: Urine 900 1200 Stool 0 Other: Voiding Method Toilet Toilet Toilet Urinal Urinal # Voids 600 1 4 ABP, PAP, CO, CI - Last Documented Arterial Blood Pressure 57/51 Pulmonary Artery Pressure 32/20 Cardiac Output 5.2 Cardiac Index 2.2 - Exam Patient seen and evaluated examined in the ICU he is somnolent but arousable GENERAL: Overall no apparent distress at the time of examination. Pleasant , calm and cooperative. Somewhat somnolent though HEENT: Head is atraumatic, normocephalic. Pupils are equal, round, and reactive to light. Sclerae anicteric. Conjunctivae are clear. Mucus membranes of the mouth are moist. Neck is supple. RESPIRATORY: Decreased air entry at the bases otherwise Clear to ausculation Ma few crackles in the bases are present. The incisions are healing well , some oozing of blood noted at distal part of the sternal incision No use of accessory muscles. Patient maintaining oxygen saturation greater than 92%. CARDIOVASCULAR: Regular rate and rhythm. S1 and S2 noted. No systolic or diastolic murmur auscultated. No JVD noted. No S3 or S4 noted. Right carotid bruit auscultated. GASTROINTESTINAL: No distention noted. Abdomen soft and round. Normal active bowel sounds auscultated x 4 quadrants. No pain or tenderness noted upon palpation. Aortic balloon pump in the groin on the left side INTEGUMENTARY: No cyanosis. No jaundice. No rashes noted. No cellulitis noted. EXTREMITIES: 2+ peripheral pulses. 1+ bilateral lower extremity edema. No calf tenderness noted. NEUROLOGIC: Cranial nerves II-XII intact. Overall neurological examination is within normal limit, no tremors or shakiness however otherwise noted PSYCHIATRIC: Sleeping somnolent but on arousable he is Awake, alert, and oriented X 1-3. Appropriate affect. Intact judgement and insight. - Labs CBC & Chem 7: 11/16/17 05:58 11/16/17 05:58 Labs: Abnormal Lab Results - Last 24 Hours (Table) 11/15/17 11/16/17 11/16/17 Range/Units 20:36 02:29 05:58 BUN 25 H (9-20) mg/dL Glucose 100 H (74-99) mg/dL POC Glucose (mg/dL) 103 H 110 H (75-99) mg/dL AST 77 H (17-59) U/L ALT 115 H (21-72) U/L Total Protein 6.0 L (6.3-8.2) g/dL Albumin 3.2 L (3.5-5.0) g/dL 11/16/17 11/16/17 Range/Units 06:10 11:14 BUN (9-20) mg/dL Glucose (74-99) mg/dL POC Glucose (mg/dL) 106 H 112 H (75-99) mg/dL AST (17-59) U/L ALT (21-72) U/L Total Protein (6.3-8.2) g/dL Albumin (3.5-5.0) g/dL Microbiology - Last 24 Hours (Table) 11/14/17 11:30 Gram Stain - Final Sputum Sputum Culture - Final Assessment and Plan Assessment: Severe degree of ischemic cardiomyopathy with acute systolic heart failure Acute COPD exacerbation Diffuse triple-vessel coronary artery disease with ejection fraction only 20% my status post CABG 3 Significant and intractable coughing or shortness of breath with thick purulent sputum production likely developing purulent tracheobronchitis and/pneumonia, follow-up on sputum culture results and reports, overall symptoms have improved will continue current therapy for now Loose stool diarrhea, improved significantly Auditory and perceptual hallucination likely patient is in DTs, improved significantly Acute non-ST segment elevated SC Likely severe COPD with chronic bronchitis Plan: Change IV to oral Optimize cardiac therapy as planned, Breathing treatment with nebulizer as tolerated Afterload reducing agent and preload reduction with KIERA inhibitor's and diuretics Reviewed pulmonary function testing as well, further recommendations pending plan of care as per clinical response of the patient, patient would need evaluation follow up on outpatient setting Patient is status post coronary artery bypass surgery Breathing treatment with nebulizer as tolerated DVT and peptic ulcer disease prophylaxis Time with Patient: Greater than 30
[2017-11-16 16:31] LABS: Glucose,Whole Blood 103 mg/dL (75-99)
[2017-11-16] MEDS: LIDOCAINE 5% PATCH TOPICAL SCH (19:59)
[2017-11-16 20:43] LABS: Glucose,Whole Blood 109 mg/dL (75-99)
[2017-11-16] MEDS: SENNOSIDES-DOCUSATE SODIUM 1 EACH TAB PO SCH (20:45)
[2017-11-16] MEDS: CEFUROXIME 250 MG TAB PO SCH (20:45)
[2017-11-17 02:14] LABS: Glucose,Whole Blood 105 mg/dL (75-99)
[2017-11-17 05:55] LABS: Glucose,Whole Blood 114 mg/dL (75-99)
[2017-11-17] MEDS: INSULIN ASPART 100 UNIT/ML 1 ML 10 ML VIAL SQ SCH ×4 (05:57→21:01)
[2017-11-17 06:23] LABS: Basophils % (A) 0 %; Eosinophils # (A) 0.3 k/uL (0-0.7); Eosinophils % (A) 3 %; HCT 44.1 % (39.0-53.0); HGB 14.6 gm/dL (13.0-17.5); Lymphocytes # (A) 1.9 k/uL (1.0-4.8); Lymphocytes % (A) 21 %; MCH 31.3 pg (25.0-35.0); MCHC 33.1 g/dL (31.0-37.0); MCV 94.3 fL (80.0-100.0); Mean Platelet Volume 7.6; Monocytes # (A) 0.6 k/uL (0-1.0); Monocytes % (A) 7 %; Neutrophils # (A) 5.9 k/uL (1.3-7.7); Neutrophils % (A) 67 %; Platelet Count 239 k/uL (150-450); RBC 4.68 m/uL (4.30-5.90); RDW 13.6 % (11.5-15.5); WBC 8.9 k/uL (3.8-10.6)
[2017-11-17] MEDS: PANTOPRAZOLE 40 MG TABLET PO SCH (06:32)
[2017-11-17] MEDS: HYDROcodone/APAP 5-325MG 1 EACH TAB PO PRN ×4 (06:37→21:02)
[2017-11-17 06:43] LABS: ALT 174 U/L (21-72); AST 128 U/L (17-59); Albumin 3.3 g/dL (3.5-5.0); Alkaline Phosphatase 100 U/L (38-126); Anion Gap 11 mmol/L; Blood Urea Nitrogen 20 mg/dL (9-20); Calcium 9.4 mg/dL (8.4-10.2); Carbon Dioxide 24 mmol/L (22-30); Chloride 102 mmol/L (98-107); Glucose 104 mg/dL (74-99); Phosphorus 4.4 mg/dL (2.5-4.5); Potassium 4.4 mmol/L (3.5-5.1); Sodium 137 mmol/L (137-145); Total Bilirubin 0.9 mg/dL (0.2-1.3); Total Protein 6.2 g/dL (6.3-8.2)
[2017-11-17] MEDS: BUDESONIDE 1 MG/2 ML NEBU INHALATION SCH ×2 (06:53→18:56)
[2017-11-17] MEDS: IPRATROPIUM-ALBUTEROL 3 ML NEB INHALATION SCH ×4 (06:54→18:56)
--- NOTE | 2017-11-17 07:06 | XR ---
EXAMINATION TYPE: XR chest 1V portable DATE OF EXAM: 11/17/2017 HISTORY: Postop CABG. REFERENCE: Previous study dated 11/16/2017. FINDINGS: There has been a midline sternotomy. The heart is mildly enlarged. The lungs are clear. There continues to be mild blunting of the left CP angle. IMPRESSION: 1. MILD CARDIOMEGALY. 2. I CANNOT EXCLUDE A SMALL, LEFT-SIDED EFFUSION.
--- NOTE | 2017-11-17 08:51 | P.PN ---
Subjective Progress Note Date: 11/17/17 Principal diagnosis: CAD This is a pleasant 62-year-old gentleman who was admitted to the hospital with acute coronary event and acute non-ST elevation myocardial infarction. He underwent a heart catheterization and that revealed severe triple-vessel coronary artery disease. The echocardiogram showed severe cardiomyopathy. The patient underwent yesterday CABG 3 where he received HALE to LAD, SVG to diagonal, SVG to PDA. From the cardiovascular standpoint of view, he has done well. He continues to be on aspirin, metoprolol, lisinopril. The statin was stopped today because of elevated liver function tests. The plan is for the patient to be discharged in the next 24 hours of life vest view of the severe cardiomyopathy. Objective - Vital Signs Vital signs: Vital Signs Temp 98.0 F 11/17/17 04:00 Pulse 88 11/17/17 07:08 Resp 16 11/17/17 04:00 BP 127/84 11/17/17 04:00 Pulse Ox 98 11/17/17 04:00 Intake & Output 11/16/17 11/17/17 11/17/17 18:59 06:59 18:59 Intake Total 710 Output Total 1200 260 Balance -490 -260 Weight 96.8 kg Intake: Oral 710 Output: Urine 1200 260 Other: Voiding Method Toilet Toilet Urinal # Voids 4 1 ABP, PAP, CO, CI - Last Documented Arterial Blood Pressure 57/51 Pulmonary Artery Pressure 32/20 Cardiac Output 5.2 Cardiac Index 2.2 - Labs CBC & Chem 7: 11/17/17 05:34 11/17/17 05:34 Labs: Abnormal Lab Results - Last 24 Hours (Table) 11/16/17 11/16/17 11/16/17 Range/Units 11:14 16:30 20:41 Glucose (74-99) mg/dL POC Glucose (mg/dL) 112 H 103 H 109 H (75-99) mg/dL AST (17-59) U/L ALT (21-72) U/L Total Protein (6.3-8.2) g/dL Albumin (3.5-5.0) g/dL 11/17/17 11/17/17 11/17/17 Range/Units 02:12 05:34 05:53 Glucose 104 H (74-99) mg/dL POC Glucose (mg/dL) 105 H 114 H (75-99) mg/dL AST 128 H (17-59) U/L ALT 174 H (21-72) U/L Total Protein 6.2 L (6.3-8.2) g/dL Albumin 3.3 L (3.5-5.0) g/dL Microbiology - Last 24 Hours (Table) 11/14/17 11:30 Gram Stain - Final Sputum Sputum Culture - Final
--- NOTE | 2017-11-17 09:37 | P.PN ---
Subjective Progress Note Date: 11/17/17 Principal diagnosis: Severe triple-vessel coronary artery disease, NSTEMI, acute on chronic systolic left heart failure, ischemic cardiomyopathy with severe left ventricular systolic dysfunction with an ejection fraction of 20%. History of hypertension, COPD with pre-operative FEV1 74% of predicted post bronchodilator, current nicotine abuse, EtOH abuse, recent tracheobronchitis with antibiotic and steroid therapy. Family history of premature coronary artery disease with a brother diagnosed at 46 years old. History of dyslipidemia. Occasional use of home oxygen as patient was using his 's home oxygen. POD #9 placement of intra-aortic balloon pump by cardiology. POD #8 urgent off-pump coronary artery bypass grafting 3 with left internal mammary artery to LAD and reverse saphenous vein grafts to the first diagonal and posterior descending coronary arteries with endovascular vein harvest from the right greater saphenous vein. Intraoperative transesophageal echocardiogram by anesthesia. Acute hypoxic respiratory failure, prolonged mechanical ventilation, and expected outcome of surgery given the patient's extensive tobacco and alcohol dependence with a recent history of tracheobronchitis. The patient currently sitting up to the bedside edge. He is in no acute distress. Denies pain or shortness of breath. The patient reports he feels much improved each day and feels he is ready to be discharged to inpatient rehab. He reports that he has been ambulating in the [place] with assistance. A repeat 2-D echocardiogram was completed on 11/14/2017 which showed him to have an overall left ventricular systolic function to be severely impaired with an ejection fraction between 20 and 25%. A LifeVest has been ordered due to his low ejection fraction for discharge. Objective - Vital Signs Vital signs: Vital Signs Temp 98.0 F 11/17/17 04:00 Pulse 88 11/17/17 07:08 Resp 16 11/17/17 04:00 BP 127/84 11/17/17 04:00 Pulse Ox 98 11/17/17 04:00 Intake & Output 11/16/17 11/17/17 11/17/17 18:59 06:59 18:59 Intake Total 710 Output Total 1200 260 Balance -490 -260 Weight 96.8 kg Intake: Oral 710 Output: Urine 1200 260 Other: Voiding Method Toilet Toilet Urinal # Voids 4 1 ABP, PAP, CO, CI - Last Documented Arterial Blood Pressure 57/51 Pulmonary Artery Pressure 32/20 Cardiac Output 5.2 Cardiac Index 2.2 - Constitutional General appearance: Present: cooperative, no acute distress, obese - EENT ENT: Present: hearing grossly normal - Neck Details: No JVD, no lymphadenopathy, neck is supple. - Respiratory Details: Lung sounds essentially clear to his bilateral upper lobes, diminished at bilateral bases. Respirations are symmetrical and nonlabored. Oxygen saturation are 98% on room air. He is achieving 2500 mL on his incentive spirometry. - Cardiovascular Details: Regular rhythm and rate. S1 and S2 present, negative for S3, gallop or murmur. Sternum is stable. Remote telemetry showing normal sinus rhythm heart rate 88. Supportive chest binder in place, heart hugger is in place and he is demonstrating appropriate use. No edema present. Knee-high NEELAM hose and sequential compression devices in place to his bilateral lower extremities. - Gastrointestinal Gastrointestinal Comment(s): Abdomen is soft, nontender and nondistended. Active bowel sounds all 4 abdominal quadrants. Tolerating oral intake. Bowel movement this a.m. 2017. - Genitourinary Genitourinary Comment(s): Urine output adequate. 260 mL output in the last 8 hours. Voiding clear ricardo urine. - Integumentary Integumentary Comment(s): Skin is warm and dry. No clubbing or cyanosis present. Midline sternal incision clean and approximated. Scant serosanguineous drainage from his lower sternal incision. Right leg EVH harvest sites clean dry and well approximated. No drainage or redness present. - Neurologic Neurologic: Present: CNII-XII intact - Musculoskeletal Musculoskeletal: Present: gait normal, strength equal bilaterally - Psychiatric Psychiatric: Present: A&O x's 3, appropriate affect, intact judgment & insight - Allied health notes Allied health notes reviewed: nursing - Labs CBC & Chem 7: 11/17/17 05:34 11/17/17 05:34 Labs: Abnormal Lab Results - Last 24 Hours (Table) 11/16/17 11/16/17 11/16/17 Range/Units 11:14 16:30 20:41 Glucose (74-99) mg/dL POC Glucose (mg/dL) 112 H 103 H 109 H (75-99) mg/dL AST (17-59) U/L ALT (21-72) U/L Total Protein (6.3-8.2) g/dL Albumin (3.5-5.0) g/dL 11/17/17 11/17/17 11/17/17 Range/Units 02:12 05:34 05:53 Glucose 104 H (74-99) mg/dL POC Glucose (mg/dL) 105 H 114 H (75-99) mg/dL AST 128 H (17-59) U/L ALT 174 H (21-72) U/L Total Protein 6.2 L (6.3-8.2) g/dL Albumin 3.3 L (3.5-5.0) g/dL Microbiology - Last 24 Hours (Table) 11/14/17 11:30 Gram Stain - Final Sputum Sputum Culture - Final - Imaging and Cardiology Chest x-ray: report reviewed, image reviewed Assessment and Plan (1) Shortness of breath on exertion Current Visit: Yes Status: Acute Code(s): R06.02 - SHORTNESS OF BREATH SNOMED Code(s): 62238410 (2) Coronary artery disease Current Visit: Yes Status: Chronic Code(s): I25.10 - ATHSCL HEART DISEASE OF [place] CORONARY ARTERY W/O ANG PCTRS SNOMED Code(s): 33120127 (3) Hypertension Current Visit: Yes Status: Chronic Code(s): I10 - ESSENTIAL (PRIMARY) HYPERTENSION SNOMED Code(s): 66837497 (4) COPD (chronic obstructive pulmonary disease) Current Visit: Yes Status: Chronic Code(s): J44.9 - CHRONIC OBSTRUCTIVE PULMONARY DISEASE, UNSPECIFIED SNOMED Code(s): 73772170 (5) Acute non-ST segment elevation myocardial infarction Current Visit: Yes Status: Acute Code(s): I21.4 - NON-ST ELEVATION (NSTEMI) MYOCARDIAL INFARCTION SNOMED Code(s): 669476077 (6) Ischemic cardiomyopathy Current Visit: Yes Status: Chronic Code(s): I25.5 - ISCHEMIC CARDIOMYOPATHY SNOMED Code(s): 286319710 (7) Congestive heart failure Current Visit: Yes Status: Acute Code(s): I50.9 - HEART FAILURE, UNSPECIFIED SNOMED Code(s): 76536050 (8) Elevated troponin Current Visit: Yes Status: Acute Code(s): R74.8 - ABNORMAL LEVELS OF OTHER SERUM ENZYMES SNOMED Code(s): 201222477 Plan: 1. Continue aspirin, lisinopril, Plavix, heparin, beta keeley, Lasix and Aldactone. We will increase his metoprolol to 50 mg by mouth twice a day. 2. Wean O2 as tolerated. Encourage incentive spirometry use 10 times per hour while awake. Reinforce the importance of smoking cessation. 3. We will hold his atorvastatin for now due to elevation in his AST and ALT. 4. Continue Rocephin, managed by Dr. Simon from pulmonary medicine. Sputum culture shows no organisms seen with final result. 5. Increase activity, ambulate as tolerated. PT/OT/cardiac rehab following. 6. GI/DVT prophylaxis. 7. Continue Xanax, CIWA protocol stopped. Continue folic acid, thiamine, multivitamin 8. Diabetic management per primary care service. 9. Will monitor daily labs and x-rays. 10. Order placed for LifeVest, ejection fraction 20-25% with severe cardiomyopathy. 11. More recommendations to follow. Discharge planning a progress. Anticipate discharge to inpatient rehab on 11/18/2017. Time with Patient: Greater than 30
[2017-11-17] MEDS: HEPARIN SODIUM,PORCINE 5,000 UNIT/ML 1 ML VIAL SQ SCH ×3 (10:39→23:08)
[2017-11-17] MEDS: ASPIRIN 325 MG TAB PO SCH (10:39)
[2017-11-17] MEDS: FUROSEMIDE 40 MG TAB PO SCH (10:40)
[2017-11-17] MEDS: CLOPIDOGREL 75 MG TAB PO SCH (10:40)
[2017-11-17] MEDS: CEFUROXIME 250 MG TAB PO SCH ×2 (10:40→21:01)
[2017-11-17] MEDS: SPIRONOLACTONE 25 MG TAB PO SCH (10:41)
[2017-11-17] MEDS: LACTOBACILLUS ACIDOPH & BULGAR 1 EACH PACKET PO SCH ×4 (10:41→20:57)
[2017-11-17] MEDS: MUPIROCIN 2% OINT 22 GM TUBE NASAL SCH ×2 (10:42→21:08)
[2017-11-17 11:25] LABS: Glucose,Whole Blood 131 mg/dL (75-99)
[2017-11-17] MEDS: MULTIVITAMINS, THERA 1 EACH TAB PO SCH (12:11)
[2017-11-17] MEDS: THIAMINE 100 MG TAB PO SCH (12:11)
[2017-11-17] MEDS: FOLIC ACID 1 MG TAB PO SCH (12:11)
[2017-11-17] MEDS: LISINOPRIL 2.5 MG TAB PO SCH (12:13)
--- NOTE | 2017-11-17 13:40 | PN ---
PROGRESS NOTE 11/17/2017 This 62-year-old white male that was admitted through the emergency room after I evaluated him on outpatient basis with shortness of breath and nonspecific chest pain. He also had tracheobronchitis. He was being treated at that time with Levaquin, prednisone, DuoNeb. Three days before coming back to my office, he had a episode of chest pain, which his described to me as being a crushing type of pain he said. At that period of time I did an EKG in my office and saw inferior wall and anterior wall myocardial infarction with the ST depression, appears it was probably old in nature. I tried to attempt to get him to go in the hospital. he refused. Then I told him I was at least going to do a troponin on him and if it was elevated, he had to go be admitted into the hospital. At that time, he did go the emergency room. He was evaluated. We placed him up stairs accordingly and he was evaluated accordingly. He obviously he had a subendocardial myocardial infarction both inferior and anterior. So on 11/07 he then had a cardiac catheterization with Dr. Brody, which showed 90% stenosis of the LAD, 78% stenosis of circumflex artery, and total occlusion of the right coronary artery. At that time, he was prepped and several days later, he had bypass surgery here at this hospital under Dr. Bullard. Since that period of time he has been now out of ICU. He is walking slowly with assistance and he is being ready for rehab. At this point there is no new lab. REVIEW OF SYSTEMS: EYES: Patient is seeing well. ENT: He is hearing well, though he does have some problems with high pitch hearing. Mouth is dry. NECK: No problems with swallowing. CHEST/RESPIRATORY: No coughing up phlegm. A fair amount of shortness of breath with activity it appears. HEART: No orthopnea, paroxysmal nocturnal dyspnea. No palpitations. No chest pain. GI: No hematemesis, melena or hematochezia. No constipation, no diarrhea. : No problems with urination. NEUROMUSCULAR: He is getting his strength back in his arms and his legs and he does have some lower back pain that has been kind of chronic in nature. SKIN: He has had some changes in skin discoloration through the years and some more bruising per patient. PSYCHIATRIC: No anxiety. No depression, but he is ready to go and start doing things and ready for rehab. PHYSICAL EXAMINATION: At this point, blood pressure 127/84, heart rate is in the 80s. O2 was 96 on room air and 16 respiratory rate. EYES: Pupils are equal, round, react to light accommodation. ENT: Normal tympanic membranes and pharynx. NECK: Supple with a midline trachea. CHEST: Lungs are essentially clear to auscultation. HEART: Sinus rhythm with no murmur. ABDOMEN: Soft, nontender with no organomegaly. Also inspection of the chest incision appears to be within normal limits with no redness at this time. GENITOURINARY: Inspection is negative. LOWER EXTREMITIES: He has decreased pulses bilaterally. He appears to have good strength in his lower and upper extremities on range of motion. INTEGUMENTARY: Discoloration of lower extremities. ALLERGIES: He has a stuffy nose. ASSESSMENT: 1. Non ST elevation myocardial infarction with a troponin of 0.08 and then 0.061, 0.053 and 0.057. Cardiac catheterization showing triple-vessel disease. 2. An intra-aortic pump insertion, which now has been discontinued. 3. Off pump coronary artery bypass x3 with a left internal mammary to the LAD and reverse saphenous vein grafts to the first diagonal posterior descending coronary artery and endovascular vein harvest of the greater saphenous vein. 4. Acute hypoxic respiratory failure with prolonged mechanical ventilation. It was expected and was continued and now patient is without being on the ventilator. 5. Extensive tobacco and alcohol dependence and some abuse. 6. Tracheobronchitis with postextubation. 7. Ischemic cardiomyopathy with the present ejection fraction between 20 and 25. 8. Severe chronic obstructive pulmonary disease with acute exacerbation. 9. Nicotine dependence. 10.Daily alcohol use. 11.Hyperkalemia. 12.Hypomagnesemia. 13.Tracheobronchitis. PLAN: We continue with the present medications. We are slowly but surely changing him off medications and antibiotics accordingly. The patient will be going tomorrow to rehab over at [place]. His prognosis is still guarded. 35 minutes of care today was completed. MMODL / IJN: [id number] /
[2017-11-17 16:49] LABS: Glucose,Whole Blood 98 mg/dL (75-99)
[2017-11-17] MEDS: LIDOCAINE 5% PATCH TOPICAL SCH (20:58)
[2017-11-17 21:01] LABS: Glucose,Whole Blood 106 mg/dL (75-99)
[2017-11-17] MEDS: SENNOSIDES-DOCUSATE SODIUM 1 EACH TAB PO SCH (21:08)
[2017-11-17] MEDS: METOPROLOL TARTRATE 50 MG TAB PO SCH (21:08)
[2017-11-18] MEDS: METOPROLOL TARTRATE 25 MG TAB PO SCH (00:19)
[2017-11-18 02:01] LABS: Glucose,Whole Blood 113 mg/dL (75-99)
[2017-11-18 06:03] LABS: Glucose,Whole Blood 115 mg/dL (75-99)
[2017-11-18] MEDS: INSULIN ASPART 100 UNIT/ML 1 ML 10 ML VIAL SQ SCH ×4 (06:04→20:45)
[2017-11-18] MEDS: PANTOPRAZOLE 40 MG TABLET PO SCH (06:30)
--- NOTE | 2017-11-18 07:17 | XR ---
EXAMINATION TYPE: XR chest 2V DATE OF EXAM: 11/18/2017 COMPARISON: November 17, 2017 HISTORY: Shortness of breath TECHNIQUE: Frontal and lateral views of the chest are obtained. FINDINGS: Scattered senescent parenchymal changes noted. Small pleural effusions are noted. No evidence for infiltrate. No evidence for atelectasis. Heart size is stable. Mediastinal structures are stable and grossly unremarkable. No evidence for hilar prominence. Degenerative changes dorsal spine. IMPRESSION: 1. No evidence for acute pulmonary disease.
[2017-11-18] MEDS: BUDESONIDE 1 MG/2 ML NEBU INHALATION SCH ×2 (07:57→19:48)
[2017-11-18] MEDS: IPRATROPIUM-ALBUTEROL 3 ML NEB INHALATION SCH ×4 (07:57→19:48)
[2017-11-18 08:06] LABS: HGB 15.6 gm/dL (13.0-17.5); MCH 30.5 pg (25.0-35.0); MCHC 32.5 g/dL (31.0-37.0); MCV 93.8 fL (80.0-100.0); Mean Platelet Volume 7.4; Platelet Count 290 k/uL (150-450); RBC 5.12 m/uL (4.30-5.90); RDW 13.6 % (11.5-15.5); WBC 9.7 k/uL (3.8-10.6)
[2017-11-18 08:10] LABS: ALT 286 U/L (21-72); AST 194 U/L (17-59); Albumin 3.9 g/dL (3.5-5.0); Alkaline Phosphatase 122 U/L (38-126); Anion Gap 15 mmol/L; Blood Urea Nitrogen 17 mg/dL (9-20); Calcium 9.9 mg/dL (8.4-10.2); Carbon Dioxide 22 mmol/L (22-30); Chloride 102 mmol/L (98-107); Glucose 128 mg/dL (74-99); Potassium 4.5 mmol/L (3.5-5.1); Sodium 139 mmol/L (137-145); Total Bilirubin 1.1 mg/dL (0.2-1.3); Total Protein 7.2 g/dL (6.3-8.2)
[2017-11-18] MEDS: HYDROcodone/APAP 5-325MG 1 EACH TAB PO PRN ×3 (08:37→21:15)
[2017-11-18] MEDS: ASPIRIN 325 MG TAB PO SCH (08:38)
[2017-11-18] MEDS: CEFUROXIME 250 MG TAB PO SCH ×2 (08:38→20:20)
[2017-11-18] MEDS: CLOPIDOGREL 75 MG TAB PO SCH (08:39)
[2017-11-18] MEDS: FUROSEMIDE 40 MG TAB PO SCH (08:39)
[2017-11-18] MEDS: LACTOBACILLUS ACIDOPH & BULGAR 1 EACH PACKET PO SCH ×4 (08:39→20:21)
--- NOTE | 2017-11-18 08:39 | P.PN ---
Subjective Progress Note Date: 11/18/17 Principal diagnosis: CAD This is a pleasant 62-year-old gentleman who was admitted to the hospital with acute coronary event and acute non-ST elevation myocardial infarction. He underwent a heart catheterization and that revealed severe triple-vessel coronary artery disease. The echocardiogram showed severe cardiomyopathy. The patient underwent yesterday CABG 3 where he received HALE to LAD, SVG to diagonal, SVG to PDA. From the cardiovascular standpoint of view, he has done well. He continues to be on aspirin, metoprolol, lisinopril. The statin was stopped today because of elevated liver function tests yesterday and continues to be elevated today. The plan is for the patient to be discharged in the next 24 hours of life vest view of the severe cardiomyopathy. Objective - Vital Signs Vital signs: Vital Signs Temp 97.0 F L 11/18/17 04:00 Pulse 96 11/18/17 08:13 Resp 18 11/18/17 04:00 BP 119/58 11/18/17 04:00 Pulse Ox 93 L 11/18/17 04:00 Intake & Output 11/17/17 11/18/17 11/18/17 18:59 06:59 18:59 Intake Total 1150 10 Output Total 775 Balance 1150 -765 Weight 95.8 kg Intake: IV 10 0.9 10 Oral 1150 Output: Urine 775 Other: Voiding Method Toilet Toilet # Voids 2 0 # Bowel Movements 0 ABP, PAP, CO, CI - Last Documented Arterial Blood Pressure 57/51 Pulmonary Artery Pressure 32/20 Cardiac Output 5.2 Cardiac Index 2.2 - Constitutional General appearance: Present: no acute distress - Respiratory Respiratory: bilateral: diminished - Cardiovascular Rhythm: regular Heart sounds: normal: S1, S2 - Labs CBC & Chem 7: 11/18/17 07:36 11/18/17 07:36 Labs: Abnormal Lab Results - Last 24 Hours (Table) 11/17/17 11/17/17 11/18/17 Range/Units 11:22 21:00 01:59 Glucose (74-99) mg/dL POC Glucose (mg/dL) 131 H 106 H 113 H (75-99) mg/dL AST (17-59) U/L ALT (21-72) U/L 11/18/17 11/18/17 Range/Units 06:01 07:36 Glucose 128 H (74-99) mg/dL POC Glucose (mg/dL) 115 H (75-99) mg/dL AST 194 H (17-59) U/L ALT 286 H (21-72) U/L Assessment and Plan Assessment: Assessment #1 coronary artery disease and status post CABG as described above #2 severe cardiomyopathy #3 acute respiratory failure Plan #1 continue the current medical treatment was dual antiplatelet therapy as well as metoprolol and lisinopril #2 continue holding the statin in view of the continuous elevated liver function test
[2017-11-18] MEDS: METOPROLOL TARTRATE 50 MG TAB PO SCH ×2 (08:40→20:20)
[2017-11-18] MEDS: SPIRONOLACTONE 25 MG TAB PO SCH (08:40)
[2017-11-18] MEDS: HEPARIN SODIUM,PORCINE 5,000 UNIT/ML 1 ML VIAL SQ SCH ×3 (08:41→23:16)
[2017-11-18] MEDS: MUPIROCIN 2% OINT 22 GM TUBE NASAL SCH ×2 (08:42→20:20)
--- NOTE | 2017-11-18 09:03 | P.PN ---
Subjective Progress Note Date: 11/18/17 Principal diagnosis: Severe triple-vessel coronary artery disease, NSTEMI, acute on chronic systolic left heart failure, ischemic cardiomyopathy with severe left ventricular systolic dysfunction with an ejection fraction of 20%. History of hypertension, COPD with pre-operative FEV1 74% of predicted post bronchodilator, current nicotine abuse, EtOH abuse, recent tracheobronchitis with antibiotic and steroid therapy. Family history of premature coronary artery disease with a brother diagnosed at 46 years old. History of dyslipidemia. Occasional use of home oxygen as patient was using his 's home oxygen. POD #10 placement of intra-aortic balloon pump by cardiology. POD #9 urgent off-pump coronary artery bypass grafting 3 with left internal mammary artery to LAD and reverse saphenous vein grafts to the first diagonal and posterior descending coronary arteries with endovascular vein harvest from the right greater saphenous vein. Intraoperative transesophageal echocardiogram by anesthesia. Acute hypoxic respiratory failure, prolonged mechanical ventilation, and expected outcome of surgery given the patient's extensive tobacco and alcohol dependence with a recent history of tracheobronchitis. Patient's currently ambulating in his room in no acute distress. Denies pain, shortness of breath. Alert and oriented. He is prepared to go to inpatient rehab today. No new complaints. Objective - Vital Signs Vital signs: Vital Signs Temp 97.0 F L 11/18/17 04:00 Pulse 96 11/18/17 08:13 Resp 18 11/18/17 04:00 BP 119/58 11/18/17 04:00 Pulse Ox 93 L 11/18/17 04:00 Intake & Output 11/17/17 11/18/17 11/18/17 18:59 06:59 18:59 Intake Total 1150 10 Output Total 775 Balance 1150 -765 Weight 95.8 kg Intake: IV 10 0.9 10 Oral 1150 Output: Urine 775 Other: Voiding Method Toilet Toilet # Voids 2 0 # Bowel Movements 0 ABP, PAP, CO, CI - Last Documented Arterial Blood Pressure 57/51 Pulmonary Artery Pressure 32/20 Cardiac Output 5.2 Cardiac Index 2.2 - Constitutional General appearance: Present: cooperative, no acute distress, obese - Respiratory Details: Lungs sounds diminished bilaterally. Respirations even, nonlabored. Currently on room air with oxygen saturation 93%. Able to achieve 2500 mL on his incentive spirometry. Productive cough with thick yellow sputum. - Cardiovascular Details: S1, S2 present. Regular rate and rhythm, sinus rhythm on telemetry. Sternum stable. Palpable peripheral pulses bilaterally. No edema present. No calf pain or tenderness noted. Heart hugger in place with patient demonstrating appropriate use. Anti-embolism stockings, SCDs present. - Gastrointestinal Gastrointestinal Comment(s): Abdomen soft, nontender, nondistended. Active bowel sounds 4 quadrants. Tolerating diet. Positive bowel movement.. - Genitourinary Genitourinary Comment(s): Voiding clear yellow urine. - Integumentary Integumentary Comment(s): Skin is warm and dry with evidence of good perfusion. Anterior chest incision well approximated, covered with intact dressing. At the distal end of his incision there is scant blood pooling although no obvious dehiscence when coughing hard, abdominal binder applied around chest for pressure support. Right lower extremity EVH site well approximated. - Neurologic Neurologic: Present: CNII-XII intact - Musculoskeletal Musculoskeletal: Present: gait normal, strength equal bilaterally - Psychiatric Psychiatric: Present: A&O x's 3, appropriate affect, intact judgment & insight - Allied health notes Allied health notes reviewed: nursing - Labs CBC & Chem 7: 11/18/17 07:36 11/18/17 07:36 Labs: Abnormal Lab Results - Last 24 Hours (Table) 11/17/17 11/17/17 11/18/17 Range/Units 11:22 21:00 01:59 Glucose (74-99) mg/dL POC Glucose (mg/dL) 131 H 106 H 113 H (75-99) mg/dL AST (17-59) U/L ALT (21-72) U/L 11/18/17 11/18/17 Range/Units 06:01 07:36 Glucose 128 H (74-99) mg/dL POC Glucose (mg/dL) 115 H (75-99) mg/dL AST 194 H (17-59) U/L ALT 286 H (21-72) U/L - Imaging and Cardiology Chest x-ray: report reviewed, image reviewed Assessment and Plan (1) Tobacco dependence Current Visit: Yes Status: Chronic Code(s): F17.200 - NICOTINE DEPENDENCE, UNSPECIFIED, UNCOMPLICATED SNOMED Code(s): 71270624 (2) Alcohol abuse Current Visit: Yes Status: Chronic Code(s): F10.10 - ALCOHOL ABUSE, UNCOMPLICATED SNOMED Code(s): 27668243 (3) Acute non-ST segment elevation myocardial infarction Current Visit: Yes Status: Acute Code(s): I21.4 - NON-ST ELEVATION (NSTEMI) MYOCARDIAL INFARCTION SNOMED Code(s): 533170767 (4) COPD (chronic obstructive pulmonary disease) Current Visit: Yes Status: Chronic Code(s): J44.9 - CHRONIC OBSTRUCTIVE PULMONARY DISEASE, UNSPECIFIED SNOMED Code(s): 61943168 (5) Coronary artery disease Current Visit: Yes Status: Chronic Code(s): I25.10 - ATHSCL HEART DISEASE OF [place] CORONARY ARTERY W/O ANG PCTRS SNOMED Code(s): 29889655 (6) Hypertension Current Visit: Yes Status: Chronic Code(s): I10 - ESSENTIAL (PRIMARY) HYPERTENSION SNOMED Code(s): 05643341 (7) Ischemic cardiomyopathy Current Visit: Yes Status: Chronic Code(s): I25.5 - ISCHEMIC CARDIOMYOPATHY SNOMED Code(s): 157504131 Plan: 1. Continue aspirin, Plavix, heparin, lisinopril, beta keeley. Will maximize beta keeley therapy as tolerated. Continue to hold statin secondary to elevated liver enzymes. 2. Encourage incentive spirometry use 10 times per hour while awake. Reinforce smoking cessation. 3. Continue oral Lasix, Aldactone. 4. Continue ceftin for possible tracheobronchitis per pulmonary. Sputum culture negative for organisms. 5. Increase activity, ambulate in hallway. PT/OT/cardiac rehab following. 6. GI/DVT prophylaxis. 7. Xanax added by primary for increased anxiety. Continue folic acid, thiamine , multivitamin 8. Diabetic management per primary care service. 9. Will monitor daily labs and x-rays. 10. Dr. Gonzalez consulted for inpatient rehab after discharge. Patient's insurance is refusing [place] for inpatient rehab. Will do [id number] review today as patient needs more frequent supervision and teaching for cardiac surgery activity restrictions. 11. Ejection fraction post surgery 20-25% with severe cardiomyopathy per echocardiogram. Patient needs LifeVest at discharge. 12. More recommendations to follow. Discharge planning a progress. Anticipate discharge later today. Time with Patient: Greater than 30
[2017-11-18 10:49] VITALS: BMI 31.1
[2017-11-18 11:43] LABS: Glucose,Whole Blood 97 mg/dL (75-99)
[2017-11-18] MEDS: FOLIC ACID 1 MG TAB PO SCH (12:24)
--- NOTE | 2017-11-18 12:24 | P.PN ---
Subjective Progress Note Date: 11/18/17 62-year-old male who presented to the emergency room after he was evaluated by his primary care physician, Dr. Couch, on an outpatient basis. Patient reports he saw his PCP on Saturday for a follow up for shortness of breath. The patient was recently diagnosed with tracheobronchitis and was prescribed Levaquin, prednisone, and DuoNeb treatments. His shortness of breath persisted. Patient also reported cough with positive sputum production. The patient's oxygen saturation was 93% on room air. The patient ambulated around the office and his oxygen saturations remained greater than 92%. A chest x-ray was completed at the office revealing cardiomegaly. The patient also reported bilateral lower extremity edema and an episode of chest pain on Saturday. An EKG was completed revealing old inferior and anterior wall MIs. A troponin was completed at the office and came back at 0.08. The patient was started on aspirin 81 mg daily, Lasix 20 mg daily, and lisinopril 5 mg daily at that time. He was not started on a beta keeley at that time as his heart rate was in the low 60s at Dr. Couch's office. The patient was advised to come to the emergency room for further evaluation. The patient has a history of chronic obstructive pulmonary disease. He reports smoking approximately 6 cigarettes per day. He also admits to the drinking 2-3 alcoholic beverages per day, which he states the amount has decreased and reports he used to drink heavier. Chest x-ray 11/05/2017: Cardiomegaly. There may be a component of pulmonary venous hypertension and early interstitial edema. Laboratory data: WBC 8.2. Hemoglobin 16.8. Platelet count 235. Sodium 142. Potassium 5.9. BUN 18. Creatinine 0.98. GFR 84. Glucose 94. BNP: 4560 Troponins: 0.061, 0.053, 0.057 Lipid panel: Triglycerides 99. Total cholesterol 157. LDL 101. HDL 36. The patient was admitted to the hospital under the care of Dr. Couch. Consultations were placed to cardiology. 11/07/2017 Patient evaluated this morning on rounds with Dr. Couch. Patient is awake and alert. Denies chest pain or pressure. Denies shortness of breath. The patient underwent cardiac catheterization yesterday revealing 90% stenosis of proximal LAD, 70-80% stenosis of circumflex artery, and totally occluded right coronary artery. cardiothoracic surgery has been consulted and evaluated the patient. The patient is scheduled for an off pump CABG on Saturday. Pre-operative testing is currently underway. Echocardiogram completed reveals severe global hypokinesis of the left ventricle, ejection fraction of 20-25%, trace mitral regurgitation, and trace tricuspid regurgitation. Carotid ultrasound was completed revealing 15-25% stenosis in both internal carotid arteries. The patient denies pain or discomfort. He is anxious regarding his upcoming surgery and concerned about his . He states she is 74 years old and has severe COPD and he has been her provider at home and has been caring for her. 11/08/2017 Patient seen and examined at the bedside on rounds with Dr. Couch. Patient is awake and alert. Patient denies chest pain or pressure. Denies shortness of breath. Patient is NPO and is scheduled for IABP insertion today per cardiology. Patient is scheduled to undergo off pump CABG tomorrow with Dr. Bullard. Patient remains on CIWA protocol. No signs of ETOH withdrawal this morning. Patient states he is voiding without difficulty. Reports + bowel movement. 11/09/2017-11/11/2017-Notes per Dr. Couch 11/12/2017 Patient seen and examined at the bedside. Patient underwent IABP on Saturday which has since been discontinued. Patient underwent CABG x 3 with with left internal mammary artery to LAD and reverse saphenous vein grafts to the first diagonal and posterior descending coronary arteries with endovascular vein harvest from the right greater saphenous vein by Dr. Bullard on Saturday. Chest tubes were discontinued on 11/11/2017. Patient was extubated yesterday. He remains on 10L high flow nasal cannula. Oxygen saturations greater than 92%. Patient is slightly tachycardic with a rate around 105. Blood pressure is stable with a last reading of 117/63. Patients insulin drip has been discontinued. He remains on Novolog sliding scale Q 4 hours as ordered by circular distributor. Blood sugars 103-118. Magnesium is 1.5 this morning and is currently being supplemented. Patient was noted to be leaning to his right side this morning in the chair and was dragging his right foot per nursing. Patient did receive ativan this morning per CIWA protocol. His strength is equal bilaterally and he does not have any neuro deficits at this time. Speech is slightly garbled which may also be due to ativan. 11/13/2017 Patient seen and examined at the bedside on rounds with Dr. Couch. Patient is sitting up in the chair eating breakfast. Patient denies shortness of breath but he does report frequent coughing with sputum production. Sputum sample noted in the basin at the bedside is clear and thin. Chest xray from today is negative for acute process. Encouraged patient to splint incision while coughing and to use his heart hugger. Patient also encouraged to use his IS 10 times an hour. Nursing reports that patient still leans to the right side when he is sitting in the chair and has pillows propped up on his right side. Patients strength is essentially the same bilaterally, possibly a little stronger on the left, but the patient is also left handed. He is alert and oriented x 3 this morning and has no neuro deficits. Patient reports he had a bowel movement last night. Tolerating PO intake without nausea or vomiting. States pain is tolerable. 11/14/2017 Patient seen and examined at the bedside on rounds with Dr. Couch. Patient has been transferred out of the ICU to the selective care unit. Patient is currently sitting up in the chair. He is in good spirits but fairly anxious this morning. Denies chest pain or pressure. Patient states he is coughing frequently and is experiencing severe pain when he coughs. Patient was encouraged to use heart hugger and splint chest/abdomen with a pillow. Patient states he has been ambulating in the room without difficultly. He does report some constipation. 11/15/2017 Patient seen and examined at the bedside on rounds with Dr. Couch. Patient is awake and alert. Sitting up in the chair. Patient states he is still coughing frequently. Abdominal binder was placed yesterday which patient states is helping a little bit. Patient denies shortness of breath. Denies chest pain. Appetite is good. patient states he is anxious to be discharged to rehab. 11/16/2017-11/17/2017-Notes per Dr. Couch 11/18/2017 Patient seen and evaluated at the bedside on rounds with Dr. Couch. Patient is awake and alert. Sitting up in the bed. Eating breakfast. Patient denies shortness of breath or chest pain. AST and ALT remain elevated. Statin has been placed on hold. CBC is within normal limits. Patient is anxious to be discharged to rehab. Objective - Vital Signs Vital signs: Vital Signs Temp 97.0 F L 11/18/17 04:00 Pulse 96 11/18/17 08:13 Resp 18 11/18/17 04:00 BP 119/58 11/18/17 04:00 Pulse Ox 93 L 11/18/17 04:00 Intake & Output 11/17/17 11/18/17 11/18/17 18:59 06:59 18:59 Intake Total 1150 10 Output Total 775 Balance 1150 -765 Weight 95.8 kg Intake: IV 10 0.9 10 Oral 1150 Output: Urine 775 Other: Voiding Method Toilet Toilet # Voids 2 0 # Bowel Movements 0 ABP, PAP, CO, CI - Last Documented Arterial Blood Pressure 57/51 Pulmonary Artery Pressure 32/20 Cardiac Output 5.2 Cardiac Index 2.2 - Exam GENERAL: This is a 62-year-old male in no apparent distress at the time of examination. HEENT: Head is atraumatic, normocephalic. Pupils are equal, round, and reactive to light. Sclerae anicteric. Conjunctivae are clear. Mucus membranes of the mouth are moist. Neck is supple. RESPIRATORY: Clear to ausculation. No wheezes, rales, or rhonchi. No use of accessory muscles. Patient maintaining oxygen saturation greater than 92%. No chest wall tenderness is noted on palpation or with deep breathing. CARDIOVASCULAR: Surgical site clean dry and intact. Heart hugger in place. Regular rate and rhythm. S1 and S2 noted. No systolic or diastolic murmur auscultated. No JVD noted. No S3 or S4 noted. Right carotid bruit auscultated. GASTROINTESTINAL: No distention noted. Abdomen soft and round. Bowel sounds auscultated x 4 quadrants. No pain or tenderness noted upon palpation. INTEGUMENTARY: No cyanosis. No jaundice. No rashes noted. No cellulitis noted. EXTREMITIES: 2+ peripheral pulses. No edema noted. No calf tenderness noted. NEUROLOGIC: Cranial nerves II-XII intact. PSYCHIATRIC: Awake, alert, and oriented X 3. Pleasant and cooperative. - Labs CBC & Chem 7: 11/18/17 07:36 11/18/17 07:36 Labs: Abnormal Lab Results - Last 24 Hours (Table) 11/17/17 11/17/17 11/18/17 Range/Units 11:22 21:00 01:59 Glucose (74-99) mg/dL POC Glucose (mg/dL) 131 H 106 H 113 H (75-99) mg/dL AST (17-59) U/L ALT (21-72) U/L 11/18/17 11/18/17 Range/Units 06:01 07:36 Glucose 128 H (74-99) mg/dL POC Glucose (mg/dL) 115 H (75-99) mg/dL AST 194 H (17-59) U/L ALT 286 H (21-72) U/L Assessment and Plan Plan: ASSESSMENT: 1. Acute non-ST elevated myocardial infarction, troponins 0.061, 0.053, 0.057 s/ p cardiac catherization revealing severe triple vessel disease 2. S/P intra-aortic ballon pump insertion, since discontinued 3. S/P off pump CABG x 3 with with left internal mammary artery to LAD and reverse saphenous vein grafts to the first diagonal and posterior descending coronary arteries with endovascular vein harvest from the right greater saphenous vein 4. Acute hypoxic respiratory failure, prolonged mechanical ventilation, an expected outcome of surgery given the patient's extensive tobacco and alcohol dependence with a recent history of tracheobronchitis, since extubated 5. Ischemic cardiomyopathy 6. Chronic obstructive pulmonary disease, no evidence of acute exacerbation 7. Recent diagnosis of tracheobronchitis, treated with Levaquin and prednisone outpatient 8. Nicotine dependence, patient is a current cigarette smoker 9. Daily alcohol use 10. Obesity: BMI 33.8 11. Hyperkalemia, resolved 12. Hypomagnesemia, resolved 13. Purulent tracheobronchitis, sputum culture with normal respiratory fior PLAN: Continue post operative management per cardiothoracic surgery Continue thiamine, multivitamin, and folic acid Continue xanax 0.25mg Q8 hours PRN for anxiety Pain control Activity as tolerated Incentive spirometer 10 times an hour while awake Continue novolog sliding scale AC/HS Home meds as appropriate Monitor labs GI/DVT prophylaxis Monitor vital signs and address as appropriate Further recommendations pending patient's course Anticipate discharge to inpatient rehab today pending insurance authorization Nurse practitioner note has been reviewed by physician. Signing provider agrees with the documented findings, assessment, and plan of care.
[2017-11-18] MEDS: LISINOPRIL 2.5 MG TAB PO SCH (12:25)
[2017-11-18] MEDS: THIAMINE 100 MG TAB PO SCH (12:25)
[2017-11-18] MEDS: MULTIVITAMINS, THERA 1 EACH TAB PO SCH (12:25)
[2017-11-18 17:07] LABS: Glucose,Whole Blood 129 mg/dL (75-99)
--- NOTE | 2017-11-18 18:49 | P.PN ---
Subjective Progress Note Date: 11/17/17 Principal diagnosis: Status post CABG 3, DT Acute systolic heart failure, acute myocardial infarction, pulmonary edema related to above, diffuse coronary artery disease, baseline COPD and recent tracheobronchitis 11/17/2017, patient seen eval examined during the rounds his the respiratory pattern is improved patient has been walking in the hallway cuff congestion shortness breath is improved this some blood-tinged discharge intermittently noted at the lower sternal area cardiothoracic surgery is following, cough is is stable and significantly improved denies any sputum production cultures and sputum studies has been negative 11/16/2017, patient seen eval reexamined during the rounds care plan discussed the primary service patient is being planned for possible discharge later on today respiratory status overall is stable antibiotics are being changed to oral agree with discharge planning with follow-up in outpatient setting 11/15/2017, patient seen eval reexamined during the rounds clinically doing well awake and alert breathing comfortably his cuff congestion is better the bleeding that has been noted and lower part of the sternum has improved significantly graft harvest site from the leg are stable healing fairly well, physical therapy at bedside patient is being taken out of the chair and being ambulated with support his severity or shortness breath has improved significantly he is on 2 L oxygen now Ammann sputum for Gram stain reviewed no organism has been identified few WBCs are seen my last chest x-ray performed earlier this wanted reviewed and compared with the prior x-ray some basilar atelectasis seen predominantly on the left side otherwise fairly unremarkable with some prominent interstitium 11/14/2017, patient seen eval examined during the rounds patient has removed the ICU to stepdown unit chest tubes as well as a right-sided Ely-Karly introducer has been removed to no significant bleeding has been noted on the site dressing in the lower sternal area has been changed couple times patient does have cough with associated with thick tenacious sputum production culture results and reports from the sputum are pending patient is on breathing treatments antibiotics 11/13/2017, patient seen eval reexamined during the rounds he is slightly more awake the hallucination that was noted previously has improved patient however lately has been coughing a lot thick tenacious his sputum present with light yellow in appearance a sample is being sent for Gram stain and culture patient has a small leakage from central Cordis catheter area as well as the distal part of the thoracotomy site local measures have been applied patient also has significant diarrhea for which stool has been sent for C. diff, overall hemodynamic status stable, his chest x-ray from today reviewed and compared with the prior x-ray 11/12/2017, patient seen eval examined during the rounds he is sitting upright on the chair he is eating his lunch patient is oriented 1 he has significant hallucination which are perceptive as well as visual, patient did receive Ativan late last night around midnight then another dose earlier this morning at 6 patient has been falling asleep with food in his mouth this morning however slightly more awake during conversation he is breathing appropriately slightly tachypneic otherwise hemodynamic status stable, patient remains on 8 L oxygen saturation are 93%, Ely-Karly catheter and chest tubes have been removed , chest x-ray from today has been reviewed and compared with the prior x-ray right lower lobe subsegmental atelectasis slightly better with improved aviation medications reviewed laboratory data reviewed 11/11/2017, patient seen eval reexamined during the rounds clinically doing well has been placed on CPAP 5 and pressure support of 5 and arterial blood gases done weaning parameters reviewed patient is a relatively more awake and alert propofol drip has been discontinued patient opens eyes follow simple commands with fairly stable weaning parameters we'll proceed with extubation, critical care time spent 35 minutes 11/10/2017, patient seen eval examined during the rounds clinically patient is doing well but remains on full respirator support remains hypoxic when setting includes assist control rate of 10 breathing about 12-14 tidal volume is 755 of PEEP and on 60% oxygen patient has a Ely-Karly catheter PA pressure 42/21 he remains on 2.5 mics of dopamine drip also on propofol 25 mics his urine output is fairly adequate making about 40-60 mL/h of urine attempted patient on CPAP but has been unsuccessful given that low oxygenation patient is not really aware ready for weaning extubation today we'll keep on titrating oxygen down and follow clinical course closely 11/08/2017, patient seen eval reexamined during the rounds care plan discussed with RN at length patient is status post intra-aortic balloon pump for severe degree of cardiomyopathy and ischemic heart disease with diffuse coronary artery disease patient is currently on 1 is 21 patient with the map over 60-70 current map noted to be 80 with a systolic blood pressure 100 and diastolic of 63. 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 patient is being monitor observe as per CV a protocol overalls plan is if patient decompensated from Estrace standpoint and or become anxious and agitated and will be intubated S patient needs to stay flat on the bed related to his ongoing aortic balloon pump augmentation, his labs and x-rays are reviewed from today, PFTs reviewed, x-ray suggestive of the COPD-like changes noted acute pathology has been noted, the PFT suggestive of mild to moderate obstructive disease, white cell count is elevated with very high hemoglobin count which appears to be likely related to polycythemia related to COPD and chronic intermittent hypoxia , renal functions are stable patient is making were 50 to 60 mL an hour urine, his urine culture is negative nasal swab are negative for MRSA or MSSA 11/07/2017, patient seen and evaluated examined during the rounds is still short of breath has intermittent dry nonproductive cough but severity has improved he has been on breathing treatment he has been on deep breathing exercises incentive spirometry as well, patient will undergo preop spirometry later on today, patient has been evaluated by cardiothoracic surgery operative workup is in progress 62-year-old male who appears older then the stated age he has not been feeling well for the last several weeks has been going on has been having ongoing shortness of breath and cough he was treated with oral antibiotics breathing treatments and prednisone her outpatient basis without significant relief. Patient also has a history of on-call consumption almost on a daily basis usually consume 2-3 cans of beer daily. patient recently was evaluated in primary care office found to have a elevated troponin and abnormal EKG was sent over here for further evaluation patient continued to complain of cough congestion and shortness of breath has occasional intermittent vague chest pain as well, overall patient is a poor historian not much data can be obtained from him, on arrival to emergency department he was found to have very high BNP of over 4000 and troponin were consistently elevated cardiovascular services following at the time of evaluation patient is a about to undergo an echocardiogram as well, later on findings are reviewed his ejection fraction only 20-25%, diffuse coronary artery disease was noted as well on emergent cath and angiogram, LAD shows 90% stenosis in proximal part, 70-80% stenosis noted in circumflex, right coronary artery is totally occluded in proximal part given patient has diffuse triple-vessel coronary artery disease ischemic cardiomyopathy patient is likely evaluated by cardiothoracic surgery Objective - Vital Signs Vital signs: Vital Signs Temp 96.8 F L 11/18/17 16:20 Pulse 98 11/18/17 16:20 Resp 18 11/18/17 16:20 BP 97/59 11/18/17 16:20 Pulse Ox 91 L 11/18/17 16:20 Intake & Output 11/17/17 11/18/17 11/18/17 18:59 06:59 18:59 Intake Total 1150 10 720 Output Total 775 400 Balance 1150 -765 320 Weight 95.8 kg 95.8 kg Intake: IV 10 0.9 10 Oral 1150 720 Output: Urine 775 400 Stool 0 Other: Voiding Method Toilet Toilet Toilet # Voids 2 0 # Bowel Movements 0 ABP, PAP, CO, CI - Last Documented Arterial Blood Pressure 57/51 Pulmonary Artery Pressure 32/20 Cardiac Output 5.2 Cardiac Index 2.2 - Exam Patient seen and evaluated examined in the ICU he is somnolent but arousable GENERAL: Overall no apparent distress at the time of examination. Pleasant , calm and cooperative. Somewhat somnolent though HEENT: Head is atraumatic, normocephalic. Pupils are equal, round, and reactive to light. Sclerae anicteric. Conjunctivae are clear. Mucus membranes of the mouth are moist. Neck is supple. RESPIRATORY: Decreased air entry at the bases otherwise Clear to ausculation Ma few crackles in the bases are present. The incisions are healing well , some oozing of blood noted at distal part of the sternal incision No use of accessory muscles. Patient maintaining oxygen saturation greater than 92%. CARDIOVASCULAR: Regular rate and rhythm. S1 and S2 noted. No systolic or diastolic murmur auscultated. No JVD noted. No S3 or S4 noted. Right carotid bruit auscultated. GASTROINTESTINAL: No distention noted. Abdomen soft and round. Normal active bowel sounds auscultated x 4 quadrants. No pain or tenderness noted upon palpation. Aortic balloon pump in the groin on the left side INTEGUMENTARY: No cyanosis. No jaundice. No rashes noted. No cellulitis noted. EXTREMITIES: 2+ peripheral pulses. 1+ bilateral lower extremity edema. No calf tenderness noted. NEUROLOGIC: Cranial nerves II-XII intact. Overall neurological examination is within normal limit, no tremors or shakiness however otherwise noted PSYCHIATRIC: Sleeping somnolent but on arousable he is Awake, alert, and oriented X 1-3. Appropriate affect. Intact judgement and insight. - Labs CBC & Chem 7: 11/18/17 07:36 11/18/17 07:36 Labs: Abnormal Lab Results - Last 24 Hours (Table) 11/17/17 11/18/17 11/18/17 Range/Units 21:00 01:59 06:01 Glucose (74-99) mg/dL POC Glucose (mg/dL) 106 H 113 H 115 H (75-99) mg/dL AST (17-59) U/L ALT (21-72) U/L 11/18/17 11/18/17 Range/Units 07:36 16:47 Glucose 128 H (74-99) mg/dL POC Glucose (mg/dL) 129 H (75-99) mg/dL AST 194 H (17-59) U/L ALT 286 H (21-72) U/L Assessment and Plan Assessment: Severe degree of ischemic cardiomyopathy with acute systolic heart failure Acute COPD exacerbation Diffuse triple-vessel coronary artery disease with ejection fraction only 20% my status post CABG 3 Significant and intractable coughing or shortness of breath with thick purulent sputum production likely developing purulent tracheobronchitis and/pneumonia, follow-up on sputum culture results and reports, overall symptoms have improved will continue current therapy for now Loose stool diarrhea, improved significantly Auditory and perceptual hallucination likely patient is in DTs, improved significantly Acute non-ST segment elevated VT Likely severe COPD with chronic bronchitis Plan: Change IV to oral, patient is tolerating oral antibiotics fairly well, increase activity as tolerated Optimize cardiac therapy as planned, Breathing treatment with nebulizer as tolerated Afterload reducing agent and preload reduction with KIERA inhibitor's and diuretics Reviewed pulmonary function testing as well, further recommendations pending plan of care as per clinical response of the patient, patient would need evaluation follow up on outpatient setting Patient is status post coronary artery bypass surgery Breathing treatment with nebulizer as tolerated DVT and peptic ulcer disease prophylaxis Time with Patient: Greater than 30
--- NOTE | 2017-11-18 18:52 | P.PN ---
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 is following no significant discharge has been noted from the sternal wound breathing pattern is overall stable intermittent cough without any production of sputum is noted patient able to ambulate fairly well post ambulation saturation is 92% labs reviewed medications reviewed x-ray and radiographic studies reviewed, chest x-ray continued to improve progressively 11/17/2017, patient seen eval examined during the rounds his the respiratory pattern is improved patient has been walking in the hallway cuff congestion shortness breath is improved this some blood-tinged discharge intermittently noted at the lower sternal area cardiothoracic surgery is following, cough is is stable and significantly improved denies any sputum production cultures and sputum studies has been negative 11/16/2017, patient seen eval reexamined during the rounds care plan discussed the primary service patient is being planned for possible discharge later on today respiratory status overall is stable antibiotics are being changed to oral agree with discharge planning with follow-up in outpatient setting 11/15/2017, patient seen eval reexamined during the rounds clinically doing well awake and alert breathing comfortably his cuff congestion is better the bleeding that has been noted and lower part of the sternum has improved significantly graft harvest site from the leg are stable healing fairly well, physical therapy at bedside patient is being taken out of the chair and being ambulated with support his severity or shortness breath has improved significantly he is on 2 L oxygen now Ammann sputum for Gram stain reviewed no organism has been identified few WBCs are seen my last chest x-ray performed earlier this wanted reviewed and compared with the prior x-ray some basilar atelectasis seen predominantly on the left side otherwise fairly unremarkable with some prominent interstitium 11/14/2017, patient seen eval examined during the rounds patient has removed the ICU to stepdown unit chest tubes as well as a right-sided Sproul-Karly introducer has been removed to no significant bleeding has been noted on the site dressing in the lower sternal area has been changed couple times patient does have cough with associated with thick tenacious sputum production culture results and reports from the sputum are pending patient is on breathing treatments antibiotics 11/13/2017, patient seen eval reexamined during the rounds he is slightly more awake the hallucination that was noted previously has improved patient however lately has been coughing a lot thick tenacious his sputum present with light yellow in appearance a sample is being sent for Gram stain and culture patient has a small leakage from central Cordis catheter area as well as the distal part of the thoracotomy site local measures have been applied patient also has significant diarrhea for which stool has been sent for C. diff, overall hemodynamic status stable, his chest x-ray from today reviewed and compared with the prior x-ray 11/12/2017, patient seen eval examined during the rounds he is sitting upright on the chair he is eating his lunch patient is oriented 1 he has significant hallucination which are perceptive as well as visual, patient did receive Ativan late last night around midnight then another dose earlier this morning at 6 patient has been falling asleep with food in his mouth this morning however slightly more awake during conversation he is breathing appropriately slightly tachypneic otherwise hemodynamic status stable, patient remains on 8 L oxygen saturation are 93%, Sproul-Karly catheter and chest tubes have been removed , chest x-ray from today has been reviewed and compared with the prior x-ray right lower lobe subsegmental atelectasis slightly better with improved aviation medications reviewed laboratory data reviewed 11/11/2017, patient seen eval reexamined during the rounds clinically doing well has been placed on CPAP 5 and pressure support of 5 and arterial blood gases done weaning parameters reviewed patient is a relatively more awake and alert propofol drip has been discontinued patient opens eyes follow simple commands with fairly stable weaning parameters we'll proceed with extubation, critical care time spent 35 minutes 11/10/2017, patient seen eval examined during the rounds clinically patient is doing well but remains on full respirator support remains hypoxic when setting includes assist control rate of 10 breathing about 12-14 tidal volume is 755 of PEEP and on 60% oxygen patient has a Sproul-Karly catheter PA pressure 42/21 he remains on 2.5 mics of dopamine drip also on propofol 25 mics his urine output is fairly adequate making about 40-60 mL/h of urine attempted patient on CPAP but has been unsuccessful given that low oxygenation patient is not really aware ready for weaning extubation today we'll keep on titrating oxygen down and follow clinical course closely 11/08/2017, patient seen eval reexamined during the rounds care plan discussed with RN at length patient is status post intra-aortic balloon pump for severe degree of cardiomyopathy and ischemic heart disease with diffuse coronary artery disease patient is currently on 1 is 21 patient with the map over 60-70 current map noted to be 80 with a systolic blood pressure 100 and diastolic of 63. 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 patient is being monitor observe as per CV a protocol overalls plan is if patient decompensated from Estrace standpoint and or become anxious and agitated and will be intubated S patient needs to stay flat on the bed related to his ongoing aortic balloon pump augmentation, his labs and x-rays are reviewed from today, PFTs reviewed, x-ray suggestive of the COPD-like changes noted acute pathology has been noted, the PFT suggestive of mild to moderate obstructive disease, white cell count is elevated with very high hemoglobin count which appears to be likely related to polycythemia related to COPD and chronic intermittent hypoxia , renal functions are stable patient is making were 50 to 60 mL an hour urine, his urine culture is negative nasal swab are negative for MRSA or MSSA 11/07/2017, patient seen and evaluated examined during the rounds is still short of breath has intermittent dry nonproductive cough but severity has improved he has been on breathing treatment he has been on deep breathing exercises incentive spirometry as well, patient will undergo preop spirometry later on today, patient has been evaluated by cardiothoracic surgery operative workup is in progress 62-year-old male who appears older then the stated age he has not been feeling well for the last several weeks has been going on has been having ongoing shortness of breath and cough he was treated with oral antibiotics breathing treatments and prednisone her outpatient basis without significant relief. Patient also has a history of on-call consumption almost on a daily basis usually consume 2-3 cans of beer daily. patient recently was evaluated in primary care office found to have a elevated troponin and abnormal EKG was sent over here for further evaluation patient continued to complain of cough congestion and shortness of breath has occasional intermittent vague chest pain as well, overall patient is a poor historian not much data can be obtained from him, on arrival to emergency department he was found to have very high BNP of over 4000 and troponin were consistently elevated cardiovascular services following at the time of evaluation patient is a about to undergo an echocardiogram as well, later on findings are reviewed his ejection fraction only 20-25%, diffuse coronary artery disease was noted as well on emergent cath and angiogram, LAD shows 90% stenosis in proximal part, 70-80% stenosis noted in circumflex, right coronary artery is totally occluded in proximal part given patient has diffuse triple-vessel coronary artery disease ischemic cardiomyopathy patient is likely evaluated by cardiothoracic surgery Objective - Vital Signs Vital signs: Vital Signs Temp 96.8 F L 11/18/17 16:20 Pulse 98 11/18/17 16:20 Resp 18 11/18/17 16:20 BP 97/59 11/18/17 16:20 Pulse Ox 91 L 11/18/17 16:20 Intake & Output 11/17/17 11/18/17 11/18/17 18:59 06:59 18:59 Intake Total 1150 10 720 Output Total 775 400 Balance 1150 -765 320 Weight 95.8 kg 95.8 kg Intake: IV 10 0.9 10 Oral 1150 720 Output: Urine 775 400 Stool 0 Other: Voiding Method Toilet Toilet Toilet # Voids 2 0 # Bowel Movements 0 ABP, PAP, CO, CI - Last Documented Arterial Blood Pressure 57/51 Pulmonary Artery Pressure 32/20 Cardiac Output 5.2 Cardiac Index 2.2 - Exam Patient seen and evaluated examined in the ICU he is somnolent but arousable GENERAL: Overall no apparent distress at the time of examination. Pleasant , calm and cooperative. Somewhat somnolent though HEENT: Head is atraumatic, normocephalic. Pupils are equal, round, and reactive to light. Sclerae anicteric. Conjunctivae are clear. Mucus membranes of the mouth are moist. Neck is supple. RESPIRATORY: Decreased air entry at the bases otherwise Clear to ausculation . The incisions are healing well , No use of accessory muscles. Patient maintaining oxygen saturation greater than 92%. CARDIOVASCULAR: Regular rate and rhythm. S1 and S2 noted. No systolic or diastolic murmur auscultated. No JVD noted. No S3 or S4 noted. Right carotid bruit auscultated. GASTROINTESTINAL: No distention noted. Abdomen soft and round. Normal active bowel sounds auscultated x 4 quadrants. No pain or tenderness noted upon palpation. Aortic balloon pump in the groin on the left side INTEGUMENTARY: No cyanosis. No jaundice. No rashes noted. No cellulitis noted. EXTREMITIES: 2+ peripheral pulses. 1+ bilateral lower extremity edema. No calf tenderness noted. NEUROLOGIC: Cranial nerves II-XII intact. Overall neurological examination is within normal limit, no tremors or shakiness however otherwise noted PSYCHIATRIC: Sleeping somnolent but on arousable he is Awake, alert, and oriented X 1-3. Appropriate affect. Intact judgement and insight. - Labs CBC & Chem 7: 11/18/17 07:36 11/18/17 07:36 Labs: Abnormal Lab Results - Last 24 Hours (Table) 11/17/17 11/18/17 11/18/17 Range/Units 21:00 01:59 06:01 Glucose (74-99) mg/dL POC Glucose (mg/dL) 106 H 113 H 115 H (75-99) mg/dL AST (17-59) U/L ALT (21-72) U/L 11/18/17 11/18/17 Range/Units 07:36 16:47 Glucose 128 H (74-99) mg/dL POC Glucose (mg/dL) 129 H (75-99) mg/dL AST 194 H (17-59) U/L ALT 286 H (21-72) U/L Assessment and Plan Assessment: Severe degree of ischemic cardiomyopathy with acute systolic heart failure Acute COPD exacerbation Diffuse triple-vessel coronary artery disease with ejection fraction only 20% my status post CABG 3 Significant and intractable coughing or shortness of breath with thick purulent sputum production likely developing purulent tracheobronchitis and/pneumonia, follow-up on sputum culture results and reports, overall symptoms have improved will continue current therapy for now Loose stool diarrhea, improved significantly Auditory and perceptual hallucination likely patient is in DTs, improved significantly Acute non-ST segment elevated AK Likely severe COPD with chronic bronchitis Plan: Monitor and observe on oral antibiotics fairly well, increase activity as tolerated Optimize cardiac therapy as planned, Breathing treatment with nebulizer as tolerated Afterload reducing agent and preload reduction with KIEAR inhibitor's and diuretics Reviewed pulmonary function testing as well, further recommendations pending plan of care as per clinical response of the patient, patient would need evaluation follow up on outpatient setting Patient is status post coronary artery bypass surgery Breathing treatment with nebulizer as tolerated DVT and peptic ulcer disease prophylaxis Time with Patient: Greater than 30
[2017-11-18] MEDS: SENNOSIDES-DOCUSATE SODIUM 1 EACH TAB PO SCH (20:20)
[2017-11-18] MEDS: LIDOCAINE 5% PATCH TOPICAL SCH (20:20)
[2017-11-18 20:55] LABS: Glucose,Whole Blood 113 mg/dL (75-99)
[2017-11-19 05:59] LABS: Glucose,Whole Blood 107 mg/dL (75-99)
[2017-11-19] MEDS: INSULIN ASPART 100 UNIT/ML 1 ML 10 ML VIAL SQ SCH ×4 (06:28→21:41)
[2017-11-19] MEDS: PANTOPRAZOLE 40 MG TABLET PO SCH (06:29)
[2017-11-19 07:03] LABS: ALT 266 U/L (21-72); AST 137 U/L (17-59); Albumin 3.9 g/dL (3.5-5.0); Alkaline Phosphatase 113 U/L (38-126); Anion Gap 13 mmol/L; Blood Urea Nitrogen 18 mg/dL (9-20); Calcium 9.8 mg/dL (8.4-10.2); Carbon Dioxide 22 mmol/L (22-30); Chloride 102 mmol/L (98-107); Glucose 110 mg/dL (74-99); Potassium 4.8 mmol/L (3.5-5.1); Sodium 137 mmol/L (137-145); Total Bilirubin 0.8 mg/dL (0.2-1.3)
[2017-11-19 07:06] LABS: HCT 46.8 % (39.0-53.0); HGB 15.4 gm/dL (13.0-17.5); MCV 93.9 fL (80.0-100.0); Mean Platelet Volume 7.8; Platelet Count 307 k/uL (150-450); RBC 4.98 m/uL (4.30-5.90); RDW 13.6 % (11.5-15.5); WBC 9.4 k/uL (3.8-10.6)
--- NOTE | 2017-11-19 07:45 | P.PN ---
Subjective Progress Note Date: 11/19/17 Principal diagnosis: Severe triple-vessel coronary artery disease, NSTEMI, acute on chronic systolic left heart failure, ischemic cardiomyopathy with severe left ventricular systolic dysfunction with an ejection fraction of 20%. History of hypertension, COPD with pre-operative FEV1 74% of predicted post bronchodilator, current nicotine abuse, EtOH abuse, recent tracheobronchitis with antibiotic and steroid therapy. Family history of premature coronary artery disease with a brother diagnosed at 46 years old. History of dyslipidemia. Occasional use of home oxygen as patient was using his 's home oxygen. POD #11 placement of intra-aortic balloon pump by cardiology. POD #10 urgent off-pump coronary artery bypass grafting 3 with left internal mammary artery to LAD and reverse saphenous vein grafts to the first diagonal and posterior descending coronary arteries with endovascular vein harvest from the right greater saphenous vein. Intraoperative transesophageal echocardiogram by anesthesia. Acute hypoxic respiratory failure, prolonged mechanical ventilation, an expected outcome of surgery given the patient's extensive tobacco and alcohol dependence with a recent history of tracheobronchitis. Patient's currently ambulating in his room in no acute distress. Denies pain, shortness of breath. Alert and oriented. He is prepared to go home with home care today. No new complaints. Still needs to be fitted for his Life Vest. Objective - Vital Signs Vital signs: Vital Signs Temp 97.6 F 11/19/17 04:00 Pulse 85 11/19/17 04:00 Resp 18 11/19/17 04:00 BP 99/59 11/19/17 04:00 Pulse Ox 96 11/19/17 04:00 Intake & Output 11/18/17 11/19/17 11/19/17 18:59 06:59 18:59 Intake Total 720 Output Total 400 325 Balance 320 -325 Weight 95.8 kg 95.5 kg Intake: Oral 720 Output: Urine 400 325 Stool 0 Other: Voiding Method Toilet Toilet # Voids 2 ABP, PAP, CO, CI - Last Documented Arterial Blood Pressure 57/51 Pulmonary Artery Pressure 32/20 Cardiac Output 5.2 Cardiac Index 2.2 - Constitutional General appearance: Present: cooperative, no acute distress, obese - Respiratory Details: Lungs sounds diminished bilaterally. Respirations even, nonlabored. Currently on room air with oxygen saturation 96%. Able to achieve 2500 mL on his incentive spirometry. Productive cough with thick yellow sputum. - Cardiovascular Details: S1, S2 present. Regular rate and rhythm, sinus rhythm on telemetry. Sternum stable. Palpable peripheral pulses bilaterally. No edema present. No calf pain or tenderness noted. Heart hugger in place with patient demonstrating appropriate use. SCDs present. - Gastrointestinal Gastrointestinal Comment(s): Abdomen soft, nontender, nondistended. Active bowel sounds 4 quadrants. Tolerating diet. Positive bowel movement.. - Genitourinary Genitourinary Comment(s): Voiding clear yellow urine. - Integumentary Integumentary Comment(s): Skin is warm and dry with evidence of good perfusion. Anterior chest incision well approximated, covered with intact dressing. At the distal end of his incision there is scant blood pooling although no obvious dehiscence when coughing hard, abdominal binder applied around chest for pressure support. Right lower extremity EVH site well approximated. - Neurologic Neurologic: Present: CNII-XII intact - Musculoskeletal Musculoskeletal: Present: gait normal, strength equal bilaterally - Psychiatric Psychiatric: Present: A&O x's 3, appropriate affect, intact judgment & insight - Allied health notes Allied health notes reviewed: nursing - Labs CBC & Chem 7: 11/19/17 05:36 11/19/17 05:36 Labs: Abnormal Lab Results - Last 24 Hours (Table) 11/18/17 11/18/17 11/18/17 Range/Units 07:36 16:47 20:42 Glucose 128 H (74-99) mg/dL POC Glucose (mg/dL) 129 H 113 H (75-99) mg/dL AST 194 H (17-59) U/L ALT 286 H (21-72) U/L 11/19/17 11/19/17 Range/Units 05:36 05:57 Glucose 110 H (74-99) mg/dL POC Glucose (mg/dL) 107 H (75-99) mg/dL AST 137 H (17-59) U/L ALT 266 H (21-72) U/L - Imaging and Cardiology Chest x-ray: image reviewed Assessment and Plan (1) Tobacco dependence Current Visit: Yes Status: Chronic Code(s): F17.200 - NICOTINE DEPENDENCE, UNSPECIFIED, UNCOMPLICATED SNOMED Code(s): 77986833 (2) Alcohol abuse Current Visit: Yes Status: Chronic Code(s): F10.10 - ALCOHOL ABUSE, UNCOMPLICATED SNOMED Code(s): 03651771 (3) Acute non-ST segment elevation myocardial infarction Current Visit: Yes Status: Acute Code(s): I21.4 - NON-ST ELEVATION (NSTEMI) MYOCARDIAL INFARCTION SNOMED Code(s): 123178081 (4) COPD (chronic obstructive pulmonary disease) Current Visit: Yes Status: Chronic Code(s): J44.9 - CHRONIC OBSTRUCTIVE PULMONARY DISEASE, UNSPECIFIED SNOMED Code(s): 64947506 (5) Coronary artery disease Current Visit: Yes Status: Chronic Code(s): I25.10 - ATHSCL HEART DISEASE OF [place] CORONARY ARTERY W/O ANG PCTRS SNOMED Code(s): 58159313 (6) Hypertension Current Visit: Yes Status: Chronic Code(s): I10 - ESSENTIAL (PRIMARY) HYPERTENSION SNOMED Code(s): 94422297 (7) Ischemic cardiomyopathy Current Visit: Yes Status: Chronic Code(s): I25.5 - ISCHEMIC CARDIOMYOPATHY SNOMED Code(s): 074976100 Plan: 1. Continue aspirin, Plavix, heparin, lisinopril, beta keeley. Continue to hold statin secondary to elevated liver enzymes, to be reevaluated as an outpatient. 2. Encourage incentive spirometry use 10 times per hour while awake. Reinforce smoking cessation. 3. Continue oral Lasix, Aldactone. 4. Continue ceftin for possible tracheobronchitis per pulmonary. Sputum culture negative for organisms. 5. Increase activity, ambulate in hallway. PT/OT/cardiac rehab following. 6. GI/DVT prophylaxis. 7. Xanax added by primary for increased anxiety. Continue folic acid, thiamine , multivitamin 8. Diabetic management per primary care service. 9. Will monitor daily labs and x-rays. 10. Ejection fraction post surgery 20-25% with severe cardiomyopathy per echocardiogram. Patient needs LifeVest at discharge. 11. Discharge planning in progress. Anticipate discharge later today once patient has a LifeVest in place. Time with Patient: Greater than 30
--- NOTE | 2017-11-19 07:58 | XR ---
EXAMINATION TYPE: XR chest 2V DATE OF EXAM: 11/19/2017 COMPARISON: 11/18/2017 HISTORY: 62-year-old male post cardiac surgery TECHNIQUE: Frontal and lateral views FINDINGS: Heart mildly enlarged. Mild interstitial prominence. Stable density at the cardiac apex suggestive of prominent epicardial fat pad or some atelectasis. There are trace effusions on the lateral view. Oth erwise, the remaining lungs appear clear. IMPRESSION: Stable mild cardiomegaly and trace pleural effusions.
[2017-11-19] MEDS: MUPIROCIN 2% OINT 22 GM TUBE NASAL SCH ×2 (08:06→19:58)
[2017-11-19] MEDS: CLOPIDOGREL 75 MG TAB PO SCH (08:09)
[2017-11-19] MEDS: METOPROLOL TARTRATE 50 MG TAB PO SCH ×2 (08:09→19:57)
[2017-11-19] MEDS: ASPIRIN 325 MG TAB PO SCH (08:10)
[2017-11-19] MEDS: HEPARIN SODIUM,PORCINE 5,000 UNIT/ML 1 ML VIAL SQ SCH ×3 (08:10→23:18)
[2017-11-19] MEDS: SPIRONOLACTONE 25 MG TAB PO SCH (08:10)
[2017-11-19] MEDS: CEFUROXIME 250 MG TAB PO SCH ×2 (08:10→19:57)
[2017-11-19] MEDS: FUROSEMIDE 40 MG TAB PO SCH (08:10)
[2017-11-19] MEDS: HYDROcodone/APAP 5-325MG 1 EACH TAB PO PRN ×2 (08:11→15:33)
--- NOTE | 2017-11-19 08:20 | P.PN ---
Subjective Progress Note Date: 11/19/17 Principal diagnosis: CAD This is a pleasant 62-year-old gentleman who was admitted to the hospital with acute coronary event and acute non-ST elevation myocardial infarction. He underwent a heart catheterization and that revealed severe triple-vessel coronary artery disease. The echocardiogram showed severe cardiomyopathy. The patient underwent yesterday CABG 3 where he received HALE to LAD, SVG to diagonal, SVG to PDA. From the cardiovascular standpoint of view, he has done well. He continues to be on aspirin, metoprolol, lisinopril. The statin was stopped today because of elevated liver function tests yesterday and continues to be elevated today. The plan is for the patient to be discharged in the next 24 hours of life vest view of the severe cardiomyopathy. Objective - Vital Signs Vital signs: Vital Signs Temp 96.8 F L 11/19/17 07:47 Pulse 96 11/19/17 07:47 Resp 18 11/19/17 07:47 BP 104/67 11/19/17 07:47 Pulse Ox 100 11/19/17 07:47 Intake & Output 11/18/17 11/19/17 11/19/17 18:59 06:59 18:59 Intake Total 720 Output Total 400 325 Balance 320 -325 Weight 95.8 kg 95.5 kg Intake: Oral 720 Output: Urine 400 325 Stool 0 Other: Voiding Method Toilet Toilet # Voids 2 ABP, PAP, CO, CI - Last Documented Arterial Blood Pressure 57/51 Pulmonary Artery Pressure 32/20 Cardiac Output 5.2 Cardiac Index 2.2 - Constitutional General appearance: Present: no acute distress - Respiratory Respiratory: bilateral: CTA - Cardiovascular Rhythm: regular Heart sounds: normal: S1, S2 - Labs CBC & Chem 7: 11/19/17 05:36 11/19/17 05:36 Labs: Abnormal Lab Results - Last 24 Hours (Table) 11/18/17 11/18/17 11/19/17 Range/Units 16:47 20:42 05:36 Glucose 110 H (74-99) mg/dL POC Glucose (mg/dL) 129 H 113 H (75-99) mg/dL AST 137 H (17-59) U/L ALT 266 H (21-72) U/L 11/19/17 Range/Units 05:57 Glucose (74-99) mg/dL POC Glucose (mg/dL) 107 H (75-99) mg/dL AST (17-59) U/L ALT (21-72) U/L Assessment and Plan Assessment: Assessment #1 coronary artery disease and status post CABG as described above #2 severe cardiomyopathy #3 acute respiratory failure Plan #1 continue the current medical treatment was dual antiplatelet therapy as well as metoprolol and lisinopril #2 continue holding the statin in view of the continuous elevated liver function test
--- NOTE | 2017-11-19 08:50 | P.PN ---
Subjective Progress Note Date: 11/19/17 62-year-old male who presented to the emergency room after he was evaluated by his primary care physician, Dr. Couch, on an outpatient basis. Patient reports he saw his PCP on Saturday for a follow up for shortness of breath. The patient was recently diagnosed with tracheobronchitis and was prescribed Levaquin, prednisone, and DuoNeb treatments. His shortness of breath persisted. Patient also reported cough with positive sputum production. The patient's oxygen saturation was 93% on room air. The patient ambulated around the office and his oxygen saturations remained greater than 92%. A chest x-ray was completed at the office revealing cardiomegaly. The patient also reported bilateral lower extremity edema and an episode of chest pain on Saturday. An EKG was completed revealing old inferior and anterior wall MIs. A troponin was completed at the office and came back at 0.08. The patient was started on aspirin 81 mg daily, Lasix 20 mg daily, and lisinopril 5 mg daily at that time. He was not started on a beta keeley at that time as his heart rate was in the low 60s at Dr. Couch's office. The patient was advised to come to the emergency room for further evaluation. The patient has a history of chronic obstructive pulmonary disease. He reports smoking approximately 6 cigarettes per day. He also admits to the drinking 2-3 alcoholic beverages per day, which he states the amount has decreased and reports he used to drink heavier. Chest x-ray 11/05/2017: Cardiomegaly. There may be a component of pulmonary venous hypertension and early interstitial edema. Laboratory data: WBC 8.2. Hemoglobin 16.8. Platelet count 235. Sodium 142. Potassium 5.9. BUN 18. Creatinine 0.98. GFR 84. Glucose 94. BNP: 4560 Troponins: 0.061, 0.053, 0.057 Lipid panel: Triglycerides 99. Total cholesterol 157. LDL 101. HDL 36. The patient was admitted to the hospital under the care of Dr. Couch. Consultations were placed to cardiology. 11/07/2017 Patient evaluated this morning on rounds with Dr. Couch. Patient is awake and alert. Denies chest pain or pressure. Denies shortness of breath. The patient underwent cardiac catheterization yesterday revealing 90% stenosis of proximal LAD, 70-80% stenosis of circumflex artery, and totally occluded right coronary artery. cardiothoracic surgery has been consulted and evaluated the patient. The patient is scheduled for an off pump CABG on Saturday. Pre-operative testing is currently underway. Echocardiogram completed reveals severe global hypokinesis of the left ventricle, ejection fraction of 20-25%, trace mitral regurgitation, and trace tricuspid regurgitation. Carotid ultrasound was completed revealing 15-25% stenosis in both internal carotid arteries. The patient denies pain or discomfort. He is anxious regarding his upcoming surgery and concerned about his . He states she is 74 years old and has severe COPD and he has been her provider at home and has been caring for her. 11/08/2017 Patient seen and examined at the bedside on rounds with Dr. Couch. Patient is awake and alert. Patient denies chest pain or pressure. Denies shortness of breath. Patient is NPO and is scheduled for IABP insertion today per cardiology. Patient is scheduled to undergo off pump CABG tomorrow with Dr. Bullard. Patient remains on CIWA protocol. No signs of ETOH withdrawal this morning. Patient states he is voiding without difficulty. Reports + bowel movement. 11/09/2017-11/11/2017-Notes per Dr. Couch 11/12/2017 Patient seen and examined at the bedside. Patient underwent IABP on Saturday which has since been discontinued. Patient underwent CABG x 3 with with left internal mammary artery to LAD and reverse saphenous vein grafts to the first diagonal and posterior descending coronary arteries with endovascular vein harvest from the right greater saphenous vein by Dr. Bullard on Saturday. Chest tubes were discontinued on 11/11/2017. Patient was extubated yesterday. He remains on 10L high flow nasal cannula. Oxygen saturations greater than 92%. Patient is slightly tachycardic with a rate around 105. Blood pressure is stable with a last reading of 117/63. Patients insulin drip has been discontinued. He remains on Novolog sliding scale Q 4 hours as ordered by office workforce planner. Blood sugars 103-118. Magnesium is 1.5 this morning and is currently being supplemented. Patient was noted to be leaning to his right side this morning in the chair and was dragging his right foot per nursing. Patient did receive ativan this morning per CIWA protocol. His strength is equal bilaterally and he does not have any neuro deficits at this time. Speech is slightly garbled which may also be due to ativan. 11/13/2017 Patient seen and examined at the bedside on rounds with Dr. Couch. Patient is sitting up in the chair eating breakfast. Patient denies shortness of breath but he does report frequent coughing with sputum production. Sputum sample noted in the basin at the bedside is clear and thin. Chest xray from today is negative for acute process. Encouraged patient to splint incision while coughing and to use his heart hugger. Patient also encouraged to use his IS 10 times an hour. Nursing reports that patient still leans to the right side when he is sitting in the chair and has pillows propped up on his right side. Patients strength is essentially the same bilaterally, possibly a little stronger on the left, but the patient is also left handed. He is alert and oriented x 3 this morning and has no neuro deficits. Patient reports he had a bowel movement last night. Tolerating PO intake without nausea or vomiting. States pain is tolerable. 11/14/2017 Patient seen and examined at the bedside on rounds with Dr. Couch. Patient has been transferred out of the ICU to the selective care unit. Patient is currently sitting up in the chair. He is in good spirits but fairly anxious this morning. Denies chest pain or pressure. Patient states he is coughing frequently and is experiencing severe pain when he coughs. Patient was encouraged to use heart hugger and splint chest/abdomen with a pillow. Patient states he has been ambulating in the room without difficultly. He does report some constipation. 11/15/2017 Patient seen and examined at the bedside on rounds with Dr. Couch. Patient is awake and alert. Sitting up in the chair. Patient states he is still coughing frequently. Abdominal binder was placed yesterday which patient states is helping a little bit. Patient denies shortness of breath. Denies chest pain. Appetite is good. patient states he is anxious to be discharged to rehab. 11/16/2017-11/17/2017-Notes per Dr. Couch 11/18/2017 Patient seen and evaluated at the bedside on rounds with Dr. Couch. Patient is awake and alert. Sitting up in the bed. Eating breakfast. Patient denies shortness of breath or chest pain. AST and ALT remain elevated. Statin has been placed on hold. CBC is within normal limits. Patient is anxious to be discharged to rehab. 11/19/2017 Patient seen and evaluated at the bedside on rounds with Dr. Couch. Patient denies shortness of breath. Denies chest pain. Vital signs remain stable. LFTs remain elevated. Statin is on hold. Patients insurance has denied inpatient rehab after peer to peer review was completed. Patient is refusing ECF at this time. Discharge plan includes home with home care and PT. Patient likely to be discharged home today. Awaiting life vest. Objective - Vital Signs Vital signs: Vital Signs Temp 96.8 F L 11/19/17 07:47 Pulse 96 11/19/17 07:47 Resp 18 11/19/17 07:47 BP 104/67 11/19/17 07:47 Pulse Ox 100 11/19/17 07:47 Intake & Output 11/18/17 11/19/17 11/19/17 18:59 06:59 18:59 Intake Total 720 180 Output Total 400 325 Balance 320 -325 180 Weight 95.8 kg 95.5 kg Intake: Oral 720 180 Output: Urine 400 325 Stool 0 Other: Voiding Method Toilet Toilet # Voids 2 ABP, PAP, CO, CI - Last Documented Arterial Blood Pressure 57/51 Pulmonary Artery Pressure 32/20 Cardiac Output 5.2 Cardiac Index 2.2 - Exam GENERAL: This is a 62-year-old male in no apparent distress at the time of examination. HEENT: Head is atraumatic, normocephalic. Pupils are equal, round, and reactive to light. Sclerae anicteric. Conjunctivae are clear. Mucus membranes of the mouth are moist. Neck is supple. RESPIRATORY: Clear to ausculation. No wheezes, rales, or rhonchi. No use of accessory muscles. Patient maintaining oxygen saturation greater than 92%. No chest wall tenderness is noted on palpation or with deep breathing. CARDIOVASCULAR: Surgical site clean and dry. No drainage noted. Heart hugger in place. Regular rate and rhythm. S1 and S2 noted. No systolic or diastolic murmur auscultated. No JVD noted. No S3 or S4 noted. Right carotid bruit auscultated. GASTROINTESTINAL: No distention noted. Abdomen soft and round. Bowel sounds auscultated x 4 quadrants. No pain or tenderness noted upon palpation. INTEGUMENTARY: No cyanosis. No jaundice. No rashes noted. No cellulitis noted. EXTREMITIES: 2+ peripheral pulses. No edema noted. No calf tenderness noted. NEUROLOGIC: Cranial nerves II-XII intact. PSYCHIATRIC: Awake, alert, and oriented X 3. Pleasant and cooperative. - Labs CBC & Chem 7: 11/19/17 05:36 11/19/17 05:36 Labs: Abnormal Lab Results - Last 24 Hours (Table) 11/18/17 11/18/17 11/19/17 Range/Units 16:47 20:42 05:36 Glucose 110 H (74-99) mg/dL POC Glucose (mg/dL) 129 H 113 H (75-99) mg/dL AST 137 H (17-59) U/L ALT 266 H (21-72) U/L 11/19/17 Range/Units 05:57 Glucose (74-99) mg/dL POC Glucose (mg/dL) 107 H (75-99) mg/dL AST (17-59) U/L ALT (21-72) U/L Assessment and Plan Plan: ASSESSMENT: 1. Acute non-ST elevated myocardial infarction, troponins 0.061, 0.053, 0.057 s/ p cardiac catherization revealing severe triple vessel disease 2. S/P intra-aortic ballon pump insertion, since discontinued 3. S/P off pump CABG x 3 with with left internal mammary artery to LAD and reverse saphenous vein grafts to the first diagonal and posterior descending coronary arteries with endovascular vein harvest from the right greater saphenous vein 4. Acute hypoxic respiratory failure, prolonged mechanical ventilation, an expected outcome of surgery given the patient's extensive tobacco and alcohol dependence with a recent history of tracheobronchitis, since extubated 5. Ischemic cardiomyopathy 6. Chronic obstructive pulmonary disease, no evidence of acute exacerbation 7. Recent diagnosis of tracheobronchitis, treated with Levaquin and prednisone outpatient 8. Nicotine dependence, patient is a current cigarette smoker 9. Daily alcohol use 10. Obesity: BMI 33.8 11. Hyperkalemia, resolved 12. Hypomagnesemia, resolved 13. Purulent tracheobronchitis, sputum culture with normal respiratory fior PLAN: Continue post operative management per cardiothoracic surgery Continue thiamine, multivitamin, and folic acid Continue xanax 0.25mg Q8 hours PRN for anxiety Pain control Activity as tolerated Incentive spirometer 10 times an hour while awake Continue novolog sliding scale AC/HS Home meds as appropriate Monitor labs GI/DVT prophylaxis Monitor vital signs and address as appropriate Further recommendations pending patient's course Anticipate discharge home today with home care and PT. Awaiting life vest Dr. Couch would like to see the patient in his office on 11/22/2017 Nurse practitioner note has been reviewed by physician. Signing provider agrees with the documented findings, assessment, and plan of care.
[2017-11-19] MEDS: LACTOBACILLUS ACIDOPH & BULGAR 1 EACH PACKET PO SCH ×4 (09:18→19:58)
[2017-11-19] MEDS: BUDESONIDE 1 MG/2 ML NEBU INHALATION SCH ×2 (09:34→21:13)
[2017-11-19] MEDS: IPRATROPIUM-ALBUTEROL 3 ML NEB INHALATION SCH ×4 (09:34→21:13)
[2017-11-19 11:27] LABS: Glucose,Whole Blood 112 mg/dL (75-99)
[2017-11-19] MEDS: MULTIVITAMINS, THERA 1 EACH TAB PO SCH (11:32)
[2017-11-19] MEDS: FOLIC ACID 1 MG TAB PO SCH (11:32)
[2017-11-19] MEDS: LISINOPRIL 2.5 MG TAB PO SCH (11:32)
[2017-11-19] MEDS: THIAMINE 100 MG TAB PO SCH (11:32)
--- NOTE | 2017-11-19 13:10 | P.PN ---
Subjective Progress Note Date: 11/19/17 Principal diagnosis: Status post CABG 3, DT Acute systolic heart failure, acute myocardial infarction, pulmonary edema related to above, diffuse coronary artery disease, baseline COPD and recent tracheobronchitis 11/19/2017, patient seen eval reexamined during the rounds a cough shortness of breath slightly stable and improved breathing is stable no more significant discharge present from sternal, cardiothoracic surgery is following closely, patient is being evaluated for placement in rehabilitation, patient likely will be discharged home as he has refused ECF placement 11/18/2017, patient seen eval examined during the rounds patient has been ambulating but the there is consideration of placement to ECF 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 cardiothoracic surgery is following no significant discharge has been noted from the sternal wound breathing pattern is overall stable intermittent cough without any production of sputum is noted patient able to ambulate fairly well post ambulation saturation is 92% labs reviewed medications reviewed x-ray and radiographic studies reviewed, chest x-ray continued to improve progressively 11/17/2017, patient seen eval examined during the rounds his the respiratory pattern is improved patient has been walking in the hallway cuff congestion shortness breath is improved this some blood-tinged discharge intermittently noted at the lower sternal area cardiothoracic surgery is following, cough is is stable and significantly improved denies any sputum production cultures and sputum studies has been negative 11/16/2017, patient seen eval reexamined during the rounds care plan discussed the primary service patient is being planned for possible discharge later on today respiratory status overall is stable antibiotics are being changed to oral agree with discharge planning with follow-up in outpatient setting 11/15/2017, patient seen eval reexamined during the rounds clinically doing well awake and alert breathing comfortably his cuff congestion is better the bleeding that has been noted and lower part of the sternum has improved significantly graft harvest site from the leg are stable healing fairly well, physical therapy at bedside patient is being taken out of the chair and being ambulated with support his severity or shortness breath has improved significantly he is on 2 L oxygen now Ammann sputum for Gram stain reviewed no organism has been identified few WBCs are seen my last chest x-ray performed earlier this wanted reviewed and compared with the prior x-ray some basilar atelectasis seen predominantly on the left side otherwise fairly unremarkable with some prominent interstitium 11/14/2017, patient seen eval examined during the rounds patient has removed the ICU to stepdown unit chest tubes as well as a right-sided [place] introducer has been removed to no significant bleeding has been noted on the site dressing in the lower sternal area has been changed couple times patient does have cough with associated with thick tenacious sputum production culture results and reports from the sputum are pending patient is on breathing treatments antibiotics 11/13/2017, patient seen eval reexamined during the rounds he is slightly more awake the hallucination that was noted previously has improved patient however lately has been coughing a lot thick tenacious his sputum present with light yellow in appearance a sample is being sent for Gram stain and culture patient has a small leakage from central Cordis catheter area as well as the distal part of the thoracotomy site local measures have been applied patient also has significant diarrhea for which stool has been sent for C. diff, overall hemodynamic status stable, his chest x-ray from today reviewed and compared with the prior x-ray 11/12/2017, patient seen eval examined during the rounds he is sitting upright on the chair he is eating his lunch patient is oriented 1 he has significant hallucination which are perceptive as well as visual, patient did receive Ativan late last night around midnight then another dose earlier this morning at 6 patient has been falling asleep with food in his mouth this morning however slightly more awake during conversation he is breathing appropriately slightly tachypneic otherwise hemodynamic status stable, patient remains on 8 L oxygen saturation are 93%, [place] catheter and chest tubes have been removed , chest x-ray from today has been reviewed and compared with the prior x-ray right lower lobe subsegmental atelectasis slightly better with improved aviation medications reviewed laboratory data reviewed 11/11/2017, patient seen eval reexamined during the rounds clinically doing well has been placed on CPAP 5 and pressure support of 5 and arterial blood gases done weaning parameters reviewed patient is a relatively more awake and alert propofol drip has been discontinued patient opens eyes follow simple commands with fairly stable weaning parameters we'll proceed with extubation, critical care time spent 35 minutes 11/10/2017, patient seen eval examined during the rounds clinically patient is doing well but remains on full respirator support remains hypoxic when setting includes assist control rate of 10 breathing about 12-14 tidal volume is 755 of PEEP and on 60% oxygen patient has a [place] catheter PA pressure 42/21 he remains on 2.5 mics of dopamine drip also on propofol 25 mics his urine output is fairly adequate making about 40-60 mL/h of urine attempted patient on CPAP but has been unsuccessful given that low oxygenation patient is not really aware ready for weaning extubation today we'll keep on titrating oxygen down and follow clinical course closely 11/08/2017, patient seen eval reexamined during the rounds care plan discussed with RN at length patient is status post intra-aortic balloon pump for severe degree of cardiomyopathy and ischemic heart disease with diffuse coronary artery disease patient is currently on 1 is 21 patient with the map over 60-70 current map noted to be 80 with a systolic blood pressure 100 and diastolic of 63. 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 patient is being monitor observe as per CV a protocol overalls plan is if patient decompensated from Estrace standpoint and or become anxious and agitated and will be intubated S patient needs to stay flat on the bed related to his ongoing aortic balloon pump augmentation, his labs and x-rays are reviewed from today, PFTs reviewed, x-ray suggestive of the COPD-like changes noted acute pathology has been noted, the PFT suggestive of mild to moderate obstructive disease, white cell count is elevated with very high hemoglobin count which appears to be likely related to polycythemia related to COPD and chronic intermittent hypoxia , renal functions are stable patient is making were 50 to 60 mL an hour urine, his urine culture is negative nasal swab are negative for MRSA or MSSA 11/07/2017, patient seen and evaluated examined during the rounds is still short of breath has intermittent dry nonproductive cough but severity has improved he has been on breathing treatment he has been on deep breathing exercises incentive spirometry as well, patient will undergo preop spirometry later on today, patient has been evaluated by cardiothoracic surgery operative workup is in progress 62-year-old male who appears older then the stated age he has not been feeling well for the last several weeks has been going on has been having ongoing shortness of breath and cough he was treated with oral antibiotics breathing treatments and prednisone her outpatient basis without significant relief. Patient also has a history of on-call consumption almost on a daily basis usually consume 2-3 cans of beer daily. patient recently was evaluated in primary care office found to have a elevated troponin and abnormal EKG was sent over here for further evaluation patient continued to complain of cough congestion and shortness of breath has occasional intermittent vague chest pain as well, overall patient is a poor historian not much data can be obtained from him, on arrival to emergency department he was found to have very high BNP of over 4000 and troponin were consistently elevated cardiovascular services following at the time of evaluation patient is a about to undergo an echocardiogram as well, later on findings are reviewed his ejection fraction only 20-25%, diffuse coronary artery disease was noted as well on emergent cath and angiogram, LAD shows 90% stenosis in proximal part, 70-80% stenosis noted in circumflex, right coronary artery is totally occluded in proximal part given patient has diffuse triple-vessel coronary artery disease ischemic cardiomyopathy patient is likely evaluated by cardiothoracic surgery Objective - Vital Signs Vital signs: Vital Signs Temp 96.5 F L 11/19/17 12:00 Pulse 66 11/19/17 12:00 Resp 18 11/19/17 12:00 BP 121/80 11/19/17 12:00 Pulse Ox 98 11/19/17 12:00 Intake & Output 11/18/17 11/19/17 11/19/17 18:59 06:59 18:59 Intake Total 720 180 Output Total 400 325 Balance 320 -325 180 Weight 95.8 kg 95.5 kg Intake: Oral 720 180 Output: Urine 400 325 Stool 0 Other: Voiding Method Toilet Toilet # Voids 2 ABP, PAP, CO, CI - Last Documented Arterial Blood Pressure 57/51 Pulmonary Artery Pressure 32/20 Cardiac Output 5.2 Cardiac Index 2.2 - Exam Patient seen and evaluated examined in the ICU he is somnolent but arousable GENERAL: Overall no apparent distress at the time of examination. Pleasant , calm and cooperative. Somewhat somnolent though HEENT: Head is atraumatic, normocephalic. Pupils are equal, round, and reactive to light. Sclerae anicteric. Conjunctivae are clear. Mucus membranes of the mouth are moist. Neck is supple. RESPIRATORY: Decreased air entry at the bases otherwise Clear to ausculation . The incisions are healing well , No use of accessory muscles. Patient maintaining oxygen saturation greater than 92%. CARDIOVASCULAR: Regular rate and rhythm. S1 and S2 noted. No systolic or diastolic murmur auscultated. No JVD noted. No S3 or S4 noted. Right carotid bruit auscultated. GASTROINTESTINAL: No distention noted. Abdomen soft and round. Normal active bowel sounds auscultated x 4 quadrants. No pain or tenderness noted upon palpation. Aortic balloon pump in the groin on the left side INTEGUMENTARY: No cyanosis. No jaundice. No rashes noted. No cellulitis noted. EXTREMITIES: 2+ peripheral pulses. 1+ bilateral lower extremity edema. No calf tenderness noted. NEUROLOGIC: Cranial nerves II-XII intact. Overall neurological examination is within normal limit, no tremors or shakiness however otherwise noted PSYCHIATRIC: Sleeping somnolent but on arousable he is Awake, alert, and oriented X 1-3. Appropriate affect. Intact judgement and insight. - Labs CBC & Chem 7: 11/19/17 05:36 11/19/17 05:36 Labs: Abnormal Lab Results - Last 24 Hours (Table) 11/18/17 11/18/17 11/19/17 Range/Units 16:47 20:42 05:36 Glucose 110 H (74-99) mg/dL POC Glucose (mg/dL) 129 H 113 H (75-99) mg/dL AST 137 H (17-59) U/L ALT 266 H (21-72) U/L 11/19/17 11/19/17 Range/Units 05:57 11:25 Glucose (74-99) mg/dL POC Glucose (mg/dL) 107 H 112 H (75-99) mg/dL AST (17-59) U/L ALT (21-72) U/L Assessment and Plan Assessment: Severe degree of ischemic cardiomyopathy with acute systolic heart failure Acute COPD exacerbation Diffuse triple-vessel coronary artery disease with ejection fraction only 20% my status post CABG 3 Significant and intractable coughing or shortness of breath with thick purulent sputum production likely developing purulent tracheobronchitis and/pneumonia, follow-up on sputum culture results and reports, overall symptoms have improved will continue current therapy for now Loose stool diarrhea, improved significantly Auditory and perceptual hallucination likely patient is in DTs, improved significantly Acute non-ST segment elevated [place] Likely severe COPD with chronic bronchitis Plan: Monitor and observe on oral antibiotics fairly well, increase activity as tolerated Optimize cardiac therapy as planned, Breathing treatment with nebulizer as tolerated Afterload reducing agent and preload reduction with KIERA inhibitor's and diuretics Reviewed pulmonary function testing as well, further recommendations pending plan of care as per clinical response of the patient, patient would need evaluation follow up on outpatient setting Patient is status post coronary artery bypass surgery Breathing treatment with nebulizer as tolerated DVT and peptic ulcer disease prophylaxis Time with Patient: Greater than 30
[2017-11-19 16:58] LABS: Glucose,Whole Blood 121 mg/dL (75-99)
[2017-11-19] MEDS: LIDOCAINE 5% PATCH TOPICAL SCH (19:54)
[2017-11-19] MEDS: SENNOSIDES-DOCUSATE SODIUM 1 EACH TAB PO SCH (19:58)
[2017-11-19 20:45] LABS: Glucose,Whole Blood 118 mg/dL (75-99)
[2017-11-20 01:58] VITALS: RESP 18
[2017-11-20 06:02] LABS: Glucose,Whole Blood 115 mg/dL (75-99)
[2017-11-20] MEDS: INSULIN ASPART 100 UNIT/ML 1 ML 10 ML VIAL SQ SCH ×2 (06:39→11:40)
[2017-11-20] MEDS: PANTOPRAZOLE 40 MG TABLET PO SCH (06:40)
[2017-11-20] MEDS: MUPIROCIN 2% OINT 22 GM TUBE NASAL SCH (07:31)
[2017-11-20] MEDS: BUDESONIDE 1 MG/2 ML NEBU INHALATION SCH (07:35)
[2017-11-20] MEDS: IPRATROPIUM-ALBUTEROL 3 ML NEB INHALATION SCH ×3 (07:35→15:34)
[2017-11-20] MEDS: METOPROLOL TARTRATE 50 MG TAB PO SCH (08:01)
[2017-11-20] MEDS: FUROSEMIDE 40 MG TAB PO SCH (08:01)
[2017-11-20] MEDS: SPIRONOLACTONE 25 MG TAB PO SCH (08:02)
[2017-11-20] MEDS: HEPARIN SODIUM,PORCINE 5,000 UNIT/ML 1 ML VIAL SQ SCH (08:02)
[2017-11-20] MEDS: ASPIRIN 325 MG TAB PO SCH (08:02)
[2017-11-20] MEDS: CEFUROXIME 250 MG TAB PO SCH (08:02)
[2017-11-20] MEDS: LACTOBACILLUS ACIDOPH & BULGAR 1 EACH PACKET PO SCH ×2 (08:02→14:48)
[2017-11-20] MEDS: CLOPIDOGREL 75 MG TAB PO SCH (08:02)
[2017-11-20] MEDS: HYDROcodone/APAP 5-325MG 1 EACH TAB PO PRN (08:03)
--- NOTE | 2017-11-20 08:28 | P.PN ---
Subjective Progress Note Date: 11/20/17 Principal diagnosis: Severe triple-vessel coronary artery disease, NSTEMI, acute on chronic systolic left heart failure, ischemic cardiomyopathy with severe left ventricular systolic dysfunction with an ejection fraction of 20%. History of hypertension, COPD with pre-operative FEV1 74% of predicted post bronchodilator, current nicotine abuse, EtOH abuse, recent tracheobronchitis with antibiotic and steroid therapy. Family history of premature coronary artery disease with a brother diagnosed at 46 years old. History of dyslipidemia. Occasional use of home oxygen as patient was using his 's home oxygen. POD #12 placement of intra-aortic balloon pump by cardiology. POD #11 urgent off-pump coronary artery bypass grafting 3 with left internal mammary artery to LAD and reverse saphenous vein grafts to the first diagonal and posterior descending coronary arteries with endovascular vein harvest from the right greater saphenous vein. Intraoperative transesophageal echocardiogram by anesthesia. Acute hypoxic respiratory failure, prolonged mechanical ventilation, an expected outcome of surgery given the patient's extensive tobacco and alcohol dependence with a recent history of tracheobronchitis. Patient's currently ambulating in his room in no acute distress. Denies pain, shortness of breath. Alert and oriented. He is prepared to go home with home care today. No new complaints. Still needs to be fitted for his Life Vest, insurance refusing to pay for LifeVest. We are actively seeking outside funds to pay for patient's LifeVest. Objective - Vital Signs Vital signs: Vital Signs Temp 97.0 F L 11/20/17 04:00 Pulse 92 11/20/17 07:36 Resp 18 11/20/17 04:00 BP 108/59 11/20/17 04:00 Pulse Ox 94 L 11/20/17 04:00 Intake & Output 11/19/17 11/20/17 11/20/17 18:59 06:59 18:59 Intake Total 600 Balance 600 Weight 92.9 kg Intake: IV 0 0.9 0 Oral 600 Other: Voiding Method Toilet Urinal # Voids 2 ABP, PAP, CO, CI - Last Documented Arterial Blood Pressure 57/51 Pulmonary Artery Pressure 32/20 Cardiac Output 5.2 Cardiac Index 2.2 - Constitutional General appearance: Present: cooperative, no acute distress - Respiratory Details: Lungs sounds diminished bilaterally. Respirations even, nonlabored. Currently on room air with oxygen saturation 94%. Able to achieve 2500 mL on his incentive spirometry. Productive cough with thick yellow sputum. - Cardiovascular Details: S1, S2 present. Regular rate and rhythm, sinus rhythm on telemetry. Sternum stable. Palpable peripheral pulses bilaterally. No edema present. No calf pain or tenderness noted. Heart hugger in place with patient demonstrating appropriate use. Antiembolism stockings, SCDs present. - Gastrointestinal Gastrointestinal Comment(s): Abdomen soft, nontender, nondistended. Active bowel sounds 4 quadrants. Tolerating diet. Positive bowel movement.. - Genitourinary Genitourinary Comment(s): Voiding clear yellow urine. - Integumentary Integumentary Comment(s): Skin is warm and dry with evidence of good perfusion. Anterior chest incision well approximated, covered with intact dressing. At the distal end of his incision there is no more blood pooling, abdominal binder discontinued. Right lower extremity EVH site well approximated. - Neurologic Neurologic: Present: CNII-XII intact - Musculoskeletal Musculoskeletal: Present: gait normal, strength equal bilaterally - Psychiatric Psychiatric: Present: A&O x's 3, appropriate affect, intact judgment & insight - Allied health notes Allied health notes reviewed: nursing - Labs CBC & Chem 7: 11/19/17 05:36 11/19/17 05:36 Labs: Abnormal Lab Results - Last 24 Hours (Table) 11/19/17 11/19/17 11/19/17 Range/Units 11:25 16:54 20:44 POC Glucose (mg/dL) 112 H 121 H 118 H (75-99) mg/dL 11/20/17 Range/Units 06:00 POC Glucose (mg/dL) 115 H (75-99) mg/dL Assessment and Plan (1) Tobacco dependence Current Visit: Yes Status: Chronic Code(s): F17.200 - NICOTINE DEPENDENCE, UNSPECIFIED, UNCOMPLICATED SNOMED Code(s): 75288650 (2) Alcohol abuse Current Visit: Yes Status: Chronic Code(s): F10.10 - ALCOHOL ABUSE, UNCOMPLICATED SNOMED Code(s): 61789827 (3) Acute non-ST segment elevation myocardial infarction Current Visit: Yes Status: Acute Code(s): I21.4 - NON-ST ELEVATION (NSTEMI) MYOCARDIAL INFARCTION SNOMED Code(s): 120880162 (4) COPD (chronic obstructive pulmonary disease) Current Visit: Yes Status: Chronic Code(s): J44.9 - CHRONIC OBSTRUCTIVE PULMONARY DISEASE, UNSPECIFIED SNOMED Code(s): 73055607 (5) Coronary artery disease Current Visit: Yes Status: Chronic Code(s): I25.10 - ATHSCL HEART DISEASE OF [place] CORONARY ARTERY W/O ANG PCTRS SNOMED Code(s): 37190832 (6) Hypertension Current Visit: Yes Status: Chronic Code(s): I10 - ESSENTIAL (PRIMARY) HYPERTENSION SNOMED Code(s): 26461722 (7) Ischemic cardiomyopathy Current Visit: Yes Status: Chronic Code(s): I25.5 - ISCHEMIC CARDIOMYOPATHY SNOMED Code(s): 280894072 Plan: 1. Continue aspirin, Plavix, heparin, lisinopril, beta keeley. Continue to hold statin secondary to elevated liver enzymes, to be reevaluated as an outpatient. 2. Encourage incentive spirometry use 10 times per hour while awake. Reinforce smoking cessation. 3. Continue oral Lasix, Aldactone. 4. Continue ceftin for possible tracheobronchitis per pulmonary. Sputum culture negative for organisms. 5. Increase activity, ambulate in hallway. PT/OT/cardiac rehab following. 6. GI/DVT prophylaxis. 7. Xanax added by primary for increased anxiety. Continue folic acid, thiamine , multivitamin 8. Diabetic management per primary care service. 9. Will monitor daily labs and x-rays. 10. Ejection fraction post surgery 20-25% with severe cardiomyopathy per echocardiogram. Patient needs LifeVest at discharge. 11. Discharge planning in progress. Anticipate discharge later today once patient has a LifeVest in place. Actively seeking funds to pay for patient's LifeVest as insurance refuses to pay. Time with Patient: Greater than 30
[2017-11-20 08:36] VITALS: BP 118/60; TEMP 98.2
--- NOTE | 2017-11-20 09:22 | P.DS ---
Providers Date of admission: 11/05/17 17:44 Expected date of discharge: 11/20/17 Attending physician: Lee Bullard Consults: 11/05/17 17:44 Consult Physician Stat Consulting Provider: Jacob Simon Consult Reason/Comments: copd,tobacco for >45 years Do you want consulting provider notified?: Yes Consult Physician Urgent Consulting Provider: Ceci Silva Consult Reason/Comments: cad Do you want consulting provider notified?: Yes 11/06/17 12:31 Consult to Anesthesia Routine Consulting Provider: Anesthesia,Services Consult Reason/Comments: Cardiac Surgery Pre-Op 11/09/17 12:26 Consult Physician Routine Consulting Provider: Danny Couch Consult Reason/Comments: medical management Do you want consulting provider notified?: Already Contacted 11/12/17 09:32 Consult Physician Routine Consulting Provider: Mike Gonzalez Consult Reason/Comments: inpatient rehab Do you want consulting provider notified?: Yes Primary care physician: Danny Couch - Discharge Diagnosis(es) (1) Tobacco dependence Current Visit: Yes Status: Chronic (2) Alcohol abuse Current Visit: Yes Status: Chronic (3) Acute non-ST segment elevation myocardial infarction Current Visit: Yes Status: Acute (4) COPD (chronic obstructive pulmonary disease) Current Visit: Yes Status: Chronic (5) Coronary artery disease Current Visit: Yes Status: Chronic (6) Hypertension Current Visit: Yes Status: Chronic (7) Ischemic cardiomyopathy Current Visit: Yes Status: Chronic Hospital Course: FINAL DIAGNOSIS: 1. Severe triple-vessel coronary artery disease, non-STEMI 2. Acute on chronic systolic left heart failure 3. Ischemic cardiomyopathy with severe left ventricular systolic dysfunction with an ejection fraction of 20% 4. History of hypertension 5. History of COPD with a preoperative FEV1 of 74% of predicted post bronchodilator 6. Current nicotine abuse 7. Current EtOH abuse 8. Recent tracheobronchitis with antibiotic and steroid therapy 9. Family history of premature coronary artery disease 10. History of dyslipidemia 11. Acute hypoxic respiratory failure, prolonged mechanical ventilation, and expected outcome of surgery given the patient's extensive tobacco and alcohol dependence with a recent history of tracheobronchitis PRINCIPAL PROCEDURE: 1. Left heart catheterization 2. Placement of intra-aortic balloon pump by cardiology 3. Urgent off pump coronary artery bypass grafting 3 with left internal mammary artery to left anterior descending artery and reverse saphenous vein grafts to the first diagonal and posterior descending coronary arteries with endovascular vein harvest from the right greater saphenous vein 4. Intraoperative transesophageal echocardiogram by anesthesia HISTORY OF PRESENT ILLNESS: This is a 62-year-old gentleman with recent designation of Dr. Couch as his primary care physician. He presented to his primary care physician's office for routine physical exam with complaints of progressive shortness of breath, episodes of left arm pain and numbness, and swelling to his legs. He also reported using his 's oxygen at home. He was treated for tracheobronchitis with steroids and antibiotics, without resolution of his symptoms, and subsequently was recommended to present to the emergency room where he was evaluated by Dr. Brody from [facility]. A 2-D echo was performed demonstrating left ventricular systolic function to be severely impaired with an ejection fraction between 20-25%, trace mitral valve regurgitation, and trace tricuspid valve regurgitation. He did have a slight elevation in his troponin level and was ruled in for non-STEMI. He was recommended to undergo cardiac catheterization which demonstrated 90% stenosis of his proximal left anterior descending coronary artery, 70-80% stenosis to circumflex coronary artery with some collateral to the right coronary system, and a totally occluded RCA. Cardiothoracic surgery was consulted for the possibility of surgical revascularization. An extensive discussion was had with the patient and his family, risks and benefits were explained, and consent was obtained to proceed with surgery. Due to his severe left ventricular systolic dysfunction an intra-aortic balloon pump was placed preoperatively. HOSPITAL COURSE: On 11/09/2017 the patient was taken to the preoperative area, prepared in usual fashion, and subsequently taken to the operating room where Dr. Bullard performed and urgent off-pump coronary artery bypass grafting 3 with left internal mammary artery to left anterior descending artery and reverse saphenous vein grafts to the first diagonal and posterior descending coronary arteries with endovascular vein harvest from the right greater saphenous vein, and intraoperative transesophageal echocardiogram by anesthesia. Upon completion of surgery the patient was transferred to the cardiovascular intensive care unit where he was recovered, monitored hemodynamically, and where he progressed to cardiac rehabilitation phase 1. The intra-aortic balloon pump was discontinued on postoperative day #1. He did experience prolonged mechanical ventilation secondary to his extensive tobacco dependence and recent history of tracheobronchitis. Eventually he was extubated , all lines, tubes, and drips were discontinued when appropriate and he was transferred to [address] [place] [address] for further monitoring and rehabilitation. His oxygen was titrated down, he continued to work with physical therapy, and he was ready to be discharged to inpatient rehab on postoperative day #11. A follow-up limited echocardiogram did demonstrate that his ejection stat fraction was still 20-25%, and a LifeVest was ordered to be worn in case of occurrence of ventricular fibrillation or ventricular tachycardia. He received written and verbal instruction regarding his medications, activity restrictions , signs and symptoms requiring physician notification, and follow-up appointments. COMPLICATIONS: The patient experienced postoperative acute hypoxic respiratory failure and prolonged mechanical ventilation, both expected outcomes of surgery given the patient's history. Patient Condition at Discharge: Stable Plan - Discharge Summary Discharge Rx Participant: No New Discharge Prescriptions: New Cefuroxime [Ceftin] 250 mg PO BID 4 Days #8 tab Clopidogrel [Plavix] 75 mg PO DAILY #30 tab Folic Acid 1 mg PO DAILY@1200 #30 tab Furosemide [Lasix] 40 mg PO DAILY #30 tab HYDROcodone/APAP 5-325MG [[place] 5-325] 1 - 2 each PO Q6HR PRN #60 tab PRN Reason: Moderate Pain Metoprolol Tartrate [Lopressor] 50 mg PO BID #60 tab Multivitamins, Thera [Multivitamin (formulary)] 1 each PO DAILY@1200 #30 tab Pantoprazole [Protonix] 40 mg PO AC-BRKFST #30 tablet.dr Meyer-Docusate Sodium [Senokot-S] 1 each PO HS #30 tab Spironolactone [Aldactone] 12.5 mg PO DAILY #30 tab Thiamine [Vitamin B-1] 100 mg PO DAILY@1200 #30 tab Continue Aspirin 81 mg PO DAILY Ipratropium-Albuterol Nebulize [Duoneb 0.5 mg-3 mg/3 ml Soln] 3 ml INHALATION RT-Q6H PRN PRN Reason: sob Changed Lisinopril [Prinivil] 2.5 mg PO DAILY #0 Discontinued Furosemide [Lasix] 20 mg PO DAILY Discharge Medication List Aspirin 81 mg PO DAILY 11/05/17 [History] Ipratropium-Albuterol Nebulize [Duoneb 0.5 mg-3 mg/3 ml Soln] 3 ml INHALATION RT -Q6H PRN 11/05/17 [History] Cefuroxime [Ceftin] 250 mg PO BID 4 Days #8 tab 11/19/17 [Rx] Clopidogrel [Plavix] 75 mg PO DAILY #30 tab 11/19/17 [Rx] Folic Acid 1 mg PO DAILY@1200 #30 tab 11/19/17 [Rx] Furosemide [Lasix] 40 mg PO DAILY #30 tab 11/19/17 [Rx] HYDROcodone/APAP 5-325MG [[place] 5-325] 1 - 2 each PO Q6HR PRN #60 tab 11/19/17 [ Rx] Lisinopril [Prinivil] 2.5 mg PO DAILY #0 11/19/17 [Rx] Metoprolol Tartrate [Lopressor] 50 mg PO BID #60 tab 11/19/17 [Rx] Multivitamins, Thera [Multivitamin (formulary)] 1 each PO DAILY@1200 #30 tab 05/29 [Rx] Pantoprazole [Protonix] 40 mg PO AC-BRKFST #30 tablet.dr 11/19/17 [Rx] Sennosides-Docusate Sodium [Senokot-S] 1 each PO HS #30 tab 11/19/17 [Rx] Spironolactone [Aldactone] 12.5 mg PO DAILY #30 tab 11/19/17 [Rx] Thiamine [Vitamin B-1] 100 mg PO DAILY@1200 #30 tab 11/19/17 [Rx] Follow up Appointment(s)/Referral(s): Elicia Anderson NPC [Nurse Practitioner] - 11/26/17 10:00 am Lee Bullard MD [STAFF PHYSICIAN] - 12/05/17 1:30 pm [facility], [NON-STAFF] - Danny Couch MD [Primary Care Provider] - 11/22/17 11:45 am Jacob Simon MD [STAFF PHYSICIAN] - 11/26/17 10:45 am Jerry Brody MD [STAFF PHYSICIAN] - 11/28/17 3:30 pm Ambulatory/Diagnostic Orders: Complete Blood Count w/diff [LAB.AMB] Time Frame: 3 Days, Location: Determined By Patient Comprehensive Metabolic Panel [LAB.AMB] Time Frame: 3 Days, Location: Determined By Patient Patient Instructions/Handouts: Sternal Precautions (GEN), Coronary Artery Bypass Graft (DC), Wearable Cardioverter Defibrillator (DC) Activity/Diet/Wound Care/Special Instructions: DISCHARGE INSTRUCTIONS: 1. No driving for 4 weeks, or until physician gives their ok. 2. The patient should sleep in their own bed, no medical bed needed. 3. Stairs are not an issue. If the bedroom is upstairs, it is advised that the patient go up at night and down in the morning for the first week. Go slowly, using handrail and take 1 step at a time. 4. NEELAM hose are to be worn for 30 days or until physician discontinues. 5. Heart hugger is to be worn 100% of the time until physician discontinues.( except when showering) 6. No lifting, pushing, or pulling more than 10 pounds for 12 weeks. The physician will advise of any restriction changes. 7. The patient is expected to continue the prescribed walking program. 8. Continue pain control per as needed orders. 9. Continue with incentive spirometry and splinting/heart hugger until otherwise directed by the physician. 10. Must shower daily using liquid antibacterial soap and a separate white washcloth for each individual incision. 11. Routine sternal incision care. No powders, lotions, ointments on incisions. 12. Please call surgeon/SOFTWARE RELEASE MANAGER for temp greater than 101 F or purulent drainage from incisions. 13. All prescriptions given by surgeon for 30 days. Refills need to be filled through agricultural equipment salesperson/primary care physician. HOME HEALTH SERVICES TO PROVIDE: RN SKILLED HOME CARE SERVICES FOR POST-OP SURGICAL PATIENTS WITH THE FOLLOWING: Coronary Artery Bypass Surgery (CABG), Mitral Valve Replacement/ Repair ( MVR), Aortic Valve Replacement/Repair (AVR) RN TO CONTINUE EDUCATION FROM ``ROAD TO A HEALTH HEART PATIENT EDUCATION MANUAL (GIVEN TO PATIENT IN THE HOSPITAL) MEDICATION RECONCILIATION WITH EDUCATION NEEDED ON FIRST HOME VISIT EMPHASIZE IMPORTANCE OF WEARING BREAST SUPPORT/HEART HUGGER ENCOURAGE USE OF INCENTIVE SPIROMETER 10 X EVERY HOUR WHILE AWAKE ENCOURAGE UTILIZATION OF LOWER EXTREMITY COMPRESSION STOCKINGS/NEELAM HOSE and ELEVATE LEGS ABOVE LEVEL OF HEART WHILE AT REST. ENCOURAGE AMBULATION 3-5x/day INCREASING TOLERATES, WHILE AVOID EXTREMES IN TEMPERATURE FREQUENCY: RN TO OPEN THE PATIENT WITHIN 24 HOURS OF DISCHARGE FROM THE HOSPITAL WITH TELEHEALTH INSTALLED AT [facility] [place] TO VISIT 2-3 X A WEEK FOR 4 WEEKS ESTABLISHED BY PATIENT NEEDS. LABORATORY: CBC, CMP TO BE DRAWN ON THE THIRD DAY HOME, , 11/21/2017 (RAN STAT) FAX RESULTS TO [phone]. TELEHEALTH PARAMETERS: WEIGHT: NOTIFY MD OF WEIGHT GAIN OF 2 LBS IN 24 HOURS OR 5 LBS IN ONE WEEK HR: NOTIFY MD OF HR <55 BPM OR HR>100 BPM BP: NOTIFY MD IF BP <90/55 OR BP>140/100 O2 SAT: NOTIFY MD IF PO2<93% ON ROOM AIR SEND TELEHEALTH REPORT TO HOOK PULLER AND CARDIOVASCULAR SURGEON THE FIRST WEEK OF CARE AND THEN BI-WEEKLY. PLEASE ADDITIONALLY COMMUNICATE ANY ABNORMALS AND NEW FINDINGS TO THE SURGEONS OFFICE. A Red armband has been placed on the patient. It should be worn for 30 days post surgery and will be removed by the cardiac surgeons. If an ER visit is necessary, please make sure the number on the Red armband is called. Discharge Disposition: HOME WITH HOME HEALTH SERVICES
--- NOTE | 2017-11-20 10:09 | P.PN ---
Subjective Progress Note Date: 11/20/17 Principal diagnosis: CAD This is a pleasant 62-year-old gentleman who was admitted to the hospital with acute coronary event and acute non-ST elevation myocardial infarction. He underwent a heart catheterization and that revealed severe triple-vessel coronary artery disease. The echocardiogram showed severe cardiomyopathy. The patient underwent yesterday CABG 3 where he received HALE to LAD, SVG to diagonal, SVG to PDA. From the cardiovascular standpoint of view, he has done well. He continues to be on aspirin, metoprolol, lisinopril. The statin was stopped today because of elevated liver function tests yesterday and continues to be elevated today. The plan is for the patient to be discharged today Objective - Vital Signs Vital signs: Vital Signs Temp 98.2 F 11/20/17 08:00 Pulse 69 11/20/17 08:00 Resp 18 11/20/17 08:00 BP 118/60 11/20/17 08:00 Pulse Ox 95 11/20/17 08:00 Intake & Output 11/19/17 11/20/17 11/20/17 18:59 06:59 18:59 Intake Total 600 180 Balance 600 180 Weight 92.9 kg Intake: IV 0 0.9 0 Oral 600 180 Other: Voiding Method Toilet Urinal # Voids 2 ABP, PAP, CO, CI - Last Documented Arterial Blood Pressure 57/51 Pulmonary Artery Pressure 32/20 Cardiac Output 5.2 Cardiac Index 2.2 - Constitutional General appearance: Present: no acute distress - Respiratory Respiratory: bilateral: CTA - Cardiovascular Rhythm: regular Heart sounds: normal: S1, S2 - Labs CBC & Chem 7: 11/19/17 05:36 11/19/17 05:36 Labs: Abnormal Lab Results - Last 24 Hours (Table) 11/19/17 11/19/17 11/19/17 Range/Units 11:25 16:54 20:44 POC Glucose (mg/dL) 112 H 121 H 118 H (75-99) mg/dL 11/20/17 Range/Units 06:00 POC Glucose (mg/dL) 115 H (75-99) mg/dL Assessment and Plan Assessment: Assessment #1 coronary artery disease and status post CABG as described above #2 severe cardiomyopathy #3 acute respiratory failure Plan #1 continue the current medical treatment was dual antiplatelet therapy as well as metoprolol and lisinopril #2 the patient is going to be discharged home today.
--- NOTE | 2017-11-20 11:04 | P.PN ---
Subjective Progress Note Date: 11/20/17 62-year-old male who presented to the emergency room after he was evaluated by his primary care physician, Dr. Couch, on an outpatient basis. Patient reports he saw his PCP on Saturday for a follow up for shortness of breath. The patient was recently diagnosed with tracheobronchitis and was prescribed Levaquin, prednisone, and DuoNeb treatments. His shortness of breath persisted. Patient also reported cough with positive sputum production. The patient's oxygen saturation was 93% on room air. The patient ambulated around the office and his oxygen saturations remained greater than 92%. A chest x-ray was completed at the office revealing cardiomegaly. The patient also reported bilateral lower extremity edema and an episode of chest pain on Saturday. An EKG was completed revealing old inferior and anterior wall MIs. A troponin was completed at the office and came back at 0.08. The patient was started on aspirin 81 mg daily, Lasix 20 mg daily, and lisinopril 5 mg daily at that time. He was not started on a beta keeley at that time as his heart rate was in the low 60s at Dr. Couch's office. The patient was advised to come to the emergency room for further evaluation. The patient has a history of chronic obstructive pulmonary disease. He reports smoking approximately 6 cigarettes per day. He also admits to the drinking 2-3 alcoholic beverages per day, which he states the amount has decreased and reports he used to drink heavier. Chest x-ray 11/05/2017: Cardiomegaly. There may be a component of pulmonary venous hypertension and early interstitial edema. Laboratory data: WBC 8.2. Hemoglobin 16.8. Platelet count 235. Sodium 142. Potassium 5.9. BUN 18. Creatinine 0.98. GFR 84. Glucose 94. BNP: 4560 Troponins: 0.061, 0.053, 0.057 Lipid panel: Triglycerides 99. Total cholesterol 157. LDL 101. HDL 36. The patient was admitted to the hospital under the care of Dr. Couch. Consultations were placed to cardiology. 11/07/2017 Patient evaluated this morning on rounds with Dr. Couch. Patient is awake and alert. Denies chest pain or pressure. Denies shortness of breath. The patient underwent cardiac catheterization yesterday revealing 90% stenosis of proximal LAD, 70-80% stenosis of circumflex artery, and totally occluded right coronary artery. cardiothoracic surgery has been consulted and evaluated the patient. The patient is scheduled for an off pump CABG on Saturday. Pre-operative testing is currently underway. Echocardiogram completed reveals severe global hypokinesis of the left ventricle, ejection fraction of 20-25%, trace mitral regurgitation, and trace tricuspid regurgitation. Carotid ultrasound was completed revealing 15-25% stenosis in both internal carotid arteries. The patient denies pain or discomfort. He is anxious regarding his upcoming surgery and concerned about his . He states she is 74 years old and has severe COPD and he has been her provider at home and has been caring for her. 11/08/2017 Patient seen and examined at the bedside on rounds with Dr. Couch. Patient is awake and alert. Patient denies chest pain or pressure. Denies shortness of breath. Patient is NPO and is scheduled for IABP insertion today per cardiology. Patient is scheduled to undergo off pump CABG tomorrow with Dr. Bullard. Patient remains on CIWA protocol. No signs of ETOH withdrawal this morning. Patient states he is voiding without difficulty. Reports + bowel movement. 11/09/2017-11/11/2017-Notes per Dr. Couch 11/12/2017 Patient seen and examined at the bedside. Patient underwent IABP on Saturday which has since been discontinued. Patient underwent CABG x 3 with with left internal mammary artery to LAD and reverse saphenous vein grafts to the first diagonal and posterior descending coronary arteries with endovascular vein harvest from the right greater saphenous vein by Dr. Bullard on Saturday. Chest tubes were discontinued on 11/11/2017. Patient was extubated yesterday. He remains on 10L high flow nasal cannula. Oxygen saturations greater than 92%. Patient is slightly tachycardic with a rate around 105. Blood pressure is stable with a last reading of 117/63. Patients insulin drip has been discontinued. He remains on Novolog sliding scale Q 4 hours as ordered by radarman. Blood sugars 103-118. Magnesium is 1.5 this morning and is currently being supplemented. Patient was noted to be leaning to his right side this morning in the chair and was dragging his right foot per nursing. Patient did receive ativan this morning per CIWA protocol. His strength is equal bilaterally and he does not have any neuro deficits at this time. Speech is slightly garbled which may also be due to ativan. 11/13/2017 Patient seen and examined at the bedside on rounds with Dr. Couch. Patient is sitting up in the chair eating breakfast. Patient denies shortness of breath but he does report frequent coughing with sputum production. Sputum sample noted in the basin at the bedside is clear and thin. Chest xray from today is negative for acute process. Encouraged patient to splint incision while coughing and to use his heart hugger. Patient also encouraged to use his IS 10 times an hour. Nursing reports that patient still leans to the right side when he is sitting in the chair and has pillows propped up on his right side. Patients strength is essentially the same bilaterally, possibly a little stronger on the left, but the patient is also left handed. He is alert and oriented x 3 this morning and has no neuro deficits. Patient reports he had a bowel movement last night. Tolerating PO intake without nausea or vomiting. States pain is tolerable. 11/14/2017 Patient seen and examined at the bedside on rounds with Dr. Couch. Patient has been transferred out of the ICU to the selective care unit. Patient is currently sitting up in the chair. He is in good spirits but fairly anxious this morning. Denies chest pain or pressure. Patient states he is coughing frequently and is experiencing severe pain when he coughs. Patient was encouraged to use heart hugger and splint chest/abdomen with a pillow. Patient states he has been ambulating in the room without difficultly. He does report some constipation. 11/15/2017 Patient seen and examined at the bedside on rounds with Dr. Couch. Patient is awake and alert. Sitting up in the chair. Patient states he is still coughing frequently. Abdominal binder was placed yesterday which patient states is helping a little bit. Patient denies shortness of breath. Denies chest pain. Appetite is good. patient states he is anxious to be discharged to rehab. 11/16/2017-11/17/2017-Notes per Dr. Couch 11/18/2017 Patient seen and evaluated at the bedside on rounds with Dr. Couch. Patient is awake and alert. Sitting up in the bed. Eating breakfast. Patient denies shortness of breath or chest pain. AST and ALT remain elevated. Statin has been placed on hold. CBC is within normal limits. Patient is anxious to be discharged to rehab. 11/19/2017 Patient seen and evaluated at the bedside on rounds with Dr. Couch. Patient denies shortness of breath. Denies chest pain. Vital signs remain stable. LFTs remain elevated. Statin is on hold. Patients insurance has denied inpatient rehab after peer to peer review was completed. Patient is refusing ECF at this time. Discharge plan includes home with home care and PT. Patient likely to be discharged home today. Awaiting life vest. 11/20/2017 Patient seen and evaluated at the bedside on rounds with Dr. Couch. Patient is awake and alert. Patient denies chest pain or pressure. Denies shortness of breath. Vital signs remain stable. Anticipate discharge home today. Objective - Vital Signs Vital signs: Vital Signs Temp 98.2 F 11/20/17 08:00 Pulse 69 11/20/17 08:00 Resp 18 11/20/17 08:00 BP 118/60 11/20/17 08:00 Pulse Ox 95 11/20/17 08:00 Intake & Output 11/19/17 11/20/17 11/20/17 18:59 06:59 18:59 Intake Total 600 180 Balance 600 180 Weight 92.9 kg Intake: IV 0 0.9 0 Oral 600 180 Other: Voiding Method Toilet Urinal # Voids 2 ABP, PAP, CO, CI - Last Documented Arterial Blood Pressure 57/51 Pulmonary Artery Pressure 32/20 Cardiac Output 5.2 Cardiac Index 2.2 - Exam GENERAL: This is a 62-year-old male in no apparent distress at the time of examination. HEENT: Head is atraumatic, normocephalic. Pupils are equal, round, and reactive to light. Sclerae anicteric. Conjunctivae are clear. Mucus membranes of the mouth are moist. Neck is supple. RESPIRATORY: Clear to ausculation. No wheezes, rales, or rhonchi. No use of accessory muscles. Patient maintaining oxygen saturation greater than 92%. No chest wall tenderness is noted on palpation or with deep breathing. CARDIOVASCULAR: Surgical site clean and dry. No drainage noted. Heart hugger in place. Regular rate and rhythm. S1 and S2 noted. No systolic or diastolic murmur auscultated. No JVD noted. No S3 or S4 noted. Right carotid bruit auscultated. GASTROINTESTINAL: No distention noted. Abdomen soft and round. Bowel sounds auscultated x 4 quadrants. No pain or tenderness noted upon palpation. INTEGUMENTARY: No cyanosis. No jaundice. No rashes noted. No cellulitis noted. EXTREMITIES: 2+ peripheral pulses. No edema noted. No calf tenderness noted. NEUROLOGIC: Cranial nerves II-XII intact. PSYCHIATRIC: Awake, alert, and oriented X 3. Pleasant and cooperative. - Labs CBC & Chem 7: 11/19/17 05:36 11/19/17 05:36 Labs: Abnormal Lab Results - Last 24 Hours (Table) 11/19/17 11/19/17 11/19/17 Range/Units 11:25 16:54 20:44 POC Glucose (mg/dL) 112 H 121 H 118 H (75-99) mg/dL 11/20/17 Range/Units 06:00 POC Glucose (mg/dL) 115 H (75-99) mg/dL Assessment and Plan Plan: ASSESSMENT: 1. Acute non-ST elevated myocardial infarction, troponins 0.061, 0.053, 0.057 s/ p cardiac catherization revealing severe triple vessel disease 2. S/P intra-aortic ballon pump insertion, since discontinued 3. S/P off pump CABG x 3 with with left internal mammary artery to LAD and reverse saphenous vein grafts to the first diagonal and posterior descending coronary arteries with endovascular vein harvest from the right greater saphenous vein 4. Acute hypoxic respiratory failure, prolonged mechanical ventilation, an expected outcome of surgery given the patient's extensive tobacco and alcohol dependence with a recent history of tracheobronchitis, since extubated 5. Ischemic cardiomyopathy 6. Chronic obstructive pulmonary disease, no evidence of acute exacerbation 7. Recent diagnosis of tracheobronchitis, treated with Levaquin and prednisone outpatient 8. Nicotine dependence, patient is a current cigarette smoker 9. Daily alcohol use 10. Obesity: BMI 33.8 11. Hyperkalemia, resolved 12. Hypomagnesemia, resolved 13. Purulent tracheobronchitis, sputum culture with normal respiratory fior PLAN: Continue post operative management per cardiothoracic surgery Continue thiamine, multivitamin, and folic acid Continue xanax 0.25mg Q8 hours PRN for anxiety Pain control Activity as tolerated Incentive spirometer 10 times an hour while awake Continue novolog sliding scale AC/HS Home meds as appropriate Monitor labs GI/DVT prophylaxis Monitor vital signs and address as appropriate Further recommendations pending patient's course Anticipate discharge home today with home care and PT. Awaiting life vest Dr. Couch would like to see the patient in his office on 11/22/2017 Nurse practitioner note has been reviewed by physician. Signing provider agrees with the documented findings, assessment, and plan of care.
[2017-11-20 11:40] LABS: Glucose,Whole Blood 94 mg/dL (75-99)
[2017-11-20] MEDS: THIAMINE 100 MG TAB PO SCH (11:40)
[2017-11-20] MEDS: LISINOPRIL 2.5 MG TAB PO SCH (11:40)
[2017-11-20] MEDS: MULTIVITAMINS, THERA 1 EACH TAB PO SCH (11:40)
[2017-11-20] MEDS: FOLIC ACID 1 MG TAB PO SCH (11:40)
--- NOTE | 2017-11-20 12:01 | P.PN ---
Subjective Progress Note Date: 11/20/17 Principal diagnosis: Status post CABG 3, DT Acute systolic heart failure, acute myocardial infarction, pulmonary edema related to above, diffuse coronary artery disease, baseline COPD and recent tracheobronchitis 11/20/2017, patient seen eval examined during the rounds clinically doing well able to get him move around cough congestion shortness of breath has improved to the drainage or discharge from the distal part of the sternal wound has been stabilized until he picked up the wound some was present local dressing has been applied cardiothoracic surgery is following they're planning for likely discharge later on today patient will be seen in outpatient basis he can finish up his antibiotics on outpatient setting patient has been advised to continue deep breathing exercises incentive spirometry care plan discussed with the thoracic surgery and primary service will follow closely 11/19/2017, patient seen eval reexamined during the rounds a cough shortness of breath slightly stable and improved breathing is stable no more significant discharge present from sternal, cardiothoracic surgery is following closely, patient is being evaluated for placement in rehabilitation, patient likely will be discharged home as he has refused ECF placement 11/18/2017, patient seen eval examined during the rounds patient has been ambulating but the there is consideration of placement to ECF 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 is working cardiothoracic surgery is following no significant discharge has been noted from the sternal wound breathing pattern is overall stable intermittent cough without any production of sputum is noted patient able to ambulate fairly well post ambulation saturation is 92% labs reviewed medications reviewed x-ray and radiographic studies reviewed, chest x-ray continued to improve progressively 11/17/2017, patient seen eval examined during the rounds his the respiratory pattern is improved patient has been walking in the hallway cuff congestion shortness breath is improved this some blood-tinged discharge intermittently noted at the lower sternal area cardiothoracic surgery is following, cough is is stable and significantly improved denies any sputum production cultures and sputum studies has been negative 11/16/2017, patient seen eval reexamined during the rounds care plan discussed the primary service patient is being planned for possible discharge later on today respiratory status overall is stable antibiotics are being changed to oral agree with discharge planning with follow-up in outpatient setting 11/15/2017, patient seen eval reexamined during the rounds clinically doing well awake and alert breathing comfortably his cuff congestion is better the bleeding that has been noted and lower part of the sternum has improved significantly graft harvest site from the leg are stable healing fairly well, physical therapy at bedside patient is being taken out of the chair and being ambulated with support his severity or shortness breath has improved significantly he is on 2 L oxygen now Ammann sputum for Gram stain reviewed no organism has been identified few WBCs are seen my last chest x-ray performed earlier this wanted reviewed and compared with the prior x-ray some basilar atelectasis seen predominantly on the left side otherwise fairly unremarkable with some prominent interstitium 11/14/2017, patient seen eval examined during the rounds patient has removed the ICU to stepdown unit chest tubes as well as a right-sided [place]-Karly introducer has been removed to no significant bleeding has been noted on the site dressing in the lower sternal area has been changed couple times patient does have cough with associated with thick tenacious sputum production culture results and reports from the sputum are pending patient is on breathing treatments antibiotics 11/13/2017, patient seen eval reexamined during the rounds he is slightly more awake the hallucination that was noted previously has improved patient however lately has been coughing a lot thick tenacious his sputum present with light yellow in appearance a sample is being sent for Gram stain and culture patient has a small leakage from central Cordis catheter area as well as the distal part of the thoracotomy site local measures have been applied patient also has significant diarrhea for which stool has been sent for C. diff, overall hemodynamic status stable, his chest x-ray from today reviewed and compared with the prior x-ray 11/12/2017, patient seen eval examined during the rounds he is sitting upright on the chair he is eating his lunch patient is oriented 1 he has significant hallucination which are perceptive as well as visual, patient did receive Ativan late last night around midnight then another dose earlier this morning at 6 patient has been falling asleep with food in his mouth this morning however slightly more awake during conversation he is breathing appropriately slightly tachypneic otherwise hemodynamic status stable, patient remains on 8 L oxygen saturation are 93%, [place]-Karly catheter and chest tubes have been removed , chest x-ray from today has been reviewed and compared with the prior x-ray right lower lobe subsegmental atelectasis slightly better with improved aviation medications reviewed laboratory data reviewed 11/11/2017, patient seen eval reexamined during the rounds clinically doing well has been placed on CPAP 5 and pressure support of 5 and arterial blood gases done weaning parameters reviewed patient is a relatively more awake and alert propofol drip has been discontinued patient opens eyes follow simple commands with fairly stable weaning parameters we'll proceed with extubation, critical care time spent 35 minutes 11/10/2017, patient seen eval examined during the rounds clinically patient is doing well but remains on full respirator support remains hypoxic when setting includes assist control rate of 10 breathing about 12-14 tidal volume is 755 of PEEP and on 60% oxygen patient has a [place]-Karly catheter PA pressure 42/21 he remains on 2.5 mics of dopamine drip also on propofol 25 mics his urine output is fairly adequate making about 40-60 mL/h of urine attempted patient on CPAP but has been unsuccessful given that low oxygenation patient is not really aware ready for weaning extubation today we'll keep on titrating oxygen down and follow clinical course closely 11/08/2017, patient seen eval reexamined during the rounds care plan discussed with RN at length patient is status post intra-aortic balloon pump for severe degree of cardiomyopathy and ischemic heart disease with diffuse coronary artery disease patient is currently on 1 is 21 patient with the map over 60-70 current map noted to be 80 with a systolic blood pressure 100 and diastolic of 63. 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 patient is being monitor observe as per CV a protocol overalls plan is if patient decompensated from Estrace standpoint and or become anxious and agitated and will be intubated S patient needs to stay flat on the bed related to his ongoing aortic balloon pump augmentation, his labs and x-rays are reviewed from today, PFTs reviewed, x-ray suggestive of the COPD-like changes noted acute pathology has been noted, the PFT suggestive of mild to moderate obstructive disease, white cell count is elevated with very high hemoglobin count which appears to be likely related to polycythemia related to COPD and chronic intermittent hypoxia , renal functions are stable patient is making were 50 to 60 mL an hour urine, his urine culture is negative nasal swab are negative for MRSA or MSSA 11/07/2017, patient seen and evaluated examined during the rounds is still short of breath has intermittent dry nonproductive cough but severity has improved he has been on breathing treatment he has been on deep breathing exercises incentive spirometry as well, patient will undergo preop spirometry later on today, patient has been evaluated by cardiothoracic surgery operative workup is in progress 62-year-old male who appears older then the stated age he has not been feeling well for the last several weeks has been going on has been having ongoing shortness of breath and cough he was treated with oral antibiotics breathing treatments and prednisone her outpatient basis without significant relief. Patient also has a history of on-call consumption almost on a daily basis usually consume 2-3 cans of beer daily. patient recently was evaluated in primary care office found to have a elevated troponin and abnormal EKG was sent over here for further evaluation patient continued to complain of cough congestion and shortness of breath has occasional intermittent vague chest pain as well, overall patient is a poor historian not much data can be obtained from him, on arrival to emergency department he was found to have very high BNP of over 4000 and troponin were consistently elevated cardiovascular services following at the time of evaluation patient is a about to undergo an echocardiogram as well, later on findings are reviewed his ejection fraction only 20-25%, diffuse coronary artery disease was noted as well on emergent cath and angiogram, LAD shows 90% stenosis in proximal part, 70-80% stenosis noted in circumflex, right coronary artery is totally occluded in proximal part given patient has diffuse triple-vessel coronary artery disease ischemic cardiomyopathy patient is likely evaluated by cardiothoracic surgery Objective - Vital Signs Vital signs: Vital Signs Temp 98.2 F 11/20/17 08:00 Pulse 92 11/20/17 11:15 Resp 18 11/20/17 08:00 BP 118/60 11/20/17 08:00 Pulse Ox 95 11/20/17 08:00 Intake & Output 11/19/17 11/20/17 11/20/17 18:59 06:59 18:59 Intake Total 600 180 Balance 600 180 Weight 92.9 kg Intake: IV 0 0.9 0 Oral 600 180 Other: Voiding Method Toilet Urinal # Voids 2 ABP, PAP, CO, CI - Last Documented Arterial Blood Pressure 57/51 Pulmonary Artery Pressure 32/20 Cardiac Output 5.2 Cardiac Index 2.2 - Exam Patient seen and evaluated examined in the ICU he is somnolent but arousable GENERAL: Overall no apparent distress at the time of examination. Pleasant , calm and cooperative. Somewhat somnolent though HEENT: Head is atraumatic, normocephalic. Pupils are equal, round, and reactive to light. Sclerae anicteric. Conjunctivae are clear. Mucus membranes of the mouth are moist. Neck is supple. RESPIRATORY: Decreased air entry at the bases otherwise Clear to ausculation . The incisions are healing well , No use of accessory muscles. Patient maintaining oxygen saturation greater than 92%. CARDIOVASCULAR: Regular rate and rhythm. S1 and S2 noted. No systolic or diastolic murmur auscultated. No JVD noted. No S3 or S4 noted. Right carotid bruit auscultated. GASTROINTESTINAL: No distention noted. Abdomen soft and round. Normal active bowel sounds auscultated x 4 quadrants. No pain or tenderness noted upon palpation. Aortic balloon pump in the groin on the left side INTEGUMENTARY: No cyanosis. No jaundice. No rashes noted. No cellulitis noted. EXTREMITIES: 2+ peripheral pulses. 1+ bilateral lower extremity edema. No calf tenderness noted. NEUROLOGIC: Cranial nerves II-XII intact. Overall neurological examination is within normal limit, no tremors or shakiness however otherwise noted PSYCHIATRIC: Sleeping somnolent but on arousable he is Awake, alert, and oriented X 1-3. Appropriate affect. Intact judgement and insight. - Labs CBC & Chem 7: 11/19/17 05:36 11/19/17 05:36 Labs: Abnormal Lab Results - Last 24 Hours (Table) 11/19/17 11/19/17 11/20/17 Range/Units 16:54 20:44 06:00 POC Glucose (mg/dL) 121 H 118 H 115 H (75-99) mg/dL Assessment and Plan Assessment: Severe degree of ischemic cardiomyopathy with acute systolic heart failure Acute COPD exacerbation Diffuse triple-vessel coronary artery disease with ejection fraction only 20% my status post CABG 3 Significant and intractable coughing or shortness of breath with thick purulent sputum production likely developing purulent tracheobronchitis and/pneumonia, follow-up on sputum culture results and reports, no positive cultures have been noted, overall symptoms have improved will continue current therapy for now Loose stool diarrhea, improved significantly Auditory and perceptual hallucination likely patient is in DTs, improved significantly Acute non-ST segment elevated OH Likely severe COPD with chronic bronchitis Plan: Monitor and observe on oral antibiotics fairly well, increase activity as tolerated Optimize cardiac therapy as planned, Breathing treatment with nebulizer as tolerated Afterload reducing agent and preload reduction with KIERA inhibitor's and diuretics Reviewed pulmonary function testing as well, further recommendations pending plan of care as per clinical response of the patient, patient would need evaluation follow up on outpatient setting Patient is status post coronary artery bypass surgery Breathing treatment with nebulizer as tolerated DVT and peptic ulcer disease prophylaxis Time with Patient: Greater than 30
[2017-11-20 15:44] VITALS: PULSE 95
== END 2017-11-20 16:39 | disposition home health service (06) | DRG 233 ==
LOC: EC 13:13 → 6SEL 17:44 → 6ICU 11-08 11:48 → 6SEL 11-13 16:14
PROVIDERS: ADMIT Family Medicine; ATTEND Thoracic Surgery (Cardiothoracic Vascular Surgery)
PROC: B2111ZZ Fluoroscopy of Multiple Coronary Arteries using Low Osmolar Contrast (ICD-10-PCS; 2017-11-06)
PROC: 4A023N7 Measurement of Cardiac Sampling and Pressure, Left Heart, Percutaneous Approach (ICD-10-PCS; 2017-11-06)
PROC: 5A02210 Assistance with Cardiac Output using Balloon Pump, Continuous (ICD-10-PCS; principal; 2017-11-08 10:30)
PROC: 02100Z9 Bypass Coronary Artery, One Artery from Left Internal Mammary, Open Approach (ICD-10-PCS; 2017-11-09)
PROC: 06BP4ZZ Excision of Right Saphenous Vein, Percutaneous Endoscopic Approach (ICD-10-PCS; 2017-11-09)
PROC: B246ZZ4 Ultrasonography of Right and Left Heart, Transesophageal (ICD-10-PCS; 2017-11-09)
PROC: 021109W Bypass Coronary Artery, Two Arteries from Aorta with Autologous Venous Tissue, Open Approach (ICD-10-PCS; 2017-11-09)
DX: I21.4 Non-ST elevation (NSTEMI) myocardial infarction (principal); I50.23 Acute on chronic systolic (congestive) heart failure; J96.01 Acute respiratory failure with hypoxia; F10.231 Alcohol dependence with withdrawal delirium; J18.9 Pneumonia, unspecified organism; I11.0 Hypertensive heart disease with heart failure; J44.0 Chronic obstructive pulmonary disease with (acute) lower respiratory infection; E83.42 Hypomagnesemia; E87.5 Hyperkalemia; D75.1 Secondary polycythemia; J44.1 Chronic obstructive pulmonary disease with (acute) exacerbation; E66.9 Obesity, unspecified; Z68.33 Body mass index [BMI] 33.0-33.9, adult; F17.210 Nicotine dependence, cigarettes, uncomplicated; F41.9 Anxiety disorder, unspecified; I25.110 Atherosclerotic heart disease of native coronary artery with unstable angina pectoris; I25.2 Old myocardial infarction; I25.5 Ischemic cardiomyopathy; I34.0 Nonrheumatic mitral (valve) insufficiency; I70.201 Unspecified atherosclerosis of native arteries of extremities, right leg; Z79.82 Long term (current) use of aspirin; Z79.899 Other long term (current) drug therapy; Z82.49 Family history of ischemic heart disease and other diseases of the circulatory system; K59.00 Constipation, unspecified; R19.7 Diarrhea, unspecified
CPT/HCPCS: 33967; 36415; 71045; 71046; 80048; 80053; 80061; 80074; 81003; 82330; 82550; 82553; 82805; 83036; 83735; 83880; 84100; 84132; 84443; 84484; 85025; 85027; 85520; 85610; 85730; 86850; 86891; 86900; 86901; 86920; 87070; 87086; 87205; 93005; 93306; 93308; 93458; 93880; 93922; 93923; 93970; 94003; 94150; 94640; 94760; 96365; 96375; 96376; 99291

== ENCOUNTER 2017-12-23 09:19 | Inpatient (IN) | payer OTHER ==
[2017-12-23] MEDS ORDERED: VANCOMYCIN IV PER PHARMACY 1 EACH MISC MISCELLANE PRN (13:07)
[2017-12-23] MEDS ORDERED: VANCOMYCIN 1,750 MG in SODIUM CHLORIDE 0.9% 250 ML IVPB ONE (13:30)
[2017-12-23] MEDS: IPRATROPIUM-ALBUTEROL 3 ML NEB INHALATION SCH ×2 (14:03→19:32)
[2017-12-23 14:09] LABS: Anion Gap 12 mmol/L; Blood Urea Nitrogen 18 mg/dL (9-20); Carbon Dioxide 26 mmol/L (22-30); Chloride 101 mmol/L (98-107); Glucose 91 mg/dL (74-99); Potassium 4.8 mmol/L (3.5-5.1); Sodium 139 mmol/L (137-145)
[2017-12-23] MEDS: SODIUM CHLORIDE 0.9% 1,000 ML IV SCH (15:04)
--- NOTE | 2017-12-23 15:06 | HP ---
HISTORY AND PHYSICAL This is a 62-year-old white male that saw me 3 days prior to admission with an inflammatory small opening of his incision of the chest is status post cardiac bypass and a little bit erythematous at that period time with minimal drainage and it was cultured. Unfortunately, came back MRSA. At this time, he was placed in the hospital accordingly. He was at that time put on Ceftin 500 mg twice a day. This gentleman has a very strong history of having had on 11/09/2017 had a triple-vessel bypass and had been in the hospital per Dr. Bullard, had been in the hospital and had an uneventful course. He has a long-standing history of previous alcohol abuse, history of COPD, hypertension, tracheobronchitis, nicotine abuse. FAMILY HISTORY: Premature coronary artery disease, hyper dyslipidemia. PAST SURGICAL HISTORY: Is that of left cardiac catheterization with placement of an intra-aortic balloon pump, coronary bypass surgery and transtracheal esophagram. He also has a family history of premature heart disease. SOCIAL HISTORY: Of being a smoker and heavy drinker. He lives with his who also has severe COPD and he lives in his brother's home in [place]. He is disabled with severe lumbar stenosis. MEDICATIONS: 1. Aspirin 81 daily. 2. Plavix 75 daily. 3. Folic acid 1 daily. 4. Lasix 40 daily. 5. Hydrocodone. 6. [place] 1 every 6 hours p.r.n. pain. 7. DuoNeb updrafts 4 times a day. 8. Lisinopril 2.5 daily. 9. Metoprolol 50 mg twice a day. 10.Multiple vitamin 1 daily. 11.Protonix 40 daily. 12.Senokot 1 daily. 13.Spironolactone 12.5 daily. 14.Thiamine 1 g daily. A CBC and a Chem 17 were ordered, still await the results. REVIEW OF SYSTEMS: ENT: Dry mouth. CARDIOPULMONARY: No shortness of breath. No chest pain, no orthopnea, no paroxysmal nocturnal dyspnea. He does have this infection at the baseline of his incision it is covered by his defibrillator which was positive for MRSA. GI: No hematemesis, melena or hematochezia. : Negative, urinating well. NEUROMUSCULAR: Shows some weakness in his arms and his legs and he feels so much better. In general, lumbar has discomfort. INTEGUMENTARY: He has had no rashes. ALLERGY: Just some sniffles. PSYCHIATRIC: No depression. No anxiety. He cannot wait to be able to do something. PHYSICAL EXAMINATION: Blood pressure 110/65, O2 saturation was 93% on room air, heart rate is in the 80s. Temperature is 97.7. EYES: Pupils are equal, round, react to light and accommodation. ENT showed tympanic membranes appears to be negative. NECK: Supple. The midline trachea. Chest essentially clear to auscultation. Heart is sinus rhythm. No murmur. Chest wall, there is erythema to the lower part of the incision with a small opening, which was cultured with minimal amount of drainage and minimal amount of erythema. ABDOMEN: Soft, nontender with no organomegaly. LOWER EXTREMITIES: He has decreased pulses bilaterally, but they are warm. No evidence of pallor. CERVICAL SPINE: Range of motion is within normal limits. LUMBAR SPINE: Range is within normal limits. INTEGUMENTARY: He has some bruising on his hands and his wrists, especially since being on the Plavix. PSYCHIATRIC: Well oriented to person, place, and thing without anxiety, without depression. Patient cannot wait to be able to get outside and to be able to do some things. He is also wearing his ventricular defibrillator on a regular basis. ASSESSMENT: 1. Acute cellulitis of the incision with methicillin-resistant Staphylococcus aureus. 2. Three-vessel bypass here in October of 2017. 3. Chronic obstructive pulmonary disease. 4. Hypertension. 5. Cardiomegaly. 6. Some gastroesophageal reflux. PLAN: Continue same medications. Start vancomycin. ID consult with Cardiovascular Surgery for inspection. Please refer to my order. MMODL / IJN: [id number] /
[2017-12-23] MEDS: SENNOSIDES-DOCUSATE SODIUM 1 EACH TAB PO SCH (20:06)
[2017-12-23] MEDS: METOPROLOL TARTRATE 50 MG TAB PO SCH (20:08)
[2017-12-23] MEDS: HYDROcodone/APAP 5-325MG 1 EACH TAB PO SCH (20:08)
[2017-12-24] MEDS ORDERED: VANCOMYCIN 1,750 MG in SODIUM CHLORIDE 0.9% 250 ML IVPB ONE ×2
[2017-12-24] MEDS: IPRATROPIUM-ALBUTEROL 3 ML NEB INHALATION SCH ×4 (03:30→20:05)
[2017-12-24] MEDS: SODIUM CHLORIDE 0.9% 1,000 ML IV SCH ×2 (04:28→16:09)
[2017-12-24] MEDS: PANTOPRAZOLE 40 MG TABLET PO SCH (05:59)
[2017-12-24] MEDS: LISINOPRIL 2.5 MG TAB PO SCH (07:49)
[2017-12-24] MEDS: SPIRONOLACTONE 25 MG TAB PO SCH (07:49)
[2017-12-24] MEDS: HYDROcodone/APAP 5-325MG 1 EACH TAB PO SCH ×2 (07:50→20:40)
[2017-12-24] MEDS: METOPROLOL TARTRATE 50 MG TAB PO SCH ×2 (07:51→20:40)
[2017-12-24] MEDS: FUROSEMIDE 40 MG TAB PO SCH (07:51)
[2017-12-24] MEDS: ASPIRIN 81 MG PO SCH (07:51)
[2017-12-24] MEDS: CLOPIDOGREL 75 MG TAB PO SCH (07:51)
[2017-12-24 09:26] LABS: Basophils % (A) 0 %; Eosinophils # (A) 0.1 k/uL (0-0.7); Eosinophils % (A) 2 %; HCT 44.2 % (39.0-53.0); HGB 14.6 gm/dL (13.0-17.5); Lymphocytes # (A) 1.3 k/uL (1.0-4.8); Lymphocytes % (A) 17 %; Mean Platelet Volume 6.7; Monocytes # (A) 0.5 k/uL (0-1.0); Monocytes % (A) 6 %; Neutrophils # (A) 5.8 k/uL (1.3-7.7); Neutrophils % (A) 73 %; Platelet Count 241 k/uL (150-450); WBC 7.9 k/uL (3.8-10.6)
[2017-12-24 09:32] LABS: ALT 41 U/L (21-72); AST 25 U/L (17-59); Albumin 3.8 g/dL (3.5-5.0); Alkaline Phosphatase 72 U/L (38-126); Anion Gap 13 mmol/L; Blood Urea Nitrogen 14 mg/dL (9-20); Calcium 9.3 mg/dL (8.4-10.2); Carbon Dioxide 22 mmol/L (22-30); Chloride 103 mmol/L (98-107); Glucose 111 mg/dL (74-99); Sodium 138 mmol/L (137-145); Total Bilirubin 0.6 mg/dL (0.2-1.3); Total Protein 6.7 g/dL (6.3-8.2)
[2017-12-24] MEDS: FOLIC ACID 1 MG TAB PO SCH (12:06)
[2017-12-24] MEDS: THIAMINE 100 MG TAB PO SCH (12:06)
[2017-12-24] MEDS: MULTIVITAMINS, THERA 1 EACH TAB PO SCH (12:06)
[2017-12-24] MEDS ORDERED: RX INFO: IV CONTRAST WAS GIVEN 1 EACH MISC MISCELLANE PRN (12:17)
--- NOTE | 2017-12-24 12:20 | P.GSCN ---
History of Present Illness Consult date: 12/24/17 Reason for Consult: Sternal wound infection, treatment recommendations Requesting physician: Danny Couch History of present illness: This is a 62-year-old gentleman who is well-known to our service as Dr. Bullard performed an urgent off-pump coronary artery bypass grafting 3 vessels on 11/09. He had a normal postoperative course with the exception of the colon mechanical ventilation most likely secondary to his heavy tobacco use. His ejection fraction both preop and postop was 20-25%, he was discharged to home with a LifeVest in place. He follows with Dr. Couch on an outpatient basis and does have a previous medical history of coronary artery disease, non-STEMI, chronic systolic heart failure, ischemic cardiomyopathy, hypertension, COPD, EtOH abuse, previous tobacco dependence, hyperlipidemia, and family history of premature coronary artery disease. He did have an area at the distal part of his sternal incision which had a small amount of leakage, it was being monitored both in the hospital and once discharged home by home care. He did present to Dr. Couch's office last Saturday, a wound culture was obtained, and was positive for MRSA. Subsequently he was admitted by Dr. Couch to [facility] for treatment. Cardiothoracic surgery was consulted regarding treatment recommendations for sternal wound infection. Of note the patient adamantly states he has been showering everyday, however both his heart hugger and LifeVest are very dirty, and the anterior superior portion of the LifeVest does rub at the bottom of his sternal incision. Review of Systems 14 point review of systems was completed and was negative except as noted. - Integumentary Integumentary Comment(s): Patient states he's had no drainage in the last 2 days from his sternal wound. Reports as per HPI, Reports wounds Past Medical History Past Medical History: Coronary Artery Disease (CAD), Heart Failure, COPD, GERD/ Reflux, Hypertension, Myocardial Infarction ([place]), Pneumonia Additional Past Medical History / Comment(s): Ischemic cardiomyopathy, wearing life vest, bronchitis, few weeks ago and "seizure like" activity and chest discomfort-pt spouse's oxygen on and felt better (pt states he also at that time "had a few beers" in him). Last Myocardial Infarction Date:: 11/05/17 History of Any Multi-Drug Resistant Organisms: None Reported Past Surgical History: Coronary Bypass/CABG, Heart Catheterization Additional Past Surgical History / Comment(s): 11/06/17 cardiac cath, 11/09/17 CABG 3 vessel with R leg vein donor. Past Anesthesia/Blood Transfusion Reactions: No Reported Reaction Smoking Status: Former smoker Past Alcohol Use History: Occasional Additional Past Alcohol Use History / Comment(s): States he has 2 beers periodically Past Drug Use History: None Reported - Past Family History Mother History Unknown: Yes Additional Family Medical History / Comment(s): Pt believes his mother had heart problems and possibly MIs but is uncertain. She at the age of 74yrs. Father History Unknown: Yes Additional Family Medical History / Comment(s): Unknown medical history, the patient reports that his father left home when he was at age 12. Brother(s) Family Medical History: Coronary Artery Disease (CAD), Myocardial Infarction ([place] ) Additional Family Medical History / Comment(s): History of myocardial infarction and coronary artery bypass grafting surgery at age 46. Medications and Allergies Home Medications Medication Instructions Recorded Confirmed Type Aspirin 81 mg PO DAILY 11/05/17 12/23/17 History Ipratropium-Albuterol Nebulize 3 ml INHALATION RT-Q6H PRN 11/05/17 12/23/17 History [Duoneb 0.5 mg-3 mg/3 ml Soln] Clopidogrel [Plavix] 75 mg PO DAILY #30 tab 11/19/17 12/23/17 Rx Folic Acid 1 mg PO DAILY@1200 #30 tab 11/19/17 12/23/17 Rx Furosemide [Lasix] 40 mg PO DAILY #30 tab 11/19/17 12/23/17 Rx Lisinopril [Prinivil] 2.5 mg PO DAILY #0 11/19/17 12/23/17 Rx Metoprolol Tartrate [Lopressor] 50 mg PO BID #60 tab 11/19/17 12/23/17 Rx Pantoprazole [Protonix] 40 mg PO AC-BRKFST #30 tablet.dr 11/19/17 12/23/17 Rx Spironolactone [Aldactone] 12.5 mg PO DAILY #30 tab 11/19/17 12/23/17 Rx Thiamine [Vitamin B-1] 100 mg PO DAILY@1200 #30 tab 11/19/17 12/23/17 Rx HYDROcodone/APAP 10-325MG [[place] 1 tab PO Q6HR PRN 12/23/17 12/23/17 History 10-325] Sennosides [Senna] 8.6 mg PO HS 12/23/17 12/23/17 History Allergies Allergy/AdvReac Type Severity Reaction Status Date / Time No Known Allergies Allergy Verified 12/23/17 13:30 Surgical - Exam Vital Signs Temp Pulse Resp BP Pulse Ox 97.1 F L 87 16 125/91 94 L 12/23/17 12:30 12/23/17 12:30 12/23/17 12:30 12/23/17 12:30 12/23/17 12:30 - General well developed, well nourished, no distress, no pain, obese - Eyes PERRL, normal ocular movement - ENT no hearing loss, poor senior care - Neck no masses, no bruits, trachea midline - Respiratory Lungs sounds diminished bilaterally. Respirations even, nonlabored. Currently on room air with oxygen saturation 92%. - Cardiovascular S1, S2 present. Regular rate and rhythm, sinus rhythm on telemetry. Palpable peripheral pulses bilaterally. No edema present. No calf pain or tenderness noted. Heart hugger in place with patient demonstrating appropriate use. - Abdomen Abdomen: soft, non tender, bowel sounds - Genitourinary Deferred - Rectum Deferred - Integumentary Skin is warm and dry without evidence of perfusion. Sternal incision with small opening at the distal end of the incision with no drainage in noted on current dressing. No fluctuance noted underneath the incision. The rest of the sternal incision is well approximated. Chest tube sites and right lower extremity EVH site well approximated with no drainage. - Neurologic normal coordination, normal sensation - Musculoskeletal normal gait, normal posture - Psychiatric oriented to time, oriented to person, oriented to place, speech is normal, memory intact Results - Labs 12/24/17 09:01 12/24/17 09:01 Abnormal Lab Results - Last 24 Hours (Table) 12/24/17 Range/Units 09:01 Glucose 111 H (74-99) mg/dL Diabetes panel 12/23/17 12/24/17 Range/Units 13:23 09:01 Sodium 139 138 (137-145) mmol/L Potassium 4.8 4.0 (3.5-5.1) mmol/L Chloride 101 103 (98-107) mmol/L Carbon Dioxide 26 22 (22-30) mmol/L BUN 18 14 (9-20) mg/dL Creatinine 0.90 0.78 (0.66-1.25) mg/dL Glucose 91 111 H (74-99) mg/dL Calcium 10.0 9.3 (8.4-10.2) mg/dL AST 25 (17-59) U/L ALT 41 (21-72) U/L Alkaline Phosphatase 72 (38-126) U/L Total Protein 6.7 (6.3-8.2) g/dL Albumin 3.8 (3.5-5.0) g/dL Calcium panel 12/23/17 12/24/17 Range/Units 13:23 09:01 Calcium 10.0 9.3 (8.4-10.2) mg/dL Albumin 3.8 (3.5-5.0) g/dL Pituitary panel 12/23/17 12/24/17 Range/Units 13:23 09:01 Sodium 139 138 (137-145) mmol/L Potassium 4.8 4.0 (3.5-5.1) mmol/L Chloride 101 103 (98-107) mmol/L Carbon Dioxide 26 22 (22-30) mmol/L BUN 18 14 (9-20) mg/dL Creatinine 0.90 0.78 (0.66-1.25) mg/dL Glucose 91 111 H (74-99) mg/dL Calcium 10.0 9.3 (8.4-10.2) mg/dL Adrenal panel 12/23/17 12/24/17 Range/Units 13:23 09:01 Sodium 139 138 (137-145) mmol/L Potassium 4.8 4.0 (3.5-5.1) mmol/L Chloride 101 103 (98-107) mmol/L Carbon Dioxide 26 22 (22-30) mmol/L BUN 18 14 (9-20) mg/dL Creatinine 0.90 0.78 (0.66-1.25) mg/dL Glucose 91 111 H (74-99) mg/dL Calcium 10.0 9.3 (8.4-10.2) mg/dL Total Bilirubin 0.6 (0.2-1.3) mg/dL AST 25 (17-59) U/L ALT 41 (21-72) U/L Alkaline Phosphatase 72 (38-126) U/L Total Protein 6.7 (6.3-8.2) g/dL Albumin 3.8 (3.5-5.0) g/dL Assessment and Plan (1) Chronic systolic heart failure Current Visit: Yes Status: Chronic Code(s): I50.22 - CHRONIC SYSTOLIC ( CONGESTIVE) HEART FAILURE SNOMED Code(s): 288682914 (2) Tobacco dependence in remission Current Visit: No Status: Resolved Code(s): F17.201 - NICOTINE DEPENDENCE, UNSPECIFIED, IN REMISSION SNOMED Code(s): 076662226 (3) Status post coronary artery bypass graft Current Visit: Yes Status: Chronic Code(s): Z95.1 - PRESENCE OF AORTOCORONARY BYPASS GRAFT SNOMED Code(s): 492170773 (4) MRSA (methicillin resistant Staphylococcus aureus) infection Current Visit: Yes Status: Acute Code(s): A49.02 - METHICILLIN RESIS STAPH INFECTION, UNSP SITE SNOMED Code(s): 855093497 (5) Alcohol abuse Current Visit: Yes Status: Chronic Code(s): F10.10 - ALCOHOL ABUSE, UNCOMPLICATED SNOMED Code(s): 10175674 (6) COPD (chronic obstructive pulmonary disease) Current Visit: Yes Status: Chronic Code(s): J44.9 - CHRONIC OBSTRUCTIVE PULMONARY DISEASE, UNSPECIFIED SNOMED Code(s): 52692076 (7) Coronary artery disease Current Visit: Yes Status: Chronic Code(s): I25.10 - ATHSCL HEART DISEASE OF [place] CORONARY ARTERY W/O ANG PCTRS SNOMED Code(s): 81868191 (8) Hypertension Current Visit: Yes Status: Chronic Code(s): I10 - ESSENTIAL (PRIMARY) HYPERTENSION SNOMED Code(s): 57334438 (9) Ischemic cardiomyopathy Current Visit: Yes Status: Chronic Code(s): I25.5 - ISCHEMIC CARDIOMYOPATHY SNOMED Code(s): 065656771 (10) History of myocardial infarction Current Visit: No Status: Resolved Code(s): I25.2 - OLD MYOCARDIAL INFARCTION SNOMED Code(s): 700959931 Plan: The patient was seen at the bedside. Chart was reviewed. Patient remains afebrile with no leukocytosis. No drainage from sternal incision currently present, no fluctuance noted underneath his incision, sternal bone appears stable. Would recommend continuing IV vancomycin, appreciate infectious disease recommendations. Medical management per Dr. Couch. At this time it is unlikely we would intervene surgically as this does not appear to be a deep sternal wound infection, but rather superficial which can be managed with IV antibiotics. Will discuss the case in detail with Dr. Vidales. Will continue to monitor patient and make more recommendations as appropriate. Thank you Dr. Couch for this consultation. We look forward to working with you in the care of your patient. Time with Patient: Greater than 30
[2017-12-24] MEDS: VANCOMYCIN 1,750 MG in SODIUM CHLORIDE 0.9% 250 ML IVPB SCH ×2 (12:46→23:16)
--- NOTE | 2017-12-24 13:13 | CONS ---
CONSULTATION DATE OF SERVICE: 12/24/2017. REASON FOR CONSULTATION: Surgical site infection MRSA. HISTORY OF PRESENT ILLNESS: The patient is a 62-year-old male who is status post coronary artery bypass grafting x3 vessel on 11/09/2017, subsequently stabilized and was discharged home. The patient seems to have problem with nonhealing of his lower end of sternal incision. The patient says he was applying a Band-Aid every day. When he presented to see his primary care physician in outpatient setting, he did have slight drainage from it that was cultured which subsequently did grow MRSA and the patient admitted directly to the hospital for further management of the same. The patient denies any high-grade fever, rigors or chills. He did have very minimal lower sternal pain, more of a dull aching, out of 10, no radiation. There is no sign of surrounding swelling or redness. The patient did have some cough, but not bringing up any sputum. No nausea, no vomiting. No abdominal pain and no diarrhea. REVIEW OF SYSTEMS: CONSTITUTIONAL: Positive for weakness, but no high-grade fever. EYES: No complaint. ENT: No complaint. RESPIRATORY: As per HPI. CARDIOVASCULAR: No complaint. GENITOURINARY: No complaint. GASTROINTESTINAL: No complaint, MUSCULOSKELETAL: No complaint. INTEGUMENTARY: As per HPI. PSYCHOLOGICAL: No complaint. ENDOCRINE: No complaint. NEUROLOGIC: No complaint. PAST MEDICAL HISTORY: Coronary artery disease, heart failure, COPD, gastroesophageal reflux disease, hypertension, [place], pneumonia, ischemic cardiomyopathy. PAST SURGICAL HISTORY: Coronary artery bypass grafting and heart catheterization. SOCIAL HISTORY: Former smoker. Occasionally drinks. No drug use. FAMILY HISTORY: Mother with history of heart problem. The father's history unknown. Brother with history of coronary artery disease. ALLERGIES: No known drug allergies. MEDICATION: Medications include the patient is currently on [place], DuoNeb, aspirin, Plavix, folic acid, Lasix, Zestril, Lopressor, Theragran, Protonix, Senokot, and vancomycin pharmacy to dose. PHYSICAL EXAMINATION: On examination, blood pressure 126/77 with a pulse of 91, temperature of 97.1. He is 92% on room air. General description is a middle-aged male lying in bed in no distress. No tachypnea or accessory muscle of respiration use. HEENT examination shows no pallor or scleral icterus. Oral mucous membrane is moist. No pharyngeal erythema or thrush. NECK: Trachea central. No thyromegaly. LUNGS: Unlabored breathing, clear to auscultation anteriorly. No wheeze or crackle. HEART: S1, S2. Regular rate and rhythm. The midsternal incision is healed. At the lower end, he did have a minimal small wound with no fluctuation, induration, or any drainage was noticed. ABDOMEN: Soft, no tenderness. No guarding or rigidity. EXTREMITIES: No edema of feet. SKIN EXAMINATION: No rash or mass palpable. NEUROLOGICALLY: The patient is a awake, alert and oriented x3. Mood and affect normal. LABS: Hemoglobin is 14.6, white count 7.9 with a BUN of 14, creatinine 0.78. Electrolytes have been normal. Liver enzymes are normal. He did have a chest wall culture positive for MRSA that was done on 12/20/2017 with . No blood culture has been done. DIAGNOSTIC IMPRESSION AND PLAN: Patient with a positive methicillin-resistant Staphylococcus aureus culture from the distal end of the sternal incision in a patient who did have coronary artery bypass grafting on 11/09/2017. The patient currently with no fever or elevated white count question of superficial surgical site infection. Clinically doubt deep infection in view of absence of systemic findings. PLAN: 1. We will obtain a CT of the chest in view of the of this pathogen to make sure there is no evidence of any deep infection though clinically doubt though. 2. Vancomycin pharmacy to dose target of 15. 3. Depending upon his clinical response as well as culture, will adjust the medication further if needed. Thank you for this consultation. Will follow this patient along with you. MMODL / IJN: [id number] /
--- NOTE | 2017-12-24 15:20 | CT ---
EXAMINATION TYPE: CT chest w con DATE OF EXAM: 12/24/2017 COMPARISON: Chest x-ray 11/19/2017 HISTORY: Non healing wound on sternum. CT DLP: 508 mGycm Automated exposure control for dose reduction was used. CONTRAST: CT scan of the chest is performed with IV Contrast, patient injected with 100ml mL of Isovue M300. FINDINGS: LUNGS: The lungs are grossly clear, there is no concerning parenchymal mass or nodule identified. Mi nimal patchy basilar atelectatic change is present at the posterior lung bases. Emphysematous changes are also present at the lung apices. There is no pleural effusion or pneumothorax seen. The tracheo bronchial tree is patent. MEDIASTINUM: There are no greater than 1 cm hilar or mediastinal lymph nodes. Patient is post median sternotomy. Coronary artery calcifications are present. Patient is status post coronary artery bypass grafting. No pericardial effusion is seen. AORTA: Atheromatous changes are present. OTHER: Median sternal wires are intact. Within the subcutaneous fat superficial to the sternotomy th ere is some mild increased attenuation which may be related to prior surgery, correlate to exclude in flammatory change. There is some lucency along the sternotomy site within the sternum on axial images 18 through 32. No focal abscess evident. IMPRESSION: Findings could be indicative of sternal infection, osteomyelitis. No cee abscess. Post op changes and additional findings above.
[2017-12-24] MEDS: SENNOSIDES-DOCUSATE SODIUM 1 EACH TAB PO SCH (20:40)
[2017-12-24 22:49] LABS: Magnesium 1.9 mg/dL (1.6-2.3); Potassium 4.1 mmol/L (3.5-5.1)
[2017-12-25] MEDS: IPRATROPIUM-ALBUTEROL 3 ML NEB INHALATION SCH ×4 (03:43→20:10)
[2017-12-25] MEDS: PANTOPRAZOLE 40 MG TABLET PO SCH (06:35)
[2017-12-25 06:40] LABS: Anion Gap 11 mmol/L; Blood Urea Nitrogen 12 mg/dL (9-20); Calcium 9.6 mg/dL (8.4-10.2); Carbon Dioxide 26 mmol/L (22-30); Chloride 103 mmol/L (98-107); Glucose 107 mg/dL (74-99); Potassium 4.1 mmol/L (3.5-5.1); Sodium 140 mmol/L (137-145)
[2017-12-25] MEDS: ASPIRIN 81 MG PO SCH (08:00)
[2017-12-25] MEDS: FUROSEMIDE 40 MG TAB PO SCH (08:00)
[2017-12-25] MEDS: SPIRONOLACTONE 25 MG TAB PO SCH (08:00)
[2017-12-25] MEDS: CLOPIDOGREL 75 MG TAB PO SCH (08:00)
[2017-12-25] MEDS: METOPROLOL TARTRATE 50 MG TAB PO SCH ×2 (08:00→20:36)
[2017-12-25] MEDS: LISINOPRIL 2.5 MG TAB PO SCH (08:01)
--- NOTE | 2017-12-25 08:20 | PN ---
PROGRESS NOTE DATE OF SERVICE: 12/24/2017 This is a 62-year-old white male who was admitted from my office after having erythema surrounding a small opening of lower incision of the chest from previous bypass surgery. At that time, there was a minimal amount of swelling with some tenderness to palpation. Culture was completed. He was started on Ceftin twice a day and an appointment was made for him to follow up with me in 3 days. After returning to my office, on the 23 of December, culture returned positive MRSA. The patient was called and directly admitted into the hospital. PAST MEDICAL HISTORY: His past medical history is that of a cardiac bypass by Dr. Bullard on 11/09/2017 in which he had quite an uneventful course. This gentleman has a longstanding history of alcohol abuse, COPD, hypertension, tracheobronchitis and nicotine use. FAMILY HISTORY: The family history is that of premature arterial disease, hyperlipidemia. Again, past history is that of just left cardiac catheterization, placement of intra- aortic balloon pump, 3-vessel coronary bypass surgery and a esophagram. SOCIAL HISTORY: He was a 2 pack a day smoker and quit heavy beer drinker for many years of which he has stopped both since his cardiac bypass surgery. He lives with his who also has severe COPD. She no longer smokes but lives in a home with his brother who is smoker and brother's friend, David, who is also a smoker. Patient has been disabled with the lumbar stenosis for a good many years here. On 12/24, he says he is having minimal to no pain. Consultations have been completed by both Dr. Lopez, Infectious Disease, and Dr. Bullard's service, cardiovascular surgery. MEDICATIONS: Medications are the same of aspirin 81, Plavix 75, folic acid 1 mg, Lasix 40 daily, [place] 10/325 twice a day for pain, DuoNeb updrafts 4 times a day, lisinopril 2.5 daily, metoprolol 50 twice a day, multiple vitamin, Protonix 40, Senokot 1 daily, spironolactone 12.5 daily, and thiamine 1 day. LAB WORK: Lab work from shows a WBC of 7.9 with a 14.4, hemoglobin, sodium 138, potassium 4 with a chloride of 103, CO2 of 22, and Chem 17 that is within normal limits. Magnesium is at 1.9. REVIEW OF SYSTEMS: EYES/ENT: Uneventful. RESPIRATORY: Does have a minimal amount of cough, minimal amount of phlegm. HEART: No palpitations. No chest pain. No orthopnea. No paroxysmal nocturnal dyspnea. GI: No hematemesis, melena or hematochezia. No diarrhea or constipation. : Uneventful. NEUROMUSCULAR: Just decreased strength in his legs from inactivity. LUMBAR: Decreased range of motion with severe lumbar stenosis. PHYSICAL EXAMINATION: His vital signs were 133/90, temperature 97.6, heart rate was in the 90s, respiratory rate 20, and O2 sats 92 on room air. EYES: Pupils are equal, round, react to light and accommodation. ENT showed tympanic membranes and pharynx to be negative. NECK: Supple with a midline trachea. CHEST: Essentially clear to auscultation with an opening with some minimal surrounding redness of the incision on his chest. No drainage at this time. No palpable pain. HEART: Sinus rhythm with no murmur. ABDOMEN: Soft, nontender with no organomegaly. Lower extremities have decreased pulses. INTEGUMENTARY: He does have some scarring on the skin. PSYCHIATRIC: No depression or anxiety. ASSESSMENT: 1. Chest wall infection lower incision positive methicillin-resistant Staphylococcus aureus. 2. Coronary artery bypass x3. 3. History of some chronic obstructive pulmonary disease. 4. Some lumbar stenosis. 5. Hypertension. 6. Cardiomegaly. 7. Gastroesophageal reflux. Continue vancomycin. Appreciate ID consult and cardiovascular surgery inspection. Please refer to my orders. MMODL / IJN: [id number] /
[2017-12-25] MEDS: HYDROcodone/APAP 5-325MG 1 EACH TAB PO SCH ×2 (08:21→20:36)
[2017-12-25] MEDS ORDERED: VANCOMYCIN TROUGH DUE 1 EACH MISC MISCELLANE ONE ×2 (11:00→23:00)
--- NOTE | 2017-12-25 11:06 | P.PN ---
Subjective Progress Note Date: 12/25/17 Principal diagnosis: Superficial sternal wound infection culture positive for MRSA, no evidence of deep sternal wound infection. History of urgent CABG 3 vessels, coronary artery disease, non-STEMI, chronic systolic heart failure, ischemic cardiomyopathy with Life Vest in place, hypertension, COPD, EtOH abuse, previous tobacco dependence, hyperlipidemia, family history of premature coronary artery disease. Patient is currently sitting up in bed in no acute distress. Denies pain, shortness of breath. Ambulating in the room. No new complaints. Objective - Vital Signs Vital signs: Vital Signs Temp 97.0 F L 12/25/17 08:00 Pulse 98 12/25/17 08:40 Resp 20 12/25/17 08:00 BP 128/80 12/25/17 08:00 Pulse Ox 95 12/25/17 08:00 Intake & Output 12/24/17 12/25/17 12/25/17 18:59 06:59 18:59 Intake Total 880 360 236 Output Total 4800 825 Balance -3920 -465 236 Weight 99.5 kg Intake: Oral 880 360 236 Output: Urine 4800 825 Other: Voiding Method Toilet Urinal # Voids 1 - Constitutional General appearance: Present: cooperative, no acute distress, obese - Respiratory Details: Lungs sounds diminished bilaterally. Respirations even, nonlabored. Currently on room air with oxygen saturation 95%. - Cardiovascular Details: S1, S2 present. Regular rate and rhythm, sinus rhythm on telemetry. Palpable peripheral pulses bilaterally. No edema present. No calf pain or tenderness noted. Heart hugger in place with patient demonstrating appropriate use. - Gastrointestinal Gastrointestinal Comment(s): Abdomen soft, nontender, nondistended. Active bowel sounds 4 quadrants. Tolerating diet. - Genitourinary Genitourinary Comment(s): Voiding clear, yellow urine. - Integumentary Integumentary Comment(s): Skin is warm and dry with evidence of good perfusion. Sternal incision with small opening at the distal end of the incision with no drainage in noted on current dressing. No fluctuance noted underneath the incision. The rest of the sternal incision is well approximated. Chest tube sites and right lower extremity EVH site well approximated with no drainage. - Neurologic Neurologic: Present: CNII-XII intact - Musculoskeletal Musculoskeletal: Present: gait normal, strength equal bilaterally - Psychiatric Psychiatric: Present: A&O x's 3, appropriate affect, intact judgment & insight - Allied health notes Allied health notes reviewed: nursing - Labs CBC & Chem 7: 12/24/17 09:01 12/25/17 06:06 Labs: Abnormal Lab Results - Last 24 Hours (Table) 12/25/17 Range/Units 06:06 Glucose 107 H (74-99) mg/dL - Imaging and Cardiology CT scan - chest: report reviewed, image reviewed Assessment and Plan (1) Chronic systolic heart failure Current Visit: Yes Status: Chronic Code(s): I50.22 - CHRONIC SYSTOLIC ( CONGESTIVE) HEART FAILURE SNOMED Code(s): 130639301 (2) Tobacco dependence in remission Current Visit: No Status: Resolved Code(s): F17.201 - NICOTINE DEPENDENCE, UNSPECIFIED, IN REMISSION SNOMED Code(s): 215031049 (3) Status post coronary artery bypass graft Current Visit: Yes Status: Chronic Code(s): Z95.1 - PRESENCE OF AORTOCORONARY BYPASS GRAFT SNOMED Code(s): 870844901 (4) MRSA (methicillin resistant Staphylococcus aureus) infection Current Visit: Yes Status: Acute Code(s): A49.02 - METHICILLIN RESIS STAPH INFECTION, UNSP SITE SNOMED Code(s): 178287086 (5) Alcohol abuse Current Visit: Yes Status: Chronic Code(s): F10.10 - ALCOHOL ABUSE, UNCOMPLICATED SNOMED Code(s): 62110835 (6) COPD (chronic obstructive pulmonary disease) Current Visit: Yes Status: Chronic Code(s): J44.9 - CHRONIC OBSTRUCTIVE PULMONARY DISEASE, UNSPECIFIED SNOMED Code(s): 17201110 (7) Coronary artery disease Current Visit: Yes Status: Chronic Code(s): I25.10 - ATHSCL HEART DISEASE OF [place] CORONARY ARTERY W/O ANG PCTRS SNOMED Code(s): 16454444 (8) Hypertension Current Visit: Yes Status: Chronic Code(s): I10 - ESSENTIAL (PRIMARY) HYPERTENSION SNOMED Code(s): 72733203 (9) Ischemic cardiomyopathy Current Visit: Yes Status: Chronic Code(s): I25.5 - ISCHEMIC CARDIOMYOPATHY SNOMED Code(s): 527438492 (10) History of myocardial infarction Current Visit: No Status: Resolved Code(s): I25.2 - OLD MYOCARDIAL INFARCTION SNOMED Code(s): 025476924 Plan: 1. Continue IV vancomycin per infectious disease recommendations. Patient will need PICC line if he is to be sent home with IV antibiotics. 2. No surgical intervention is warranted at this point in time. 3. Medical management per Dr. Couch. 4. Encourage incentive spirometry use. Encourage continued smoking cessation. 5. Shower daily with antibacterial soap. 6. Will monitor while in the hospital. May discharge from our standpoint when okay with Dr. Couch, infectious disease. Time with Patient: Greater than 30
[2017-12-25] MEDS: SODIUM CHLORIDE 0.9% 1,000 ML IV SCH ×2 (11:13→20:36)
--- NOTE | 2017-12-25 11:25 | PN ---
PROGRESS NOTE DATE OF SERVICE: 12/25/2017 REASON FOR FOLLOWUP: MRSA low sternal wound infection, possible osteomyelitis. INTERVAL HISTORY: The patient is afebrile. He has been breathing comfortably. Denies having any chest pain or shortness of breath or cough. The lower end sternal wound has currently closed. No drainage. No diarrhea. PHYSICAL EXAMINATION: Blood pressure 128/80 with a pulse of 96, temperature 97, he is 95% on room air. General description is a middle-aged male up in the room in no distress. RESPIRATORY SYSTEM: Unlabored breathing, clear to auscultation anteriorly. HEART: S1, S2. Regular rate and rhythm: The sternal wound has currently closed. No swelling, no redness, no drainage. LABS: BUN of 12, creatinine 0.90. CT of the chest was reviewed with radiologist, Dr. Delaney with concern for possible lucency at the lower end of the sternum, possible osteomyelitis. DIAGNOSTIC IMPRESSION AND PLAN: Patient with a nonhealing sternal wound, lower end with outpatient culture positive for methicillin-resistant Staphylococcus aureus per discussion with the patient's primary care physician. The wound was probing all the way down to the bone when he took the cultures on December 20, and plus on the basis of this clinical finding as well as the CT findings, suspicious for osteo. We will get a PICC line for outpatient IV antibiotic therapy for a total of 6 weeks with vancomycin. pharmacy to dose. Once antibiotic arranged, he will go home from ID standpoint. Plan of care discussed with the CT Surgery Nurse Practitioner. Continue supportive care. MMODL / KIRSTENN: [id number] /
[2017-12-25] MEDS: FOLIC ACID 1 MG TAB PO SCH (11:53)
[2017-12-25] MEDS: MULTIVITAMINS, THERA 1 EACH TAB PO SCH (11:53)
[2017-12-25] MEDS: THIAMINE 100 MG TAB PO SCH (11:53)
[2017-12-25] MEDS: VANCOMYCIN 1,750 MG in SODIUM CHLORIDE 0.9% 250 ML IVPB SCH ×2 (12:32→23:44)
[2017-12-25] MEDS: SENNOSIDES-DOCUSATE SODIUM 1 EACH TAB PO SCH (20:36)
[2017-12-26] MEDS: IPRATROPIUM-ALBUTEROL 3 ML NEB INHALATION SCH ×5 (01:26→23:43)
[2017-12-26] MEDS: PANTOPRAZOLE 40 MG TABLET PO SCH (06:29)
[2017-12-26] MEDS: SODIUM CHLORIDE 0.9% 1,000 ML IV SCH (06:30)
[2017-12-26] MEDS: CLOPIDOGREL 75 MG TAB PO SCH (08:03)
[2017-12-26] MEDS: ASPIRIN 81 MG PO SCH (08:03)
[2017-12-26] MEDS: METOPROLOL TARTRATE 50 MG TAB PO SCH ×2 (08:03→20:28)
[2017-12-26] MEDS: FUROSEMIDE 40 MG TAB PO SCH (08:03)
[2017-12-26] MEDS: LISINOPRIL 2.5 MG TAB PO SCH (08:03)
[2017-12-26] MEDS: THIAMINE 100 MG TAB PO SCH (08:04)
[2017-12-26] MEDS: SPIRONOLACTONE 25 MG TAB PO SCH (08:04)
[2017-12-26] MEDS: MULTIVITAMINS, THERA 1 EACH TAB PO SCH (08:04)
[2017-12-26] MEDS: HYDROcodone/APAP 5-325MG 1 EACH TAB PO SCH ×2 (08:05→20:28)
--- NOTE | 2017-12-26 08:42 | P.PN ---
Subjective Progress Note Date: 12/26/17 Principal diagnosis: Superficial sternal wound infection culture positive for MRSA, no evidence of deep sternal wound infection. History of urgent CABG 3 vessels, coronary artery disease, non-STEMI, chronic systolic heart failure, ischemic cardiomyopathy with Life Vest in place, hypertension, COPD, EtOH abuse, previous tobacco dependence, hyperlipidemia, family history of premature coronary artery disease. Patient is currently sitting up in bed in no acute distress. Denies pain, shortness of breath. Ambulating in the room. No new complaints. He wants to go home. Objective - Vital Signs Vital signs: Vital Signs Temp 97.6 F 12/26/17 04:00 Pulse 96 12/26/17 08:00 Resp 18 12/26/17 04:00 BP 148/95 12/26/17 04:00 Pulse Ox 98 12/26/17 04:00 Intake & Output 12/25/17 12/26/17 12/26/17 18:59 06:59 18:59 Intake Total 836 600 Output Total 1000 1525 Balance -164 -925 Weight 98.6 kg Intake: IV 600 Sodium Chloride 0.9% 1, 600 000 ml @ 75 mls/hr IV . [id number] [facility] Rx#:[id number] Oral 836 Output: Urine 1000 1525 Other: Voiding Method Toilet Toilet Urinal Urinal - Constitutional General appearance: Present: cooperative, no acute distress, obese - Respiratory Details: Lungs sounds diminished bilaterally. Respirations even, nonlabored. Currently on room air with oxygen saturation 98%. Able to achieve 4288-0583 mL on his incentive spirometry. - Cardiovascular Details: S1, S2 present. Regular rate and rhythm, sinus rhythm on telemetry. Palpable peripheral pulses bilaterally. No edema present. No calf pain or tenderness noted. Heart hugger in place with patient demonstrating appropriate use. - Gastrointestinal Gastrointestinal Comment(s): Abdomen soft, nontender, nondistended. Active bowel sounds 4 quadrants. Tolerating diet. - Genitourinary Genitourinary Comment(s): Voiding clear, yellow urine. - Integumentary Integumentary Comment(s): Skin is warm and dry with evidence of good perfusion. Sternal incision with small opening at the distal end of the incision with no drainage in noted on current dressing. No fluctuance noted underneath the incision. The rest of the sternal incision is well approximated. Chest tube sites and right lower extremity EVH site well approximated with no drainage. - Neurologic Neurologic: Present: CNII-XII intact - Musculoskeletal Musculoskeletal: Present: gait normal, strength equal bilaterally - Psychiatric Psychiatric: Present: A&O x's 3, appropriate affect, intact judgment & insight - Allied health notes Allied health notes reviewed: nursing - Labs CBC & Chem 7: 12/24/17 09:01 12/25/17 06:06 Assessment and Plan (1) Chronic systolic heart failure Current Visit: Yes Status: Chronic Code(s): I50.22 - CHRONIC SYSTOLIC ( CONGESTIVE) HEART FAILURE SNOMED Code(s): 952778058 (2) Tobacco dependence in remission Current Visit: No Status: Resolved Code(s): F17.201 - NICOTINE DEPENDENCE, UNSPECIFIED, IN REMISSION SNOMED Code(s): 116399084 (3) Status post coronary artery bypass graft Current Visit: Yes Status: Chronic Code(s): Z95.1 - PRESENCE OF AORTOCORONARY BYPASS GRAFT SNOMED Code(s): 704049366 (4) MRSA (methicillin resistant Staphylococcus aureus) infection Current Visit: Yes Status: Acute Code(s): A49.02 - METHICILLIN RESIS STAPH INFECTION, UNSP SITE SNOMED Code(s): 645317217 (5) Alcohol abuse Current Visit: Yes Status: Chronic Code(s): F10.10 - ALCOHOL ABUSE, UNCOMPLICATED SNOMED Code(s): 84654965 (6) COPD (chronic obstructive pulmonary disease) Current Visit: Yes Status: Chronic Code(s): J44.9 - CHRONIC OBSTRUCTIVE PULMONARY DISEASE, UNSPECIFIED SNOMED Code(s): 07890787 (7) Coronary artery disease Current Visit: Yes Status: Chronic Code(s): I25.10 - ATHSCL HEART DISEASE OF [place] CORONARY ARTERY W/O ANG PCTRS SNOMED Code(s): 30960438 (8) Hypertension Current Visit: Yes Status: Chronic Code(s): I10 - ESSENTIAL (PRIMARY) HYPERTENSION SNOMED Code(s): 40775823 (9) Ischemic cardiomyopathy Current Visit: Yes Status: Chronic Code(s): I25.5 - ISCHEMIC CARDIOMYOPATHY SNOMED Code(s): 871649631 (10) History of myocardial infarction Current Visit: No Status: Resolved Code(s): I25.2 - OLD MYOCARDIAL INFARCTION SNOMED Code(s): 731006501 Plan: 1. Continue IV vancomycin per infectious disease recommendations. Patient to get a PICC line today to be sent home with IV antibiotics per Dr. Lopez. 2. No surgical intervention is warranted at this point in time. 3. Medical management per Dr. Couch. 4. Encourage incentive spirometry use. Encourage continued smoking cessation. 5. Shower daily with antibacterial soap. 6. May discharge from our standpoint when okay with Dr. Couch, infectious disease. Will see as needed. Follow-up appointment is made for patient to see Dr. Bullard on January 09. Time with Patient: Greater than 30
--- NOTE | 2017-12-26 08:48 | PN ---
PROGRESS NOTE I had a long talk with Dr. Lopez, Infectious Disease and due to the positive MRSA and a questionable inflammatory changes on the bone, it is apparent that the patient has an osteomyelitis being able to probe down to the bone with culture that is indicative of this type of infection. The patient initially was seen in my office because of the infection. Culture was completed. Ceftin was started come back MRSA was placed in the hospital accordingly. PAST MEDICAL HISTORY: His past medical history is that of cardiac bypass with Dr. Bullard on 11/09/2017, which was quite uneventful. Patient had long-standing history of alcohol abuse, COPD, hypertension, tracheobronchitis, and addicted nicotine use. FAMILY HISTORY: Family history is that of premature arterial disease and hyperlipidemia. The patient himself did have a left cardiac catheterization, placement of intra-aortic balloon and 3- vessel bypass and then transesophageal echogram per his surgery history. SOCIAL HISTORY: Two pack a day smoker greater than 30 years and alcohol use for many years with abuse, of which he has stopped both since surgery. He lives with his who also has severe COPD and neither one smokes but has a brother and a gentleman named David who also lives in the house smokers. MEDICATION: His medication use at this time is aspirin 81, Plavix 75, folic acid 1 mg, Lasix 40, [place] 10/325 for pain, DuoNeb updrafts 4 times a day, lisinopril 2.5, metoprolol 50 mg daily, Protonix 40, Senokot daily, spironolactone 12.5, thiamine daily, and also IV vancomycin. LABS: Follow up here on lab, Chem 17 was within normal limits. Hematology on 12/24/2017 was within normal limits. Vital signs today his blood pressure was 148/95, heart rate was in the 90s, respiratory rate is 18, temperature is 97.6, and on room air his oxygenation is 98. REVIEW OF SYSTEMS: His review of systems basically within normal limits except for his chest open lesion. EYES: Pupils are equal, round, react to light and accommodation. PHYSICAL EXAMINATION: ENT showed tympanic membranes and pharynx to be negative. NECK: Supple. Midline trachea. CHEST: Essentially clear to auscultation except for upper lung rhonchi. HEART: Sinus rhythm with no murmur. ABDOMEN: Soft, nontender with no organomegaly. Lower extremity does have some decreased pulses bilaterally in the lower extremity. The chest lesion shows some minimal erythema with muscle swelling on the incision of the very lower area. Otherwise, skin was normal. PSYCHIATRIC: No depression, no anxiety. ASSESSMENT: 1. Chest wall infection lower incision with methicillin-resistant Staphylococcus aureus .. 2. Coronary artery disease x3. 3. History of chronic obstructive pulmonary disease. 4. Alcohol abuse, which is now resolved. 5. Lumbar stenosis. 6. Hypertension. 7. Cardiomegaly. 8. Gastroesophageal reflux. Continue vancomycin. Talked with Dr. Lopez, infectious disease. He will need several weeks of IV antibiotics for this . PICC line is to be placed. MMODL / IJN: [id number] /
[2017-12-26] MEDS ORDERED: LIDOCAINE 2% INJ 20 MG/ML (20 ML MDV) ONE (13:51)
[2017-12-26] MEDS ORDERED: LIDOCAINE 2% INJ 20 MG/ML SQ ONE (14:03)
--- NOTE | 2017-12-26 14:26 | IR ---
PICC LINE PLACEMENT: HISTORY: Infection requiring long-term antibiotic therapy PROCEDURE: Ultrasound and fluoroscopic guidance of PICC line placement. COMPLICATIONS: None ANESTHESIA: 1. 1% Lidocaine locally. FINDINGS/TECHNIQUE: The procedure was explained to the patient. The risks, complications, benefits and alternatives were discussed and any questions were answered. Informed consent was obtained. The patient was placed supine on the fluoroscopic table and prepped and draped in the usual sterile [facility] ion. Utilizing a 21 gauge needle and sonographic and fluoroscopic guidance, access in the vein was achieved and there is placement of a 0.018 guidewire. The vein is patent. A 4-F sheath was placed o wilson the guidewire. The guidewire and dilator were removed and a 4-F. PICC line was placed through th e sheath with the tip at the level of the SVC. The sheath was removed, the catheter was flushed and sutured into position. The patient was stable throughout the procedure and remained stable upon disc harge from the Department of Radiology. The vein puncture was patent under ultrasound. A soriano scale image was obtained to document patency of the vein punctured. All elements of the maximal barrier technique were utilized. FLUOROSCOPY TIME: 0.4 minutes of fluoroscopy and one image submitted IMPRESSION: Successful PICC line placement under ultrasound and fluoroscopic guidance.
[2017-12-26] MEDS: VANCOMYCIN 1,750 MG in SODIUM CHLORIDE 0.9% 250 ML IVPB SCH ×2 (14:29→23:40)
[2017-12-26] MEDS: FOLIC ACID 1 MG TAB PO SCH (14:30)
--- NOTE | 2017-12-26 20:05 | PN ---
PROGRESS NOTE DATE OF SERVICE: 12/26/2017 REASON FOR FOLLOWUP: MRSA sternal osteomyelitis. INTERVAL HISTORY: The patient is afebrile. He has been breathing comfortably. Currently waiting for outpatient IV antibiotic arrangement before discharge. Denies having any abdominal pain or any diarrhea. PHYSICAL EXAMINATION: Blood pressure is 138/65 with a pulse of 95, temperature 97. He is 96% on room air. General description is a middle-aged male up in the bed in no distress. RESPIRATORY SYSTEM: Unlabored breathing. Clear to auscultation anteriorly. HEART: S1, S2. Regular rate and rhythm. ABDOMEN: Soft. No tenderness. Chest wall wound is currently closed up. No obvious drainage. LABS: BUN of 12, creatinine 0.90. DIAGNOSTIC IMPRESSION AND PLAN: Patient with a non-healing lower end of the sternal wound with wound probing to the bone per the primary care physician at the time of cultures. Those were positive for MRSA. Bone scan was suspicion for osteomyelitis. He did get a PICC line and is currently waiting for outpatient IV vancomycin, Pharmacy to dose, target of 15, for a total of 6 weeks with close outpatient followup. Continue with supportive care. MMODL / IJN: [id number] /
[2017-12-26] MEDS: SENNOSIDES-DOCUSATE SODIUM 1 EACH TAB PO SCH (20:28)
[2017-12-27] MEDS: PANTOPRAZOLE 40 MG TABLET PO SCH (05:43)
[2017-12-27 07:04] LABS: Anion Gap 15 mmol/L; Blood Urea Nitrogen 13 mg/dL (9-20); Calcium 9.7 mg/dL (8.4-10.2); Carbon Dioxide 21 mmol/L (22-30); Chloride 104 mmol/L (98-107); Glucose 110 mg/dL (74-99); Potassium 4.1 mmol/L (3.5-5.1); Sodium 140 mmol/L (137-145)
[2017-12-27] MEDS: IPRATROPIUM-ALBUTEROL 3 ML NEB INHALATION SCH (07:37)
[2017-12-27] MEDS: CLOPIDOGREL 75 MG TAB PO SCH (08:56)
[2017-12-27] MEDS: FUROSEMIDE 40 MG TAB PO SCH (08:56)
[2017-12-27] MEDS: ASPIRIN 81 MG PO SCH (08:56)
[2017-12-27] MEDS: METOPROLOL TARTRATE 50 MG TAB PO SCH (08:57)
[2017-12-27] MEDS: LISINOPRIL 2.5 MG TAB PO SCH (08:57)
[2017-12-27] MEDS: SPIRONOLACTONE 25 MG TAB PO SCH (08:57)
[2017-12-27] MEDS: FOLIC ACID 1 MG TAB PO SCH (08:57)
[2017-12-27] MEDS: THIAMINE 100 MG TAB PO SCH (08:58)
[2017-12-27] MEDS: MULTIVITAMINS, THERA 1 EACH TAB PO SCH (08:58)
[2017-12-27] MEDS: HYDROcodone/APAP 5-325MG 1 EACH TAB PO SCH (09:02)
[2017-12-27 09:05] VITALS: BP 143/99; PULSE 97; RESP 16; TEMP 97.5
--- NOTE | 2017-12-27 10:37 | PN ---
PROGRESS NOTE DATE OF SERVICE: 12/27/2017. HISTORY: The patient feels very good today. He did have a PICC line put in and it is now connected and being used. He said he had a very uneventful night. Again, this is a 62- year-old white male who was admitted for MRSA infection of lower sternum with what is presumed to be an osteomyelitis of the sternum, is now being set up after being on vancomycin, with a PICC line for outpatient vancomycin for up to 6 weeks. He has a previous history of having had bypass surgery here on 10/22/2017. It was pretty uneventful. SOCIAL HISTORY: He has a history of previously being a 2 pack-a-day smoker for greater than 30 years and alcohol abuse. He has stopped both since surgery. His was a severe smoker with COPD, she stopped smoking too. Does live with his brother and a gentleman named David is also in the house and they are smokers. MEDICATIONS: At this point are unchanged, including his vancomycin. PHYSICAL EXAMINATION: VITAL SIGNS: Blood pressure 138/80, heart rate is in the 80s, respiratory rate is 18, temperature is 97. EYES: Pupils are equal, round, react to light accommodation. ENT shows tympanic membranes and pharynx to be negative. NECK: Supple. Midline trachea. CHEST: Essentially clear to auscultation. HEART: Sinus rhythm. No murmur. ABDOMEN: Soft, nontender with no organomegaly. Incision of the sternum has a little bit of an opening and a little bit of a skin erythema with no drainage at this time. EXTREMITIES: Lower extremities, he has decreased pulses bilaterally. He has got some ecchymotic changes in his hands. PSYCHIATRIC: No depression. No anxiety. ASSESSMENT: 1. Chest wall infection with lower incision methicillin-resistant Staphylococcus aureus. 2. Coronary artery disease x2. 3. Chronic obstructive pulmonary disease. 4. Alcohol abuse. 5. Lumbar stenosis. 6. Hypertension. 7. Cardiomegaly. 8. Gastroesophageal reflux. Continue with the vancomycin, so arrangements are being made for outpatient hopefully at home use of vancomycin with discharge in the next day or so. MMODL / IJN: [id number] /
[2017-12-30] MEDS ORDERED: VANCOMYCIN TROUGH DUE 1 EACH MISC MISCELLANE ONE (11:00)
== END 2017-12-27 12:26 | disposition home health service (06) | DRG 863 ==
LOC: 6SEL 11:22
PROVIDERS: ADMIT Family Medicine; ATTEND Family Medicine
PROC: 02HV33Z Insertion of Infusion Device into Superior Vena Cava, Percutaneous Approach (ICD-10-PCS; principal; 2017-12-23)
DX: T81.4XXA Infection following a procedure, initial encounter (principal); L03.313 Cellulitis of chest wall; I50.22 Chronic systolic (congestive) heart failure; B95.62 Methicillin resistant Staphylococcus aureus infection as the cause of diseases classified elsewhere; J44.9 Chronic obstructive pulmonary disease, unspecified; I11.0 Hypertensive heart disease with heart failure; K21.9 Gastro-esophageal reflux disease without esophagitis; I25.5 Ischemic cardiomyopathy; E78.5 Hyperlipidemia, unspecified; F10.10 Alcohol abuse, uncomplicated; I25.10 Atherosclerotic heart disease of native coronary artery without angina pectoris; M48.061 Spinal stenosis, lumbar region without neurogenic claudication; F17.211 Nicotine dependence, cigarettes, in remission; Z95.1 Presence of aortocoronary bypass graft; Z79.82 Long term (current) use of aspirin; Z79.02 Long term (current) use of antithrombotics/antiplatelets; Z79.899 Other long term (current) drug therapy; Z82.49 Family history of ischemic heart disease and other diseases of the circulatory system; I25.2 Old myocardial infarction; Z87.01 Personal history of pneumonia (recurrent)
CPT/HCPCS: 36569; 71260; 76937; 77001; 80048; 80053; 80202; 83735; 84132; 85025; 85652; 86140; 94640

== ENCOUNTER 2023-04-02 18:19 | Emergency (ER) | payer MEDICARE, OTHER ==
[2023-04-02 18:25] LABS: Glucose,Whole Blood 189 mg/dL (70-110)
[2023-04-02 18:31] VITALS: TEMP 97.1
--- NOTE | 2023-04-02 18:41 | ED ---
Neuro HPI - General Chief Complaint: Neuro Symptoms/Deficit Stated Complaint: transfer-stroke symp Time Seen by Provider: 04/02/23 18:20 Source: EMS Mode of arrival: EMS Limitations: no limitations - History of Present Illness Is the patient presenting with stroke symptoms?: Yes Initial Comments: Patient presents as a transfer from [facility]. Went into the ER there for worsening shortness of breath. Has been short of breath for the past couple weeks however worsened overnight and patient wasnt even able to speak. His oxygen was 88%. Laboratory studies were completed. Lactic acid was 3.2. BUN 21. Creatinine 2.1. Troponin 0.047. BNP 853. Mag of 1.5. White blood cell count 15.8. ABG showed a pH of 7.4. CO2 28. O2 sat 97. Chest x-ray was done which demonstrated cardiomegaly. Atelectasis last airspace disease at the right base. Right effusion. Possible retrocardiac mass. He was given IV st eroids, multiple nebulized treatments, aspirin, Rocephin and IV magnesium was started. 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 Patient was accepted for transfer and during transfer the patient had acute onset of altered mental status with right-sided paresis. He does take Plavix per his home record. Patient arrives and has difficulty answering questions as he has expressive aphasia. He does not feel tactile stimuli with palpation of his right arm. He has a right-sided facial droop. Onset of symptoms was 1750 per EMS. I did call and speak with the physician at [facility]. He reports that the patient was originally brought into their ER for altered mental status by his friends who "thought he was having a stroke". ED physician there reported that the patient seemed confused however had no lateralizing deficits and he seemed to have improvement in his symptoms when they were able to improve his breathing. Called and spoke with his friend Luis - patient lives with Luis who states that he was confused with garbled speech all morning and finally convince the patient to come to the hospital for evaluation. Confirms that his last known well was yesterday before bed - Related Data Home Medications: Home Medications Medication Instructions Recorded Confirmed Aspirin 81 mg PO DAILY 11/05/17 04/02/23 Atorvastatin [Lipitor] 40 mg PO DAILY 04/02/23 04/02/23 Budesonide/Formoterol Fumarate 2 puff INHALATION RT-BID 04/02/23 04/02/23 [Symbicort 160-4.5 Mcg Inhaler] Losartan Potassium [Cozaar] 25 mg PO DAILY 04/02/23 04/02/23 Metoprolol Succinate (ER) [Toprol 50 mg PO DAILY 04/02/23 04/02/23 Xl] Pantoprazole [Protonix] 40 mg PO DAILY 04/02/23 04/02/23 Spironolactone [Aldactone] 25 mg PO DAILY 04/02/23 04/02/23 Previous Rx's Medication Instructions Recorded Clopidogrel [Plavix] 75 mg PO DAILY #30 tab 11/19/17 Furosemide [Lasix] 40 mg PO DAILY #30 tab 11/19/17 Allergies/Adverse Reactions: Allergies Allergy/AdvReac Type Severity Reaction Status Date / Time No Known Allergies Allergy Verified 04/02/23 19:14 Review of Systems ROS Statement: Those systems with pertinent positive or pertinent negative responses have been documented in the HPI. ROS Other: All systems not noted in ROS Statement are negative. General Exam Limitations: altered mental status General appearance: lethargic Head exam: Present: atraumatic, normocephalic Eye exam: Present: PERRL, EOMI, conjunctival injection. Absent: scleral icterus, periorbital swelling ENT exam: Present: other (Complete right-sided facial droop) Respiratory exam: Present: decreased breath sounds, other (Tachypneic) Cardiovascular Exam: Present: regular rate, normal rhythm, normal heart sounds. Absent: systolic murmur, diastolic murmur, rubs, gallop, clicks GI/Abdominal exam: Present: soft, distended, normal bowel sounds, other (Obese). Absent: tenderness, guarding, rebound, rigid Extremities exam: Present: other (Strength is 3 out of 5 of the right lower extremity. 2 out of 5 strength of the right upper extremity. Left upper and left lower extremity have normal strength) Neurological exam: Present: altered, other (Patient has significantly garbled speech and is difficult to understand. He is oriented to self. Unsure of the year or president. Cannot tell me his date) Psychiatric exam: Present: flat affect Skin exam: Present: diaphoretic Stroke MDM - Lab Data Result diagrams: 04/02/23 18:32 08/22/23 18:32 Lab Results 04/02/23 04/02/23 04/02/23 Range/Units 18:24 18:32 18:32 WBC 15.3 H (3.8-10.6) k/uL RBC 5.55 (4.30-5.90) m/uL Hgb 17.6 H (13.0-17.5) gm/dL Hct 51.7 (39.0-53.0) % MCV 93.1 (80.0-100.0) fL MCH 31.7 (25.0-35.0) pg MCHC 34.0 (31.0-37.0) g/dL RDW 13.5 (11.5-15.5) % Plt Count 289 (150-450) k/uL MPV 7.8 Neutrophils % 86 % Lymphocytes % 11 % Monocytes % 3 % Eosinophils % 0 % Basophils % 0 % Neutrophils # 13.1 H (1.3-7.7) k/uL Lymphocytes # 1.7 (1.0-4.8) k/uL Monocytes # 0.4 (0-1.0) k/uL Eosinophils # 0.0 (0-0.7) k/uL Basophils # 0.0 (0-0.2) k/uL PT 10.6 (9.0-12.0) sec INR 1.0 (<1.2) APTT 21.8 L (22.0-30.0) sec Sodium (137-145) mmol/L Potassium (3.5-5.1) mmol/L Chloride (98-107) mmol/L Carbon Dioxide (22-30) mmol/L Anion Gap mmol/L BUN (9-20) mg/dL Creatinine (0.66-1.25) mg/dL Est GFR (CKD-EPI)AfAm (>60 ml/min/1.73 sqM) Est GFR (CKD-EPI)NonAf (>60 ml/min/1.73 sqM) Glucose (74-99) mg/dL POC Glucose (mg/dL) 189 H (70-110) mg/dL POC Glu Progressive Die Maker ID [place], Lory Calcium (8.4-10.2) mg/dL Total Bilirubin (0.2-1.3) mg/dL AST (17-59) U/L ALT (4-49) U/L Alkaline Phosphatase (38-126) U/L Creatine Kinase (55-170) U/L Troponin I (0.000-0.034) ng/mL Total Protein (6.3-8.2) g/dL Albumin (3.5-5.0) g/dL 04/02/23 04/02/23 Range/Units 18:32 18:32 WBC (3.8-10.6) k/uL RBC (4.30-5.90) m/uL Hgb (13.0-17.5) gm/dL Hct (39.0-53.0) % MCV (80.0-100.0) fL MCH (25.0-35.0) pg MCHC (31.0-37.0) g/dL RDW (11.5-15.5) % Plt Count (150-450) k/uL MPV Neutrophils % % Lymphocytes % % Monocytes % % Eosinophils % % Basophils % % Neutrophils # (1.3-7.7) k/uL Lymphocytes # (1.0-4.8) k/uL Monocytes # (0-1.0) k/uL Eosinophils # (0-0.7) k/uL Basophils # (0-0.2) k/uL PT (9.0-12.0) sec INR (<1.2) APTT (22.0-30.0) sec Sodium 137 (137-145) mmol/L Potassium 4.4 (3.5-5.1) mmol/L Chloride 102 (98-107) mmol/L Carbon Dioxide 19 L (22-30) mmol/L Anion Gap 16 mmol/L BUN 25 H (9-20) mg/dL Creatinine 1.93 H (0.66-1.25) mg/dL Est GFR (CKD-EPI)AfAm 41 (>60 ml/min/1.73 sqM) Est GFR (CKD-EPI)NonAf 35 (>60 ml/min/1.73 sqM) Glucose 213 H (74-99) mg/dL POC Glucose (mg/dL) (70-110) mg/dL POC Glu Progressive Die Maker ID Calcium 9.9 (8.4-10.2) mg/dL Total Bilirubin 1.1 (0.2-1.3) mg/dL AST 44 (17-59) U/L ALT 49 (4-49) U/L Alkaline Phosphatase 104 (38-126) U/L Creatine Kinase 451 H (55-170) U/L Troponin I 0.032 (0.000-0.034) ng/mL Total Protein 8.6 H (6.3-8.2) g/dL Albumin 4.6 (3.5-5.0) g/dL - Medical Decision Making Was pt. sent in by a medical professional or institution (, PA, DEVELOPMENT ASSOCIATE, urgent care, hospital, or group home...) When possible be specific @ -Patient presents as a transfer from [facility] Did you speak to anyone other than the patient for history (EMS, parent, family, police, friend...)? What history was obtained from this source @ -Spoke with Dr. Lacy who was the physician at [facility]. Also spoke with the patient's friend who he lives with, Luis. Did you review nursing and triage notes (agree or disagree)? Why? @ -I reviewed and agree with nursing and triage notes Were old charts reviewed (outside hosp., previous admission, EMS record, old EKG, old radiological studies, urgent care reports/EKG's, group home records)? Report findings @ -No old charts were reviewed Differential Diagnosis (chest pain, altered mental status, abdominal pain women, abdominal pain men, vaginal bleeding, weakness, fever, dyspnea, syncope, h eadache, dizziness, GI bleed, back pain, seizure, CVA, palpatations, mental health, musculoskeletal)? @ -Differential CVA Ischemic stroke, hemorrhagic stroke, brain tumor, atypical migraine, Wernicke's encephalopathy, seizure, multiple sclerosis, meningitis, encephalitis, hypogl ycemia, Guillain-Trammell, electrolytes disturbance, myasthenia gravis.... This is not meant to be an all-inclusive list EKG interpreted by me (3pts min.). @ -Yes and demonstrates sinus rhythm with a rate of 90. [place] interval 200. QRS 161. QTC of 466. Right bundle branch block. No ST elevation consistent with ischemia X-rays interpreted by me (1pt min.). @ -Yes and demonstrates no acute process CT interpreted by me (1pt min.). @ -Yes and demonstrates large left-sided MCA stroke U/S interpreted by me (1pt. min.). @ -None done What testing was considered but not performed or refused? (CT, X-rays, U/S, labs)? Why? @ -None What meds were considered but not given or refused? Why? @ -Alteplase was discussed however the patient refused due to risks. Did you discuss the management of the patient with other professionals (professionals i.e. Dr., PA, DEVELOPMENT ASSOCIATE, lab, RT, psych nurse, health social work professor, insole reinforcer, teacher, aoc plans intelligence officer chief, case management manager)? Give summary @ -Spoke with Dr. Castro and Dr. Steele. Dr. Castro would like patient [facility] Was smoking cessation discussed for >3mins.? @ -No Was critical care preformed (if so, how long)? @ -yes, 50 minutes Were there social determinants of health that impacted care today? How? (Homelessness, low income, unemployed, alcoholism, drug addiction, transportation, low edu. Level, literacy, decrease access to med. care, senior care, rehab)? @ -No Was there de-escalation of care discussed even if they declined (Discuss DNR or withdrawal of care, Hospice)? DNR status @ -No What co-morbidities impacted this encounter? (DM, HTN, Smoking, COPD, CAD, Cancer, CVA, ARF, Chemo, Hep., AIDS, mental health diagnosis, sleep apnea, morbid obesity)? @ -etoh abuse, cardiomyopathy Was patient admitted / discharged? Hospital course, mention meds given and route, prescriptions, significant lab abnormalities, going to OR and other pertinent info. @ -Upon arrival patient was immediately evaluated in trauma 1. A thorough review of the patient's chart was performed from the outside hospital. Patient does have noticeable right sided deficits and therefore code stroke is activated. NIH is 21. Patient is sent for CT of his head. Plain CT does demonstrate a visible left MCA stroke. I did obtain alteplase however patient refuses due to risk. Offer to call family however patient refuses our ability to reach out to family. Patient aware of the risks and benefits of not having alteplase. I did speak with Dr. Steele about the patient. Spoke with Dr. Castro who originally stated that the patient should receive aspirin and Brillinta and the patient could remain hospitalized at our facility however he then adjusts his management and states that the patient should be transferred to [facility]. He does arrange transfer. I called and spoke with the patient's friend Luis after the patient requests that I do. Luis states that he has demonstrated symptoms of aphasia all day and last known well was in fact last night. He is aware that the patient will be transferred to [facility]. Patient does have multiple NIH is performed and does have significant improvement. NIH is 2 upon patient's transferred to outside facility. He was given Brilinta 180 mg. He already received his aspirin from [facility]. Patient transferred in stable condition with guarded prognosis Undiagnosed new problem with uncertain prognosis? @ -yes Drug Therapy requiring intensive monitoring for toxicity (Heparin, Nitro, Insulin, Cardizem)? @ -No Were any procedures done? @ -No Diagnosis/symptom? @ -Acute right sided weakness, acute CVA Acute, or Chronic, or Acute on Chronic? @ -acute Uncomplicated (without systemic symptoms) or Complicated (systemic symptoms)? @ -complicated Side effects of treatment? @ -No Exacerbation, Progression, or Severe Exacerbation? @ -No Poses a threat to life or bodily function? How? (Chest pain, [place], [place], pneumonia, PE, COPD, DKA, ARF, appy, cholecystitis, CVA, Diverticulitis, Homicidal, Griffin icidal, threat to staff... and all critical care pts) @ -yes - patient has suffered from large stroke Past Medical History Past Medical History: Coronary Artery Disease (CAD), Heart Failure, COPD, GERD/Reflux, Hypertension, Myocardial Infarction ([place]), Pneumonia Additional Past Medical History / Comment(s): Ischemic cardiomyopathy, wearing life vest, bronchitis, few weeks ago and "seizure like" activity and chest discomfort-pt spouse's oxygen on and felt better (pt states he also at that time "had a few beers" in him). Last Myocardial Infarction Date:: 11/05/17 History of Any Multi-Drug Resistant Organisms: MRSA Date of last positivie culture/infection: 12/20/17 MDRO Source:: chest Past Surgical History: Coronary Bypass/CABG, Heart Catheterization Additional Past Surgical History / Comment(s): 11/06/17 cardiac cath, 11/09/17 CABG 3 vessel with R leg vein donor. Past Anesthesia/Blood Transfusion Reactions: No Reported Reaction Past Psychological History: No Psychological Hx Reported Smoking Status: Unknown if ever smoked Past Alcohol Use History: Abuse, Heavy, Occasional Past Drug Use History: None Reported - Past Family History Mother History Unknown: Yes Additional Family Medical History / Comment(s): Pt believes his mother had heart problems and possibly MIs but is uncertain. She at the age of 74yrs. Father History Unknown: Yes Additional Family Medical History / Comment(s): Unknown medical history, the patient reports that his father left home when he was at age 12. Brother(s) Family Medical History: Coronary Artery Disease (CAD), Myocardial Infarction ([place]) Additional Family Medical History / Comment(s): History of myocardial infarction and coronary artery bypass grafting surgery at age 46. Course Vital Signs 04/02/23 04/02/23 04/02/23 18:30 18:50 19:00 Temperature 97.1 F L Pulse Rate 79 90 93 Respiratory 24 29 H 30 H Rate Blood Pressure 112/92 135/107 135/107 O2 Sat by Pulse 95 98 97 Oximetry 04/02/23 04/02/23 04/02/23 19:15 19:30 19:45 Temperature Pulse Rate 90 102 H 109 H Respiratory 31 H 38 H Rate Blood Pressure 126/112 101/74 171/145 O2 Sat by Pulse 95 89 L Oximetry 04/02/23 04/02/23 04/02/23 20:00 20:15 20:30 Temperature Pulse Rate 84 87 89 Respiratory 22 27 H 26 H Rate Blood Pressure 152/128 133/101 140/92 O2 Sat by Pulse Oximetry 04/02/23 04/02/23 04/02/23 20:45 21:00 21:15 Temperature Pulse Rate 87 86 87 Respiratory 24 27 H 27 H Rate Blood Pressure 139/100 133/98 130/100 O2 Sat by Pulse Oximetry 04/02/23 21:30 Temperature Pulse Rate 84 Respiratory 25 H Rate Blood Pressure 126/67 O2 Sat by Pulse Oximetry - Reevaluation(s) Reevaluation #1: No neurointensivist call back. Patient refusing TPA 04/02/23 19:01 Reevaluation #2: Dr. Castro calling back - reviewing CT/CTA. States stroke has been occurring longer than 4.5 hours due to appearance of CT. Alteplase is in ER however patient is refusing TPA due to side effects and chance of . He has improved in his mentation. He is able to understand the risks and benefits of the medication and states it's too risky. Speech is improving as patient is able to voice that he is hungry and wants something to eat now 04/02/23 19:12 Reevaluation #3: Spoke with Dr. Steele - aware patient is here and his condition. Awaiting call back from Dr. Castro. 04/02/23 19:42 Reevaluation #4: Dr. Castro called back - states patient should get aspirin and Brillinta however is not a candidate for intervention. He then states that he would then like the patient transferred to [facility] and will arrange the transfer 04/02/23 19:56 Reevaluation #5: Speaking with neuro PA - arranging transfer 04/02/23 20:00 NIH now is 2 04/02/23 20:45 Disposition Clinical Impression: Cerebrovascular accident (CVA) Disposition: OTHER INSTITUTION NOT DEFINED Condition: Serious Is patient prescribed a controlled substance at d/c from ED?: No Referrals: Danny Couch MD [Primary Care Provider] - 1-2 days Time of Disposition: 21:04 - Out of Hospital Transfer - Req. Specs Out of Hospital Transfer - Requested Specifics: Neurological ICU ([facility])
[2023-04-02 18:43] LABS: Basophils % (A) 0 %; Eosinophils % (A) 0 %; HCT 51.7 % (39.0-53.0); HGB 17.6 gm/dL (13.0-17.5); Lymphocytes # (A) 1.7 k/uL (1.0-4.8); Lymphocytes % (A) 11 %; MCH 31.7 pg (25.0-35.0); MCV 93.1 fL (80.0-100.0); Mean Platelet Volume 7.8; Monocytes # (A) 0.4 k/uL (0-1.0); Monocytes % (A) 3 %; Neutrophils # (A) 13.1 k/uL (1.3-7.7); Neutrophils % (A) 86 %; Platelet Count 289 k/uL (150-450); RBC 5.55 m/uL (4.30-5.90); RDW 13.5 % (11.5-15.5); WBC 15.3 k/uL (3.8-10.6)
--- NOTE | 2023-04-02 18:48 | CT ---
EXAMINATION TYPE: CT brain wo con for TPA DATE OF EXAM: 04/02/2023 COMPARISON: None HISTORY: Neuro deficit, acute, stroke suspected. CT DLP: 1244.[address] of the brain was performed. Acute CVA anterior aspect left MCA territory. No additional areas of abnormal attenuation seen. Assoc iated cytotoxic edema. Mild mass effect on the left lateral ventricle. No evidence for midline shift. The ventricles, basal cisterns and sulci overlying the cerebral convexities demonstrate mild enlargem ent. There is no evidence for intracranial hemorrhage or sulcal effacement. There is decreased attenuation about the periventricular white matter and deep white matter of both c erebral hemispheres, compatible with chronic small vessel ischemia. Differential diagnosis does inclu de demyelination. No mass effects are seen.No midline shift. Osseous calvarium is intact. If symptoms persist consider MRI. IMPRESSION: 1. Acute CVA anterior aspect left MCA territory. No evidence for hemorrhagic transformation.
[2023-04-02] MEDS ORDERED: Alteplase PER PHARMACY Stroke 1 EACH MISC MISCELLANE PRN (18:52)
[2023-04-02] MEDS ORDERED: ALTEPLASE 81 MG in EMPTY BAG 1 BAG IV STA (18:53)
[2023-04-02] MEDS ORDERED: ALTEPLASE BOLUS FOR STROKE 9 MG in EMPTY SYRINGE 1 SYR IV STA (18:53)
[2023-04-02 18:56] LABS: ALT 49 U/L (4-49); AST 44 U/L (17-59); African American GFR (CKD) 41 (>60 ml/min/1.73 sqM); Albumin 4.6 g/dL (3.5-5.0); Alkaline Phosphatase 104 U/L (38-126); Anion Gap 16 mmol/L; Blood Urea Nitrogen 25 mg/dL (9-20); Calcium 9.9 mg/dL (8.4-10.2); Carbon Dioxide 19 mmol/L (22-30); Chloride 102 mmol/L (98-107); Creatine Kinase 451 U/L (55-170); Glucose 213 mg/dL (74-99); Non-African American GFR(CKD) 35 (>60 ml/min/1.73 sqM); Potassium 4.4 mmol/L (3.5-5.1); Sodium 137 mmol/L (137-145); Total Bilirubin 1.1 mg/dL (0.2-1.3); Total Protein 8.6 g/dL (6.3-8.2)
--- NOTE | 2023-04-02 19:01 | XR ---
EXAMINATION TYPE: XR chest 2V DATE OF EXAM: 04/02/2023 COMPARISON: 11/19/2017 HISTORY: Shortness of breath TECHNIQUE: Frontal and lateral views of the chest are obtained. FINDINGS: Scattered senescent parenchymal changes noted. Hyperinflation compatible with COPD. No evidence for infiltrate. No evidence for atelectasis. Heart size is stable. Mediastinal structures are stable and grossly unremarkable. No evidence for hilar prominence. Degenerative changes dorsal spine. IMPRESSION: 1. No evidence for acute pulmonary disease.
[2023-04-02 19:04] LABS: Partial Thromboplastin Time 21.8 sec (22.0-30.0); Prothrombin Time 10.6 sec (9.0-12.0)
--- NOTE | 2023-04-02 19:16 | CT ---
EXAMINATION TYPE: CT angio head neck DATE OF EXAM: 04/02/2023 COMPARISON: None HISTORY: Neuro deficit, acute, stroke suspected CT DLP: 757.8 mGycm CONTRAST: Performed with IV Contrast, patient injected with 65 ml mL of Isovue 370. Combination Contrast CTA cervical carotids and [place] of Rodriguez CTA cervical carotids with 3-D recons truction. Patient motion does limit evaluation. Contrast CTA of the cervical carotids was performed 3-D reconstruction imaging obtained at a separate workstation. Right carotid system: Mild plaque is seen of the right common carotid artery. There is severe calcif ied plaque also noted at the carotid bulb and proximal ICA. There is high-grade stenosis proximal ri ght ICA estimated at 90%. ECA is patent. Right vertebral artery appears unremarkable. Left carotid system: Mild plaque is seen of the left common carotid artery. There is severe plaque a lso noted at the carotid bulb and proximal ICA. There is occlusion of the left ICA. ECA is patent. Left vertebral artery appears unremarkable. IMPRESSION: 1. Occlusion left ICA. 2. High-grade stenosis proximal right ICA estimated at 90% or greater. CTA knik of Rodriguez with 3-D reconstruction Contrast CTA of the knik of Rodriguez was performed 3-D reconstruction imaging obtained at a separate workstation. Vertebrobasilar system as well as intracranial portions of the internal carotid arteries and their ma christina tributaries are patent. Diminutive left intracranial ICA component. I do not see evidence for si zable aneurysm or vascular malformation. Left MCA M3 branches demonstrate vascular asymmetry. Please note MRI provides greater sensitivity and specificity. Visualized brain appears grossly unremarkable . IMPRESSION: 1. Diminutive left intracranial ICA component.Left MCA M3 branches demonstrate vascular asymmetry. NASCET criteria was used in interpretation of this exam?
[2023-04-02] MEDS ORDERED: SODIUM CHLORIDE 0.9% 50 ML MINI-BAG IV ONE (19:54)
[2023-04-02] MEDS ORDERED: TICAGRELOR 90 MG TAB PO STA (20:04)
[2023-04-02 21:35] VITALS: BP 126/67; PULSE 84; RESP 25
== END 2023-04-02 21:39 | disposition other institution (70) ==
LOC: EC 18:19
DX: I63.9 Cerebral infarction, unspecified (principal); I45.10 Unspecified right bundle-branch block; I25.10 Atherosclerotic heart disease of native coronary artery without angina pectoris; I50.9 Heart failure, unspecified; I11.0 Hypertensive heart disease with heart failure; I25.2 Old myocardial infarction; J44.9 Chronic obstructive pulmonary disease, unspecified; K21.9 Gastro-esophageal reflux disease without esophagitis; Z79.82 Long term (current) use of aspirin; Z79.51 Long term (current) use of inhaled steroids; Z79.899 Other long term (current) drug therapy; Z95.1 Presence of aortocoronary bypass graft
CPT/HCPCS: 36415; 93005; 80053; 82550; 84484; 85025; 85610; 85730; 71046; 70496; 70450; 70498; 99291; Q9967

== ENCOUNTER 2023-06-25 05:11 | Inpatient (IN) | payer MEDICARE, OTHER ==
[2023-06-25 05:37] LABS: Glucose,Whole Blood 161 mg/dL (70-110)
[2023-06-25] MEDS ORDERED: PIPERACILLIN-TAZOBACTAM 3.375 GM in SODIUM CHLORIDE 0.9% 100 ML IVPB STA (06:12)
[2023-06-25] MEDS ORDERED: VANCOMYCIN IV PER PHARMACY 1 EACH MISC MISCELLANE PRN (06:12)
[2023-06-25] MEDS ORDERED: ACETAMINOPHEN IV (For NPO) 1,000 MG in EMPTY BAG 1 BAG IVPB STA (06:14)
[2023-06-25] MEDS ORDERED: SODIUM CHLORIDE 0.9% 1,000 ML IV SCH (06:15)
--- NOTE | 2023-06-25 06:26 | ED ---
SOB HPI - General Chief Complaint: Altered Mental Status Stated Complaint: Sepsis Time Seen by Provider: 06/25/23 05:30 Source: EMS, RN notes reviewed Mode of arrival: EMS Limitations: altered mental status - History of Present Illness Initial Comments: This is a 68-year-old male who presents to the emergency department as a transfer from [facility] for difficulty breathing and sepsis. Patient has a hx of CVA with right-sided hemiparesis and garbled speech at baseline. He is a resident of [facility]. Per review of [facility] records, [facility] staff was concerned that the patient was increasingly short of breath and more altered than normal. This occurred about an hour before sending him to the emergency department at [facility]. While the patient has garbled speech, he does attempt to communicate such as asking for water and complaining of pain from the blood pressure cuff in the right arm. He is otherwise not able to provide any history on his own. MD Complaint: shortness of breath - Related Data Home Medications Medication Instructions Recorded Confirmed Aspirin 81 mg PEG/G-TUBE DAILY@0700 11/05/17 06/25/23 Atorvastatin [Lipitor] 40 mg PEG/G-TUBE DAILY@1900 04/02/23 06/25/23 Acetaminophen Tab [Tylenol] 650 mg PEG/G-TUBE Q4H PRN MDD 06/25/23 06/25/23 3000MG Albuterol Nebulized [Ventolin 2.5 mg INHALATION RT-Q4H PRN 06/25/23 06/25/23 Nebulized] Ammonium Lactate Cream [Lac-Hydrin 1 applic TOPICAL DAILY PRN 06/25/23 06/25/23 12% Cream] Ammonium Lactate Cream [Lac-Hydrin 1 applic TOPICAL HS 06/25/23 06/25/23 12% Cream] Apixaban [Eliquis] 5 mg PEG/G-TUBE BID@0700,1900 06/25/23 06/25/23 Famotidine [Pepcid] 20 mg PEG/G-TUBE BID@0700,1900 06/25/23 06/25/23 Folic Acid 1 mg PEG/G-TUBE DAILY@0700 06/25/23 06/25/23 Health Shake 1 can PEG/G-TUBE BID-W/MEALS 06/25/23 06/25/23 Insulin Lispro [Admelog Solostar] See Protocol SQ ACHS 06/25/23 06/25/23 Ipratropium-Albuterol Nebulize 3 ml INHALATION RT-BID@0700,1900 06/25/23 06/25/23 [Duoneb 0.5 mg-3 mg/3 ml Soln] Magnesium Hydroxide [Milk of 2,400 mg PEG/G-TUBE Q48H PRN 06/25/23 06/25/23 Magnesia] Metoprolol Tartrate [Lopressor] 25 mg PEG/G-TUBE BID@0700,1900 06/25/23 06/25/23 Ticagrelor [Brilinta] 90 mg PEG/G-TUBE DAILY@0700 06/25/23 06/25/23 polyethylene glycoL 3350 [Miralax] 17 gm PEG/G-TUBE DAILY PRN 06/25/23 06/25/23 predniSONE [Deltasone] 40 mg PEG/G-TUBE DAILY@0700 06/25/23 06/25/23 Allergies Allergy/AdvReac Type Severity Reaction Status Date / Time No Known Allergies Allergy Verified 06/25/23 07:04 Review of Systems ROS Statement: Those systems with pertinent positive or pertinent negative responses have been documented in the HPI. ROS Other: All systems not noted in ROS Statement are negative. Past Medical History Past Medical History: Coronary Artery Disease (CAD), Heart Failure, COPD, GERD/Reflux, Hypertension, Myocardial Infarction ([place]), Pneumonia Additional Past Medical History / Comment(s): Ischemic cardiomyopathy, wearing life vest, bronchitis, few weeks ago and "seizure like" activity and chest discomfort-pt spouse's oxygen on and felt better (pt states he also at that time "had a few beers" in him). Last Myocardial Infarction Date:: 11/05/17 History of Any Multi-Drug Resistant Organisms: MRSA Date of last positivie culture/infection: 12/20/17 MDRO Source:: chest Past Surgical History: Coronary Bypass/CABG, Heart Catheterization Additional Past Surgical History / Comment(s): 11/06/17 cardiac cath, 11/09/17 CABG 3 vessel with R leg vein donor. Past Anesthesia/Blood Transfusion Reactions: No Reported Reaction Past Psychological History: No Psychological Hx Reported Smoking Status: Unknown if ever smoked Past Alcohol Use History: Abuse, Heavy, Occasional Past Drug Use History: None Reported - Past Family History Mother History Unknown: Yes Additional Family Medical History / Comment(s): Pt believes his mother had heart problems and possibly MIs but is uncertain. She at the age of 74yrs. Father History Unknown: Yes Additional Family Medical History / Comment(s): Unknown medical history, the patient reports that his father left home when he was at age 12. Brother(s) Family Medical History: Coronary Artery Disease (CAD), Myocardial Infarction (KS) Additional Family Medical History / Comment(s): History of myocardial infarction and coronary artery bypass grafting surgery at age 46. General Exam Limitations: altered mental status General appearance: alert Head exam: Present: atraumatic, normocephalic, normal inspection Respiratory exam: Present: decreased breath sounds, prolonged expiratory. Absent: wheezes, rales, rhonchi Cardiovascular Exam: Present: normal rhythm, tachycardia GI/Abdominal exam: Present: soft Neurological exam: Present: alert Skin exam: Present: warm, dry, intact, normal color. Absent: rash Course Vital Signs 06/25/23 06/25/23 06/25/23 05:23 05:32 05:39 Temperature 99.5 F Pulse Rate 122 H 123 H Pulse Rate [ Director Of Testing ] Respiratory 22 24 24 Rate Blood Pressure 87/67 91/75 Blood Pressure [Right Arm] O2 Sat by Pulse 97 97 Oximetry 06/25/23 06/25/23 06/25/23 05:49 06:09 06:23 Temperature 100.4 F H Pulse Rate 122 H 123 H 118 H Pulse Rate [ Director Of Testing ] Respiratory 24 22 22 Rate Blood Pressure 93/71 101/69 103/72 Blood Pressure [Right Arm] O2 Sat by Pulse 92 L 93 L 94 L Oximetry 06/25/23 06/25/23 06/25/23 06:48 07:22 08:02 Temperature 99.3 F 99.0 F 98.3 F Pulse Rate 113 H 105 H 102 H Pulse Rate [ Director Of Testing ] Respiratory 22 20 22 Rate Blood Pressure 104/81 103/75 107/74 Blood Pressure [Right Arm] O2 Sat by Pulse 93 L 92 L 98 Oximetry 06/25/23 06/25/23 06/25/23 09:09 11:07 11:29 Temperature 98.7 F 98.0 F Pulse Rate Pulse Rate [ 101 H 126 H Director Of Testing ] Respiratory 16 26 H Rate Blood Pressure Blood Pressure 98/56 119/94 [Right Arm] O2 Sat by Pulse 97 93 L 97 Oximetry 06/25/23 12:45 Temperature 97.8 F Pulse Rate Pulse Rate [ 144 H Director Of Testing ] Respiratory 20 Rate Blood Pressure Blood Pressure 114/58 [Right Arm] O2 Sat by Pulse 95 Oximetry Medical Decision Making - Medical Decision Making This is a 68-year-old male who presents to the emergency department as a transfer from [facility] for shortness of breath and sepsis. Was pt. sent in by a medical professional or institution? @ -[facility] Did you speak to anyone other than the patient for history? @ -All history obtained from outside records provided by [facility]. Did you review nursing and triage notes? @ -Yes, and I agree, it is accurate with regards to the patient's symptoms. Were old charts reviewed? @ -Yes, documentation and lab work indicating that the patient was febrile, tachycardic, and hypotensive on arrival to their emergency department. Workup did not show any definitive source of infection, however he was found to be septic and subsequently went into septic shock while there. They treated him with Rocephin, Zosyn, and vancomycin. Notable lab values were a WBC of 18.30, neutrophils 16.83, troponin 0.068, and procalcitonin 7.07. Differential Diagnosis? @ -Differential Fever: Pneumonia, viral URI, endocarditis, myocarditis, pericarditis, otitis, sinusitis, peritonsillar Abscess, retropharyngeal Abscess, epiglottitis, peritonitis, appendicitis, [place] cystitis, diverticulitis, hepatitis, colitis, UTI, PID, TOA, pyelonephritis, prostatitis, epididymitis, meningitis, encephalitis, pulmonary embolism, CVA, thyroid storm, pancreatitis, adrenal crisis, cavernous sinus thrombosis, this is not meant to be an all-inclusive list. EKG interpreted by me (3pts min.)? @ -EKG interpreted by me demonstrating the following: Sinus tachycardia with occasional PVCs. Ventricular rate 124 BPM, AL interval 159 ms, QRS duration 153 ms, QTc 433 ms. EKG states acute KS, on review with ED attending Dr. Rogel, this is not believed to be the case. X-rays interpreted by me (1pt min.)? @ -Chest x-ray obtained. My interpretation identifies mild pulmonary vascular congestion. CT interpreted by me (1pt min.)? @ -Not obtained U/S interpreted by me (1pt. min.)? @ -Not obtained What testing was considered but not performed? (CT, X-rays, U/S, labs)? Why? @ -None What meds were considered but not given? Why? @ -None Did you discuss the management of the patient with other professionals? @ -Yes, Dr. Harry, who accepts the patient for admission. Did you reconcile home meds? @ -Yes Was smoking cessation discussed for >3mins.? @ -No Was critical care preformed (if so, how long)? @ -No Were there social determinants of health that impacted care today? How? (Homelessness, low income, unemployed, alcoholism, drug addiction, transportation, low edu. Level, literacy, decrease access to med. care, residential, rehab)? @ -No Was there de-escalation of care discussed even if they declined? (Discuss DNR or withdrawal of care, Hospice)? @ -No What co-morbidities impacted this encounter? (DM, HTN, Smoking, COPD, CAD, Cancer, CVA, Hep., AIDS, mental health diagnosis, sleep apnea, morbid obesity)? @ -HLD, CHF, hemiplegia, COPD, DM type 2, CAD, ASMITA Was patient admitted / discharged? @ -Admitted. On review of outside records, patient was transferred to our facility from [facility] for difficulty breathing and sepsis. Sepsis is of unknown origin at this time. He was febrile on arrival here with a temperature of 100.4F and given a dose of Ofirmev. He was given a 2L bolus of IV fluids at their facility. He was given another 2L bolus of IV fluids here per the 30-40 mL/kg requirement for sepsis. He was also started on maintenance fluids at 130 mL/hr. Vancomycin and Zosyn that were initiated at the outside facility were continued. Blood cultures were obtained at [facility]. We did repeat them here as well. Lab work obtained here demonstrates a WBC of 20.8, lactic acid of 2.2, and troponin of 0.057. Troponin is downtrending from [facility] where it was 0.068. Chest x-ray demonstrates cardiomegaly and mild bilateral pulmonary vascular congestion. Patient admitted to medicine for further management of sepsis of unknown origin. Undiagnosed new problem with uncertain prognosis? @ -None Drug Therapy requiring intensive monitoring for toxicity (Heparin, Nitro, Insulin, Cardizem)? @ -None Were any procedures done? @ -None Diagnosis/symptom? @ -Sepsis of unknown origin Acute, or Chronic, or Acute on Chronic? @ -Acute Uncomplicated (without systemic symptoms) or Complicated (systemic symptoms)? @ -Complicated Side effects of treatment? @ -None Exacerbation, Progression, or Severe Exacerbation] @ -Not applicable Poses a threat to life or bodily function? @ -Yes This case was discussed in detail with the attending ED physician, Dr. Rogel. Presentation, findings, and treatment plan discussed in detail as well. - Lab Data Result diagrams: 06/25/23 06:12 06/25/23 06:12 Lab Results 06/25/23 06/25/23 06/25/23 Range/Units 05:35 06:12 06:12 WBC 20.8 H (3.8-10.6) k/uL RBC 4.86 (4.30-5.90) m/uL Hgb 15.1 (13.0-17.5) gm/dL Hct 45.5 (39.0-53.0) % MCV 93.7 (80.0-100.0) fL MCH 31.1 (25.0-35.0) pg MCHC 33.2 (31.0-37.0) g/dL RDW 14.2 (11.5-15.5) % Plt Count 177 (150-450) k/uL MPV 8.8 Neutrophils % 92 % Lymphocytes % 4 % Monocytes % 4 % Eosinophils % 0 % Basophils % 0 % Neutrophils # 19.2 H (1.3-7.7) k/uL Lymphocytes # 0.7 L (1.0-4.8) k/uL Monocytes # 0.7 (0-1.0) k/uL Eosinophils # 0.1 (0-0.7) k/uL Basophils # 0.0 (0-0.2) k/uL ESR Cancelled PT 12.3 (10.0-12.5) sec INR 1.1 (<1.2) APTT 24.6 (22.0-30.0) sec Sodium (137-145) mmol/L Potassium (3.5-5.1) mmol/L Chloride (98-107) mmol/L Carbon Dioxide (22-30) mmol/L Anion Gap mmol/L BUN (9-20) mg/dL Creatinine (0.66-1.25) mg/dL Est GFR (CKD-EPI)AfAm (>60 ml/min/1.73 sqM) Est GFR (CKD-EPI)NonAf (>60 ml/min/1.73 sqM) Glucose (74-99) mg/dL POC Glucose (mg/dL) 161 H (70-110) mg/dL POC Glu [employer] Operations Manager ID Mary Salgado Lactic Ac Sepsis Rflx Plasma Lactic Acid Kedar (0.7-2.0) mmol/L Calcium (8.4-10.2) mg/dL Total Bilirubin (0.2-1.3) mg/dL AST (17-59) U/L ALT (4-49) U/L Alkaline Phosphatase (38-126) U/L Troponin I (0.000-0.034) ng/mL C-Reactive Protein (<1.0) mg/dL NT-Pro-B Natriuret Pep pg/mL Total Protein (6.3-8.2) g/dL Albumin (3.5-5.0) g/dL Procalcitonin (0.02-0.09) ng/mL Urine Color Urine Appearance (Clear) Urine pH (5.0-8.0) Ur Specific [place] (1.001-1.035) Urine Protein (Negative) Urine Glucose (UA) (Negative) Urine Ketones (Negative) Urine Blood (Negative) Urine Nitrite (Negative) Urine Bilirubin (Negative) Urine Urobilinogen (<2.0) mg/dL Ur Leukocyte Esterase (Negative) Urine RBC (0-5) /hpf Urine WBC (0-5) /hpf Urine Bacteria (None) /hpf Influenza Type A (PCR) (Not Detectd) Influenza Type B (PCR) (Not Detectd) RSV (PCR) (Not Detectd) SARS-CoV-2 (PCR) (Not Detectd) 06/25/23 06/25/23 06/25/23 Range/Units 06:12 06:12 06:12 WBC (3.8-10.6) k/uL RBC (4.30-5.90) m/uL Hgb (13.0-17.5) gm/dL Hct (39.0-53.0) % MCV (80.0-100.0) fL MCH (25.0-35.0) pg MCHC (31.0-37.0) g/dL RDW (11.5-15.5) % Plt Count (150-450) k/uL MPV Neutrophils % % Lymphocytes % % Monocytes % % Eosinophils % % Basophils % % Neutrophils # (1.3-7.7) k/uL Lymphocytes # (1.0-4.8) k/uL Monocytes # (0-1.0) k/uL Eosinophils # (0-0.7) k/uL Basophils # (0-0.2) k/uL ESR PT (10.0-12.5) sec INR (<1.2) APTT (22.0-30.0) sec Sodium 137 (137-145) mmol/L Potassium 3.8 (3.5-5.1) mmol/L Chloride 108 H (98-107) mmol/L Carbon Dioxide 19 L (22-30) mmol/L Anion Gap 10 mmol/L BUN 17 (9-20) mg/dL Creatinine 0.97 (0.66-1.25) mg/dL Est GFR (CKD-EPI)AfAm >90 (>60 ml/min/1.73 sqM) Est GFR (CKD-EPI)NonAf 81 (>60 ml/min/1.73 sqM) Glucose 163 H (74-99) mg/dL POC Glucose (mg/dL) (70-110) mg/dL POC Glu Ge[employer] Operations Manager ID Lactic Ac Sepsis Rflx Plasma Lactic Acid Kedar 2.2 H* (0.7-2.0) mmol/L Calcium 8.6 (8.4-10.2) mg/dL Total Bilirubin 1.2 (0.2-1.3) mg/dL AST 52 (17-59) U/L ALT 119 H (4-49) U/L Alkaline Phosphatase 78 (38-126) U/L Troponin I 0.057 H* (0.000-0.034) ng/mL C-Reactive Protein 4.8 H (<1.0) mg/dL NT-Pro-B Natriuret Pep pg/mL Total Protein 6.0 L (6.3-8.2) g/dL Albumin 3.2 L (3.5-5.0) g/dL Procalcitonin (0.02-0.09) ng/mL Urine Color Urine Appearance (Clear) Urine pH (5.0-8.0) Ur Specific [place] (1.001-1.035) Urine Protein (Negative) Urine Glucose (UA) (Negative) Urine Ketones (Negative) Urine Blood (Negative) Urine Nitrite (Negative) Urine Bilirubin (Negative) Urine Urobilinogen (<2.0) mg/dL Ur Leukocyte Esterase (Negative) Urine RBC (0-5) /hpf Urine WBC (0-5) /hpf Urine Bacteria (None) /hpf Influenza Type A (PCR) (Not Detectd) Influenza Type B (PCR) (Not Detectd) RSV (PCR) (Not Detectd) SARS-CoV-2 (PCR) (Not Detectd) 06/25/23 06/25/23 06/25/23 Range/Units 06:13 06:25 06:26 WBC (3.8-10.6) k/uL RBC (4.30-5.90) m/uL Hgb (13.0-17.5) gm/dL Hct (39.0-53.0) % MCV (80.0-100.0) fL MCH (25.0-35.0) pg MCHC (31.0-37.0) g/dL RDW (11.5-15.5) % Plt Count (150-450) k/uL MPV Neutrophils % % Lymphocytes % % Monocytes % % Eosinophils % % Basophils % % Neutrophils # (1.3-7.7) k/uL Lymphocytes # (1.0-4.8) k/uL Monocytes # (0-1.0) k/uL Eosinophils # (0-0.7) k/uL Basophils # (0-0.2) k/uL ESR PT (10.0-12.5) sec INR (<1.2) APTT (22.0-30.0) sec Sodium (137-145) mmol/L Potassium (3.5-5.1) mmol/L Chloride (98-107) mmol/L Carbon Dioxide (22-30) mmol/L Anion Gap mmol/L BUN (9-20) mg/dL Creatinine (0.66-1.25) mg/dL Est GFR (CKD-EPI)AfAm (>60 ml/min/1.73 sqM) Est GFR (CKD-EPI)NonAf (>60 ml/min/1.73 sqM) Glucose (74-99) mg/dL POC Glucose (mg/dL) (70-110) mg/dL POC Glu Ge[employer] Operations Manager ID Lactic Ac Sepsis Rflx Plasma Lactic Acid Kedar (0.7-2.0) mmol/L Calcium (8.4-10.2) mg/dL Total Bilirubin (0.2-1.3) mg/dL AST (17-59) U/L ALT (4-49) U/L Alkaline Phosphatase (38-126) U/L Troponin I (0.000-0.034) ng/mL C-Reactive Protein (<1.0) mg/dL NT-Pro-B Natriuret Pep pg/mL Total Protein (6.3-8.2) g/dL Albumin (3.5-5.0) g/dL Procalcitonin 16.20 H (0.02-0.09) ng/mL Urine Color Yellow Urine Appearance Turbid (Clear) Urine pH 5.5 (5.0-8.0) Ur Specific [place] 1.049 H (1.001-1.035) Urine Protein 1+ H (Negative) Urine Glucose (UA) Trace H (Negative) Urine Ketones Trace H (Negative) Urine Blood Small H (Negative) Urine Nitrite Negative (Negative) Urine Bilirubin Negative (Negative) Urine Urobilinogen <2.0 (<2.0) mg/dL Ur Leukocyte Esterase Small H (Negative) Urine RBC 35 H (0-5) /hpf Urine WBC 33 H (0-5) /hpf Urine Bacteria Rare H (None) /hpf Influenza Type A (PCR) Not Detected (Not Detectd) Influenza Type B (PCR) Not Detected (Not Detectd) RSV (PCR) Not Detected (Not Detectd) SARS-CoV-2 (PCR) Not Detected (Not Detectd) 06/25/23 06/25/23 Range/Units 06:34 06:56 WBC (3.8-10.6) k/uL RBC (4.30-5.90) m/uL Hgb (13.0-17.5) gm/dL Hct (39.0-53.0) % MCV (80.0-100.0) fL MCH (25.0-35.0) pg MCHC (31.0-37.0) g/dL RDW (11.5-15.5) % Plt Count (150-450) k/uL MPV Neutrophils % % Lymphocytes % % Monocytes % % Eosinophils % % Basophils % % Neutrophils # (1.3-7.7) k/uL Lymphocytes # (1.0-4.8) k/uL Monocytes # (0-1.0) k/uL Eosinophils # (0-0.7) k/uL Basophils # (0-0.2) k/uL ESR PT (10.0-12.5) sec INR (<1.2) APTT (22.0-30.0) sec Sodium (137-145) mmol/L Potassium (3.5-5.1) mmol/L Chloride (98-107) mmol/L Carbon Dioxide (22-30) mmol/L Anion Gap mmol/L BUN (9-20) mg/dL Creatinine (0.66-1.25) mg/dL Est GFR (CKD-EPI)AfAm (>60 ml/min/1.73 sqM) Est GFR (CKD-EPI)NonAf (>60 ml/min/1.73 sqM) Glucose (74-99) mg/dL POC Glucose (mg/dL) (70-110) mg/dL POC Glu Geothermal Operations Manager ID Lactic Ac Sepsis Rflx Y Plasma Lactic Acid Kedar (0.7-2.0) mmol/L Calcium (8.4-10.2) mg/dL Total Bilirubin (0.2-1.3) mg/dL AST (17-59) U/L ALT (4-49) U/L Alkaline Phosphatase (38-126) U/L Troponin I (0.000-0.034) ng/mL C-Reactive Protein (<1.0) mg/dL NT-Pro-B Natriuret Pep 1360 pg/mL Total Protein (6.3-8.2) g/dL Albumin (3.5-5.0) g/dL Procalcitonin (0.02-0.09) ng/mL Urine Color Urine Appearance (Clear) Urine pH (5.0-8.0) Ur Specific [place] (1.001-1.035) Urine Protein (Negative) Urine Glucose (UA) (Negative) Urine Ketones (Negative) Urine Blood (Negative) Urine Nitrite (Negative) Urine Bilirubin (Negative) Urine Urobilinogen (<2.0) mg/dL Ur Leukocyte Esterase (Negative) Urine RBC (0-5) /hpf Urine WBC (0-5) /hpf Urine Bacteria (None) /hpf Influenza Type A (PCR) (Not Detectd) Influenza Type B (PCR) (Not Detectd) RSV (PCR) (Not Detectd) SARS-CoV-2 (PCR) (Not Detectd) - Radiology Data Radiology results: report reviewed, image reviewed Disposition Clinical Impression: Sepsis due to undetermined organism, CHF (congestive heart failure), Difficulty breathing Disposition: ADMITTED IP TO THIS HOSP
[2023-06-25] MEDS: SODIUM CHLORIDE 0.9% 500 ML 500 ML IV SCH ×2 (06:28→06:42)
[2023-06-25 06:38] LABS: ALT 119 U/L (4-49); AST 52 U/L (17-59); African American GFR (CKD) >90 (>60 ml/min/1.73 sqM); Albumin 3.2 g/dL (3.5-5.0); Alkaline Phosphatase 78 U/L (38-126); Anion Gap 10 mmol/L; Blood Urea Nitrogen 17 mg/dL (9-20); C Reactive Protein 4.8 mg/dL (<1.0); Calcium 8.6 mg/dL (8.4-10.2); Carbon Dioxide 19 mmol/L (22-30); Chloride 108 mmol/L (98-107); Glucose 163 mg/dL (74-99); Non-African American GFR(CKD) 81 (>60 ml/min/1.73 sqM); Potassium 3.8 mmol/L (3.5-5.1); Sodium 137 mmol/L (137-145); Total Bilirubin 1.2 mg/dL (0.2-1.3)
--- NOTE | 2023-06-25 06:40 | XR ---
EXAMINATION TYPE: XR chest 1V DATE OF EXAM: 06/25/2023 6:30 AM COMPARISON: Chest radiographs from 04/02/2023 TECHNIQUE: XR chest 1V Frontal view of the chest. CLINICAL INDICATION:Male, 68 years old with history of ERIS; FINDINGS: Lungs/Pleura: There is no evidence of pleural effusion, focal consolidation, or pneumothorax. Pulmonary vascularity: Mild pulmonary vascular congestion. Heart/mediastinum: Cardiomediastinal silhouette is enlarged and stable. Atherosclerotic calcificatio ns are seen in the aorta. Musculoskeletal: No acute osseous pathology. Midline sternotomy wires are noted and stable. There is again fracture of the most superior sternotomy wire. IMPRESSION: Cardiomegaly and mild pulmonary vascular congestion. Correlate with BNP for congestive heart failure.
[2023-06-25] MEDS ORDERED: SODIUM CHLORIDE 0.9% 2,000 ML IV STA (06:41)
[2023-06-25] MEDS ORDERED: VANCOMYCIN 1,750 MG in SODIUM CHLORIDE 0.9% 500 ML 500 ML IVPB ONE (06:45)
[2023-06-25 06:50] LABS: INR 1.1 (<1.2); Partial Thromboplastin Time 24.6 sec (22.0-30.0); Prothrombin Time 12.3 sec (10.0-12.5)
[2023-06-25 06:50] LABS: Appearance,Urine Turbid (Clear); Bacteria,Urine Rare /hpf; Bilirubin,Urine Negative (Negative); Blood,Urine Small (Negative); Color,Urine Yellow; Glucose,Urine (UA) Trace (Negative); Ketones,Urine Trace (Negative); Leukocyte Esterase,Urine Small (Negative); Nitrite,Urine Negative (Negative); PH, Urine 5.5 (5.0-8.0); Protein,Urine 1+ (Negative); RBC,Urine 35 /hpf (0-5); Urobilinogen,Urine <2.0 mg/dL (<2.0); WBC,Urine 33 /hpf (0-5)
[2023-06-25] MEDS ORDERED: NALOXONE 0.4 MG/ML 1 ML VIAL IV PRN (06:58)
[2023-06-25] MEDS ORDERED: ACETAMINOPHEN TAB 325 MG TAB PO PRN (06:58)
[2023-06-25] MEDS ORDERED: ONDANSETRON 4 MG/2 ML VIAL IVP PRN (06:58)
[2023-06-25 07:03] LABS: Basophils % (A) 0 %; Eosinophils # (A) 0.1 k/uL (0-0.7); Eosinophils % (A) 0 %; HCT 45.5 % (39.0-53.0); HGB 15.1 gm/dL (13.0-17.5); Lymphocytes # (A) 0.7 k/uL (1.0-4.8); Lymphocytes % (A) 4 %; MCH 31.1 pg (25.0-35.0); MCHC 33.2 g/dL (31.0-37.0); MCV 93.7 fL (80.0-100.0); Mean Platelet Volume 8.8; Monocytes # (A) 0.7 k/uL (0-1.0); Monocytes % (A) 4 %; Neutrophils # (A) 19.2 k/uL (1.3-7.7); Neutrophils % (A) 92 %; Platelet Count 177 k/uL (150-450); RBC 4.86 m/uL (4.30-5.90); RDW 14.2 % (11.5-15.5); WBC 20.8 k/uL (3.8-10.6)
[2023-06-25 07:04] LABS: Specific Gravity,Urine 1.049 (1.001-1.035)
[2023-06-25] MEDS ORDERED: ALBUTEROL NEBULIZED 2.5 MG/3 ML INHALATION PRN (07:18)
[2023-06-25] MEDS ORDERED: ACETAMINOPHEN TAB 325 MG TAB PEG/G-TUBE PRN (07:18)
[2023-06-25] MEDS ORDERED: polyethylene glycoL 3350 17 GM POWD.PACK PEG/G-TUBE PRN (07:18)
[2023-06-25] MEDS ORDERED: MAGNESIUM HYDROXIDE 2,400 MG/30 ML CUP PEG/G-TUBE PRN (07:18)
[2023-06-25] MEDS ORDERED: AMMONIUM LACTATE 12% CREAM 140 GM TUBE TOPICAL PRN (07:18)
[2023-06-25] MEDS ORDERED: HEALTH SHAKE PEG/G-TUBE SCH (07:30)
[2023-06-25 11:31] LABS: Glucose,Whole Blood 137 mg/dL (70-110)
[2023-06-25] MEDS ORDERED: FUROSEMIDE 10 MG/ML 4 ML VIAL IV STA (11:37)
[2023-06-25] MEDS ORDERED: METOPROLOL TARTRATE 25 MG TAB PO STA (11:50)
[2023-06-25] MEDS ORDERED: SODIUM CHLORIDE 0.45% 1,000 ML IV SCH (12:30)
--- NOTE | 2023-06-25 12:34 | P.CRDCN ---
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 We have been asked to see the patient in consultation for tachycardia. The patient initially presented to [facility] for shortness of breath and altered mental status. The patient is a resident of [facility]. Patient examined at the bedside in the emergency room. Due to altered mental status, HPI was unable to be obtained from the patient. There is no family present. An A-team was called on the patient this morning secondary to increased shortness of breath. He was given a dose of IV Lasix per A-team responders. * EKG reveals sinus tachycardia * Chest xray cardiomegaly and mild pulmonary vascular congestion * Laboratory data: Significant for WBC 20.8. Lactic acid 2.7. ProBNP 1360. Pro-calcitonin 16.20. * Current home cardiac medications include atorvastatin 40 mg daily, Eliquis 5 mg twice a day, Brilinta mg daily, metoprolol tartrate 25 mg twice a day, aspirin 81 mg daily * Most recent echocardiogram obtained in November 2017 revealed ejection fraction 20-25% REVIEW OF SYSTEMS: At the time of my exam: Unable to obtain thorough review of systems secondary to altered mental status PHYSICAL EXAM: VITAL SIGNS: Reviewed. GENERAL: Well-developed in no acute distress. Appears mildly SOB. HEENT: Head is normocephalic. Pupils are equal, round. Sclerae anicteric. Mucous membranes of the mouth are moist. Neck supple. No JVD or thyromegaly LUNGS: Respirations even. Lungs diminished with mild rhonchi throughout HEART: Tachycardic. Regular rate and rhythm. S1 and S2 heard. ABDOMEN: Soft. Nondistended. Nontender. EXTREMITIES: Normal range of motion. No clubbing or cyanosis. Peripheral pulses intact. Trace bilateral lower extremity edema noted at the ankles. NEUROLOGIC: Patient with garbled speech. Unable to communicate with provider. 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 Anticipate improvement in tachycardia with resolution of infectious process Continue telemetry monitoring Continue Eliquis and Aspirin. Discontinue Brilinta Further recommendations pending patient's course Nurse practitioner note has been reviewed by physician. Signing provider agrees with the documented findings, assessment, and plan of care. Past Medical History Past Medical History: Coronary Artery Disease (CAD), Heart Failure, COPD, GERD/Reflux, Hypertension, Myocardial Infarction ([place]), Pneumonia Additional Past Medical History / Comment(s): Ischemic cardiomyopathy, wearing life vest, bronchitis, few weeks ago and "seizure like" activity and chest disc omfort-pt spouse's oxygen on and felt better (pt states he also at that time "had a few beers" in him). Last Myocardial Infarction Date:: 11/05/17 History of Any Multi-Drug Resistant Organisms: MRSA Date of last positivie culture/infection: 12/20/17 MDRO Source:: chest Past Surgical History: Coronary Bypass/CABG, Heart Catheterization Additional Past Surgical History / Comment(s): 11/06/17 cardiac cath, 11/09/17 CABG 3 vessel with R leg vein donor. Past Anesthesia/Blood Transfusion Reactions: No Reported Reaction Past Psychological History: No Psychological Hx Reported Smoking Status: Unknown if ever smoked Past Alcohol Use History: Abuse, Heavy, Occasional Past Drug Use History: None Reported - Past Family History Mother History Unknown: Yes Additional Family Medical History / Comment(s): Pt believes his mother had heart problems and possibly MIs but is uncertain. She at the age of 74yrs. Father History Unknown: Yes Additional Family Medical History / Comment(s): Unknown medical history, the patient reports that his father left home when he was at age 12. Brother(s) Family Medical History: Coronary Artery Disease (CAD), Myocardial Infarction ([place]) Additional Family Medical History / Comment(s): History of myocardial infarction and coronary artery bypass grafting surgery at age 46. Medications and Allergies Home Medications Medication Instructions Recorded Confirmed Type Aspirin 81 mg PEG/G-TUBE DAILY@0700 11/05/17 06/25/23 History Atorvastatin [Lipitor] 40 mg PEG/G-TUBE DAILY@1900 04/02/23 06/25/23 History Acetaminophen Tab [Tylenol] 650 mg PEG/G-TUBE Q4H PRN MDD 06/25/23 06/25/23 History 3000MG Albuterol Nebulized [Ventolin 2.5 mg INHALATION RT-Q4H PRN 06/25/23 06/25/23 History Nebulized] Ammonium Lactate Cream [Lac-Hydrin 1 applic TOPICAL DAILY PRN 06/25/23 06/25/23 History 12% Cream] Ammonium Lactate Cream [Lac-Hydrin 1 applic TOPICAL HS 06/25/23 06/25/23 History 12% Cream] Apixaban [Eliquis] 5 mg PEG/G-TUBE BID@0700,1900 06/25/23 06/25/23 History Famotidine [Pepcid] 20 mg PEG/G-TUBE BID@0700,1900 06/25/23 06/25/23 History Folic Acid 1 mg PEG/G-TUBE DAILY@0700 06/25/23 06/25/23 History Health Shake 1 can PEG/G-TUBE BID-W/MEALS 06/25/23 06/25/23 History Insulin Lispro [Admelog Solostar] See Protocol SQ ACHS 06/25/23 06/25/23 History Ipratropium-Albuterol Nebulize 3 ml INHALATION RT-BID@0700,1900 06/25/23 06/25/23 History [Duoneb 0.5 mg-3 mg/3 ml Soln] Magnesium Hydroxide [Milk of 2,400 mg PEG/G-TUBE Q48H PRN 06/25/23 06/25/23 History Magnesia] Metoprolol Tartrate [Lopressor] 25 mg PEG/G-TUBE BID@0700,1900 06/25/23 06/25/23 History Ticagrelor [Brilinta] 90 mg PEG/G-TUBE DAILY@0700 06/25/23 06/25/23 History polyethylene glycoL 3350 [Miralax] 17 gm PEG/G-TUBE DAILY PRN 06/25/23 06/25/23 History predniSONE [Deltasone] 40 mg PEG/G-TUBE DAILY@0700 06/25/23 06/25/23 History Allergies Allergy/AdvReac Type Severity Reaction Status Date / Time No Known Allergies Allergy Verified 06/25/23 07:04 Physical Exam Vitals: Vital Signs Temp Pulse Pulse Resp BP BP Pulse Ox 06/25/23 11:29 97 06/25/23 11:07 98.0 F 126 H 26 H 119/94 93 L 06/25/23 09:09 98.7 F 101 H 16 98/56 97 06/25/23 08:02 98.3 F 102 H 22 107/74 98 06/25/23 07:22 99.0 F 105 H 20 103/75 92 L 06/25/23 06:48 99.3 F 113 H 22 104/81 93 L 06/25/23 06:23 118 H 22 103/72 94 L 06/25/23 06:09 123 H 22 101/69 93 L 06/25/23 05:49 100.4 F H 122 H 24 93/71 92 L 06/25/23 05:39 123 H 24 91/75 97 06/25/23 05:32 24 06/25/23 05:23 99.5 F 122 H 22 87/67 97 Intake and Output 06/24/23 06/25/23 06/25/23 22:59 06:59 14:59 Output Total 15 Balance -15 Output: Urine 15 Uretheral (Jolly) 15 Other: Weight 109.769 kg Results 06/25/23 06:12 06/25/23 06:12 Cardiac Enzymes 06/25/23 06/25/23 Range/Units 06:12 06:12 AST 52 (17-59) U/L Troponin I 0.057 H* (0.000-0.034) ng/mL Coagulation 06/25/23 Range/Units 06:12 PT 12.3 (10.0-12.5) sec APTT 24.6 (22.0-30.0) sec CBC 06/25/23 Range/Units 06:12 WBC 20.8 H (3.8-10.6) k/uL RBC 4.86 (4.30-5.90) m/uL Hgb 15.1 (13.0-17.5) gm/dL Hct 45.5 (39.0-53.0) % Plt Count 177 (150-450) k/uL Comprehensive Metabolic Panel 06/25/23 Range/Units 06:12 Sodium 137 (137-145) mmol/L Potassium 3.8 (3.5-5.1) mmol/L Chloride 108 H (98-107) mmol/L Carbon Dioxide 19 L (22-30) mmol/L BUN 17 (9-20) mg/dL Creatinine 0.97 (0.66-1.25) mg/dL Glucose 163 H (74-99) mg/dL Calcium 8.6 (8.4-10.2) mg/dL AST 52 (17-59) U/L ALT 119 H (4-49) U/L Alkaline Phosphatase 78 (38-126) U/L Total Protein 6.0 L (6.3-8.2) g/dL Albumin 3.2 L (3.5-5.0) g/dL Current Medications Generic Name Dose Route Start Last Admin Trade Name Freq PRN Reason Stop Dose Admin Acetaminophen 650 mg 06/25/23 07:18 Acetaminophen Tab 325 Mg Tab PEG/G-TUBE Q4H PRN GENERAL DISCOMFORT/FEVER Acetaminophen/Codeine Phosphate 1 each 06/25/23 06:58 Acetaminophen-Codeine 300-30mg Tab PO Q4HR PRN Moderate Pain (Scale 4 to 6) Albuterol Sulfate 2.5 mg 06/25/23 07:18 Albuterol Nebulized 2.5 Mg/3 Ml INHALATION RT-Q4H PRN Shortness Of Breath Albuterol/Ipratropium 3 ml 06/25/23 19:00 Ipratropium-Albuterol 3 Ml Neb INHALATION RT-BID@0700,1900 [facility] Apixaban 5 mg 06/25/23 19:00 Apixaban 5 Mg Tab PEG/G-TUBE BID@0700,1900 [facility] Protocol Aspirin 81 mg 06/26/23 07:00 Aspirin 81 Mg PEG/G-TUBE DAILY@0700 [facility] Atorvastatin Calcium 40 mg 06/25/23 19:00 Atorvastatin 40 Mg Tab PEG/G-TUBE DAILY@1900 [facility] Famotidine 20 mg 06/25/23 19:00 Famotidine 20 Mg Tab PEG/G-TUBE BID@0700,1900 [facility] Folic Acid 1 mg 06/26/23 07:00 Folic Acid 1 Mg Tab PEG/G-TUBE DAILY@0700 [facility] Sodium Chloride 1,000 mls @ 130 mls/hr 06/25/23 06:15 06/25/23 06:27 Saline 0.9% IV 130 mls/hr .[id number] [facility] Administration Vancomycin HCl 1,750 mg/ 500 mls @ 167 mls/hr 06/26/23 00:00 Sodium Chloride IVPB Q12H [facility] Lactic Acid 1 applic 06/25/23 07:18 Ammonium Lactate 12% Cream 140 Gm Tube TOPICAL DAILY PRN DRY FEET Protocol Lactic Acid 1 applic 06/25/23 21:00 Ammonium Lactate 12% Cream 140 Gm Tube TOPICAL HS [facility] Protocol Magnesium Hydroxide 2,400 mg 06/25/23 07:18 Magnesium Hydroxide 2,400 Mg/30 Ml Cup PEG/G-TUBE Q48H PRN Constipation Metoprolol Tartrate 25 mg 06/25/23 19:00 Metoprolol Tartrate 25 Mg Tab PEG/G-TUBE BID@0700,1900 [facility] Naloxone HCl 0.2 mg 06/25/23 06:58 Naloxone 0.4 Mg/Ml 1 Ml Vial IV Q2M PRN Opioid Reversal Ondansetron HCl 4 mg 06/25/23 06:58 Ondansetron 4 Mg/2 Ml Vial IVP Q8HR PRN Nausea And Vomiting Polyethylene Glycol 17 gm 06/25/23 07:18 Polyethylene Glycol 3350 17 Gm Powd.Pack PEG/G-TUBE DAILY PRN Constipation Prednisone 40 mg 06/26/23 07:00 Prednisone 20 Mg Tab PEG/G-TUBE DAILY@0700 [facility] Ticagrelor 90 mg 06/26/23 07:00 Ticagrelor 90 Mg Tab PEG/G-TUBE DAILY@0700 [facility] Intake and Output 06/24/23 06/25/23 06/25/23 22:59 06:59 14:59 Output Total 15 Balance -15 Output: Urine 15 Uretheral (Jolly) 15 Other: Weight 109.769 kg 06/25/23 06:12 06/25/23 06:12
--- NOTE | 2023-06-25 12:37 | XR ---
EXAMINATION TYPE: XR chest 1V portable DATE OF EXAM: 06/25/2023 12:33 PM COMPARISON: Chest radiographs from 06/25/2023 TECHNIQUE: XR chest 1V portable Portable AP radiograph of the chest. CLINICAL INDICATION:Male, 68 years old with history of Resp distress; FINDINGS: Lungs/Pleura: There is no evidence of pleural effusion, focal consolidation, or pneumothorax. Pulmonary vascularity: Mild pulmonary vascular congestion. Heart/mediastinum: Cardiomediastinal silhouette is enlarged and stable. Atherosclerotic calcificatio ns are seen in the aorta. Musculoskeletal: No acute osseous pathology. Midline sternotomy wires are noted and stable. There is again fracture of the most superior sternotomy wire. IMPRESSION: Cardiomegaly and mild pulmonary vascular congestion. Correlate with BNP for congestive heart failure. No significant change from prior exam.
[2023-06-25] MEDS: BUDESONIDE 1 MG/2 ML NEBU INHALATION SCH ×2 (12:38→20:12)
[2023-06-25] MEDS: IPRATROPIUM-ALBUTEROL 3 ML NEB INHALATION SCH ×3 (14:50→23:47)
[2023-06-25] MEDS: Acetaminophen-Codeine 300-30mg TAB PO PRN (15:10)
[2023-06-25] MEDS: PIPERACILLIN-TAZOBACTAM 3.375 GM in SODIUM CHLORIDE 0.9% 100 ML IVPB SCH (15:37)
[2023-06-25] MEDS ORDERED: DEXTROSE 50% SYRINGE 50 ML IVP PRN ×2 (16:47)
--- NOTE | 2023-06-25 16:50 | P.HPIM ---
History of Present Illness H&P Date: 06/25/23 Chief Complaint: Difficulty breathing This is a 68-year-old patient who is a resident of extended stay was brought into the [facility] system for difficulty breathing. At her baseline patient does not ambulate. Has a garbled speech and is concerned right-sided weakness. Lives at [facility]. Has a PEG 2 feeding with no oral feeding. Patient had become increasingly short of breath some altered mentation. Patient was sent to the ER. Patient himself really cannot communicate. This morning patient became more short of breath. A bit hypoxic. A team was called. Given bronchodilators and IV Lasix. [place] better. Back in 2018 patient has a documented EF of 20-25%. Underwent coronary bypass. Patient heart rate today up to 120-160. Also low-grade temperature 100.4. Review of systems cannot be done as patient is baseline is very dysarthric Past medical history to include: Congestive heart failure, CHF EF of 2024%, CAD with: Bypass 2017, COPD with chronic bronchitis, chronic kidney disease, sleep disorder, chronic dysarthria Social history: Patient condition resident of [facility] Physical examination: VITAL SIGNS: 100.4, 122, 24, 93/71, 92% on 4 L upon presentation GENERAL: BMI 36.8, slightly uncomfortable garbled speech. EYES: Pupils equal. Conjunctiva normal. HEENT: External appearance of nose and ears normal, oral cavity grossly normal. NECK: JVD unable to assess masses not palpable. HEART: First and second heart sounds are normal; some edema. LUNGS: Respiratory rate increased decreased breath sound with some scattered crackles. ABDOMEN: Soft, nontender, liver spleen not palpable, no masses palpable. PSYCH: Unable to assessl. MUSCULOSKELETAL:No Clubbing/cyanosis;muscles-grossly intact. UA NEUROLOGICAL: Garbled speech, some weakness in the right side. LYMPHATICS: No lymph nodes palpable in the axilla and neck INVESTIGATIONS, reviewed in the clinical context: 06/25/2023: White count 20.8 hemoglobin 15.1 platelets 177 increased neutrophils sodium 137 potassium 3.8 BUN 17 creatinine 0.97 lactic acid 2.2 Troponin I 0.057, proBNP 1360 procalcitonin 16.2 UA: Today for nitrite Influenza type A, B, Legionella antigen, RSV, COVID-19: Not detected EKG tracing personally reviewed by me-sinus tachycardia rate of 124, PVCs,) right bundle branch block, Chest x-ray film personally reviewed by me-possible infiltrate Assessment and plan: -Pneumonia suspect gram-negative organism. Zosyn. -Patient had altered mentation at the F as reported by the staff. Acute metabolic encephalopathy and delirium from pneumonia -Acute congestive heart failure exacerbation from systolic dysfunction last EF noted 20-25% from ischemic cardio myopathy. IV Lasix 40 mg every 12 times 2 doses 2-D echocardiogram ordered -Acute COPD exacerbation and a prior smoker DuoNeb. Every 4, nebulized Pulmicort. -Obesity BMI 36.8 Weight loss measures -Chronic dysarthria, patient's baseline speech is garbled -Chronic dysphagia, patient is nothing by mouth by mouth PEG tube feeding. Consult dietitian -Full code -Chronic medical debility, baseline non-ambulatory Past Medical History Past Medical History: Coronary Artery Disease (CAD), Heart Failure, COPD, GERD/Reflux, Hypertension, Myocardial Infarction ([place]), Pneumonia Additional Past Medical History / Comment(s): Ischemic cardiomyopathy, wearing life vest, bronchitis, few weeks ago and "seizure like" activity and chest discomfort-pt spouse's oxygen on and felt better (pt states he also at that time "had a few beers" in him). Last Myocardial Infarction Date:: 11/05/17 History of Any Multi-Drug Resistant Organisms: MRSA Date of last positivie culture/infection: 12/20/17 MDRO Source:: chest Past Surgical History: Coronary Bypass/CABG, Heart Catheterization Additional Past Surgical History / Comment(s): 11/06/17 cardiac cath, 11/09/17 CABG 3 vessel with R leg vein donor. Past Anesthesia/Blood Transfusion Reactions: No Reported Reaction Past Psychological History: No Psychological Hx Reported Smoking Status: Unknown if ever smoked Past Alcohol Use History: Abuse, Heavy, Occasional Past Drug Use History: None Reported - Past Family History Mother History Unknown: Yes Additional Family Medical History / Comment(s): Pt believes his mother had heart problems and possibly MIs but is uncertain. She at the age of 74yrs. Father History Unknown: Yes Additional Family Medical History / Comment(s): Unknown medical history, the patient reports that his father left home when he was at age 12. Brother(s) Family Medical History: Coronary Artery Disease (CAD), Myocardial Infarction ([place]) Additional Family Medical History / Comment(s): History of myocardial infarction and coronary artery bypass grafting surgery at age 47. Medications and Allergies Home Medications Medication Instructions Recorded Confirmed Type Aspirin 81 mg PEG/G-TUBE DAILY@0700 11/05/17 06/25/23 History Atorvastatin [Lipitor] 40 mg PEG/G-TUBE DAILY@1900 04/02/23 06/25/23 History Acetaminophen Tab [Tylenol] 650 mg PEG/G-TUBE Q4H PRN MDD 06/25/23 06/25/23 History 3000MG Albuterol Nebulized [Ventolin 2.5 mg INHALATION RT-Q4H PRN 06/25/23 06/25/23 History Nebulized] Ammonium Lactate Cream [Lac-Hydrin 1 applic TOPICAL DAILY PRN 06/25/23 06/25/23 History 12% Cream] Ammonium Lactate Cream [Lac-Hydrin 1 applic TOPICAL HS 06/25/23 06/25/23 History 12% Cream] Apixaban [Eliquis] 5 mg PEG/G-TUBE BID@0700,1900 06/25/23 06/25/23 History Famotidine [Pepcid] 20 mg PEG/G-TUBE BID@0700,1900 06/25/23 06/25/23 History Folic Acid 1 mg PEG/G-TUBE DAILY@0700 06/25/23 06/25/23 History Health Shake 1 can PEG/G-TUBE BID-W/MEALS 06/25/23 06/25/23 History Insulin Lispro [Admelog Solostar] See Protocol SQ ACHS 06/25/23 06/25/23 History Ipratropium-Albuterol Nebulize 3 ml INHALATION RT-BID@0700,1900 06/25/23 06/25/23 History [Duoneb 0.5 mg-3 mg/3 ml Soln] Magnesium Hydroxide [Milk of 2,400 mg PEG/G-TUBE Q48H PRN 06/25/23 06/25/23 History Magnesia] Metoprolol Tartrate [Lopressor] 25 mg PEG/G-TUBE BID@0700,1900 06/25/23 06/25/23 History Ticagrelor [Brilinta] 90 mg PEG/G-TUBE DAILY@0700 06/25/23 06/25/23 History polyethylene glycoL 3350 [Miralax] 17 gm PEG/G-TUBE DAILY PRN 06/25/23 06/25/23 History predniSONE [Deltasone] 40 mg PEG/G-TUBE DAILY@0700 06/25/23 06/25/23 History Allergies Allergy/AdvReac Type Severity Reaction Status Date / Time No Known Allergies Allergy Verified 06/25/23 07:04 Physical Exam Vitals: Vital Signs Temp Pulse Pulse Resp BP BP Pulse Ox 06/25/23 09:09 98.7 F 101 H 16 98/56 97 06/25/23 08:02 98.3 F 102 H 22 107/74 98 06/25/23 07:22 99.0 F 105 H 20 103/75 92 L 06/25/23 06:48 99.3 F 113 H 22 104/81 93 L 06/25/23 06:23 118 H 22 103/72 94 L 06/25/23 06:09 123 H 22 101/69 93 L 06/25/23 05:49 100.4 F H 122 H 24 93/71 92 L 06/25/23 05:39 123 H 24 91/75 97 06/25/23 05:32 24 06/25/23 05:23 99.5 F 122 H 22 87/67 97 Intake and Output 06/24/23 06/25/23 06/25/23 22:59 06:59 14:59 Output Total 15 Balance -15 Output: Urine 15 Uretheral (Jolly) 15 Other: Weight 109.769 kg Results CBC & Chem 7: 06/25/23 06:12 06/25/23 06:12 Labs: Abnormal Lab Results - Last 24 Hours (Table) 06/25/23 06/25/23 06/25/23 Range/Units 05:35 06:12 06:12 WBC 20.8 H (3.8-10.6) k/uL Neutrophils # 19.2 H (1.3-7.7) k/uL Lymphocytes # 0.7 L (1.0-4.8) k/uL Chloride 108 H (98-107) mmol/L Carbon Dioxide 19 L (22-30) mmol/L Glucose 163 H (74-99) mg/dL POC Glucose (mg/dL) 161 H (70-110) mg/dL Plasma Lactic Acid [place] (0.7-2.0) mmol/L ALT 119 H (4-49) U/L Troponin I (0.000-0.034) ng/mL C-Reactive Protein 4.8 H (<1.0) mg/dL Total Protein 6.0 L (6.3-8.2) g/dL Albumin 3.2 L (3.5-5.0) g/dL Ur Specific [place] (1.001-1.035) Urine Protein (Negative) Urine Glucose (UA) (Negative) Urine Ketones (Negative) Urine Blood (Negative) Ur Leukocyte Esterase (Negative) Urine RBC (0-5) /hpf Urine WBC (0-5) /hpf Urine Bacteria (None) /hpf 06/25/23 06/25/23 06/25/23 Range/Units 06:12 06:12 06:13 WBC (3.8-10.6) k/uL Neutrophils # (1.3-7.7) k/uL Lymphocytes # (1.0-4.8) k/uL Chloride (98-107) mmol/L Carbon Dioxide (22-30) mmol/L Glucose (74-99) mg/dL POC Glucose (mg/dL) (70-110) mg/dL Plasma Lactic Acid [place] 2.2 H* (0.7-2.0) mmol/L ALT (4-49) U/L Troponin I 0.057 H* (0.000-0.034) ng/mL C-Reactive Protein (<1.0) mg/dL Total Protein (6.3-8.2) g/dL Albumin (3.5-5.0) g/dL Ur Specific [place] 1.049 H (1.001-1.035) Urine Protein 1+ H (Negative) Urine Glucose (UA) Trace H (Negative) Urine Ketones Trace H (Negative) Urine Blood Small H (Negative) Ur Leukocyte Esterase Small H (Negative) Urine RBC 35 H (0-5) /hpf Urine WBC 33 H (0-5) /hpf Urine Bacteria Rare H (None) /hpf
[2023-06-25 18:07] LABS: Glucose,Whole Blood 144 mg/dL (70-110)
[2023-06-25] MEDS: INSULIN ASPART (NovoLOG) 100 UNIT/ML VIAL SQ SCH (18:09)
[2023-06-25] MEDS: APIXABAN 5 MG TAB PEG/G-TUBE SCH (18:40)
[2023-06-25] MEDS: METOPROLOL TARTRATE 25 MG TAB PEG/G-TUBE SCH (18:40)
[2023-06-25] MEDS: ATORVASTATIN 40 MG TAB PEG/G-TUBE SCH (18:41)
[2023-06-25] MEDS: FAMOTIDINE 20 MG TAB PEG/G-TUBE SCH (18:41)
[2023-06-25] MEDS ORDERED: METOPROLOL TARTRATE 25 MG TAB PEG/G-TUBE SCH (19:00)
[2023-06-25] MEDS ORDERED: IPRATROPIUM-ALBUTEROL 3 ML NEB INHALATION SCH (19:00)
[2023-06-25] MEDS ORDERED: METOPROLOL TARTRATE 12.5 MG TAB PEG/G-TUBE SCH (19:00)
[2023-06-25] MEDS: FUROSEMIDE 10 MG/ML 4 ML VIAL IV SCH (19:56)
[2023-06-25] MEDS: AMMONIUM LACTATE 12% CREAM 140 GM TUBE TOPICAL SCH (19:56)
[2023-06-26] MEDS ORDERED: VANCOMYCIN 1,750 MG in SODIUM CHLORIDE 0.9% 500 ML 500 ML IVPB SCH ×2
[2023-06-26 00:01] LABS: Glucose,Whole Blood 133 mg/dL (70-110)
[2023-06-26] MEDS: PIPERACILLIN-TAZOBACTAM 3.375 GM in SODIUM CHLORIDE 0.9% 100 ML IVPB SCH ×3 (01:18→15:46)
--- NOTE | 2023-06-26 01:18 | P.CNPUL ---
History of Present Illness Consult date: 06/26/23 Requesting physician: Navid Harry Reason for consult: dyspnea Chief complaint: Altered mental status and shortness of breath History of present illness: I am seeing this patient in consultation today 06/26/2023 after he was transferred from [facility] for dyspnea and suspected sepsis. Patient is a 68-year-old white male with past medical history significant for coronary artery disease with previous CABG, ischemic cardiomyopathy, hyperlipidemia, hypertension, previous CVA with residual right-sided weakness and dysphagia/dysphasia, PEG tube, COPD, among other things. Patient's confusion and expressive dysphasia make it very difficult to elicit meaningful information. Patient resides at [facility]. Apparently, he was noted to be confused and short of breath by staff. He was originally sent to [facility], and was found to be hypotensive and febrile. He was given 2 L normal saline bolus at outside facility. He was also started on empiric antibiotics. He was later transferred to [facility] yesterday morning, and the patient was admitted to the cardiac stepdown unit. A rapid response was called yesterday afternoon for tachypnea and tachycardia. Essentially, the patient is septic. Source of infection is not quite clear, h owever, pneumonia is not ruled out. At that time, a pulmonary consult was placed. The patient was given a dose of Lasix. Patient is currently lying in bed, on 4 L/m nasal cannula, in no acute distress. As stated earlier, the patient's dysphasia makes it very difficult to elicit any information. He is alert and does follow commands. Patient does have an intermittent dry cough without any sputum. He was tachypneic with respiratory rate in the 20s. SpO2 is reading 94%. Blood pressure is normotensive. He is tachycardic. No obvious distress. Abdomen appears soft and non-tender. There is a PEG tube with tube feeding infusing at 10 ML's per hour. Patient reportedly still eats and drinks. He does have a history of dysphagia after his CVA. No obvious witnessed aspiration. Chest x-ray at our facility shows cardiomegaly with pulmonary vascular congestion, no significant focal consolidation or effusions noted. CBC on arrival shows leukocytosis with a WBC count of 20.8, hemoglobin 15.1, hematocrit 45.5, platelets 177. CMP shows sodium 137, potassium 3.8, chloride 108, serum bicarb 19, BUN 17, creatinine 0.97, glucose 163. Urinalysis not concerning for UTI. Troponin 0.057. NT proBNP 1360. Procalcitonin level elevated at 16.2. He is currently receiving empiric Zosyn. Negative for influenza, RSV, COVID-19, Legionella. Not currently afebrile. IV fluids have been held related probable CHF exacerbation. Lactic acid levels down to 1.8. Patient will be monitored on the cardiac stepdown unit. Review of Systems ROS unobtainable: due to mental status Past Medical History Past Medical History: Coronary Artery Disease (CAD), Heart Failure, COPD, GERD/Reflux, Hypertension, Myocardial Infarction ([place]), Pneumonia Additional Past Medical History / Comment(s): Ischemic cardiomyopathy, wearing life vest, bronchitis, few weeks ago and "seizure like" activity and chest di scomfort-pt spouse's oxygen on and felt better (pt states he also at that time "had a few beers" in him). Last Myocardial Infarction Date:: 11/05/17 History of Any Multi-Drug Resistant Organisms: MRSA Date of last positivie culture/infection: 12/20/17 MDRO Source:: chest Past Surgical History: Coronary Bypass/CABG, Heart Catheterization Additional Past Surgical History / Comment(s): 11/06/17 cardiac cath, 11/09/17 CABG 3 vessel with R leg vein donor. Past Anesthesia/Blood Transfusion Reactions: No Reported Reaction Past Psychological History: No Psychological Hx Reported Smoking Status: Unknown if ever smoked Past Alcohol Use History: Abuse, Heavy, Occasional Past Drug Use History: None Reported - Past Family History Mother History Unknown: Yes Additional Family Medical History / Comment(s): Pt believes his mother had heart problems and possibly MIs but is uncertain. She at the age of 74yrs. Father History Unknown: Yes Additional Family Medical History / Comment(s): Unknown medical history, the patient reports that his father left home when he was at age 12. Brother(s) Family Medical History: Coronary Artery Disease (CAD), Myocardial Infarction (NE) Additional Family Medical History / Comment(s): History of myocardial infarction and coronary artery bypass grafting surgery at age 46. Medications and Allergies Home Medications Medication Instructions Recorded Confirmed Type Aspirin 81 mg PEG/G-TUBE DAILY@0700 11/05/17 06/25/23 History Atorvastatin [Lipitor] 40 mg PEG/G-TUBE DAILY@1900 04/02/23 06/25/23 History Acetaminophen Tab [Tylenol] 650 mg PEG/G-TUBE Q4H PRN MDD 06/25/23 06/25/23 History 3000MG Albuterol Nebulized [Ventolin 2.5 mg INHALATION RT-Q4H PRN 06/25/23 06/25/23 History Nebulized] Ammonium Lactate Cream [Lac-Hydrin 1 applic TOPICAL DAILY PRN 06/25/23 06/25/23 History 12% Cream] Ammonium Lactate Cream [Lac-Hydrin 1 applic TOPICAL HS 06/25/23 06/25/23 History 12% Cream] Apixaban [Eliquis] 5 mg PEG/G-TUBE BID@0700,189906/25/23 06/25/23 History Famotidine [Pepcid] 20 mg PEG/G-TUBE BID@0700,19006/25/23 06/25/23 History Folic Acid 1 mg PEG/G-TUBE DAILY@0700 06/25/23 06/25/23 History Health Shake 1 can PEG/G-TUBE BID-W/MEALS 06/25/23 06/25/23 History Insulin Lispro [Admelog Solostar] See Protocol SQ ACHS 06/25/23 06/25/23 History Ipratropium-Albuterol Nebulize 3 ml INHALATION RT-BID@0700,1900 06/25/23 06/25/23 History [Duoneb 0.5 mg-3 mg/3 ml Soln] Magnesium Hydroxide [Milk of 2,400 mg PEG/G-TUBE Q48H PRN 06/25/23 06/25/23 History Magnesia] Metoprolol Tartrate [Lopressor] 25 mg PEG/G-TUBE BID@0700,1900 06/25/23 06/25/23 History Ticagrelor [Brilinta] 90 mg PEG/G-TUBE DAILY@0700 06/25/23 06/25/23 History polyethylene glycoL 3350 [Miralax] 17 gm PEG/G-TUBE DAILY PRN 06/25/23 06/25/23 History predniSONE [Deltasone] 40 mg PEG/G-TUBE DAILY@0700 06/25/23 06/25/23 History Allergies Allergy/AdvReac Type Severity Reaction Status Date / Time No Known Allergies Allergy Verified 06/25/23 07:04 Physical Exam Vitals: Vital Signs Temp Pulse Pulse Resp BP BP Pulse Ox 06/26/23 00:02 113 H 06/25/23 23:47 104 H 06/25/23 20:24 96 06/25/23 20:13 89 06/25/23 17:12 98.0 F 109 H 18 90/63 92 L 06/25/23 15:34 97.9 F 115 H 18 99/52 92 L 06/25/23 14:58 118 H 28 H 06/25/23 14:50 118 H 28 H 06/25/23 12:45 97.8 F 144 H 20 114/58 95 06/25/23 11:29 97 06/25/23 11:07 98.0 F 126 H 26 H 119/94 93 L 06/25/23 09:09 98.7 F 101 H 16 98/56 97 06/25/23 08:02 98.3 F 102 H 22 107/74 98 06/25/23 07:22 99.0 F 105 H 20 103/75 92 L 06/25/23 06:48 99.3 F 113 H 22 104/81 93 L 06/25/23 06:23 118 H 22 103/72 94 L 06/25/23 06:09 123 H 22 101/69 93 L 06/25/23 05:49 100.4 F H 122 H 24 93/71 92 L 06/25/23 05:39 123 H 24 91/75 97 06/25/23 05:32 24 06/25/23 05:23 99.5 F 122 H 22 87/67 97 Intake and Output 06/25/23 06/25/23 06/26/23 14:59 22:59 06:59 Output Total 1850 1350 Balance -1850 -1350 Output: Urine 1850 1350 Other: Weight 109.769 kg GENERAL EXAM: Alert, 68-year-old white male, comfortable in no apparent distress. HEAD: Normocephalic and atraumatic EYES: Normal reaction of pupils, equal size. NOSE: Clear with pink turbinates. THROAT: No erythema or exudates. NECK: No masses, no JVD. CHEST: No chest wall deformity. Old midsternotomy incision LUNGS: Equal air entry with right basilar inspiratory crackles. No wheeze, rhonchi or dullness. On 4 L/m nasal cannula. No conversational dyspnea or accessory muscle use.. CVS: S1 and S2 normal with no audible murmur, regular rhythm. No extra heart sounds ABDOMEN: No hepatosplenomegaly, active bowel sounds, no guarding or rigidity. PEG tube site clean/dry SPINE: No scoliosis or deformity SKIN: No rashes CENTRAL NERVOUS SYSTEM: There is severe dysphasia/dysarthria. Right upper extremity is fairly flaccid, he can move his digits. Left upper extremity strength grade 4/5. Right lower extremity strength 3/5. Left lower extremity strength 4/5. No other focal deficits noted. EXTREMITIES: There is no peripheral edema, clubbing, or cyanosis. Peripheral pulses are intact. Results - Laboratory Findings CBC and BMP: 06/25/23 06:12 06/26/23 07:23 PT/INR, D-dimer PT 12.3 sec (10.0-12.5) 06/25/23 06:12 INR 1.1 (<1.2) 06/25/23 06:12 Abnormal lab findings: Abnormal Labs 06/25/23 06/25/23 06/25/23 05:35 06:12 06:12 WBC 20.8 H Neutrophils # 19.2 H Lymphocytes # 0.7 L Chloride 108 H Carbon Dioxide 19 L Glucose 163 H POC Glucose (mg/dL) 161 H Plasma Lactic Acid Kedar ALT 119 H Troponin I C-Reactive Protein 4.8 H Total Protein 6.0 L Albumin 3.2 L Procalcitonin Ur Specific [place] Urine Protein Urine Glucose (UA) Urine Ketones Urine Blood Ur Leukocyte Esterase Urine RBC Urine WBC Urine Bacteria 06/25/23 06/25/23 06/25/23 06:12 06:12 06:13 WBC Neutrophils # Lymphocytes # Chloride Carbon Dioxide Glucose POC Glucose (mg/dL) Plasma Lactic Acid Kedar 2.2 H* ALT Troponin I 0.057 H* C-Reactive Protein Total Protein Albumin Procalcitonin Ur Specific [place] 1.049 H Urine Protein 1+ H Urine Glucose (UA) Trace H Urine Ketones Trace H Urine Blood Small H Ur Leukocyte Esterase Small H Urine RBC 35 H Urine WBC 33 H Urine Bacteria Rare H 06/25/23 06/25/23 06/25/23 06:25 11:01 11:24 WBC Neutrophils # Lymphocytes # Chloride Carbon Dioxide Glucose POC Glucose (mg/dL) 137 H Plasma Lactic Acid Kedar 2.7 H* ALT Troponin I C-Reactive Protein Total Protein Albumin Procalcitonin 16.20 H Ur Specific [place] Urine Protein Urine Glucose (UA) Urine Ketones Urine Blood Ur Leukocyte Esterase Urine RBC Urine WBC Urine Bacteria 06/25/23 06/25/23 06/25/23 14:07 17:53 23:52 WBC Neutrophils # Lymphocytes # Chloride Carbon Dioxide Glucose POC Glucose (mg/dL) 144 H 133 H Plasma Lactic Acid Kedar 2.1 H* ALT Troponin I C-Reactive Protein Total Protein Albumin Procalcitonin Ur Specific [place] Urine Protein Urine Glucose (UA) Urine Ketones Urine Blood Ur Leukocyte Esterase Urine RBC Urine WBC Urine Bacteria - Diagnostic Findings Chest x-ray: image reviewed Assessment and Plan Assessment: Acute hypoxemic respiratory failure, currently on 4 L/m nasal cannula, secondary to exacerbation of systolic congestive heart failure, however, healthcare associated pneumonia is not ruled out. Chest x-ray on arrival showed cardiomegaly with mild pulmonary vascular congestion. No obvious focal consolidation or effusions appreciated. Negative for influenza, RSV, COVID-19. Acute febrile illness and sepsis, source is not clear. Leukocytosis, secondary to above Elevated troponins, probably related to supply/demand mismatch History of dysphagia status post PEG tube placement History of CVA with residual right-sided deficit and dysphasia/dysarthria History of coronary artery disease, status/post CABG History of severe ischemic cardiomyopathy with an ejection fraction of 20-25% Possible history of atrial fibrillation, anticoagulated on Eliquis Hyperlipidemia Hypertension Chronic obstructive pulmonary disease, stable Former nicotine dependence Plan: Patient's medications, labs, chest x-ray reviewed Continue supplemental oxygen Continue empiric antibiotics Procalcitonin level was 16.2. armijo cultures are ordered. urine Legionella antigen negative. Negative for influenza and RSV, COVID-19. Vital signs are stable, not requiring any vasopressors. Patient is already scheduled to receive 2 additional doses of Lasix. Repeat echocardiogram pending Anticoagulation resumed by cardiology Patient was started on DuoNeb's, budesonide, and oral prednisone We will continue to follow, and further recommendations are forthcoming I have personally seen and examined the patient, performed the documentation and the assessment and plan as written. Number of minutes spent on the visit:20 Is a joint evaluation that was done along with a nurse practitioner. The patient was seen and evaluated in more than 30 minutes. We are seeing this patient for shortness of breath and possible sepsis. The patient has fever at the time of admission and currently is afebrile. His pro calcitonin level was elevated. His white cell count was elevated. As such, infection/sepsis was being entertained. Is currently on IV Zosyn. He is hemodynamically stable. He was given Lasix yesterday and today and his breathing is stable for now and is currently on oxygen at 4 L nasal cannula. His breathing is nonlabored. He is receiving enteral feeding for nutritional support and the patient is currently on glucerna at the rate of 20 mL an hour. Cultures have been sent. He may potentially have an underlying urinary tract infection. UA was abnormal. The viral screen was negative. Troponins were minimally elevated. I'm not sure why the patient is taking prednisone 40 mg. This will be discontinued for now. A repeat chest x-ray to be done. He has expressive aphasia and he has a previous CVA and chronic right-sided weakness and he has PEG tube for enteral feeding and nutritional support. He has A myopathy with impaired LV function and coronary artery disease with previous bypass surgery. Time with Patient: Greater than 30
[2023-06-26] MEDS: IPRATROPIUM-ALBUTEROL 3 ML NEB INHALATION SCH ×5 (03:55→20:36)
[2023-06-26] MEDS: METOPROLOL TARTRATE 25 MG TAB PEG/G-TUBE SCH ×2 (05:54→19:50)
[2023-06-26] MEDS: APIXABAN 5 MG TAB PEG/G-TUBE SCH ×2 (05:54→19:50)
[2023-06-26] MEDS: FOLIC ACID 1 MG TAB PEG/G-TUBE SCH (05:54)
[2023-06-26] MEDS: FAMOTIDINE 20 MG TAB PEG/G-TUBE SCH ×2 (05:54→19:50)
[2023-06-26] MEDS: ASPIRIN 81 MG PEG/G-TUBE SCH (05:55)
[2023-06-26 06:09] LABS: Glucose,Whole Blood 157 mg/dL (70-110)
[2023-06-26] MEDS: INSULIN ASPART (NovoLOG) 100 UNIT/ML VIAL SQ SCH ×3 (06:53→17:52)
[2023-06-26] MEDS ORDERED: TICAGRELOR 90 MG TAB PEG/G-TUBE SCH (07:00)
[2023-06-26] MEDS ORDERED: predniSONE 20 MG TAB PEG/G-TUBE SCH (07:00)
[2023-06-26 08:09] LABS: African American GFR (CKD) >90 (>60 ml/min/1.73 sqM); Anion Gap 11 mmol/L; Blood Urea Nitrogen 21 mg/dL (9-20); Calcium 8.8 mg/dL (8.4-10.2); Carbon Dioxide 20 mmol/L (22-30); Chloride 107 mmol/L (98-107); Glucose 143 mg/dL (74-99); Non-African American GFR(CKD) >90 (>60 ml/min/1.73 sqM); Potassium 3.4 mmol/L (3.5-5.1); Sodium 138 mmol/L (137-145)
[2023-06-26] MEDS: BUDESONIDE 1 MG/2 ML NEBU INHALATION SCH ×2 (08:24→20:36)
[2023-06-26] MEDS: FUROSEMIDE 10 MG/ML 4 ML VIAL IV SCH (08:32)
--- NOTE | 2023-06-26 10:29 | CA ---
Transthoracic Echo Report Name: Rome Yi Age: 68 Gender: M : 1955 Exam Date: 06/25/2023 14:29 Exam Location: [facility] Ht (in): 76 Wt (lb): 242 Ordering Physician: Nora Sahu Attending/Referring Phys: [id number], Luis Alberto Rn Tele Nicki Alvarez, ASHLIE Procedure CPT: Indications: LV function Cardiac Hx: CABG, [place] Technical Quality: Very technically difficult study Contrast 1: Definity Total Dose (mL): 3 Contrast 2: Total Dose (mL): MEASUREMENTS (Male / Female) Normal Values 2D ECHO LV Diastolic Diameter PLAX 5.8 cm 4.2 - 5.9 / 3.9 - 5.3 cm LV Systolic Diameter PLAX 4.5 cm IVS Diastolic Thickness 1.1 cm 0.6 - 1.0 / 0.6 - 0.9 cm LVPW Diastolic Thickness 1.0 cm 0.6 - 1.0 / 0.6 - 0.9 cm LV Relative Wall Thickness 0.4 RV Internal Dim ED PLAX 3.4 cm LA Systolic Diameter LX 3.7 cm 3.0 - 4.0 / 2.7 - 3.8 cm LV Diastolic Volume MOD BP 115.5 cm??? 67 - 155 / 56 - 104 cm??? LV Systolic Volume MOD BP 64.1 cm??? 22 - 58 / 19 - 49 cm??? LV Ejection Fraction MOD BP 44.5 % >= 55 % LV Cardiac Index MOD BP 2437.6 cm???/min???m??? LV Diastolic Volume MOD 4C 112.8 cm??? LV Systolic Volume MOD 4C 55.4 cm??? LV Ejection Fraction MOD 4C 50.9 % LV Cardiac Index MOD 4C 2721.3 cm???/min???m??? LV Diastolic Length 4C 8.9 cm LV Systolic Length 4C 8.1 cm LV Diastolic Volume MOD 2C 115.8 cm??? LV Systolic Volume MOD 2C 78.0 cm??? LV Ejection Fraction MOD 2C 32.7 % LV Cardiac Index MOD 2C 1793.3 cm???/min???m??? LV Diastolic Length 2C 8.1 cm LV Systolic Length 2C 7.8 cm M-MODE Aortic Root Diameter MM 3.8 cm MV E Point Septal Separation 0.9 cm AV Cusp Separation MM 2.2 cm DOPPLER AV Peak Velocity 113.7 cm/s AV Peak Gradient 5.2 mmHg MV Area PHT 6.1 cm??? MV Deceleration Time 110.9 ms FINDINGS Left Ventricle Left ventricular ejection fraction is estimated at 30-35 %. Left ventricular cavity size normal. Left ventricular wall thickness normal. Global left ventricular hypokinesis. Right Ventricle Mild right ventricular dilatation. Unable to estimate the right ventricular systolic pressure. Right Atrium Right atrium not well visualized. Left Atrium Left atrium not well visualized. Mitral Valve Mitral valve not well visualized. Aortic Valve Trileaflet aortic valve. Tricuspid Valve Tricuspid valve not well visualized. Pulmonic Valve Pulmonic valve not well visualized. Pericardium No pericardial effusion. Aorta Mild aortic dilatation at the level of the sinuses of valsalva 38 mm CONCLUSIONS Technically difficult study. Echo contrast was used. Global decrease in contractility with estimated ejection fraction of about 30%. Mild right ventricular dilation. Suboptimal Doppler study no pericardial effusion Previewed by: Dr. Blayne Tony MD (Electronically Signed) Final Date: 26 June 2023 10:28
--- NOTE | 2023-06-26 11:36 | XR ---
EXAMINATION TYPE: XR chest 1V DATE OF EXAM: 06/26/2023 COMPARISON: 06/25/2023 INDICATION: Short of breath TECHNIQUE: Single frontal view of the chest is obtained. FINDINGS: The heart size is normal. The pulmonary vasculature is normal. The lungs are clear. Sternotomy wires are present. IMPRESSION: 1. No acute pulmonary process.
[2023-06-26 11:50] LABS: Glucose,Whole Blood 167 mg/dL (70-110)
--- NOTE | 2023-06-26 12:14 | P.PN ---
Subjective HISTORY OF PRESENT ILLNESS: This is a 68-year-old male with a past medical history significant for CVA with residual right-sided weakness and slurred speech, COPD, coronary artery disease with three-vessel CABG in 2018, hypertension, hyperlipidemia, nicotine dependence, and previous alcohol abuse. Patient does not follow with a lead engineer at [facility]. We have been asked to see the patient in consultation for tachycardia. The patient initially presented to [facility] for shortness of breath and altered mental status. The patient is a resident of [facility]. Patient examined at the bedside in the emergency room. Due to altered mental status, HPI was unable to be obtained from the patient. There is no family present. An A-team was called on the patient this morning secondary to increased shortness of breath. He was given a dose of IV Lasix per A-team responders. * EKG reveals sinus tachycardia * Chest xray cardiomegaly and mild pulmonary vascular congestion * Laboratory data: Significant for WBC 20.8. Lactic acid 2.7. ProBNP 1360. Pro-calcitonin 16.20. * Current home cardiac medications include atorvastatin 40 mg daily, Eliquis 5 mg twice a day, Brilinta mg daily, metoprolol tartrate 25 mg twice a day, aspirin 81 mg daily * Most recent echocardiogram obtained in November 2017 revealed ejection fraction 20-25% 06/26/2023 Patient examined this morning at the bedside. Patient's mentation is improved today compared to yesterday. Telemetry reveals sinus mechanism with a heart rate in the 80s. Vital signs are stable. Echocardiogram completed revealing ejection fraction 30-35%. PHYSICAL EXAM: VITAL SIGNS: Reviewed. GENERAL: Well-developed in no acute distress. HEENT: Head is normocephalic. Pupils are equal, round. Sclerae anicteric. Mucous membranes of the mouth are moist. Neck supple. No JVD or thyromegaly LUNGS: Respirations even. Lungs diminished with mild rhonchi throughout HEART: Regular rate and rhythm. S1 and S2 heard. ABDOMEN: Soft. Nondistended. Nontender. EXTREMITIES: Normal range of motion. No clubbing or cyanosis. Peripheral pulses intact. Trace bilateral lower extremity edema noted at the ankles. NEUROLOGIC: Patient with garbled speech. ASSESSMENT: Altered mental status Sepsis of unknown origin, patient with fever, leukocytosis, elevated lactic acid, and tachycardia Abnormal troponin, not suggestive of acute coronary syndrome, secondary to sepsis Acute hypoxic respiratory failure requiring supplemental oxygen Coronary artery disease with previous three-vessel CABG in 2018 Ischemic cardiomyopathy, ejection fraction 20-25% in 2018, now 3035% History of CVA with residual right-sided weakness and slurred speech Hypertension Hyperlipidemia COPD Dysphagia with PEG tube placement History of nicotine dependence History of previous alcohol abuse PLAN: Continue current cardiac medications Continue telemetry monitoring Patient is currently stable from a cardiac standpoint We will follow on an as-needed basis. Please call with questions or concerns Nurse practitioner note has been reviewed by physician. Signing provider agrees with the documented findings, assessment, and plan of care. Objective - Vital Signs Vital signs: Vital Signs Temp 98.4 F 06/26/23 08:35 Pulse 91 06/26/23 11:31 Resp 20 06/26/23 08:35 BP 102/70 06/26/23 08:35 Pulse Ox 95 06/26/23 08:35 FiO2 Intake & Output 06/25/23 06/26/23 06/26/23 18:59 06:59 18:59 Output Total 2200 1300 Balance -2200 -1300 Weight 109.769 kg 113.5 kg 113.5 kg Output: Urine 2200 1300 - Labs CBC & Chem 7: 06/25/23 06:12 06/26/23 07:23 Labs: Abnormal Lab Results - Last 24 Hours (Table) 06/25/23 06/25/23 06/25/23 Range/Units 14:07 17:53 23:52 Potassium (3.5-5.1) mmol/L Carbon Dioxide (22-30) mmol/L BUN (9-20) mg/dL Glucose (74-99) mg/dL POC Glucose (mg/dL) 144 H 133 H (70-110) mg/dL Plasma Lactic Acid Kedar 2.1 H* (0.7-2.0) mmol/L 06/26/23 06/26/23 06/26/23 Range/Units 06:07 07:23 11:47 Potassium 3.4 L (3.5-5.1) mmol/L Carbon Dioxide 20 L (22-30) mmol/L BUN 21 H (9-20) mg/dL Glucose 143 H (74-99) mg/dL POC Glucose (mg/dL) 157 H 167 H (70-110) mg/dL Plasma Lactic Acid Kedar (0.7-2.0) mmol/L Microbiology - Last 24 Hours (Table) 06/25/23 06:13 Urine Culture - Final Urine,Voided
--- NOTE | 2023-06-26 14:52 | P.PN ---
Progress Note - Text Progress Note Date: 06/26/23 Chief Complaint: Difficulty breathing This is a 68-year-old patient who is a resident of extended stay was brought into the [facility] system for difficulty breathing. At her baseline patient does not ambulate. Has a garbled speech and is concerned right-sided we akness. Lives at [facility]. Has a PEG 2 feeding with no oral feeding. Patient had become increasingly short of breath some altered mentation. Patient was sent to the ER. Patient himself really cannot communicate. This morning patient became more short of breath. A bit hypoxic. A team was called. Given bronchodilators and IV Lasix. [place] better. Back in 2017 patient has a documented EF of 20-25%. Underwent coronary bypass. Patient heart rate today up to 120-160. Also low-grade temperature 100.4. June 26: Patient is getting 2 feeding. On 4 L this cannula. Getting bronchodilators IV Zosyn. Breathing better. More restful. 2-D echo showed EF of 30-35%. Aldactone 25 mg added. He received IV Lasix yesterday. Active Medications Acetaminophen (Acetaminophen Tab 325 Mg Tab) 650 mg PEG/G-TUBE Q4H PRN PRN Reason: GENERAL DISCOMFORT/FEVER Last Admin: 06/26/23 05:58 Dose: 650 mg Acetaminophen/Codeine Phosphate (Acetaminophen-Codeine 300-30mg Tab) 1 each PO Q4HR PRN PRN Reason: Moderate Pain (Scale 4 to 6) Last Admin: 06/25/23 15:10 Dose: 1 each Albuterol Sulfate (Albuterol Nebulized 2.5 Mg/3 Ml) 2.5 mg INHALATION RT-Q4H PRN PRN Reason: Shortness Of Breath Albuterol/Ipratropium (Ipratropium-Albuterol 3 Ml Neb) 3 ml INHALATION RT-Q4H [facility] Last Admin: 06/26/23 11:21 Dose: 3 ml Apixaban (Apixaban 5 Mg Tab) 5 mg PEG/G-TUBE BID@0700,1900 [facility]; Protocol Last Admin: 06/26/23 05:54 Dose: 5 mg Aspirin (Aspirin 81 Mg) 81 mg PEG/G-TUBE DAILY@0700 [facility] Last Admin: 06/26/23 05:55 Dose: 81 mg Atorvastatin Calcium (Atorvastatin 40 Mg Tab) 40 mg PEG/G-TUBE DAILY@1900 [facility] Last Admin: 06/25/23 18:41 Dose: 40 mg Budesonide (Budesonide 1 Mg/2 Ml Nebu) 1 mg INHALATION RT-BID [facility] Last Admin: 06/26/23 08:24 Dose: 1 mg Dextrose/Water (Dextrose 50% Syringe 50 Ml) 25 ml IVP PER PROTOCOL PRN; Protocol PRN Reason: Hypoglycemia Dextrose/Water (Dextrose 50% Syringe 50 Ml) 50 ml IVP PER PROTOCOL PRN; P rotocol PRN Reason: Hypoglycemia Famotidine (Famotidine 20 Mg Tab) 20 mg PEG/G-TUBE BID@0700,1900 [facility] Last Admin: 06/26/23 05:54 Dose: 20 mg Folic Acid (Folic Acid 1 Mg Tab) 1 mg PEG/G-TUBE DAILY@0700 [facility] Last Admin: 06/26/23 05:54 Dose: 1 mg Piperacillin Sod/Tazobactam (Sod 3.375 gm/ Sodium Chloride) 100 mls @ 25 mls/hr IVPB Q8HR [facility]; Protocol Last Admin: 06/26/23 08:32 Dose: 25 mls/hr Insulin Aspart (Insulin Aspart (Novolog) 100 Unit/Ml Vial) 0 unit SQ AC-TID [facility]; Protocol Last Admin: 06/26/23 11:54 Dose: 2 unit Lactic Acid (Ammonium Lactate 12% Cream 140 Gm Tube) 1 applic TOPICAL DAILY PRN; Protocol PRN Reason: DRY FEET Lactic Acid (Ammonium Lactate 12% Cream 140 Gm Tube) 1 applic TOPICAL HS [facility]; Protocol Last Admin: 06/25/23 19:56 Dose: 1 applic Magnesium Hydroxide (Magnesium Hydroxide 2,400 Mg/30 Ml Cup) 2,400 mg PEG/G- TUBE Q48H PRN PRN Reason: Constipation Metoprolol Tartrate (Metoprolol Tartrate 25 Mg Tab) 25 mg PEG/G-TUBE BID@0700,1900 [facility] Last Admin: 06/26/23 05:54 Dose: 25 mg Naloxone HCl (Naloxone 0.4 Mg/Ml 1 Ml Vial) 0.2 mg IV Q2M PRN PRN Reason: Opioid Reversal Ondansetron HCl (Ondansetron 4 Mg/2 Ml Vial) 4 mg IVP Q8HR PRN PRN Reason: Nausea And Vomiting Polyethylene Glycol (Polyethylene Glycol 3350 17 Gm Powd.Pack) 17 gm PEG/G-TUBE DAILY PRN PRN Reason: Constipation Spironolactone (Spironolactone 25 Mg Tab) 25 mg PO DAILY [facility] Past medical history to include: Congestive heart failure, CHF EF of 2024%, CAD with: Bypass 2017, COPD with chronic bronchitis, chronic kidney disease, sleep disorder, chronic dysarthria Social history: Patient condition resident of [facility] Physical examination: VITAL SIGNS: 97.7, 101, 23, 10 3 x 69, 93% on 4 L GENERAL: Laying in bed, more restful EYES: Pupils equal. Conjunctiva normal. HEENT: External appearance of nose and ears normal, oral cavity grossly normal. NECK: JVD unable to assess masses not palpable. HEART: First and second heart sounds are normal; some edema. LUNGS: Respiratory rate increased decreased breath sound with some scattered crackles. ABDOMEN: Soft, nontender, liver spleen not palpable, no masses palpable. PEG tube PSYCH: Unable to assessl. MUSCULOSKELETAL:No Clubbing/cyanosis;muscles-grossly intact. UA INVESTIGATIONS, reviewed in the clinical context: 2-D echocardiogram: EF 30-35%. June 26: Potassium 3.4 creatinine 0.83 06/25/2023: White count 20.8 hemoglobin 15.1 platelets 177 increased neutrophils sodium 137 potassium 3.8 BUN 17 creatinine 0.97 lactic acid 2.2 Troponin I 0.057, proBNP 1360 procalcitonin 16.2 UA: Today for nitrite Influenza type A, B, Legionella antigen, RSV, COVID-19: Not detected EKG tracing personally reviewed by me-sinus tachycardia rate of 124, PVCs,) right bundle branch block, Chest x-ray film personally reviewed by me-possible infiltrate Assessment and plan: -Pneumonia suspect gram-negative organism. Zosyn. -Patient had altered mentation at the F as reported by the staff. Acute metabolic encephalopathy and delirium from pneumonia: Some improvement -Acute on chronic congestive heart failure exacerbation from systolic dysfunction EF noted - 35 % from ischemic cardio myopathy.: Better IV Lasix 40 mg every 12 times 2 doses given -Acute COPD exacerbation and a prior smoker: Some improvement DuoNeb. Every 4, nebulized Pulmicort. -Obesity BMI 36.8 Weight loss measures -Chronic dysarthria, patient's baseline speech is garbled -Chronic dysphagia, patient is nothing by mouth by mouth PEG tube feeding. Being followed by dietitian -Full code -Chronic medical debility, baseline non-ambulatory Continue current treatment plan. Aldactone added.
[2023-06-26] MEDS: SPIRONOLACTONE 25 MG TAB PO SCH (15:47)
[2023-06-26 17:51] LABS: Glucose,Whole Blood 143 mg/dL (70-110)
[2023-06-26] MEDS: ATORVASTATIN 40 MG TAB PEG/G-TUBE SCH (19:50)
[2023-06-26] MEDS: AMMONIUM LACTATE 12% CREAM 140 GM TUBE TOPICAL SCH (22:31)
[2023-06-27 00:05] LABS: Glucose,Whole Blood 145 mg/dL (70-110)
[2023-06-27] MEDS: Acetaminophen-Codeine 300-30mg TAB PO PRN ×3 (00:08→11:52)
[2023-06-27] MEDS: PIPERACILLIN-TAZOBACTAM 3.375 GM in SODIUM CHLORIDE 0.9% 100 ML IVPB SCH ×4 (00:09→23:08)
[2023-06-27] MEDS: IPRATROPIUM-ALBUTEROL 3 ML NEB INHALATION SCH ×6 (00:24→21:04)
[2023-06-27 06:05] LABS: Glucose,Whole Blood 174 mg/dL (70-110)
[2023-06-27] MEDS: INSULIN ASPART (NovoLOG) 100 UNIT/ML VIAL SQ SCH ×3 (06:56→16:31)
[2023-06-27] MEDS: METOPROLOL TARTRATE 25 MG TAB PEG/G-TUBE SCH ×2 (06:56→17:06)
[2023-06-27] MEDS: FAMOTIDINE 20 MG TAB PEG/G-TUBE SCH ×2 (06:56→17:06)
[2023-06-27] MEDS: ASPIRIN 81 MG PEG/G-TUBE SCH (06:56)
[2023-06-27] MEDS: FOLIC ACID 1 MG TAB PEG/G-TUBE SCH (06:56)
[2023-06-27] MEDS: APIXABAN 5 MG TAB PEG/G-TUBE SCH ×2 (06:56→17:06)
[2023-06-27] MEDS: BUDESONIDE 1 MG/2 ML NEBU INHALATION SCH ×2 (08:36→21:05)
[2023-06-27] MEDS: SPIRONOLACTONE 25 MG TAB PO SCH (09:28)
[2023-06-27 11:55] LABS: Glucose,Whole Blood 145 mg/dL (70-110)
[2023-06-27 12:56] LABS: African American GFR (CKD) >90 (>60 ml/min/1.73 sqM); Anion Gap 15 mmol/L; Blood Urea Nitrogen 24 mg/dL (9-20); Calcium 9.1 mg/dL (8.4-10.2); Carbon Dioxide 20 mmol/L (22-30); Chloride 106 mmol/L (98-107); Glucose 140 mg/dL (74-99); Non-African American GFR(CKD) >90 (>60 ml/min/1.73 sqM); Potassium 3.1 mmol/L (3.5-5.1); Sodium 141 mmol/L (137-145)
--- NOTE | 2023-06-27 13:38 | P.PN ---
Subjective Progress Note Date: 06/27/23 I am seeing this patient in consultation today 06/26/2023 after he was transfer red from [facility] for dyspnea and suspected sepsis. Patient is a 68-year-old white male with past medical history significant for coronary artery disease with previous CABG, ischemic cardiomyopathy, hyperlipidemia, hypertension, previous CVA with residual right-sided weakness and dysphagia /dysphasia, PEG tube, COPD, among other things. Patient's confusion and expressive dysphasia make it very difficult to elicit meaningful information. Patient resides at [facility]. Apparently, he was noted to be confused and short of breath by staff. He was originally sent to [facility], and was found to be hypotensive and febrile. He was given 2 L normal saline bolus at outside facility. He was also started on empiric antibiotics. He was later transferred to [facility] yesterday morning, and the patient was admitted to the cardiac stepdown unit. A rapid response was called yesterday afternoon for tachypnea and tachycardia. Essentially, the patient is septic. Source of infection is not quite clear, however, pneumonia is not ruled out. At that time, a pulmonary consult was placed. The patient was given a dose of Lasix. Patient is currently lying in bed, on 4 L/m nasal cannula, in no acute distress. As stated earlier, the patient's dysphasia makes it very difficult to elicit any information. He is alert and does follow commands. Patient does have an intermittent dry cough without any sputum. He was tachypneic with respiratory rate in the 20s. SpO2 is reading 94%. Blood pressure is normotensive. He is tachycardic. No obvious distress. Abdomen appears soft and non-tender. There is a PEG tube with tube feeding infusing at 10 ML's per hour. Patient reportedly still eats and drinks. He does have a history of dysphagia after his CVA. No obvious witnessed aspiration. Chest x- ray at our facility shows cardiomegaly with pulmonary vascular congestion, no significant focal consolidation or effusions noted. CBC on arrival shows leukocytosis with a WBC count of 20.8, hemoglobin 15.1, hematocrit 45.5, platelets 177. CMP shows sodium 137, potassium 3.8, chloride 108, serum bicarb 19, BUN 17, creatinine 0.97, glucose 163. Urinalysis not concerning for UTI. Troponin 0.057. NT proBNP 1360. Procalcitonin level elevated at 16.2. He is currently receiving empiric Zosyn. Negative for influenza, RSV, COVID-19, [place]. Not currently afebrile. IV fluids have been held related probable CHF exacerbation. Lactic acid levels down to 1.8. Patient will be monitored on the cardiac stepdown unit. On today's evaluation of 06/27/2023, the patient remains on empiric antibiotic coverage with IV Zosyn. The patient is afebrile. The patient doesn't any further episodes of fever. He is receiving enteral feeding for nutritional support. He is aphasic. No signs of any respiratory distress at this point in time. He remains on anticoagulation with Eliquis 5 mg by mouth twice a day. He is hemodynamically stable. The sodium levels of 141 with a potassium level of 3.1, BUN is 24 with a creatinine of 0.7, glucose of 145. Calcium level is at 9.1. Echocardiogram was performed yesterday and the patient was found to have systolic heart failure with an ejection fraction of 30%. Mild RV dilatation. There was global decrease in contractility. No evidence of any pericardial effusion. Urine culture is negative. Blood cultures negative for now. Objective - Vital Signs Vital signs: Vital Signs Temp 97.3 F L 06/27/23 08:00 Pulse 95 06/27/23 08:49 Resp 16 06/27/23 08:00 BP 105/77 06/27/23 08:00 Pulse Ox 95 06/27/23 08:00 FiO2 Intake & Output 06/26/23 06/27/23 06/27/23 18:59 06:59 18:59 Intake Total 0 Output Total 1600 200 Balance -1600 -200 Weight 113.5 kg Intake: Oral 0 Output: Urine 1600 200 Other: Voiding Method Indwelling Catheter - Exam GENERAL EXAM: Alert, 68-year-old white male, comfortable in no apparent d istress. The patient is currently on 4 L of oxygen by nasal cannula. HEAD: Normocephalic and atraumatic EYES: Normal reaction of pupils, equal size. NOSE: Clear with pink turbinates. THROAT: No erythema or exudates. NECK: No masses, no JVD. CHEST: No chest wall deformity. Old midsternotomy incision LUNGS: Equal air entry with right basilar inspiratory crackles. No wheeze, rhonchi or dullness. On 4 L/m nasal cannula. No conversational dyspnea or accessory muscle use.. CVS: S1 and S2 normal with no audible murmur, regular rhythm. No extra heart sounds ABDOMEN: No hepatosplenomegaly, active bowel sounds, no guarding or rigidity. PEG tube site clean/dry SPINE: No scoliosis or deformity SKIN: No rashes CENTRAL NERVOUS SYSTEM: There is severe dysphasia/dysarthria. Right upper extremity is fairly flaccid, he can move his digits. Left upper extremity strength grade 4/5. Right lower extremity strength 3/5. Left lower extremity strength 4/5. No other focal deficits noted. EXTREMITIES: There is no peripheral edema, clubbing, or cyanosis. Peripheral pulses are intact. - Labs CBC & Chem 7: 06/25/23 06:12 06/27/23 08:06 Labs: Abnormal Lab Results - Last 24 Hours (Table) 06/26/23 06/26/23 06/27/23 Range/Units 11:47 17:50 00:02 POC Glucose (mg/dL) 167 H 143 H 145 H (70-110) mg/dL 06/27/23 Range/Units 06:01 POC Glucose (mg/dL) 174 H (70-110) mg/dL Microbiology - Last 24 Hours (Table) 06/25/23 06:15 Blood Culture - Preliminary Blood 06/25/23 06:12 Blood Culture - Preliminary Blood 06/25/23 06:13 Urine Culture - Final Urine,Voided Assessment and Plan Assessment: Acute hypoxemic respiratory failure, currently on 4 L/m nasal cannula, secondary to exacerbation of systolic congestive heart failure, however, healthcare associated pneumonia is not ruled out. Chest x-ray on arrival showed cardiomegaly with mild pulmonary vascular congestion. No obvious focal consolidation or effusions appreciated. Negative for influenza, RSV, COVID-19. The patient remains on 4 L O2 nasal cannula. Patient remains on IV Zosyn. Pneumonia is possible and cannot be completely excluded. Acute febrile illness and sepsis, source is not clear. The patient is currently afebrile Leukocytosis, secondary to above Elevated troponins, probably related to supply/demand mismatch History of dysphagia status post PEG tube placement History of CVA with residual right-sided deficit and dysphasia/dysarthria History of coronary artery disease, status/post CABG History of severe ischemic cardiomyopathy with an ejection fraction of 20-25%, repeat echocardiogram shows ongoing impairment of LV function with an ejection fraction of 30% Possible history of atrial fibrillation, anticoagulated on Eliquis Hyperlipidemia Hypertension Chronic obstructive pulmonary disease, stable Former nicotine dependence Plan: Repeat chest x-ray Repeat pro-calcitonin Monitor fever pattern Cultures are negative Monitor white cell count PEG tube feeding for nutritional support Continue same medications We'll continue to follow
[2023-06-27] MEDS ORDERED: POTASSIUM CHLORIDE ER 20 MEQ TAB.ER PO STA (15:22)
[2023-06-27 16:26] LABS: Glucose,Whole Blood 137 mg/dL (70-110)
[2023-06-27] MEDS: ATORVASTATIN 40 MG TAB PEG/G-TUBE SCH (17:06)
--- NOTE | 2023-06-27 19:16 | P.PN ---
Progress Note - Text Progress Note Date: 06/27/23 Chief Complaint: Difficulty breathing This is a 68-year-old patient who is a resident of extended stay was brought into the [facility] system for difficulty breathing. At her baseline patient does not ambulate. Has a garbled speech and is concerned right-sided we akness. Lives at [facility]. Has a PEG 2 feeding with no oral feeding. Patient had become increasingly short of breath some altered mentation. Patient was sent to the ER. Patient himself really cannot communicate. This morning patient became more short of breath. A bit hypoxic. A team was called. Given bronchodilators and IV Lasix. [place] better. Back in 2017 patient has a documented EF of 20-25%. Underwent coronary bypass. Patient heart rate today up to 120-160. Also low-grade temperature 100.4. June 26: Patient is getting 2 feeding. On 4 L this cannula. Getting bronchodilators IV Zosyn. Breathing better. More restful. 2-D echo showed EF of 30-35%. Aldactone 25 mg added. He received IV Lasix yesterday. June 27: Our speech therapist and Suzie spoke to thetherapist at the [facility]. Patient was advanced to a ground diet one day prior to being transferred here. PEG tube feeding was discontinued. Patient was started on ground diet today. Typically she tolerated well. PEG tube feeding is therefore being discontinued. Breathing better. Breathing appears more comfortable. On 6 L nasal cannula. Active Medications Acetaminophen (Acetaminophen Tab 325 Mg Tab) 650 mg PEG/G-TUBE Q4H PRN PRN Reason: GENERAL DISCOMFORT/FEVER Last Admin: 06/26/23 05:58 Dose: 650 mg Acetaminophen/Codeine Phosphate (Acetaminophen-Codeine 300-30mg Tab) 1 each PO Q4HR PRN PRN Reason: Moderate Pain (Scale 4 to 6) Last Admin: 06/27/23 11:52 Dose: 1 each Albuterol Sulfate (Albuterol Nebulized 2.5 Mg/3 Ml) 2.5 mg INHALATION RT-Q4H PRN PRN Reason: Shortness Of Breath Albuterol/Ipratropium (Ipratropium-Albuterol 3 Ml Neb) 3 ml INHALATION RT-Q4H [facility] Last Admin: 06/27/23 15:07 Dose: 3 ml Apixaban (Apixaban 5 Mg Tab) 5 mg PEG/G-TUBE BID@0700,1900 [facility]; Protocol Last Admin: 06/27/23 17:06 Dose: 5 mg Aspirin (Aspirin 81 Mg) 81 mg PEG/G-TUBE DAILY@0700 [facility] Last Admin: 06/27/23 06:56 Dose: 81 mg Atorvastatin Calcium (Atorvastatin 40 Mg Tab) 40 mg PEG/G-TUBE DAILY@1900 [facility] Last Admin: 06/27/23 17:06 Dose: 40 mg Budesonide (Budesonide 1 Mg/2 Ml Nebu) 1 mg INHALATION RT-BID [facility] Last Admin: 06/27/23 08:36 Dose: 1 mg Dextrose/Water (Dextrose 50% Syringe 50 Ml) 25 ml IVP PER PROTOCOL PRN; Protocol PRN Reason: Hypoglycemia Dextrose/Water (Dextrose 50% Syringe 50 Ml) 50 ml IVP PER PROTOCOL PRN; Pr otocol PRN Reason: Hypoglycemia Famotidine (Famotidine 20 Mg Tab) 20 mg PEG/G-TUBE BID@0700,1900 [facility] Last Admin: 06/27/23 17:06 Dose: 20 mg Folic Acid (Folic Acid 1 Mg Tab) 1 mg PEG/G-TUBE DAILY@0700 [facility] Last Admin: 06/27/23 06:56 Dose: 1 mg Piperacillin Sod/Tazobactam (Sod 3.375 gm/ Sodium Chloride) 100 mls @ 25 mls/hr IVPB Q8HR [facility]; Protocol Last Admin: 06/27/23 17:07 Dose: 25 mls/hr Insulin Aspart (Insulin Aspart (Novolog) 100 Unit/Ml Vial) 0 unit SQ AC-TID [facility]; Protocol Last Admin: 06/27/23 16:31 Dose: Not Given Lactic Acid (Ammonium Lactate 12% Cream 140 Gm Tube) 1 applic TOPICAL DAILY PRN; Protocol PRN Reason: DRY FEET Lactic Acid (Ammonium Lactate 12% Cream 140 Gm Tube) 1 applic TOPICAL HS [facility]; Protocol Last Admin: 06/26/23 22:31 Dose: 1 applic Magnesium Hydroxide (Magnesium Hydroxide 2,400 Mg/30 Ml Cup) 2,400 mg PEG/G- TUBE Q48H PRN PRN Reason: Constipation Metoprolol Tartrate (Metoprolol Tartrate 25 Mg Tab) 25 mg PEG/G-TUBE BID@0700,1900 [facility] Last Admin: 11/16/23 17:06 Dose: 25 mg Naloxone HCl (Naloxone 0.4 Mg/Ml 1 Ml Vial) 0.2 mg IV Q2M PRN PRN Reason: Opioid Reversal Ondansetron HCl (Ondansetron 4 Mg/2 Ml Vial) 4 mg IVP Q8HR PRN PRN Reason: Nausea And Vomiting Polyethylene Glycol (Polyethylene Glycol 3350 17 Gm Powd.Pack) 17 gm PEG/G-TUBE DAILY PRN PRN Reason: Constipation Spironolactone (Spironolactone 25 Mg Tab) 25 mg PO DAILY [facility] Last Admin: 06/27/23 09:28 Dose: 25 mg Past medical history to include: Congestive heart failure, CHF EF of 2024%, CAD with: Bypass 2017, COPD with chronic bronchitis, chronic kidney disease, sleep disorder, chronic dysarthria Social history: Patient condition resident of [facility] Physical examination: VITAL SIGNS: 97.5, 104, 28, 1 08/18/1990, 91% on 6 L GENERAL: Laying in bed, some restlessness EYES: Pupils equal. Conjunctiva normal. HEENT: External appearance of nose and ears normal, oral cavity grossly normal. NECK: JVD unable to assess masses not palpable. HEART: First and second heart sounds are normal; some edema. LUNGS: Respiratory rate increased decreased breath sound with some scattered crackles. ABDOMEN: Soft, nontender, liver spleen not palpable, no masses palpable. PEG tube PSYCH: Unable to assessl. MUSCULOSKELETAL:No Clubbing/cyanosis;muscles-grossly intact. UA NEUROLOGY: Garbled speech INVESTIGATIONS, reviewed in the clinical context: June 27: Potassium 3.1 BUN 24 creatinine 0.76 2-D echocardiogram: EF 30-35%. June 26: Potassium 3.4 creatinine 0.83 06/25/2023: White count 20.8 hemoglobin 15.1 platelets 177 increased neutrophils sodium 137 potassium 3.8 BUN 17 creatinine 0.97 lactic acid 2.2 Troponin I 0.057, proBNP 1360 procalcitonin 16.2 UA: Today for nitrite Influenza type A, B, Legionella antigen, RSV, COVID-19: Not detected EKG tracing personally reviewed by me-sinus tachycardia rate of 124, PVCs,) right bundle branch block, Chest x-ray film personally reviewed by me-possible infiltrate Assessment and plan: -Pneumonia suspect gram-negative organism, could also be aspiration. Zosyn. -Patient had altered mentation at the ECF as reported by the staff. Acute metabolic encephalopathy and delirium from pneumonia: Some improvement -Acute on chronic congestive heart failure exacerbation from systolic dysfunction EF noted - 35 % from ischemic cardio myopathy.: Better IV Lasix discontinued. Aldactone -Acute hypoxic respiratory failure secondary to CHF and pneumonia: Slow to respond Currently on 6 L nasal cannula -Acute COPD exacerbation and a prior smoker: Some improvement DuoNeb. Every 4, nebulized Pulmicort. -Obesity BMI 36.8 Weight loss measures -Chronic dysarthria, patient's baseline speech is garbled -Chronic dysphagia, patient is nothing by mouth by mouth PEG tube feeding. Being followed by dietitian -Full code -Chronic medical debility, baseline non-ambulatory IV Lasix was discontinued. Start oral Lasix 40 mg. Continue IV Zosyn. Continue bronchodilators and steroids. Patient not ready for discharge.
[2023-06-27] MEDS: FUROSEMIDE 40 MG TAB PO SCH (19:42)
[2023-06-27] MEDS: AMMONIUM LACTATE 12% CREAM 140 GM TUBE TOPICAL SCH (19:42)
[2023-06-27 23:55] LABS: Glucose,Whole Blood 144 mg/dL (70-110)
[2023-06-28] MEDS: IPRATROPIUM-ALBUTEROL 3 ML NEB INHALATION SCH ×5 (00:49→15:08)
[2023-06-28] MEDS: APIXABAN 5 MG TAB PEG/G-TUBE SCH (06:02)
[2023-06-28] MEDS: ASPIRIN 81 MG PEG/G-TUBE SCH (06:03)
[2023-06-28] MEDS: METOPROLOL TARTRATE 25 MG TAB PEG/G-TUBE SCH (06:03)
[2023-06-28] MEDS: FOLIC ACID 1 MG TAB PEG/G-TUBE SCH (06:03)
[2023-06-28] MEDS: FAMOTIDINE 20 MG TAB PEG/G-TUBE SCH (06:03)
[2023-06-28 06:06] LABS: Glucose,Whole Blood 124 mg/dL (70-110)
[2023-06-28] MEDS: INSULIN ASPART (NovoLOG) 100 UNIT/ML VIAL SQ SCH ×2 (06:15→12:08)
--- NOTE | 2023-06-28 07:37 | XR ---
EXAMINATION TYPE: XR chest 1V DATE OF EXAM: 06/28/2023 6:58 AM CLINICAL INDICATION:Male, 68 years old with history of pneumonia; [facility] COMPARISON: Chest radiographs from 06/26/2023. TECHNIQUE: XR chest 1V Frontal view of the chest. FINDINGS: Lungs/Pleura: Bibasilar airspace opacities are present. There is no evidence of pleural effusion, foc al consolidation, or pneumothorax. Pulmonary vascularity: Pulmonary vascular congestion. Heart/mediastinum: Cardiomediastinal silhouette is enlarged and stable. Musculoskeletal: No acute osseous pathology. Midline sternotomy wires are noted. IMPRESSION: Bibasilar airspace opacities correlate for pneumonia versus aspiration. Correlate with serum BNP to r ule out a component of congestive heart failure.
[2023-06-28] MEDS: SPIRONOLACTONE 25 MG TAB PO SCH (08:09)
[2023-06-28] MEDS: FUROSEMIDE 40 MG TAB PO SCH (08:09)
[2023-06-28] MEDS: PIPERACILLIN-TAZOBACTAM 3.375 GM in SODIUM CHLORIDE 0.9% 100 ML IVPB SCH ×2 (08:09→16:34)
[2023-06-28] MEDS: BUDESONIDE 1 MG/2 ML NEBU INHALATION SCH (08:32)
[2023-06-28 08:43] VITALS: RESP 17
[2023-06-28 08:44] VITALS: BMI 39.2
[2023-06-28 09:40] LABS: Basophils % (A) 0 %; Eosinophils # (A) 0.4 k/uL (0-0.7); Eosinophils % (A) 5 %; HGB 13.5 gm/dL (13.0-17.5); Lymphocytes # (A) 1.8 k/uL (1.0-4.8); Lymphocytes % (A) 18 %; MCH 30.9 pg (25.0-35.0); MCV 93.9 fL (80.0-100.0); Mean Platelet Volume 8.9; Monocytes # (A) 0.7 k/uL (0-1.0); Monocytes % (A) 7 %; Neutrophils # (A) 6.4 k/uL (1.3-7.7); Neutrophils % (A) 66 %; Platelet Count 165 k/uL (150-450); RBC 4.37 m/uL (4.30-5.90); RDW 13.8 % (11.5-15.5); WBC 9.7 k/uL (3.8-10.6)
[2023-06-28 10:43] LABS: African American GFR (CKD) >90 (>60 ml/min/1.73 sqM); Anion Gap 12 mmol/L; Blood Urea Nitrogen 17 mg/dL (9-20); Calcium 8.9 mg/dL (8.4-10.2); Carbon Dioxide 24 mmol/L (22-30); Chloride 102 mmol/L (98-107); Glucose 124 mg/dL (74-99); Non-African American GFR(CKD) 89 (>60 ml/min/1.73 sqM); Potassium 3.7 mmol/L (3.5-5.1); Sodium 138 mmol/L (137-145)
--- NOTE | 2023-06-28 11:48 | CDI ---
Documentation Clarification Form Date: 06/28/2023 11:17:59 AM From: Trina Hill RN, CCDS Admit Date: 06/25/2023 06:59:00 AM Patient Name: Rome Yi Visit Number: [id number] Discharge Date: ATTENTION: The Clinical Documentation Specialists (CDI) and [facility] Coding Staff appreciate your assistance in clarifying documentation. Please respond to the clarification below the line at the bottom and electronically sign. The CDI & [facility] Coding staff will review the response and follow-up if needed. Please note: Queries are made part of the Legal Health Record. If you have any questions, please contact the author of this message via ITS. Dr. Navid Harry The patient has Sepsis documented in the ED notes, cardiology consult on 06/25/23 and in the pulmonary consult on 06/26/23. Based on this information and the findings below, is there an additional diagnosis that is clinically appropriate for this patient? 06/25 Cardiology consult: Sepsis of unknown origin, patient with fever, leukocytosis, elevated lactic acid, and tachycardia. Abnormal troponin, not suggestive of acute coronary syndrome, secondary to sepsis. 06/26 Pulmonary consult: Acute hypoxemic respiratory failure, currently on 4 L/m nasal cannula, secondary to exacerbation of systolic congestive heart failure, however, healthcare associated pneumonia is not ruled out. Acute febrile illness and sepsis, source is not clear. History/Risk Factors: Coronary Artery Disease, Heart Failure, COPD, GERD/Reflux, Hypertension, Myocardial Infarction ([place]), Pneumonia Clinical Indicators: 68-year-old male per ED assessment: transfer from [facility] for difficulty breathing and sepsis. 06/25 Labs: WBC 20.8, Neutrophils 19.2 Lactic acid 2.2, 2.7, 2.1.8 CL `08, CO2 19 06/25 Blood cultures: Pending, No growth after 48 hours UA Culture Finale: No growth after 18 hours 06/25 Vitals signs: 87/67 122 22 99.5 97% 5/L Simple mask, 91/75 123 24 97% 5/L Simple mask 06/25 VS: 93/71 122 24 100.4 92% 4/L NC Treatment: library monitor/Telemetry Vancomycin HCL 1,750 MG IVPB (PTD) 06/25 .9NS 2,000 ML Bolus x1 06/25 Zosyn 3.375 GM IVPB Q 8 HRS 06/25-06/28 Is there an additional diagnosis that is clinically appropriate for this patient? [ + ] Sepsis, present on admission [ ] Sepsis ruled out [ ] Other, please specify [ ] Unable to determine SIRS Criteria: 2 or more of the following may indicate SIRS Temperature < 96.8F (36C) or > 101.0F (38.3C) Heart Rate > 90 bpm Respiratory Rate > 20 breaths/min or PaCO2 < 32 mmHg White Blood Cell Count > 12,000 or < 4,000 cells/mm3 or > 10% bands (Template Last Reviewed: August 2022) MTDD
--- NOTE | 2023-06-28 11:57 | P.PN ---
Subjective Progress Note Date: 06/28/23 I am seeing this patient in consultation today 06/26/2023 after he was transfer red from [facility] for dyspnea and suspected sepsis. Patient is a 68-year-old white male with past medical history significant for coronary artery disease with previous CABG, ischemic cardiomyopathy, hyperlipidemia, hypertension, previous CVA with residual right-sided weakness and dysphagia /dysphasia, PEG tube, COPD, among other things. Patient's confusion and expressive dysphasia make it very difficult to elicit meaningful information. Patient resides at [facility]. Apparently, he was noted to be confused and short of breath by staff. He was originally sent to [facility], and was found to be hypotensive and febrile. He was given 2 L normal saline bolus at outside facility. He was also started on empiric antibiotics. He was later transferred to [facility] yesterday morning, and the patient was admitted to the cardiac stepdown unit. A rapid response was called yesterday afternoon for tachypnea and tachycardia. Essentially, the patient is septic. Source of infection is not quite clear, however, pneumonia is not ruled out. At that time, a pulmonary consult was placed. The patient was given a dose of Lasix. Patient is currently lying in bed, on 4 L/m nasal cannula, in no acute distress. As stated earlier, the patient's dysphasia makes it very difficult to elicit any information. He is alert and does follow commands. Patient does have an intermittent dry cough without any sputum. He was tachypneic with respiratory rate in the 20s. SpO2 is reading 94%. Blood pressure is normotensive. He is tachycardic. No obvious distress. Abdomen appears soft and non-tender. There is a PEG tube with tube feeding infusing at 10 ML's per hour. Patient reportedly still eats and drinks. He does have a history of dysphagia after his CVA. No obvious witnessed aspiration. Chest x- ray at our facility shows cardiomegaly with pulmonary vascular congestion, no significant focal consolidation or effusions noted. CBC on arrival shows leukocytosis with a WBC count of 20.8, hemoglobin 15.1, hematocrit 45.5, platelets 177. CMP shows sodium 137, potassium 3.8, chloride 108, serum bicarb 19, BUN 17, creatinine 0.97, glucose 163. Urinalysis not concerning for UTI. Troponin 0.057. NT proBNP 1360. Procalcitonin level elevated at 16.2. He is currently receiving empiric Zosyn. Negative for influenza, RSV, COVID-19, [place]. Not currently afebrile. IV fluids have been held related probable CHF exacerbation. Lactic acid levels down to 1.8. Patient will be monitored on the cardiac stepdown unit. On today's evaluation of 06/27/2023, the patient remains on empiric antibiotic coverage with IV Zosyn. The patient is afebrile. The patient doesn't any further episodes of fever. He is receiving enteral feeding for nutritional support. He is aphasic. No signs of any respiratory distress at this point in time. He remains on anticoagulation with Eliquis 5 mg by mouth twice a day. He is hemodynamically stable. The sodium levels of 141 with a potassium level of 3.1, BUN is 24 with a creatinine of 0.7, glucose of 145. Calcium level is at 9.1. Echocardiogram was performed yesterday and the patient was found to have systolic heart failure with an ejection fraction of 30%. Mild RV dilatation. There was global decrease in contractility. No evidence of any pericardial effusion. Urine culture is negative. Blood cultures negative for now. 06/28/2023, no new complaints. The patient is afebrile. Patient is able to swallow. Enteral feeding is currently on hold. The patient's white cell count of 9.7, hemoglobin 15.5, the rest of electrolytes are all within normal limits. BUN is at 70 with a creatinine of 0.8. Potassium levels at 3.7. The patient remains on IV Zosyn. He is a detention resident. Is on oxygen at 4 L with a pulse ox of 93%. Repeat chest x-ray shows some limited bibasilar opacities. There is cardiomegaly. No other acute abnormalities noted. Objective - Vital Signs Vital signs: Vital Signs Temp 98.7 F 06/28/23 08:21 Pulse 96 06/28/23 08:50 Resp 17 06/28/23 08:21 BP 137/96 06/28/23 08:21 Pulse Ox 93 L 06/28/23 08:36 FiO2 Intake & Output 06/27/23 06/28/23 06/28/23 18:59 06:59 18:59 Intake Total 120 118 Output Total 75 Balance 120 -75 118 Weight 117 kg 117 kg Intake: Oral 120 118 Output: Urine 75 Other: Voiding Method Indwelling Catheter Indwelling Catheter # Bowel Movements 1 - Exam GENERAL EXAM: Alert, 68-year-old white male, comfortable in no apparent distress. The patient is currently on 4 L of oxygen by nasal cannula. HEAD: Normocephalic and atraumatic EYES: Normal reaction of pupils, equal size. NOSE: Clear with pink turbinates. THROAT: No erythema or exudates. NECK: No masses, no JVD. CHEST: No chest wall deformity. Old midsternotomy incision LUNGS: Equal air entry with right basilar inspiratory crackles. No wheeze, rhonchi or dullness. On 4 L/m nasal cannula. No conversational dyspnea or accessory muscle use.. CVS: S1 and S2 normal with no audible murmur, regular rhythm. No extra heart sounds ABDOMEN: No hepatosplenomegaly, active bowel sounds, no guarding or rigidity. PEG tube site clean/dry SPINE: No scoliosis or deformity SKIN: No rashes CENTRAL NERVOUS SYSTEM: There is severe dysphasia/dysarthria. Right upper extremity is fairly flaccid, he can move his digits. Left upper extremity strength grade 4/5. Right lower extremity strength 3/5. Left lower extremity strength 4/5. No other focal deficits noted. EXTREMITIES: There is no peripheral edema, clubbing, or cyanosis. Peripheral pulses are intact. - Labs CBC & Chem 7: 06/28/23 07:24 06/28/23 07:24 Labs: Abnormal Lab Results - Last 24 Hours (Table) 06/27/23 06/27/23 06/27/23 Range/Units 08:06 11:42 16:23 Potassium 3.1 L (3.5-5.1) mmol/L Carbon Dioxide 20 L (22-30) mmol/L BUN 24 H (9-20) mg/dL Glucose 140 H (74-99) mg/dL POC Glucose (mg/dL) 145 H 137 H (70-110) mg/dL 06/27/23 06/28/23 Range/Units 23:50 06:04 Potassium (3.5-5.1) mmol/L Carbon Dioxide (22-30) mmol/L BUN (9-20) mg/dL Glucose (74-99) mg/dL POC Glucose (mg/dL) 144 H 124 H (70-110) mg/dL Microbiology - Last 24 Hours (Table) 06/25/23 06:15 Blood Culture - Preliminary Blood 06/25/23 06:12 Blood Culture - Preliminary Blood Assessment and Plan Assessment: Acute hypoxemic respiratory failure, currently on 4 L/m nasal cannula, secondary to exacerbation of systolic congestive heart failure, however, healthcare associated pneumonia is not ruled out. Chest x-ray on arrival showed cardiomegaly with mild pulmonary vascular congestion. No obvious focal consolidation or effusions appreciated. Negative for influenza, RSV, COVID-19. The patient remains on 4 L O2 nasal cannula. Patient remains on IV Zosyn. Pneumonia is possible and cannot be completely excluded. Acute febrile illness and sepsis, source is not clear. The patient is currently afebrile Leukocytosis, secondary to above Elevated troponins, probably related to supply/demand mismatch History of dysphagia status post PEG tube placement History of CVA with residual right-sided deficit and dysphasia/dysarthria History of coronary artery disease, status/post CABG History of severe ischemic cardiomyopathy with an ejection fraction of 20-25%, repeat echocardiogram shows ongoing impairment of LV function with an ejection fraction of 30% Possible history of atrial fibrillation, anticoagulated on Eliquis Hyperlipidemia Hypertension Chronic obstructive pulmonary disease, stable Former nicotine dependence Plan: Repeat chest x-ray from today was noted and shows some limited bibasilar opacities Repeat pro-calcitonin, pending Monitor fever pattern, currently afebrile Cultures are negative Monitor white cell count, improved PEG tube feeding for nutritional support is currently on hold and the patient is able to swallow Continue same medications, Jessica discharged back to the detention on a course of Augmentin We'll continue to follow the pro calcitonin level Possible home today
[2023-06-28 12:00] LABS: Glucose,Whole Blood 136 mg/dL (70-110)
[2023-06-28 13:10] VITALS: TEMP 98.1
--- NOTE | 2023-06-28 13:47 | P.DS ---
Providers Date of admission: 06/25/23 06:59 Expected date of discharge: 06/28/23 Attending physician: Navid Harry Consults: 06/25/23 11:46 Consult Physician Urgent Consulting Provider: Isaias Mart Consult Reason/Comments: pulmonary edema Do you want consulting provider notified?: Yes Primary care physician: [facility] Course: Chief Complaint: Difficulty breathing This is a 68-year-old patient who is a resident of extended stay was brought into the [facility] for difficulty breathing. At her baseline patient does not ambulate. Has a garbled speech and is concerned right-sided weakness. Lives at [facility]. Has a PEG 2 feeding with no oral feeding. Patient had become increasingly short of breath some altered mentation. Patient was sent to the ER. Patient himself really cannot communicate. This morning patient became more short of breath. A bit hypoxic. A team was called. Given bronchodilators and IV Lasix. Benoit better. Back in 2017 patient has a documented EF of 20-25%. Underwent coronary bypass. Patient heart rate today up to 120-160. Also low-grade temperature 100.4. June 26: Patient is getting 2 feeding. On 4 L this cannula. Getting bronchodilators IV Zosyn. Breathing better. More restful. 2-D echo showed EF of 30-35%. Aldactone 25 mg added. He received IV Lasix yesterday. June 27: Our speech therapist and Suzie spoke to thetherapist at the [facility]. Patient was advanced to a ground diet one day prior to being transferred here. PEG tube feeding was discontinued. Patient was started on ground diet today. Typically she tolerated well. PEG tube feeding is therefore being discontinued. Breathing better. Breathing appears more comfortable. On 6 L nasal cannula. June 28: Sitting up in bed. Doing much better. On 5 L nasal cannula. At baseline patient is on [address] Mart. [place] to [place]. Discussed with nurse. Tolerating diet. PEG tube not being used for feeding. Discussion and discharge planning more than 35 minutes Past medical history to include: Congestive heart failure, CHF EF of 5%, CAD with: Bypass 2017, COPD with chronic bronchitis, chronic kidney disease, sleep disorder, chronic dysarthria Social history: Patient condition resident of [facility] Physical examination: VITAL SIGNS: 98.1, 69, 17, 120/76, 91% on 5 L GENERAL: Propped up in bed, awake, comfortable EYES: Pupils equal. Conjunctiva normal. HEENT: External appearance of nose and ears normal, oral cavity grossly normal. NECK: JVD unable to assess masses not palpable. HEART: First and second heart sounds are normal; some edema. LUNGS: Respiratory rate increased decreased breath sound ABDOMEN: Soft, nontender, liver spleen not palpable, no masses palpable. PEG tube PSYCH: Unable to assessl. MUSCULOSKELETAL:No Clubbing/cyanosis;muscles-grossly intact. UA NEUROLOGY: Garbled speech INVESTIGATIONS, reviewed in the clinical context: June 28: White count 9.17 globin 13.5 potassium 3.7 creatinine 0.88 June 27: Potassium 3.1 BUN 24 creatinine 0.76 2-D echocardiogram: EF 30-35%. June 26: Potassium 3.4 creatinine 0.83 06/25/2023: White count 20.8 hemoglobin 15.1 platelets 177 increased neutrophils sodium 137 potassium 3.8 BUN 17 creatinine 0.97 lactic acid 2.2 Troponin I 0.057, proBNP 1360 procalcitonin 16.2 UA: Today for nitrite Influenza type A, B, Legionella antigen, RSV, COVID-19: Not detected EKG tracing personally reviewed by me-sinus tachycardia rate of 124, PVCs,) right bundle branch block, Chest x-ray film personally reviewed by me-possible infiltrate Assessment and plan: -Pneumonia suspect gram-negative organism, could also be aspiration.: Much better Zosyn. Discharge with Augmentin 875 for 4 days -Patient had altered mentation at the [facility] as reported by the staff. Acute metabolic encephalopathy and delirium from pneumonia: Improved -Acute on chronic congestive heart failure exacerbation from systolic dysfunction EF noted - 35 % from ischemic cardio myopathy.: Better IV Lasix discontinued. Aldactone 25 mg. Lasix 40 mg. Fluid restriction: 800 mL a day -Acute hypoxic respiratory failure secondary to CHF and pneumonia: Improved Currently on 5 L nasal cannula -Chronic hypoxic respiratory failure from COPD On 4 L at baseline -Acute COPD exacerbation and a prior smoker: Improved DuoNeb. , nebulized Pulmicort. -Obesity BMI 36.8 Weight loss measures -Chronic dysarthria, patient's baseline speech is garbled -Chronic dysphagia, has been tolerating ground diet. PEG tube not being used for feeding. Was seen by speech therapy. -Full code -Chronic medical debility, baseline non-ambulatory Disposition: [facility]. Plan - Discharge Summary Discharge Rx Participant: No New Discharge Prescriptions: New Amoxic-Pot Clav 875-125Mg [Augmentin 875-125] 1 tab PO Q12HR #8 tab Furosemide [Lasix] 40 mg PO DAILY tab Spironolactone [Aldactone] 25 mg PO DAILY tab Continue Aspirin 81 mg PEG/G-TUBE DAILY@0700 Ammonium Lactate Cream [Lac-Hydrin 12% Cream] 1 applic TOPICAL DAILY PRN PRN Reason: DRY FEET Ammonium Lactate Cream [Lac-Hydrin 12% Cream] 1 applic TOPICAL HS polyethylene glycoL 3350 [Miralax] 17 gm PEG/G-TUBE DAILY PRN PRN Reason: Constipation Albuterol Nebulized [Ventolin Nebulized] 2.5 mg INHALATION RT-Q4H PRN PRN Reason: Shortness Of Breath Acetaminophen Tab [Tylenol] 650 mg PEG/G-TUBE Q4H PRN MDD 3000MG PRN Reason: GENERAL DISCOMFORT Metoprolol Tartrate [Lopressor] 25 mg PEG/G-TUBE BID@0700,1900 Insulin Lispro [Admelog Solostar] See Protocol SQ ACHS Ticagrelor [Brilinta] 90 mg PEG/G-TUBE DAILY@0700 Folic Acid 1 mg PEG/G-TUBE DAILY@0700 Health Shake 1 can PEG/G-TUBE BID-W/MEALS Atorvastatin [Lipitor] 40 mg PEG/G-TUBE DAILY@1900 Magnesium Hydroxide [Milk of Magnesia] 2,400 mg PEG/G-TUBE Q48H PRN PRN Reason: Constipation Apixaban [Eliquis] 5 mg PEG/G-TUBE BID@0700,1900 Famotidine [Pepcid] 20 mg PEG/G-TUBE BID@0700,1900 Changed Ipratropium-Albuterol Nebulize [Duoneb 0.5 mg-3 mg/3 ml Soln] 3 ml INHALATION TID #0 Discontinued predniSONE [Deltasone] 40 mg PEG/G-TUBE DAILY@0700 Discharge Medication List Aspirin 81 mg PEG/G-TUBE DAILY@0700 11/05/17 [History] Atorvastatin [Lipitor] 40 mg PEG/G-TUBE DAILY@1900 08/22/23 [History] Acetaminophen Tab [Tylenol] 650 mg PEG/G-TUBE Q4H PRN MDD 3000MG 06/25/23 [History] Albuterol Nebulized [Ventolin Nebulized] 2.5 mg INHALATION RT-Q4H PRN 06/25/23 [History] Ammonium Lactate Cream [Lac-Hydrin 12% Cream] 1 applic TOPICAL DAILY PRN 06/25/23 [History] Ammonium Lactate Cream [Lac-Hydrin 12% Cream] 1 applic TOPICAL HS 06/25/23 [History] Apixaban [Eliquis] 5 mg PEG/G-TUBE BID@0700,1900 06/25/23 [History] Famotidine [Pepcid] 20 mg PEG/G-TUBE BID@0700,1900 06/25/23 [History] Folic Acid 1 mg PEG/G-TUBE DAILY@0700 06/25/23 [History] Health Shake 1 can PEG/G-TUBE BID-W/MEALS 06/25/23 [History] Insulin Lispro [Admelog Solostar] See Protocol SQ ACHS 06/25/23 [History] Magnesium Hydroxide [Milk of Magnesia] 2,400 mg PEG/G-TUBE Q48H PRN 06/25/23 [History] Metoprolol Tartrate [Lopressor] 25 mg PEG/G-TUBE BID@0700,1900 06/25/23 [History] Ticagrelor [Brilinta] 90 mg PEG/G-TUBE DAILY@0700 06/25/23 [History] polyethylene glycoL 3350 [Miralax] 17 gm PEG/G-TUBE DAILY PRN 06/25/23 [History] Amoxic-Pot Clav 875-125Mg [Augmentin 875-125] 1 tab PO Q12HR #8 tab 06/28/23 [Rx] Furosemide [Lasix] 40 mg PO DAILY tab 06/28/23 [Rx] Ipratropium-Albuterol Nebulize [Duoneb 0.5 mg-3 mg/3 ml Soln] 3 ml INHALATION TID #0 06/28/23 [Rx] Spironolactone [Aldactone] 25 mg PO DAILY tab 06/28/23 [Rx] Follow up Appointment(s)/Referral(s): Lee Gould MD [Primary Care Provider] - 1-2 days
[2023-06-28 15:45] VITALS: BP 107/68; PULSE 106
[2023-06-28 16:32] LABS: Glucose,Whole Blood 373 mg/dL (70-110)
[2023-06-28 16:35] LABS: Glucose,Whole Blood 104 mg/dL (70-110)
== END 2023-06-28 17:42 | DRG 871 ==
LOC: EC 05:11 → 3SCARD 06:59
PROVIDERS: ADMIT Hospitalist; ATTEND Hospitalist
PROC: 3E0F7SF Introduction of Other Gas into Respiratory Tract, Via Natural or Artificial Opening (ICD-10-PCS; principal; 2023-06-25)
DX: A41.9 Sepsis, unspecified organism (principal); G93.41 Metabolic encephalopathy; I50.23 Acute on chronic systolic (congestive) heart failure; J15.69 Pneumonia due to other Gram-negative bacteria; J96.01 Acute respiratory failure with hypoxia; J96.21 Acute and chronic respiratory failure with hypoxia; R65.21 Severe sepsis with septic shock; J69.0 Pneumonitis due to inhalation of food and vomit; I13.0 Hypertensive heart and chronic kidney disease with heart failure and stage 1 through stage 4 chronic kidney disease, or unspecified chronic kidney disease; I69.351 Hemiplegia and hemiparesis following cerebral infarction affecting right dominant side; J44.1 Chronic obstructive pulmonary disease with (acute) exacerbation; F05 Delirium due to known physiological condition; J44.0 Chronic obstructive pulmonary disease with (acute) lower respiratory infection; R47.01 Aphasia; Z20.822 Contact with and (suspected) exposure to COVID-19; E66.9 Obesity, unspecified; I25.5 Ischemic cardiomyopathy; I25.10 Atherosclerotic heart disease of native coronary artery without angina pectoris; E11.22 Type 2 diabetes mellitus with diabetic chronic kidney disease; R47.1 Dysarthria and anarthria; I25.2 Old myocardial infarction; E78.5 Hyperlipidemia, unspecified; I48.91 Unspecified atrial fibrillation; I49.3 Ventricular premature depolarization; I69.321 Dysphasia following cerebral infarction; I69.391 Dysphagia following cerebral infarction; K59.00 Constipation, unspecified; Y95 Nosocomial condition; Z68.36 Body mass index [BMI] 36.0-36.9, adult; Z79.01 Long term (current) use of anticoagulants; Z79.02 Long term (current) use of antithrombotics/antiplatelets; Z79.82 Long term (current) use of aspirin; Z79.899 Other long term (current) drug therapy; Z82.49 Family history of ischemic heart disease and other diseases of the circulatory system; Z93.1 Gastrostomy status; Z95.1 Presence of aortocoronary bypass graft; Z68.39 Body mass index [BMI] 39.0-39.9, adult; Z86.14 Personal history of Methicillin resistant Staphylococcus aureus infection
CPT/HCPCS: 36415; 71045; 80048; 80053; 81001; 83605; 83880; 84145; 84484; 85025; 85610; 85730; 86140; 87040; 87086; 87449; 87636; 93005; 93306; 94640; 96365; 96366; 96367; 96375; 99285